=== PATIENT | male | born 1950 | race Caucasian/White ===

== ENCOUNTER → 2016-11-29 | Day surgery (SDC) | payer OTHER ==
--- NOTE | 2016-11-26 17:41 | History and Physical ---
History & Physical Date Nov 26, 2016. Chief Complaint 66-year-old gentleman here for follow-up on progressive dyspnea/granulomas/ right mainstem stenosis: History of Present Illness The patient is a 66 year old male with complaints of progressive dyspnea/ granulomas/right mainstem stenosis: Start 66-year-old gentleman here for follow-up on diffuse pulmonary findings with progressive dyspnea: Patient notes he is having progressive dyspnea on exertion and at times having difficulty with supine position. He is not expressing weight loss, fever, chills or hemoptysis. His is present today and we reviewed his last 3 bronchoscopies, CT scans/PET scans as well as history of melanoma and squamous cell carcinoma. PET-CT scan performed 10/02/2016 Thoracic findings 1. Multiple bilateral consolidations with perihilar predominance and increased FT TG avidity maximum SUV of 8.0 on the right lower lobe. Dx: diagnosis of sarcoid: Multiple bronchoscopies with biopsies of performed no definitive diagnosis of sarcoid has been made. Biopsies have shown non- necrotizing granulomatous inflammation. 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 03/18/2016: Initial diagnosis via biopsy 2. 03/22/2016: Cancer stage via PET/CT a. No obvious regional yasmani metastases b. Increased FDG avidity noted to be most likely secondary to sarcoidosis c. T4 NO M0 3. 04/19/2016-05/31/2016 a. Chemotherapy: Celuximab, 4. 04/25/2016-06/11/2016 a. Radiation with concurrent chemotherapy b. 69.96 Gy to right neck c. Sixty-nine Gy to right parotid gland Past Pulmonary History: PFT: (04/03/16) (07/19/2016) FEV1/FVC: 62 81 FEV1: 1.39/58% 1.68/55% FVC: 2.22/58% 2.06/54% T.09/84% 4.26/70% VC: 2.22/58% 2.18/57% RV: 2.87/122% 2.08/89% DLCO: 49% none DLCO/VA: 121% Bronchoscopy: 08/01/2015 ? 80% narrowing above the irwin CT thorax (07/27/2015) Report Only (Compared to 03/06/2015) 1) Grossly stable diffuse lymphadenopathy,peribronchial and peritracheal thickening 2) Spiculated mass lesions bilaterally 3) New small left sided pleural effusion/jyothi-hepatic/jyothi-spleenic ascites 4) Monitor her narrowing of the irwin are trachea above the irwin 80 percent PET scan: 03/21/2016 head/neck Past Medical/Surgical History Medical Problems: (1) Adenomatous colon polyp (2) Aortic valve stenosis (3) ASCVD (arteriosclerotic cardiovascular disease) (4) Diabetes (5) Gout (6) Hepatitis C (7) History of kidney disease (8) Hypertension (9) Melanoma (10) Sleep apnea, obstructive (11) Vitamin D deficiency Surgical Problems: (1) History of bronchoscopy (2) History of colonoscopy with polypectomy (3) History of cystoscopy (4) History of heart valve repair (5) History of hernia repair (6) S/P tonsillectomy and adenoidectomy Additional History Hepatic Disease: No Endocrine Disorder: Yes Kidney Disease: No Hypertension: No Heart Disease: Yes Bleeding Tendencies: No Infectious Diseases: Yes Allergies Coded Allergies: No Known Allergies (Unverified , 08/01/15) Home Medications Scheduled Allopurinol (Zyloprim), 100 MG PO BID Aspirin (Aspirin Ec), 325 MG PO DAILY Benzonatate (Tessalon Perles), 100 MG PO BID Colchicine (Colchicine *), 0.6 MG PO PRN Diphenhydramine Hcl (Benadryl), 25 MG PO BID Fenofibrate (Tricor), 145 MG PO DAILY Insulin Aspart (Novolog Flexpen), 0 SC ACHS Insulin Glargine (Lantus), 50 SC BID Metoprolol Tartrate (Lopressor), 12.5 MG PO BID Rosuvastatin Calcium (Crestor), 20 MG PO HS Physical Examination Skin: warm/dry, no rash Eyes: normal inspection, EOMI, sclerae normal ENT: normal ENT inspection, pharynx normal Head: normocephalic, atraumatic Neck: supple, no adenopathy, trachea midline Respiratory/Chest: + pertinent finding (Minimal wheezing bilaterally) Cardiovascular: regular rate, rhythm, no edema, no murmur Abdomen / GI: normal bowel sounds, non tender Back: normal inspection Extremities: normal inspection, normal range of motion Neurologic/Psych: no motor/sensory deficits, alert, normal reflexes, oriented x 3 Diagnosis 66-year-old gentleman here for follow-up on progressive dyspnea/granulomas/ right mainstem stenosis: ASA Classification: ASA Class II Plan of Treatment Bronchoscopy, conscious sedation and bronchial lavage
[~2016-11-29] VITALS: Ht 172.7 cm; Wt 105.0 kg
[~2016-11-29] MED LIST: ALLO100T PO; AMOX1TAB42 PO; ASPI325T39 PO; ASPI81TA28 PO; BENZ100C6 PO; CALC667C4 PO; CLC6 PO; COLC0.6T54 PO; DIPH25TA24 PO; FENO145T26 PO; INSDGI SC; INSU1.2I SQ; IPRA1AER2 INH; LPR25 PO; NVLG SQ; NVLGIPEN SC; PHOSPHORUS BINDER PO; PRD20 PO; ROSU20TA PO; tujeo
[2016-11-29 08:39] VITALS: BP 163/62; PULSE 56; TEMP 36.7; O2SAT 92; Ht 172.7 cm; Wt 105.0 kg
--- NOTE | 2016-11-29 09:16 | History & Physical Bridge Note ---
H&P Re-Evaluation Bridge Note: I have examined the patient, reviewed the History & Physical and in the interval since the performance of the History & Physical I have noted the following changes of clinical significance: No changes noted
--- NOTE | 2016-11-29 09:17 | Procedure Note ---
Pre-Mod Sedation Assessment General Date of Moderate Sedation: Nov 29, 2016. Vital Signs: Vital Signs Past 12 Hours Date Time Temp Pulse Resp B/P Pulse Ox O2 Delivery O2 Flow Rate FiO2 11/29/16 08:39 36.7 56 18 163/62 92 Room Air Pre-Sedation Airway Assessment Oral Cavity: WNL Smoking Status: Former Smoker Mallampati Classification: Class I ASA Classification: Class II Procedure Planning Contraindications-for Mod Sed: None Yes Notes The planned sedation has been discussed with the patient and consent obtained. I have identified the patient, determined the appropriateness of sedation and have assessed the patient immediately prior to the procedure. All medicine(s) and interventions are by my order.
--- NOTE | 2016-11-29 11:00 | DIAGNOSTIC IMAGING REPORT ---
BILATERAL CHEST ULTRASOUND TO EVALUATE FOR PLEURAL EFFUSIONS CLINICAL HISTORY: Pleural effusions. COMPARISON STUDY: PET/CT October 02, 2016. FINDINGS: Sonography of the right hemithorax demonstrated a large right pleural effusion with estimated volume of 1810 cc. A suitable right rib interspace was marked for possible subsequent thoracentesis. Sonography of the left hemithorax demonstrated a moderate to large left pleural effusion with estimated volume of 709 cc. A suitable left rib interspace was marked for possible subsequent thoracentesis. IMPRESSION: 1. Large right pleural effusion. Suitable right rib interspace marked for possible thoracentesis. 2. Moderate to large left pleural effusion. Suitable left rib interspace marked for possible thoracentesis. Electronically signed by: Anson Chiang M.D. 11/29/2016 10:59 AM Dictated Date/Time: 11/29/2016 10:58 AM
[2016-11-29 12:48] VITALS: BP 115/47; PULSE 58; O2SAT 95
--- NOTE | 2016-11-29 12:53 | Procedure Note ---
Procedure Note Procedure: Right sided thoracentesis Procedure time out: Side/site verified, patient ID confirmed, sterile procedure used Consent obtained: Written and obtained per Dr. Ng Time of procedure: 12:30pm Performed by: Physician drive tester Indications: Diagnostic therapeutic Contraindications: None Description: Platelets and INR were checked on 11/20/16 and were acceptable to proceed with thoracentesis. Consent was obtained by Dr. Ng prior to the procedure. Risks were again reviewed with the patient agreed to proceed with the procedure. A bedside ultra sound was used to confirm adequate site and compared to previous ultra sound obtained in radiology. A timeout was performed The site was prepped with chlorhexidine and a sterile fenestrated drape was applied. Using sterile technique, a wheal was made using 1% lidocaine. When the patient was adequately anesthetized, a needle was advanced using negative pressure until a pleural flash was obtained. Lidocaine was then administered in the pleural space. A small incision was then made and using negative pressure, a needle with an overlying catheter was advanced until a a pleural flash was obtained. The catheter was then advanced over the needle to the hub without difficulty. A 60 mL syringe was used to collect pleural fluid to be sent to the lab for analysis. Approximately 1100 mL of fluid was collected. Blood pressure, pulse, and pulse oximetry was monitored throughout the entire procedure and remained stable. There was no blood loss. The patient tolerated the procedure well. A post procedure CXR was obtained and showed no evidence of pneumothorax. Pleural fluid was sent to the laboratory for analysis. Results were communicated to Dr. Ng.
--- NOTE | 2016-11-29 12:54 | OPERATIVE REPORT ---
DATE OF OPERATION: 11/29/2016 PROCEDURE: Fiberoptic bronchoscopy. SURGEON: Dr. Ng. INDICATIONS: Severe mediastinal and hilar lymphadenopathy with tracheal and right and left tracheobronchial narrowing in a patient with a history of sarcoidosis. PROCEDURE: The patient was evaluated in the medical treatment unit and transferred over to the radiology suite to undergo bronchoscopic evaluation. It became very clear at that point in time that the patient would not tolerate a bronchoscopic procedure utilizing conscious sedation. He became progressively more orthopneic and had to sit at 90 degrees in order to breathe better. I reviewed the CT/PET scan done on 10/02/2016 compared to previous films and it was quite amazing not only the degree of areas of bilateral consolidation with mediastinal and hilar adenopathy but the presence of bilateral pleural effusions, right greater than left with compressive atelectasis and the degree of narrowing in the distal trachea and right and left main stem bronchi, especially the right side. The decision was made to cancel the bronchoscopic procedure and evaluate patient via ultrasound to undergo thoracentesis. Ultrasound done immediately following the aborted procedure showed a large right pleural effusion estimated at 1800 mL and moderate to large left pleural effusion estimated at 700 mL. It was felt that the patient was in CHF with 3-4+ pitting edema as well and Butch Ledesma was to proceed with thoracentesis on the right side for both diagnostic purposes and therapeutic relief. Dr. Roper had seen Mr. Heredia one day prior to the procedure and had decided against mediastinoscopy and favored a right thoracic approach for both biopsy and lymph node resection and consideration of placing a Y stent at this point in time and improve patient's respiratory status. I attest to the content of the Intraoperative Record and any orders documented therein. Any exceptio ns are noted below.
[2016-11-29 13:06] VITALS: BP 131/45; PULSE 57; O2SAT 94
--- NOTE | 2016-11-29 13:18 | DIAGNOSTIC IMAGING REPORT ---
CHEST ONE VIEW PORTABLE CLINICAL HISTORY: Status post right thoracentesis. Cough. Shortness of breath. COMPARISON STUDY: CT October 02, 2016 and chest ultrasound performed earlier today. FINDINGS: There is no pneumothorax following right thoracentesis. There is a moderate left pleural effusion. Mild right infrahilar opacity likely reflects atelectasis. There is left basilar opacity. Median sternotomy wires are noted as well as a prosthetic aortic valve. There is no evidence of pulmonary edema. Bilateral hilar prominence is again noted. IMPRESSION: 1. No pneumothorax following right thoracentesis. No residual right pleural effusion identified. 2. Moderate left knee effusion. 3. Right infrahilar opacity which likely reflects atelectasis. Electronically signed by: Anson Chiang M.D. 11/29/2016 1:17 PM Dictated Date/Time: 11/29/2016 1:14 PM
[2016-11-29 13:25] VITALS: BP 154/58; PULSE 57; TEMP 36.8; O2SAT 95
--- NOTE | 2016-11-29 13:27 | Discharge Instructions ---
Discharge Instructions Admission Reason for Admission: Cough, Shortness Of Breath Discharge Discharge Diagnosis / Problem: Bilateral pleural effusions Discharge Goals Goal(s): Diagnostic testing, Therapeutic intervention Activity Recommendations Activity Limitations: resume your previous activity Driving or Machine Use: resume 1 day after discharge Weightbearing Status: Left weightbearing Resume normal activity tomorrow . Instructions / Follow-Up Instructions / Follow-Up Leave band aids on until noon tomorrow No shower or bathing until tomorrow afternoon No bathing for [address] Ng's office staff will call you with an appointment to see Dr. Roper [facility] Diet Patient's [facility] diet: Diabetes Type 2 Diet Discharge Diet Recommended Diet: AHA Diet (Heart Healthy), Diabetes Type 2 Diet Fluid Restriction: None Procedures Procedures Performed: Right sided thoracentesis Pending Studies Studies pending at discharge: no Medical Emergencies . Who to Call and When: Medical Emergencies: If at any time you feel your situation is an emergency, please call 911 immediately. You may call Dr. Ng's office at [phone] with any questions . Non-Emergent Contact Non-Emergency issues call your: Primary Care Provider Contact Number: [phone] Call Non-Emergent contact if: you have a fever, your pain is worsening, wound has increased drainage . . "Provider Documentation" section prepared by Butch Ledesma. VTE Core Measure Inpt VTE Proph given/why not?: Contraindicated (Invasive thoracentesis)
[2016-11-29 13:44] LABS: PLEURAL FLUID TOTAL PROTEIN 2.9 g/dl
[2016-11-29 13:51] LABS: PLEURAL FLUID APPEARANCE CLOUDY; PLEURAL FLUID COLOR AMBER; PLEURAL FLUID MONONUC RELAT 97.8 %; PLEURAL FLUID POLYNUC 2.2 %; PLEURAL FLUID SOURCE RIGHT LUNG; PLEURAL FLUID WBC (A) 1605 /uL
== END | disposition home or self-care (01) ==
LOC: C.ACU 07:22
PROVIDERS: ATTEND Internal Medicine Pulmonary Disease
DX: J90 Pleural effusion, not elsewhere classified (principal); R06.00 Dyspnea, unspecified; I50.9 Heart failure, unspecified; R59.0 Localized enlarged lymph nodes; J98.11 Atelectasis; I10 Essential (primary) hypertension; Z79.899 Other long term (current) drug therapy; E11.9 Type 2 diabetes mellitus without complications; Z79.4 Long term (current) use of insulin

== ENCOUNTER → 2016-12-03 | Outpatient (CLI) | payer OTHER ==
[~2016-12-03] MED LIST changes: -ASPI325T39 PO; -BENZ100C6 PO; -DIPH25TA24 PO; -FENO145T26 PO; -INSDGI SC
--- NOTE | 2016-12-03 10:41 | DIAGNOSTIC IMAGING REPORT ---
CHEST 2 VIEWS ROUTINE CLINICAL HISTORY: D86.9 [id number] Lung [id number] Pleural [id number] COMPARISON STUDY: 11/29/2016 FINDINGS: Interval development of trace amount pleural fluid right base. Several calcific granulomas right mid and lower lung are stable. Unchanging loculated fluid versus pleural thickening left base. Subtle improvement in aeration medial left base. No pneumothorax. Improved right infrahilar infiltrative change. IMPRESSION: Moderately improved exam with improved aeration medial left base and right infrahilar region. Trace pleural fluid right lateral costophrenic angle. Unchanging loculated effusion versus pleural thickening left base laterally Electronically signed by: Karl Corrales M.D. 12/03/2016 10:40 AM Dictated Date/Time: 12/03/2016 10:38 AM
== END | disposition home or self-care (01) ==
LOC: C.RAD1850 10:24
PROVIDERS: ATTEND Surgery
DX: D86.9 Sarcoidosis, unspecified (principal); R91.8 Other nonspecific abnormal finding of lung field; J90 Pleural effusion, not elsewhere classified

== ENCOUNTER 2016-12-08 22:06 | Emergency (ER) | payer OTHER ==
[~2016-12-08] VITALS: Ht 172.7 cm; Wt 109.4 kg
[~2016-12-08 22:06] MED LIST changes: -AMOX1TAB42 PO; -CALC667C4 PO; -COLC0.6T54 PO; -INSU1.2I SQ; -IPRA1AER2 INH; -NVLG SQ; -PHOSPHORUS BINDER PO; -PRD20 PO
[2016-12-08 22:07] VITALS: TEMP 36.6; Ht 172.7 cm; Wt 109.4 kg
[2016-12-08] MEDS ORDERED: OXYMETAZOLINE HCL 0.05% NA SPR 15 ML BTL ONE (22:13)
[2016-12-08] MEDS ORDERED: LIDO/EPINEPHRINE/SOD BICARB 20 ML VIAL INFIL ONE (22:54)
[2016-12-08] MEDS ORDERED: XYLOCAINE 1%/SOD BICARB 20 ML VIAL INFIL ONE (22:54)
[2016-12-08] MEDS ORDERED: SILVER NITR/POTASSIUM NITRATE 10 APPLICATOR PACK ONE (23:04)
[2016-12-08] MEDS ORDERED: COLC0.6T54 PO (23:38)
[2016-12-08] MEDS ORDERED: INSU1.2I SQ ×2 (23:44)
[2016-12-09 00:09] VITALS: BP 146/65; PULSE 72; O2SAT 98
--- NOTE | 2016-12-09 02:28 | EMERGENCY ROOM VISIT NOTE ---
History Report prepared by Carlos: Hailey Theodore Under the Supervision of: Dr. Ron Calderon M.D. First contact with patient: 22:36 Chief Complaint: NOSE BLEED (MINOR) Stated Complaint: NOSEBLEED History of Present Illness The patient is a 66 year old male who presents to the Emergency Room with complaints of persistent nosebleed starting 6 hours ago. The bleeding had initially started on the left side. The patient has a history of nosebleeds but reports his current symptoms to be more severe than normal. He denies any other areas of bleeding and bruising. He also complains of nausea and a loss of appetite. His last peritoneal dialysis treatment was yesterday. He is not on any blood thinners. The patient has a history of squamous cell carcinoma. Pt denies LOC, headache, fevers, chills, diaphoresis, visual changes, recent sinus drainage, neck pain, chest pain, breathing difficulties, vomiting, abdominal pain, back pain, melena, hematochezia, urinary symptoms, numbness, weakness, lymphadenopathy, rash, or other complaints. Source of History: patient Onset: 6 hours ago Position: nose Quality: other (nosebleed) Timing: other (persistent) Associated Symptoms: + nausea Review of Systems See HPI for pertinent positives and negatives. A total of ten systems were reviewed and were otherwise negative. Past Medical & Surgical Medical Problems: (1) Adenomatous colon polyp (2) Aortic valve stenosis (3) ASCVD (arteriosclerotic cardiovascular disease) (4) Diabetes (5) Gout (6) Hepatitis C (7) History of kidney disease (8) Hypertension (9) Melanoma (10) Sleep apnea, obstructive (11) Vitamin D deficiency Surgical Problems: (1) History of bronchoscopy (2) History of colonoscopy with polypectomy (3) History of cystoscopy (4) History of heart valve repair (5) History of hernia repair (6) S/P tonsillectomy and adenoidectomy Family History Diabetes mellitus Heart disease Hypertension Social History Smoking Status: Never Smoker Alcohol Use: none Drug Use: none Marital Status: Housing Status: lives with family Occupation Status: retired Current/Historical Medications Scheduled Allopurinol (Zyloprim), 100 MG PO BID Aspirin (Aspirin Ec), 81 MG PO DAILY Insulin Aspart (Novolog Flexpen), 0 SC ACHS Insulin Glargine (Toujeo Solostar), 26 UNITS SQ QAM Insulin Glargine (Toujeo Solostar), 30 UNITS SQ QPM Metoprolol Tartrate (Lopressor), 12.5 MG PO BID Rosuvastatin Calcium (Crestor), 40 MG PO HS Scheduled PRN Colchicine (Colchicine), 0.6 MG PO DAILY PRN for flare Allergies Coded Allergies: No Known Allergies (Unverified , 12/08/16) Physical Exam Vital Signs Date Time Temp Pulse Resp B/P Pulse Ox O2 Delivery O2 Flow Rate FiO2 12/09/16 00:09 72 20 146/65 98 Room Air 12/09/16 00:03 72 20 173/70 98 Room Air 12/08/16 22:07 36.6 63 20 145/73 95 Room Air Physical Exam GENERAL: Awake, alert, well-appearing, in no distress HENT: Normocephalic, atraumatic. Oropharynx unremarkable. Linear abrasion-like krzysztof to the left septum, with some slow bleeding present. EYES: Normal conjunctiva. Sclera non-icteric. NECK: Supple. No nuchal rigidity. FROM. No JVD. RESPIRATORY: Clear to auscultation. CARDIAC: Regular rate, normal rhythm. Extremities warm and well perfused. ABDOMEN: Soft, non-distended. No tenderness to palpation. No rebound or guarding. No masses. MUSCULOSKELETAL: Atraumatic NEURO: Normal sensorium. No sensory or motor deficits noted. SKIN: No rash or jaundice noted. Medical Decision & Procedures Medications Administered Medications (Trade) Dose Ordered Sig/Romulo Route Start Time Stop Time Status Last Admin Dose Admin Oxymetazoline HCl (Afrin 0.05% Nasal Ehrhardt) 75 sprays STK-MED ONCE .ROUTE 12/08/16 22:13 12/08/16 22:14 DC 12/08/16 22:19 75 SPRAYS Procedure Anterior Nasal Cautery Indication: Nosebleed Verbal consent obtained. Risks and benefits were explained with the usual customary discussion. A time out was taken. Clots were removed with suction. Atomized 1 ml 1% buffered lidocaine. Afrin and silver nitrate was applied. Fibrillar was placed. The patient tolerated this well. Hemostasis was achieved. No complications. ED Course 2235: The patient was evaluated in room A11B. A complete history and physical exam was performed. 2254: Clots were removed. Atomized lidocaine and Afrin was applied. 2308: Silver Nitrate was applied. 2309: Fibrillar was placed. 0025: I reevaluated the patient who is no longer bleeding. Discussed results and discharge instructions: He verbalized understanding and agreement. The patient is ready for discharge. Medical Decision Prior records/ancillary studies reviewed. Triage Nursing notes reviewed and agree them. Additional history obtained from his . The patient's history was concerning for epistaxis. Differential diagnosis: Etiologies such as spontaneous bleed, coagulopathy, traumatic injury, fracture, septal hematoma, posterior epistaxis as well as other pathologies were entertained. Physical examination findings: As above. Anterior bleeding source. ER treatment provided: Direct pressure and then nasal suctioning. Intranasal Afrin Silver nitrate cautery On reassessment the patient felt better. No additional bleeding. Diagnostics interpreted by me: None ordered The patient has anterior epistaxis that was treated with cautery. His left naris is significant a smaller than the right. Additional packing, fibular, or other measures to prevent rebleeding would be difficult. I discussed conservative management with the patient. He'll use a humidifier, saline mist, and follow-up with ENT. He felt comfortable with conservative management if he worsens in any way she will come back to the Emergency Room for reevaluation. By the evaluation outlined above emergent etiologies such as coagulopathy, traumatic injury, fracture, septal hematoma, posterior epistaxis, as well as others were deemed relatively unlikely. The patient and were informed about the findings as listed above. All questions were answered and they were pleased with the treatment. Return instructions were outlined and the patient was discharged in stable condition. Outpatient prescription management: None Referral: The patient was referred to ENT The chart was completed utilizing [employer] Speech voice recognition software. Grammatical errors, random word insertions, pronoun errors, and incomplete sentences are an occasional consequence of this system due to software limitations, ambient noise, and hardware issues. Any formal questions or concerns about the content, text, or information contained within the body of this dictation should be directly addressed to the physician for clarification. Impression Primary Impression: Anterior epistaxis Scribe Attestation The scribe's documentation has been prepared under my direction and personally reviewed by me in its entirety. I confirm that the note above accurately reflects all work, treatment, procedures, and medical decision making performed by me. Departure Information Dispostion Home / Self-Care Referrals Rut, Ron E.,III,M.D. (PCP) Los Zhao MD Forms HOME CARE DOCUMENTATION FORM, IMPORTANT VISIT INFORMATION, WORK / SCHOOL INSTRUCTIONS Patient Instructions My [facility] Additional Instructions EPISTAXIS (NOSE BLEED) INSTRUCTIONS: Avoid scratching, rubbing, picking, or blowing your nose. The veneer drier feeder your nasal passages the more likely they are to bleed. The following two products are available [id number] at most drug stores/pharmacies. [place] Ehrhardt nasal spray or similar generic saline spray to keep the nose moist 3 to 4 times a day. Apply Greenup gel 2-3 times daily to the nostrils to keep them moist. If bleeding recurs apply 2 sprays of Afrin and direct pressure for an uninterrupted 20 minutes with the nasal clip. On and off pressure is much less effective because it will disturb the clots that are forming. If the bleeding is still a problem after 20 minutes or is so heavy despite the pressure return to the emergency department. Continue current medications. Follow-up with ENT. The number is listed below under Dr. Graham. Call the office tomorrow Follow-up with your primary care physician in 2 to 3 days for a recheck of your current condition.
[2016-12-30] MEDS ORDERED: PRD20 PO (09:52)
[2016-12-30] MEDS ORDERED: LPR25 PO (09:52)
[2017-01-16] MEDS ORDERED: AMOX1TAB42 PO (11:30)
== END 2016-12-09 00:39 | disposition home or self-care (01) ==
LOC: C.EDB 22:06 → C.EDA 12-09 00:39
DX: R04.0 Epistaxis (principal); E11.9 Type 2 diabetes mellitus without complications; I25.10 Atherosclerotic heart disease of native coronary artery without angina pectoris; B19.20 Unspecified viral hepatitis C without hepatic coma; N28.9 Disorder of kidney and ureter, unspecified; Z99.2 Dependence on renal dialysis; Z85.820 Personal history of malignant melanoma of skin; G47.30 Sleep apnea, unspecified; E55.9 Vitamin D deficiency, unspecified; Z79.82 Long term (current) use of aspirin; Z79.4 Long term (current) use of insulin; Z79.899 Other long term (current) drug therapy

== ENCOUNTER 2016-12-17 16:01 | Inpatient (IN) | payer OTHER ==
[~2016-12-17] VITALS: Ht 170.2 cm; Wt 98.1 kg
[2016-12-17] VITALS (7 sets, daily range): BP systolic 113–143; BP diastolic 52–87; PULSE 45–65; TEMP 36.8–37.2; O2SAT 90–97; Ht 170.2 cm; Wt 98.1 kg
[~2016-12-17 16:01] MED LIST changes: -AMOX1TAB42 PO; -CALC667C4 PO; -IPRA1AER2 INH; -NVLG SQ; -PHOSPHORUS BINDER PO; -PRD20 PO
[2016-12-17] MEDS ORDERED: POLYETHYLENE (MIRALAX) 17 GM PACK PO PRN (18:30)
[2016-12-17] MEDS ORDERED: MAGNESIUM HYDROXIDE SUSP 30 ML UDC PO PRN (18:30)
[2016-12-17] MEDS ORDERED: ACETAMINOPHEN 325 MG TAB PO PRN (18:30)
[2016-12-17] MEDS ORDERED: ALUMINUM/MAGNESIUM/SIMETH (MAALOX MAX) 30 ML UDC PO PRN (18:30)
[2016-12-17] MEDS ORDERED: ONDANSETRON INJ 2 MG/ML 2 ML VIAL IV PRN (18:30)
[2016-12-17] MEDS ORDERED: GLUCOSE 40% GEL 15 GM TUBE PO PRN (18:45)
[2016-12-17] MEDS ORDERED: DEXTROSE 50% 50 ML SYR IV PRN (18:45)
[2016-12-17] MEDS ORDERED: GLUCAGON FOR INJ 1 MG VIAL SQ PRN (18:45)
[2016-12-17] MEDS ORDERED: GLUCOSE 10 TABS/TUBE PO PRN (18:45)
[2016-12-17] MEDS ORDERED: PHARMACY GLYCEMIC MGMT CONSULT SCH (18:57)
--- NOTE | 2016-12-17 19:00 | History and Physical ---
History & Physical Date & Time of Service: Dec 17, 2016 at 18:39 Chief Complaint: Hypoxia Primary Care Physician: Ron Bettencourt III, M.D. 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 of aortic valve replacement, mainstem bronchus stenosis, HTN, HLD was sent over by pulmonology, Dr. Vanessa's office. He has been in and out of the hospital due to worsening shortness of breath, progressive dyspnea - has a long standing history of granulomatous disease of the lung; found to have hilar adenopathy, mainstem bronchus stenosis, and large pleural effusions. He was seen here by Butch Ledesma and had a thoracentesis - states he felt better after the fluid was removed, but progressively worsened. Had a CT and PET scan done on 12/11/16 which showed bilateral hilar and mediastinal adenopathy with scattered pulmonary nodules as well as infra diaphragmatic lymphadenopathy. Also showed stable large bilateral pleural effusions with partial compressive atelectasis of the lungs. I saw him today in room 103; he has dyspnea and cannot complete sentences; cannot take deep breath in - he states he feels okay when seated up and with oxygen on. Past Medical/Surgical History Medical Problems: (1) Adenomatous colon polyp Status: Chronic (2) Aortic valve stenosis Permanent Comment: s/p AVR Status: Chronic (3) ASCVD (arteriosclerotic cardiovascular disease) Status: Chronic (4) Diabetes Status: Chronic (5) Gout Status: Chronic (6) Hepatitis C Permanent Comment: s/p treatment > 30 years ago Status: Chronic (7) History of kidney disease Status: Chronic (8) Hypertension Status: Chronic (9) Melanoma Permanent Comment: neck - s/p removal Status: Resolved (10) Sleep apnea, obstructive Status: Chronic (11) Vitamin D deficiency Status: Chronic Surgical Problems: (1) History of bronchoscopy Status: Resolved (2) History of colonoscopy with polypectomy Status: Chronic (3) History of cystoscopy Status: Resolved (4) History of heart valve repair Permanent Comment: aortic valve replacement by Dr. Linus Hines - [facility] – [place] in 2008 Status: Chronic (5) History of hernia repair Permanent Comment: right inguinal - age 6 Status: Chronic (6) S/P tonsillectomy and adenoidectomy Status: Chronic Family History Diabetes mellitus Heart disease Hypertension Social History Smoking Status: Never Smoker Drug Use: none Marital Status: Housing status: lives with family Occupational Status: retired Multi-Drug Resistant Organisms History of MDRO: Yes Type of MDRO: MRSA Allergies Coded Allergies: No Known Allergies (Unverified , 12/08/16) Home Medications Scheduled Allopurinol (Zyloprim), 100 MG PO BID Aspirin (Aspirin Ec), 81 MG PO DAILY Insulin Aspart (Novolog Flexpen), 0 SC ACHS Insulin Glargine (Toujeo Solostar), 26 UNITS SQ QAM Insulin Glargine (Toujeo Solostar), 30 UNITS SQ QPM Metoprolol Tartrate (Lopressor), 12.5 MG PO BID Rosuvastatin Calcium (Crestor), 40 MG PO HS Scheduled PRN Colchicine (Colchicine), 0.6 MG PO DAILY PRN for flare Review of Systems Constitutional: No chills, No fatigue, No fever, No sweats, No weakness, No weight loss Respiratory: + dyspnea at rest, + dyspnea on exertion, + shortness of breath, + wheezing, No cough, No hemoptysis, No sputum Cardiovascular: + edema, + orthopnea, No chest pain, No palpitations Abdomen: No constipation, No diarrhea, No nausea, No pain, No vomiting Musculoskeletal: No joint pain Genitourinary - Male: No dysuria, No hematuria, No urinary frequency, No urinary urgency Psychiatric: No depression symptoms Endocrine: No excessive thirst, No fatigue Allergic / Immunologic: No environmental allergies, No seasonal allergies Physical Exam Vital Signs Date Time Temp Pulse Resp B/P Pulse Ox O2 Delivery O2 Flow Rate FiO2 12/17/16 17:30 37.2 65 22 113/87 Nasal Cannula 2.0 General Appearance: + moderate distress (respiratory distress) Head: normocephalic, atraumatic Eyes: normal inspection ENT: hearing grossly normal Neck: supple Respiratory/Chest: + respiratory distress, + decreased breath sounds, + accessory muscle use, + wheezing Cardiovascular: regular rate, rhythm, no murmur Abdomen/GI: normal bowel sounds, non tender, soft, + hernia Extremities/Musculoskelatal: + pertinent finding (+2 pitting edema b/l LE) Neurologic/Psych: no motor/sensory deficits, alert, normal mood/affect Skin: normal color Lymphatic: no adenopathy Diagnostics Laboratory Results Results Past 24 Hours Test 12/17/16 17:52 12/17/16 18:29 Range/Units Bedside Glucose 82 70-99 mg/dl Microbiology Results 12/17/16 MRSA DNA Surveillance Screen, Received Pending Impression Assessment and Plan This is a 66 year old male with PMH of ESRD on peritoneal dialysis, granulomatous lung disease/sarcoidosis, 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 of aortic valve replacement, mainstem bronchus stenosis, HTN, HLD Acute Respiratory Failure secondary to Large Bilateral Pleural Effusions patient had a PET scan on 12/11 showing large pleural effusions he has ESRD and does peritoneal dialysis daily has had thoracentesis two weeks prior with good results plan for the patient is to give oxygen as needed nebulizers around the clock and as needed dialysis with fluid removal, check CXR today and after dialysis may need to convert to HD consulted nephrology and pulmonology as per pulm - we will hold off on steroid use until after fluid removed Granulomatous Lung Disease/Sarcoidosis Hilar/Mediastinal and Diaphragmatic Lymphadenopathy chronic issues related to this lung disorder bronchoscopy attempted in the past, but as per records, failed? due to patient's condition, this may be difficult for now, nebulizers and O2 PRN hold off on steroids pulmonology consulted for further input ESRD on PD peritoneal dialysis nightly fluid overload likely present; +edema, +pleural effusions will consult nephro check electrolytes Insulin Dependent DM2 will check Ha1c in AM consult pharmacy started 10 units Lantus BID (uses Toujeo at home) sliding scale added DVT ppx subq heparin DNR as per conversation with patient Advanced Directives Existing Living Will: Yes Existing Power of Stonework Tracer: Yes VTE Prophylaxis VTE Risk Assessment Done? Y/N: Yes Risk Level: Moderate
[2016-12-17 20:22] LABS: INR 1.1 (0.9-1.1)
[2016-12-17 20:51] LABS: CALCIUM 8.1 mg/dl (8.5-10.1); CREATININE 6.4 mg/dl (0.60-1.40); MAGNESIUM 1.7 mg/dl (1.8-2.4); POTASSIUM 5.3 mmol/L (3.5-5.1)
[2016-12-17] MEDS ORDERED: INSULIN GLARGINE SOLOSTAR 100 UNITS/ML 3 ML PEN SC SCH (21:00)
[2016-12-17] MEDS: HEPARIN SOD 5000 UNIT/0.5 ML CARP SQ SCH (21:00)
[2016-12-17 21:07] LABS: BASO % 0.5 %; BASO ABS # 0.03 K/uL (0-0.2); COMPLETE YES; EOS % 1.4 %; HEMATOCRIT 32.9 % (42-52); IG% 0.2 %; LYMPH % 13.1 %; LYMPH ABS # 0.76 K/uL (1.2-3.4); MEAN CORPUSCULAR HEMOGLOBIN 29.9 pg (25-34); MEAN PLATELET VOLUME 9.6 fL (7.4-10.4); MONO % 6.2 %; NEUT % 78.6 %; PLATELET COUNT 87 K/uL (130-400); PLT ESTIMATE DECREASED; RED BLOOD COUNT 3.74 M/uL (4.7-6.1); WHITE BLOOD COUNT 5.79 K/uL (4.8-10.8)
[2016-12-17] MEDS: ALBUT/IPRATROP 3MG/0.5MG NEB 3 ML VIAL INH SCH (21:40)
--- NOTE | 2016-12-17 22:01 | DIAGNOSTIC IMAGING REPORT ---
CHEST ONE VIEW PORTABLE CLINICAL HISTORY: Respiratory failure. Sarcoidosis. COMPARISON STUDY: PET/CT December 11, 2016 and chest radiograph December 17, 2016 at 11:33 AM FINDINGS: Note is made of median sternotomy wires and a prosthetic aortic valve. Cardiomegaly is unchanged. There is no pneumothorax. Moderate left and small right pleural effusions persist. Reticulonodular interstitial thickening is unchanged. IMPRESSION: 1. Persistent moderate left and small right pleural effusions. 2. No significant change in reticulonodular interstitial thickening, likely chronic. No radiographic evidence for overt pulmonary edema. Electronically signed by: Anson Chiang M.D. 12/17/2016 10:00 PM Dictated Date/Time: 12/17/2016 9:56 PM
[2016-12-17] MEDS: INSULIN ASPART 100 UNITS/ML 3 ML PEN SC SCH (22:20)
[2016-12-17] MEDS: ROSUVASTATIN CALCIUM 20 MG TAB PO SCH (22:21)
[2016-12-17] MEDS: METOPROLOL TARTRATE 25 MG TAB PO SCH (22:21)
[2016-12-18] VITALS (13 sets, daily range): BP systolic 137–181; BP diastolic 57–93; PULSE 45–80; TEMP 36.7–37.1; O2SAT 94–99
[2016-12-18] MEDS ORDERED: INSULIN ASPART 100 UNITS/ML 3 ML PEN SC SCH (02:00)
[2016-12-18 06:59] LABS: MEAN CELL VOLUME 88.5 fL (80-100); MEAN CORPUSCULAR HGB CONC 33.9 g/dl (32-36); RED BLOOD COUNT 3.73 M/uL (4.7-6.1); WHITE BLOOD COUNT 4.32 K/uL (4.8-10.8)
[2016-12-18 07:14] LABS: MEAN PLATELET VOLUME 10.4 fL (7.4-10.4); PLATELET COUNT 97 K/uL (130-400)
[2016-12-18] MEDS: ALBUT/IPRATROP 3MG/0.5MG NEB 3 ML VIAL INH SCH ×4 (07:16→19:13)
[2016-12-18 07:37] LABS: BUN/CREATININE RATIO 8.1 (10-20); CALCIUM 8.4 mg/dl (8.5-10.1); CREATININE 6.6 mg/dl (0.60-1.40); MAGNESIUM 1.9 mg/dl (1.8-2.4)
[2016-12-18 08:38] LABS: HEPATITIS B AB POS
[2016-12-18 09:03] LABS: ESTIMATED AVERAGE GLUCOSE 117 mg/dl; HA1C FLAG Normal (Normal)
[2016-12-18] MEDS: HEPARIN SOD 5000 UNIT/0.5 ML CARP SQ SCH ×2 (09:56→21:00)
--- NOTE | 2016-12-18 09:59 | NEPHROLOGY CONSULTATION ---
DATE OF CONSULTATION: 12/18/2016 DATE OF CONSULTATION: 12/18/2016. ATTENDING OF RECORD: Dr. Stearns. REASON FOR CONSULTATION: Peritoneal dialysis. HISTORY OF PRESENT ILLNESS: This is a 66-year-old male with significant history of end-stage renal disease on peritoneal dialysis who was using reds, but ran out and has been using all greens, has been trying to restrict his fluids more. The patient has had a decreased appetite for about a week and started having nonproductive cough over the weekend with worsening shortness of breath. Came to see pulmonary who directly admitted the patient secondary to hypoxia and volume overload. The patient does have an underlying pulmonary disease which is presumed granulomatous lung disease/sarcoidosis which has been slowly progressively worsening. The patient also is diabetic with a history of aortic valve replacement as well. The patient did have a significant melanoma of the neck requiring surgery and radiation and recently got a PET scan last week and has been following with physicians in [place] for this. The PET scan done on 12/11/2016 showed bilateral hilar and mediastinal adenopathy with scattered pulmonary nodules as well as infradiaphragmatic lymphadenopathy as well as stable large bilateral pleural effusions with partial compressive atelectasis of the lungs. The chest x-ray done on the showed persistent moderate left and small right pleural effusions. No significant change in the reticulonodular interstitial thickening, likely chronic. No radiographic evidence for pulmonary edema. Plan was to consult pulmonary critical care for possible thoracentesis. The patient was given peritoneal dialysis last night using all reds to maximize fluid removal. Does have significant swelling in his legs. PAST MEDICAL HISTORY: End-stage renal disease, anemia of renal failure. No longer using Procrit with significant history of melanoma which was invasive requiring radiation treatments, diabetes, gout, aortic stenosis status post aortic valve replacement, progressive granulomatous lung disease/sarcoidosis involving the main stem bronchus, which is narrowing, sleep apnea, hypertension, history of hepatitis C treated over 30 years ago. PAST SURGICAL HISTORY: Aortic valve replacement in 2008, tonsillectomy, PD catheter placement, surgery of the melanoma involving the right ear. FAMILY HISTORY: Significant for diabetes. SOCIAL HISTORY: No smoking. No drugs. No alcohol. He is and lives at home with . CURRENT MEDICATIONS: Aspirin 81 mg a day, Lantus subQ q. 12, heparin 5,000 units subQ q. 12, Lopressor 12.5 mg p.o. b.i.d., Crestor 40 mg at night. REVIEW OF SYSTEMS: Positive cough. Positive shortness of breath. Positive fatigue. Positive leg swelling. No chest pain, no nausea, vomiting, no diarrhea or constipation, no headaches, no blurry vision, no dysphagia. No itching or rash. Positive decreased appetite. All other review of systems otherwise negative. PHYSICAL EXAMINATION: VITAL SIGNS: Temperature 36.9, pulse 71, respiratory rate 14, blood pressure 137/66, satting 96% on 2 liters. GENERAL: Awake, alert, oriented x3. EYES: No scleral icterus. EARS, NOSE, THROAT: Moist mucous membranes with resolving scarring of his right ear much improved. NECK: Supple. PULMONARY: Decreased breath sounds at the bases. No significant wheezing noted. CARDIAC: Regular rate and rhythm. ABDOMEN: Bowel sounds positive, soft, nontender, positive PD catheter in place. EXTREMITIES: +2 pitting edema. NEUROLOGICALLY: Nonfocal. DERMATOLOGY: No rash or ulcers noted. LABORATORIES: Sodium level is 139, potassium is 5, chloride is 102, bicarb is 28, BUN is 54, creatinine 6.6, glucose 185, calcium is 8.4, mag 1.9. White count 4.3, H\T\H 11.2 and 33, platelet count is 97. INR is 1.1. IMPRESSION AND PLAN: 1. End stage renal disease/peritoneal dialysis. Will continue the cycler overnight using all reds and leave dry during the day. The patient is adamant that he does not want hemodialysis. I have spoken to him in the past about volume overload issues and restricting his fluids better to try to help take off the fluid. The patient ran out of reds, but actually ordered more and feel that as we control the swelling in his legs hopefully PD will be able to be continued. 2. Pulmonary: The patient with worsening hypoxia with lymphadenopathy, main stem bronchus narrowing, pleural effusions. Pulmonary has been consulted for management as well as for consideration of possible thoracentesis of the chronic pleural effusions. Was unable to be stented with the right main stem bronchus in the past. I believe patient was tried on chronic steroids in the past and pulmonary is questioning whether to do another trial of steroids or not. For now, will try to maximize fluid removal through PD to help volume overload issues and hypoxia; however, unclear if this is purely fluid overload or multifactorial. 3. Anemia of renal failure. Unable to give Procrit with his recent melanoma, is transfusion dependent. Hemoglobin levels are stable at this time. Appreciate consultation.
[2016-12-18] MEDS: INSULIN ASPART 100 UNITS/ML 3 ML PEN SC SCH ×4 (10:01→21:00)
[2016-12-18] MEDS: ASPIRIN 81 MG ECTAB PO SCH (10:02)
[2016-12-18] MEDS: METOPROLOL TARTRATE 25 MG TAB PO SCH ×2 (10:02→20:57)
--- NOTE | 2016-12-18 10:49 | Pharmacy Progress Note ---
Glycemic Control Intl Consult Date of Service Dec 18, 2016. Scope Glycemic Pharmacist consulted by Dr Stearns on 12/17/16 for glycemic control and to write orders per [facility] inpatient glycemic control protocol Objective Weight (Kilograms): 105.000 Accuchecks BSG (last 24hrs): Test 12/17/16 17:52 12/17/16 19:54 12/17/16 22:18 12/18/16 02:20 Bedside Glucose 82 mg/dl (70-99) 118 mg/dl (70-99) 188 mg/dl (70-99) Random Glucose 107 mg/dl (70-99) Test 12/18/16 06:20 12/18/16 06:21 Random Glucose 185 mg/dl (70-99) Bedside Glucose 184 mg/dl (70-99) Laboratory Data (last 24hrs) Test 12/17/16 19:54 12/18/16 06:20 Anion Gap 10.0 mmol/L 9.0 mmol/L BUN/Creatinine Ratio 9.0 8.1 Blood Urea Nitrogen 58 mg/dl 54 mg/dl Creatinine 6.40 mg/dl 6.60 mg/dl Potassium Level 5.3 mmol/L 5.0 mmol/L Sodium Level 137 mmol/L 139 mmol/L White Blood Count 5.79 K/uL 4.32 K/uL Red Blood Count 3.74 M/uL Hemoglobin 11.2 g/dL Hematocrit 32.9 % Mean Corpuscular Volume 88.0 fL Mean Corpuscular Hemoglobin 29.9 pg Mean Corpuscular Hemoglobin Concent 34.0 g/dl Platelet Count 87 K/uL Mean Platelet Volume 9.6 fL Neutrophils (%) (Auto) 78.6 % Lymphocytes (%) (Auto) 13.1 % Monocytes (%) (Auto) 6.2 % Eosinophils (%) (Auto) 1.4 % Basophils (%) (Auto) 0.5 % Neutrophils # (Auto) 4.55 K/uL Lymphocytes # (Auto) 0.76 K/uL Monocytes # (Auto) 0.36 K/uL Eosinophils # (Auto) 0.08 K/uL Basophils # (Auto) 0.03 K/uL Hemoglobin A1c 5.7 % HbA1c Test 12/18/16 06:20 Hemoglobin A1c 5.7 % (4.5-5.6) H Recent Pertinent Medications Outpatient Anti-diabetic Regimen: * Toujeo 26 units SQ QAM + Toujeo 30 units SQ PM * NovoLog 20 units SQ TIDM * Total daily insulin dose ~ 116 units/day The patient is currently receiving: * Basal insulin: Lantus 10 units every 12 hours * Correctional Insulin: Novolog Correction per scale ACHS Goal Range: Low 120 mg/dL - High 160 mg/dL Correction Factor: 20 mg/dL/unit * Prandial insulin: Per carb ratio of 1 unit per 10 grams CHO consumed Assessment & Plan ASSESSMENT: * 66yo T2DM male with unknown degree of outpatient control. Recent A1c is 5.7% today, however, this value is likely unreliable d/t ESRD and interactions between the A1c analyzing technique and high levels of urea in ESRD, reduced RBC life span, iron deficiency anemia, and EPO administration. * Pt is maintained on +100 units of insulin per day as an outpatient. Expect inpatient total daily dose to be less than this d/t controlled PO intake while admitted on hospital diabetic diet. * Unsure of true insulin needs at this point as BSGs are running below goal range on admission after only taking AM dose of basal insulin (did not take PM dose [employer] CH[employer]). * Will utilize weight based Sq basal bolus insulin dosing regimen. Will order basal insulin per range based dosing depending on BSG to help prevent hypo/ hyperglycemia. Will titrate orders daily based on BSG trends. * ADA & AACE recommend a goal blood sugar range 140-180 mg/dl for the majority of critically ill & non-critically ill patients. However, more stringent targets may be selected in individual cases. PLAN FOR INPATIENT GLYCEMIC CONTROL: * Basal insulin with LANTUS SQ BID - dosing based on BSG * If BSG 120mg/dl or below --> do not give Lantus * If BSG 121-179mg/dl --> give 10 units of Lantus (weight & stress =1) * If BSG 180mg/dl or above --> give 18 units of Lantus (weight & stress =2) * Correctional Insulin with NOVOLOG per scale ACHS or Q6hrs while NPO * Goal Range: Low 140 mg/dL - High 180 mg/dL * Correction Factor: 20 mg/dL/unit * Nutritional / Prandial insulin per carb ratio of 1 unit per 7 grams CHO consumed * Please note that the plan above was derived based on current level of insulin resistance and hospital stress. These recommendations are appropriate for inpatient admission only. Plan of care upon discharge will need to be reassessed to avoid potential outpatient hypo/hyperglycemia. Thank you.
[2016-12-18] MEDS: INSULIN GLARGINE SOLOSTAR 100 UNITS/ML 3 ML PEN SC SCH ×2 (11:14→21:00)
--- NOTE | 2016-12-18 12:43 | CONSULTATION REPORT ---
DATE OF CONSULTATION: 12/18/2016 REASON FOR CONSULTATION: Hypoxia, shortness of breath. HISTORY OF PRESENT ILLNESS: The patient is a 66-year-old male with significant past history for diffuse pulmonary lymphadenopathy/granulomatosis who also has a history of end-stage renal disease on peritoneal dialysis. The patient presented to the pulmonary office in [place] yesterday and saw Dr. Vanessa. The patient originally presented to the office for a 6-minute walk to evaluate for oxygen need as well as to be set up for thoracentesis for a prior known pleural effusion. When the patient came in to the office, his O2 saturation was 83% on room air. At that time, he was put on oxygen, his oxygen saturation did improve to 95%. He was ambulated on the 2 liters and his oxygen stayed at 95%, however. After discussion with Dr. Vanessa, the patient and his were very uncomfortable with her trying to take care of him at home. With his increased shortness of breath, it turns out that for approximately a week prior to him presented to the office yesterday, he had been having decreased appetite and was not feeling well. Approximately 3 days prior to being seen, he did start with a nonproductive cough and increased shortness of breath. The patient had been having increased shortness of breath in general for the past 6-9 months and over the weekend it worsened. He denied any production with the cough, did feel that he was wheezing as well. He had no pleuritic chest pain. He had no chest pain in general. He had no fever or chills associated with this. He did note that his swelling in his legs which he usually has to some degree was actually worsening. He states that he does not think that his weight was going up, but unfortunately weight was not done in the office when he was seen. In regards to his underlying lung disease, the patient does have some presumed granulomatous disease/sarcoid which has been progressively worsening. The patient did have a PET scan done on 12/11/2016 at [facility] in [place], this was actually done for a significant melanoma of the neck which required surgery and radiation. The PET scan did show bilateral hilar and mediastinal adenopathy with scattered pulmonary nodules as well as infradiaphragmatic lymphadenopathy. There is also large stable bilateral pleural effusions with partial compressive atelectasis of the lungs. He did have chest x-ray done on the showed a persistent moderate left and small right pleural effusion. Chest x-ray also showed no change in the reticulonodular interstitial thickening. The patient reports that after he was admitted, he did receive dialysis last night and had greater than 4 liters removed. I also did discuss with Dr. Manning, who is his smoking tobacco packer hand who verified that he had over 4 liters of fluid removed. On exam, the patient on the morning of , he reports that he was feeling better, he states that his breathing was improved. He was much less short of breath than he had and he states that the swelling in his legs had gone down as well. He denied any other concerns or problems. He denied any headache or lightheadedness. No dizziness. He denied any difficulty swallowing. He denied any GI symptoms. He denied any nausea or vomiting, no indigestion or heartburn, no abdominal pain. He states that his bowels had not moved yet, but he was hoping to remove today. He states it has been about 2 days since his bowels moved. He states that the swelling in his legs has improved significantly as well. Of note, also this patient does have a significant aortic stenosis. He has been evaluated in the past for possible stenting of this; however, he was felt to be too high of a risk for stenting to be done. PAST MEDICAL HISTORY: Includes progressive granulomatous lung disease/sarcoidosis, narrowing/stenosis of the main stem bronchus, obstructive sleep apnea, hypertension; history of hepatitis C, treated over 30 years ago; end-stage renal disease, anemia secondary to end-stage renal disease. History of melanoma of the neck, which was invasive and required radiation treatment; diabetes mellitus, gout; aortic stenosis, status post valve replacement. PAST SURGICAL HISTORY: Includes aortic valve replacement in 2009, tonsillectomy, peritoneal dialysis catheter placement, surgical removal of melanoma involving the right ear, multiple bronchoscopic evaluations. FAMILY HISTORY: Significant for diabetes mellitus. SOCIAL HISTORY: The patient is a nonsmoker and nondrinker, no drug use. He is and lives currently with his . CURRENT MEDICATIONS: According to list in the office - Benadryl 25 mg twice daily, NovoLog 20 units subcutaneously 3 times daily, desonide 0.05% twice daily to affected area, Cheratussin 1 teaspoonful every 4 hours as needed, Anoro Ellipta 1 puff daily, oxycodone 5 mg 1 tab every 4-6 hours as needed, allopurinol 100 mg 1 tablet twice daily, aspirin 81 mg daily, Colcrys 0.6 mg 1 tablet 4 times daily as needed for gout flares, Crestor 20 mg daily, metoprolol 25 mg 1/2 tablet twice daily, Toujeo as directed, TriphroCaps 1 mg capsule daily. ALLERGIES: The patient has no known drug allergies. REVIEW OF SYSTEMS: As above. Otherwise unremarkable. PHYSICAL EXAMINATION: GENERAL: The patient is a 66-year-old male sitting in a chair at bedside. He is alert and oriented x3. Mood is good. Affect is good. He does not appear in any acute respiratory distress, no evidence of distress in general. VITAL SIGNS: Temp 36.9, pulse 54, respirations 22, blood pressure is 137/66, pulse ox 95% on 2 liters. HEENT: Normocephalic, atraumatic. Pupils equal, round and reactive to light and accommodation. Extraocular movements are intact. [place] moist gingival and buccal mucosa. Eyes are nonicteric. NECK: Supple. No mass. No adenopathy. No bruits noted. CHEST: Decreased breath sounds at the bases bilaterally. The patient does have some faint expiratory wheezes throughout, no rale or rhonchi noted. CARDIOVASCULAR: Regular rate and rhythm. The patient does have a 2/6 systolic murmur, no gallops or rubs appreciated. ABDOMEN: Bowel sounds are present. Abdomen soft, nontender. No guarding, rigidity or organomegaly. EXTREMITIES: The patient has 2+ edema bilaterally. No cyanosis or clubbing noted. No erythema noted. NEUROLOGIC: Cranial nerves II-XII are intact. There is no focal deficit noted. LABORATORY DATA: Shows a white count of 4,32, H\T\H 11.2/33.0, platelet count of 97,000. IMAGING DATA: Chest x-ray showing a persistent moderate pulmonary pleural effusion, no change from previous. IMPRESSION: This is a 66-year-old male with known diffuse pulmonary lymphadenopathy/granulomatosis/sarcoidosis, who presented to the office yesterday hypoxic, did discuss the case with Dr. Vanessa. It was felt that his hypoxia is multifactorial, most likely secondary to volume overload. He did receive peritoneal dialysis last night and did have greater than 4 liters of fluid removed and is feeling much better today and at this point I feel that in light of his improvement with the fluid removal, he will improve. After discussion with Dr. Manning and Dr. Vanessa, I do not feel that we want to be aggressive with steroids at this time. I think that for right now, continue to monitor the patient following peritoneal dialysis and see how he does. I suspect that with the significant improvement he has noticed from yesterday to today that continued improvement is a probable. At this point, will continue to follow, would recommend for repeat chest x-ray in a.m. The patient will also need to have a 2-step done prior to being discharged, to evaluate for oxygen. I do feel the patient's underlying lung disease is also problem with his hypoxia, although I do not think that that is the primary issue and will continue to monitor. At this point, we will continue to follow the patient during hospitalization. Thank you for the consultation on this patient. GELACIO
--- NOTE | 2016-12-18 15:09 | Progress Note ---
Subjective Date of Service: Dec 18, 2016. Subjective Pt evaluation today including: conversation w/ patient, conversation w/ family , physical exam, chart review, lab review, review of studies, conversation w/ talent development consultant, review of inpatient medication list Saw/examined the patient in room 103 He had peritoneal dialysis yesterday; 4L removed He feels much better today Able to complete full sentences; no significant dyspnea noted while seated Review of Systems Constitutional: No chills, No fever Respiratory: + dyspnea on exertion, + shortness of breath (improving), No cough , No dyspnea at rest, No hemoptysis, No sputum, No wheezing Cardiac: No chest pain, No edema, No palpitations Abdomen: No diarrhea, No nausea, No pain, No vomiting Heme: No abnormal bleeding/bruising Medications Current Inpatient Medications Medications (Trade) Dose Ordered Sig/Romulo Route Start Time Stop Time Status Last Admin Dose Admin Heparin Sodium (Porcine) (Heparin Sq 5000 Unit/0.5ml) 5,000 unit Q12 SQ 12/17/16 21:00 01/16/17 20:59 Acetaminophen (Tylenol Tab) 650 mg Q4H PRN PO 12/17/16 18:30 01/16/17 18:29 Al Hydrox/Mg Hydrox/Simethicone (Maalox Max Susp) 15 ml Q4H PRN PO 12/17/16 18:30 01/16/17 18:29 Magnesium Hydroxide (Milk Of Magnesia Susp) 30 ml Q12H PRN PO 12/17/16 18:30 01/16/17 18:29 Ondansetron HCl (Zofran Inj) 4 mg Q6H PRN IV 12/17/16 18:30 01/16/17 18:29 Polyethylene (Miralax Powder Packet) 17 gm DAILY PRN PO 12/17/16 18:30 01/16/17 18:29 Albuterol/ Ipratropium (Duoneb) 3 ml QIDR INH 12/17/16 20:00 01/16/17 19:59 12/18/16 07:16 3 ML Aspirin (Ecotrin Tab) 81 mg DAILY PO 12/18/16 09:00 01/17/17 08:59 12/18/16 10:02 81 MG Metoprolol Tartrate (Lopressor Tab) 12.5 mg BID PO 12/17/16 21:00 01/16/17 20:59 12/18/16 10:02 12.5 MG Rosuvastatin Calcium (Crestor Tab) 40 mg HS PO 12/17/16 21:00 01/16/17 20:59 12/17/16 22:21 40 MG Insulin Aspart (novoLOG ASPART) SLIDING SCALE If C... ACHS SC 12/17/16 21:00 01/16/17 20:59 12/18/16 12:25 4 UNITS Glucose (Glucose 40% Gel) 15-30 GRAMS 15 GRAMS... UD PRN PO 12/17/16 18:45 01/16/17 18:44 Glucose (Glucose Chew Tab) 4-8 Tablets 4 Tabl... UD PRN PO 12/17/16 18:45 01/16/17 18:44 Dextrose (Dextrose 50% 50ML Syringe) 25-50ML OF 50% DW IV FOR... UD PRN IV 12/17/16 18:45 01/16/17 18:44 Glucagon (Glucagon Inj) 1 mg UD PRN SQ 12/17/16 18:45 01/16/17 18:44 Miscellaneous Information (Consult Glycemic Management Pharmacy) 1 ea UD N/A 12/17/16 18:57 01/16/17 18:56 Insulin Glargine (Lantus Solostar Pen) see protocol text Q12 SC 12/18/16 09:00 01/17/17 08:59 12/18/16 11:14 10 UNIT Objective Vital Signs Date Time Temp Pulse Resp B/P Pulse Ox O2 Delivery O2 Flow Rate FiO2 12/18/16 12:00 97 Nasal Cannula 2.0 12/18/16 12:00 37.0 68 24 139/63 97 Nasal Cannula 2.0 12/18/16 10:38 94 Nasal Cannula 2.0 12/18/16 08:00 96 Nasal Cannula 2.0 12/18/16 08:00 36.9 68 21 165/65 94 Nasal Cannula 2.0 12/18/16 07:16 71 14 96 Nasal Cannula 2.0 12/18/16 04:00 36.9 54 22 137/66 95 Nasal Cannula 2.0 12/18/16 04:00 Nasal Cannula 2.0 12/18/16 01:37 Nasal Cannula 12/17/16 23:59 36.8 45 22 137/52 97 Nasal Cannula 2.0 12/17/16 21:30 37.2 61 134/63 12/17/16 20:19 90 Nasal Cannula 2.0 12/17/16 20:00 36.8 61 22 134/63 Nasal Cannula 2.0 12/17/16 20:00 Nasal Cannula 2.0 12/17/16 19:03 37.2 65 22 113/87 Nasal Cannula 2.0 12/17/16 18:00 37.2 65 18 143/65 Nasal Cannula 2.0 12/17/16 17:30 37.2 65 22 113/87 Nasal Cannula 2.0 Physical Exam General Appearance: no apparent distress Eyes: normal inspection ENT: hearing grossly normal Respiratory/Chest: no respiratory distress, no accessory muscle use, + decreased breath sounds Cardiovascular: regular rate, rhythm, no edema, no murmur Abdomen: normal bowel sounds, non tender, soft Extremities: normal inspection, no pedal edema Neurologic/Psychiatric: no motor/sensory deficits, alert, normal mood/affect Skin: normal color Lymphatic: no adenopathy Laboratory Results Last 24 Hours Test 12/17/16 17:52 12/17/16 19:54 12/17/16 22:18 12/18/16 02:20 Bedside Glucose 82 mg/dl 118 mg/dl 188 mg/dl White Blood Count 5.79 K/uL Red Blood Count 3.74 M/uL Hemoglobin 11.2 g/dL Hematocrit 32.9 % Mean Corpuscular Volume 88.0 fL Mean Corpuscular Hemoglobin 29.9 pg Mean Corpuscular Hemoglobin Concent 34.0 g/dl Platelet Count 87 K/uL Mean Platelet Volume 9.6 fL Neutrophils (%) (Auto) 78.6 % Lymphocytes (%) (Auto) 13.1 % Monocytes (%) (Auto) 6.2 % Eosinophils (%) (Auto) 1.4 % Basophils (%) (Auto) 0.5 % Neutrophils # (Auto) 4.55 K/uL Lymphocytes # (Auto) 0.76 K/uL Monocytes # (Auto) 0.36 K/uL Eosinophils # (Auto) 0.08 K/uL Basophils # (Auto) 0.03 K/uL RDW Standard Deviation 46.8 fL RDW Coefficient of Variation 14.6 % Immature Granulocyte % (Auto) 0.2 % Immature Granulocyte # (Auto) 0.01 K/uL Platelet Estimate DECREASED Prothrombin Time 12.0 SECONDS Prothromb Time International Ratio 1.1 Sodium Level 137 mmol/L Potassium Level 5.3 mmol/L Chloride Level 101 mmol/L Carbon Dioxide Level 26 mmol/L Anion Gap 10.0 mmol/L Blood Urea Nitrogen 58 mg/dl Creatinine 6.40 mg/dl Est Creatinine Clear Calc Drug Dose 12.9 ml/min Estimated GFR () 9.5 Estimated GFR (Non- 8.2 BUN/Creatinine Ratio 9.0 Random Glucose 107 mg/dl Calcium Level 8.1 mg/dl Magnesium Level 1.7 mg/dl Test 12/18/16 06:20 12/18/16 06:21 12/18/16 11:27 White Blood Count 4.32 K/uL Red Blood Count 3.73 M/uL Hemoglobin 11.2 g/dL Hematocrit 33.0 % Mean Corpuscular Volume 88.5 fL Mean Corpuscular Hemoglobin 30.0 pg Mean Corpuscular Hemoglobin Concent 33.9 g/dl RDW Standard Deviation 47.5 fL RDW Coefficient of Variation 14.6 % Platelet Count 97 K/uL Mean Platelet Volume 10.4 fL Sodium Level 139 mmol/L Potassium Level 5.0 mmol/L Chloride Level 102 mmol/L Carbon Dioxide Level 28 mmol/L Anion Gap 9.0 mmol/L Blood Urea Nitrogen 54 mg/dl Creatinine 6.60 mg/dl Est Creatinine Clear Calc Drug Dose 12.5 ml/min Estimated GFR () 9.2 Estimated GFR (Non- 7.9 BUN/Creatinine Ratio 8.1 Random Glucose 185 mg/dl Estimated Average Glucose 117 mg/dl Hemoglobin A1c 5.7 % Calcium Level 8.4 mg/dl Magnesium Level 1.9 mg/dl Hepatitis B Surface Antigen NEG Hepatitis B Surface Antibody POS Bedside Glucose 184 mg/dl 143 mg/dl Assessment and Plan This is a 66 year old male with PMH of ESRD on peritoneal dialysis, granulomatous lung disease/sarcoidosis, 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 of aortic valve replacement, mainstem bronchus stenosis, HTN, HLD Acute Respiratory Failure secondary to Large Bilateral Pleural Effusions 12/18 patient is doing much better today pleural effusions noted to be moderate in size, not large enough for thoracentesis peritoneal dialysis daily; appreciate pulm and nephro input 4L removed; patient feeling much better PD tonight CXR in AM two step in AM 12/17 patient had a PET scan on 12/11 showing large pleural effusions he has ESRD and does peritoneal dialysis daily has had thoracentesis two weeks prior with good results plan for the patient is to give oxygen as needed nebulizers around the clock and as needed dialysis with fluid removal, check CXR today and after dialysis may need to convert to HD consulted nephrology and pulmonology as per pulm - we will hold off on steroid use until after fluid removed Granulomatous Lung Disease/Sarcoidosis Hilar/Mediastinal and Diaphragmatic Lymphadenopathy chronic issues related to this lung disorder bronchoscopy attempted in the past, but as per records, failed? due to patient's condition, this may be difficult for now, nebulizers and O2 PRN hold off on steroids pulmonology consulted for further input ESRD on PD peritoneal dialysis nightly fluid overload likely present; +edema, +pleural effusions will consult nephro check electrolytes Insulin Dependent DM2 will check Ha1c in AM consult pharmacy started 10 units Lantus BID (uses Toujeo at home) sliding scale added DVT ppx subq heparin DNR as per conversation with patient
[2016-12-18] MEDS: ROSUVASTATIN CALCIUM 20 MG TAB PO SCH (20:55)
[2016-12-19] VITALS (14 sets, daily range): BP systolic 111–176; BP diastolic 65–84; PULSE 59–82; TEMP 36.2–37.1; O2SAT 91–100
[2016-12-19 06:23] LABS: HEMATOCRIT 32.3 % (42-52); MEAN CORPUSCULAR HEMOGLOBIN 30.9 pg (25-34); MEAN CORPUSCULAR HGB CONC 34.4 g/dl (32-36); RED BLOOD COUNT 3.59 M/uL (4.7-6.1); WHITE BLOOD COUNT 3.22 K/uL (4.8-10.8)
[2016-12-19 06:26] LABS: MEAN PLATELET VOLUME 10.2 fL (7.4-10.4); PLATELET COUNT 83 K/uL (130-400)
[2016-12-19] MEDS: ALBUT/IPRATROP 3MG/0.5MG NEB 3 ML VIAL INH SCH ×4 (07:12→20:00)
--- NOTE | 2016-12-19 07:16 | Nephrology Progress Note ---
Nephrology Progress Note Date of Service: Dec 19, 2016. Subjective 66 yo male who presented with hypoxia with significant edema in legs, lymphadenopathy, main stem bronchus narrowing and bilateral pleural effusions. pt breathing easier and interested in going home soon. using all reds on pd and removing fluid well. pt waiting for red box to come to his house and should be getting there today or tomorrow. Objective Date Time Temp Pulse Resp B/P Pulse Ox O2 Delivery O2 Flow Rate FiO2 12/19/16 04:00 Nasal Cannula 2.0 12/19/16 03:40 37.0 75 18 149/66 98 Nasal Cannula 3.0 12/19/16 01:35 145/76 12/19/16 00:00 Nasal Cannula 2.0 12/18/16 23:20 36.7 73 16 181/93 99 Nasal Cannula 3.0 12/18/16 22:54 37.1 80 157/68 12/18/16 20:00 Nasal Cannula 2.0 12/18/16 20:00 37.1 80 31 157/68 96 Nasal Cannula 2.0 12/18/16 19:18 74 14 96 Nasal Cannula 2.0 12/18/16 16:38 70 14 98 Nasal Cannula 2.0 12/18/16 16:00 36.9 78 26 147/57 95 Nasal Cannula 2.0 12/18/16 16:00 96 Nasal Cannula 2.0 12/18/16 12:00 97 Nasal Cannula 2.0 12/18/16 12:00 37.0 68 24 139/63 97 Nasal Cannula 2.0 12/18/16 11:22 45 14 98 Nasal Cannula 2.0 12/18/16 10:38 94 Nasal Cannula 2.0 12/18/16 08:00 96 Nasal Cannula 2.0 12/18/16 08:00 36.9 68 21 165/65 94 Nasal Cannula 2.0 12/18/16 07:16 71 14 96 Nasal Cannula 2.0 Physical Exam: General-[id number] Eyes-no scleral icterus ENT-mmm Neck-supple Lungs-decreased at bases Heart-+click, regular Abdomen-+pd catheter, soft, nondistended Extremities-+2 edema Neuro-nonfocal Current Inpatient Medications Medications (Trade) Dose Ordered Sig/Romulo Route Start Time Stop Time Status Last Admin Dose Admin Heparin Sodium (Porcine) (Heparin Sq 5000 Unit/0.5ml) 5,000 unit Q12 SQ 12/17/16 21:00 01/16/17 20:59 Acetaminophen (Tylenol Tab) 650 mg Q4H PRN PO 12/17/16 18:30 01/16/17 18:29 Al Hydrox/Mg Hydrox/Simethicone (Maalox Max Susp) 15 ml Q4H PRN PO 12/17/16 18:30 01/16/17 18:29 Magnesium Hydroxide (Milk Of Magnesia Susp) 30 ml Q12H PRN PO 12/17/16 18:30 01/16/17 18:29 Ondansetron HCl (Zofran Inj) 4 mg Q6H PRN IV 12/17/16 18:30 01/16/17 18:29 Polyethylene (Miralax Powder Packet) 17 gm DAILY PRN PO 12/17/16 18:30 01/16/17 18:29 Albuterol/ Ipratropium (Duoneb) 3 ml QIDR INH 12/17/16 20:00 01/16/17 19:59 12/18/16 19:13 3 ML Aspirin (Ecotrin Tab) 81 mg DAILY PO 12/18/16 09:00 01/17/17 08:59 12/18/16 10:02 81 MG Metoprolol Tartrate (Lopressor Tab) 12.5 mg BID PO 12/17/16 21:00 01/16/17 20:59 12/18/16 20:57 12.5 MG Rosuvastatin Calcium (Crestor Tab) 40 mg HS PO 12/17/16 21:00 01/16/17 20:59 12/18/16 20:55 40 MG Insulin Aspart (novoLOG ASPART) SLIDING SCALE If C... ACHS SC 12/17/16 21:00 01/16/17 20:59 12/18/16 16:54 4 UNITS Glucose (Glucose 40% Gel) 15-30 GRAMS 15 GRAMS... UD PRN PO 12/17/16 18:45 01/16/17 18:44 Glucose (Glucose Chew Tab) 4-8 Tablets 4 Tabl... UD PRN PO 12/17/16 18:45 01/16/17 18:44 Dextrose (Dextrose 50% 50ML Syringe) 25-50ML OF 50% DW IV FOR... UD PRN IV 12/17/16 18:45 01/16/17 18:44 Glucagon (Glucagon Inj) 1 mg UD PRN SQ 12/17/16 18:45 01/16/17 18:44 Miscellaneous Information (Consult Glycemic Management Pharmacy) 1 ea UD N/A 12/17/16 18:57 01/16/17 18:56 Insulin Glargine (Lantus Solostar Pen) see protocol text Q12 SC 12/18/16 09:00 01/17/17 08:59 12/18/16 11:14 10 UNIT Last 24 Hours Test 12/18/16 11:27 12/18/16 16:22 12/18/16 16:23 12/18/16 21:00 Bedside Glucose 143 mg/dl 80 mg/dl 85 mg/dl 116 mg/dl Test 12/19/16 05:27 12/19/16 06:32 White Blood Count 3.22 K/uL Red Blood Count 3.59 M/uL Hemoglobin 11.1 g/dL Hematocrit 32.3 % Mean Corpuscular Volume 90.0 fL Mean Corpuscular Hemoglobin 30.9 pg Mean Corpuscular Hemoglobin Concent 34.4 g/dl RDW Standard Deviation 47.4 fL RDW Coefficient of Variation 14.4 % Platelet Count 83 K/uL Mean Platelet Volume 10.2 fL Bedside Glucose 224 mg/dl Assessment & Plan ESRD-on pd and using 5 exchanges all reds overnight and removing fluid well. no cramping and bp is stable. breathing is improving. will try to wean down the oxygen. normally not on any oxygen. will continue all reds while in the hospital and once medically cleared from pulmonary and primary hospitalist, would continue all reds at home with appropriate fluid restriction. once he gets the box of reds at home, ok from renal to go home. Anemia of Renal Failure-pt with significant skin cancer with invasion, no procrit, transfusion dependent. hg levels are stable.
[2016-12-19 07:18] LABS: BUN/CREATININE RATIO 8.2 (10-20); CALCIUM 7.9 mg/dl (8.5-10.1); CREATININE 7.5 mg/dl (0.60-1.40); MAGNESIUM 1.9 mg/dl (1.8-2.4); POTASSIUM 4.4 mmol/L (3.5-5.1)
[2016-12-19] MEDS: METOPROLOL TARTRATE 25 MG TAB PO SCH ×2 (07:34→21:13)
[2016-12-19] MEDS: ASPIRIN 81 MG ECTAB PO SCH (07:34)
[2016-12-19] MEDS: HEPARIN SOD 5000 UNIT/0.5 ML CARP SQ SCH ×2 (07:43→20:00)
--- NOTE | 2016-12-19 07:48 | DIAGNOSTIC IMAGING REPORT ---
SINGLE VIEW CHEST CLINICAL HISTORY: Pleural effusion. Sarcoidosis. FINDINGS: An AP, portable, upright chest radiograph is compared to studies dated 12/17/2016. Correlation is made with chest CT dated 03/06/2015. The examination is degraded by portable technique and patient rotation. The patient is status post midline sternotomy and aortic valve replacement. The heart is enlarged and there is atherosclerotic calcification of the thoracic aorta. The pulmonary vasculature is noncongested. Perihilar fibrotic change is similar to prior studies, as are findings of interstitial thickening and nodularity. There are pleural effusions, left larger than right with bibasilar consolidation. There is no pneumothorax. The skeletal structures are osteopenic. Mild degenerative change is noted throughout the thoracic spine. IMPRESSION: 1. Small pleural effusions with bibasilar consolidation. These are similar in appearance to yesterday. 2. Cardiomegaly without clear radiographic evidence of congestive failure. 3. Chronic parenchymal and perihilar changes as above, likely related to the reported history of sarcoidosis. Electronically signed by: Butch Hoffman M.D. 12/19/2016 7:46 AM Dictated Date/Time: 12/19/2016 7:44 AM
[2016-12-19] MEDS: INSULIN ASPART 100 UNITS/ML 3 ML PEN SC SCH ×4 (07:49→21:00)
[2016-12-19] MEDS: INSULIN GLARGINE SOLOSTAR 100 UNITS/ML 3 ML PEN SC SCH ×2 (08:55→21:29)
--- NOTE | 2016-12-19 11:11 | Pharmacy Progress Note ---
Glycemic Control: Progress Nt Date of Service Dec 19, 2016. Scope Glycemic Pharmacist consulted for glycemic control and to write orders per [facility] inpatient glycemic control protocol. Objective Accuchecks BSG (last 24hrs): Test 12/18/16 11:27 12/18/16 16:22 12/18/16 16:23 12/18/16 21:00 Bedside Glucose 143 mg/dl (70-99) 80 mg/dl (70-99) 85 mg/dl (70-99) 116 mg/dl (70-99) Test 12/19/16 05:27 12/19/16 06:32 Random Glucose 197 mg/dl (70-99) Bedside Glucose 224 mg/dl (70-99) Laboratory Data (last 24hrs) Test 12/19/16 05:27 Anion Gap 15.0 mmol/L BUN/Creatinine Ratio 8.2 Blood Urea Nitrogen 62 mg/dl Creatinine 7.50 mg/dl Potassium Level 4.4 mmol/L Sodium Level 140 mmol/L White Blood Count 3.22 K/uL HbA1c: Test 12/18/16 06:20 Hemoglobin A1c 5.7 % (4.5-5.6) H Recent Pertinent Medications Outpatient Anti-diabetic Regimen: * Toujeo 26 units SQ QAM + Toujeo 30 units SQ PM * NovoLog 20 units SQ TIDM * Total daily insulin dose ~ 116 units/day The patient is currently receiving: * Basal insulin: Lantus every 12 hours based on BSG 0 units for BSG less than 120 mg/dL 10 units for BSG 120-179 mg/dL 18 units for BSG 180+ mg/dL * Correctional Insulin: Novolog Correction per scale ACHS Goal Range: Low 140 mg/dL - High 180 mg/dL Correction Factor: 20 mg/dL/unit * Prandial insulin: Per carb ratio of 1 unit per 7 grams CHO consumed Risk Factors for Insulin Resistance: * Diet Assessment & Plan ASSESSMENT: * ADA & AACE recommend a goal blood sugar range 140-180 mg/dl for the majority of critically ill & non-critically ill patients. However, more stringent targets may be selected in individual cases. 12/18/16 * 66yo T2DM male with unknown degree of outpatient control. Recent A1c is 5.7% today, however, this value is likely unreliable d/t ESRD and interactions between the A1c analyzing technique and high levels of urea in ESRD, reduced RBC life span, iron deficiency anemia, and EPO administration. * Pt is maintained on +100 units of insulin per day as an outpatient. Expect inpatient total daily dose to be less than this d/t controlled PO intake while admitted on hospital diabetic diet. 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 * Will utilize weight based Sq basal bolus insulin dosing regimen. Will order basal insulin per range based dosing depending on BSG to help prevent hypo/ hyperglycemia. Will titrate orders daily based on BSG trends. 12/19/16 * Variation in BSG's likely 2nd to Toujeo admin as outpatient 12/17 AM * Yesterday dinner BSG low to 80 mg/dL since additional Lantus administered at lunch with Toujeo effects likely present * AM fasting BSG today elevated as patient only received Lantus 10 units yesterday and Toujeo effects likely dissipated * Will decrease Lantus order to prevent hypoglycemia (but patient may end up receiving more Lantus today as compared to yesterday which is intentional as Toujeo effects from 12/17 likely dissipated today) * Will maintain high goal range and Novolog correction factor for now * Will slightly loosen carb ratio as patient's BSG's decreased from 224 to 108 mg/dL today after 12 units Novolog administered at breakfast PLAN FOR INPATIENT GLYCEMIC CONTROL: * Adjust Basal insulin with LANTUS SQ BID per BSG 0 units for BSG less than 120 mg/dL 6 units for BSG 120-179 mg/dL 14 units for BSG 180+ mg/dL * Correctional Insulin with NOVOLOG per scale ACHS or Q6hrs while NPO * Goal Range: Low 140 mg/dL - High 180 mg/dL * Correction Factor: 20 mg/dL/unit * Loosen Nutritional / Prandial insulin per carb ratio of 1 unit per 8 grams CHO consumed * Please note that the plan above was derived based on current level of insulin resistance and hospital stress. These recommendations are appropriate for inpatient admission only. Plan of care upon discharge will need to be reassessed to avoid potential outpatient hypo/hyperglycemia. Thank you.
--- NOTE | 2016-12-19 12:07 | Progress Note ---
Subjective Date of Service: Dec 19, 2016. Subjective Pt evaluation today including: conversation w/ patient, physical exam, lab review, review of studies, review of inpatient medication list Saw/examined the patient in room 232 He feels much better today breathing status back to baseline Denies any other symptoms Review of Systems Constitutional: No chills, No fever Respiratory: + shortness of breath (baseline), No cough, No dyspnea on exertion , No sputum, No wheezing Cardiac: No chest pain, No edema, No palpitations Abdomen: No diarrhea, No nausea, No pain, No vomiting Medications Current Inpatient Medications Medications (Trade) Dose Ordered Sig/Romulo Route Start Time Stop Time Status Last Admin Dose Admin Heparin Sodium (Porcine) (Heparin Sq 5000 Unit/0.5ml) 5,000 unit Q12 SQ 12/17/16 21:00 01/16/17 20:59 Acetaminophen (Tylenol Tab) 650 mg Q4H PRN PO 12/17/16 18:30 01/16/17 18:29 Al Hydrox/Mg Hydrox/Simethicone (Maalox Max Susp) 15 ml Q4H PRN PO 12/17/16 18:30 01/16/17 18:29 Magnesium Hydroxide (Milk Of Magnesia Susp) 30 ml Q12H PRN PO 12/17/16 18:30 01/16/17 18:29 Ondansetron HCl (Zofran Inj) 4 mg Q6H PRN IV 12/17/16 18:30 01/16/17 18:29 Polyethylene (Miralax Powder Packet) 17 gm DAILY PRN PO 12/17/16 18:30 01/16/17 18:29 Albuterol/ Ipratropium (Duoneb) 3 ml QIDR INH 12/17/16 20:00 01/16/17 19:59 12/19/16 11:05 3 ML Aspirin (Ecotrin Tab) 81 mg DAILY PO 12/18/16 09:00 01/17/17 08:59 12/19/16 07:34 81 MG Metoprolol Tartrate (Lopressor Tab) 12.5 mg BID PO 12/17/16 21:00 01/16/17 20:59 12/19/16 07:34 12.5 MG Rosuvastatin Calcium (Crestor Tab) 40 mg HS PO 12/17/16 21:00 01/16/17 20:59 12/18/16 20:55 40 MG Insulin Aspart (novoLOG ASPART) SLIDING SCALE If C... ACHS SC 12/17/16 21:00 01/16/17 20:59 12/19/16 07:49 12 UNITS Glucose (Glucose 40% Gel) 15-30 GRAMS 15 GRAMS... UD PRN PO 12/17/16 18:45 01/16/17 18:44 Glucose (Glucose Chew Tab) 4-8 Tablets 4 Tabl... UD PRN PO 12/17/16 18:45 01/16/17 18:44 Dextrose (Dextrose 50% 50ML Syringe) 25-50ML OF 50% DW IV FOR... UD PRN IV 12/17/16 18:45 01/16/17 18:44 Glucagon (Glucagon Inj) 1 mg UD PRN SQ 12/17/16 18:45 01/16/17 18:44 Miscellaneous Information (Consult Glycemic Management Pharmacy) 1 ea UD N/A 12/17/16 18:57 01/16/17 18:56 Insulin Glargine (Lantus Solostar Pen) see protocol text Q12 SC 12/18/16 09:00 01/17/17 08:59 12/19/16 08:55 14 UNIT Objective Vital Signs Date Time Temp Pulse Resp B/P Pulse Ox O2 Delivery O2 Flow Rate FiO2 12/19/16 11:45 37.1 59 18 111/65 94 Room Air 12/19/16 11:05 61 14 95 Room Air 12/19/16 10:17 36.9 74 18 176/84 12/19/16 08:15 94 Room Air 12/19/16 08:00 36.9 74 18 176/84 100 Nasal Cannula 2.0 12/19/16 08:00 94 Room Air 12/19/16 07:12 74 14 100 Nasal Cannula 2.0 12/19/16 04:00 Nasal Cannula 2.0 12/19/16 03:40 37.0 75 18 149/66 98 Nasal Cannula 3.0 12/19/16 01:35 145/76 12/19/16 00:00 Nasal Cannula 2.0 12/18/16 23:20 36.7 73 16 181/93 99 Nasal Cannula 3.0 12/18/16 22:54 37.1 80 157/68 2/15/17 20:00 Nasal Cannula 2.0 12/18/16 20:00 37.1 80 31 157/68 96 Nasal Cannula 2.0 12/18/16 19:18 74 14 96 Nasal Cannula 2.0 12/18/16 16:38 70 14 98 Nasal Cannula 2.0 12/18/16 16:00 36.9 78 26 147/57 95 Nasal Cannula 2.0 12/18/16 16:00 96 Nasal Cannula 2.0 Physical Exam General Appearance: no apparent distress Respiratory/Chest: no respiratory distress, no accessory muscle use, + decreased breath sounds Cardiovascular: regular rate, rhythm, no murmur Abdomen: normal bowel sounds, non tender, soft Extremities: + pedal edema (+1 pitting edema b/l LE) Neurologic/Psychiatric: no motor/sensory deficits, alert, normal mood/affect Laboratory Results Last 24 Hours Test 12/18/16 16:22 12/18/16 16:23 12/18/16 21:00 12/19/16 05:27 Bedside Glucose 80 mg/dl 85 mg/dl 116 mg/dl White Blood Count 3.22 K/uL Red Blood Count 3.59 M/uL Hemoglobin 11.1 g/dL Hematocrit 32.3 % Mean Corpuscular Volume 90.0 fL Mean Corpuscular Hemoglobin 30.9 pg Mean Corpuscular Hemoglobin Concent 34.4 g/dl RDW Standard Deviation 47.4 fL RDW Coefficient of Variation 14.4 % Platelet Count 83 K/uL Mean Platelet Volume 10.2 fL Sodium Level 140 mmol/L Potassium Level 4.4 mmol/L Chloride Level 101 mmol/L Carbon Dioxide Level 24 mmol/L Anion Gap 15.0 mmol/L Blood Urea Nitrogen 62 mg/dl Creatinine 7.50 mg/dl Est Creatinine Clear Calc Drug Dose 11.1 ml/min Estimated GFR () 7.9 Estimated GFR (Non- 6.8 BUN/Creatinine Ratio 8.2 Random Glucose 197 mg/dl Calcium Level 7.9 mg/dl Magnesium Level 1.9 mg/dl Chemistry Specimen Hemolysis Test 12/19/16 06:32 12/19/16 11:24 Bedside Glucose 224 mg/dl 108 mg/dl Assessment and Plan This is a 66 year old male with PMH of ESRD on peritoneal dialysis, granulomatous lung disease/sarcoidosis, 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 of aortic valve replacement, mainstem bronchus stenosis, HTN, HLD Acute Respiratory Failure secondary to Large Bilateral Pleural Effusions 12/19 appreciate nephrology input peritoneal dialysis settings adjusted - using red bags Will use these at home Once these are set up for home, can d/c patient added PT/OT evals 12/18 patient is doing much better today pleural effusions noted to be moderate in size, not large enough for thoracentesis peritoneal dialysis daily; appreciate pulm and nephro input 4L removed; patient feeling much better PD tonight CXR in AM two step in AM 12/17 patient had a PET scan on 12/11 showing large pleural effusions he has ESRD and does peritoneal dialysis daily has had thoracentesis two weeks prior with good results plan for the patient is to give oxygen as needed nebulizers around the clock and as needed dialysis with fluid removal, check CXR today and after dialysis may need to convert to HD consulted nephrology and pulmonology as per pulm - we will hold off on steroid use until after fluid removed Granulomatous Lung Disease/Sarcoidosis Hilar/Mediastinal and Diaphragmatic Lymphadenopathy chronic issues related to this lung disorder bronchoscopy attempted in the past, but as per records, failed? due to patient's condition, this may be difficult for now, nebulizers and O2 PRN hold off on steroids pulmonology consulted for further input ESRD on PD peritoneal dialysis nightly fluid overload likely present; +edema, +pleural effusions will consult nephro check electrolytes Insulin Dependent DM2 will check Ha1c in AM consult pharmacy started 10 units Lantus BID (uses Toujeo at home) sliding scale added DVT ppx subq heparin DNR as per conversation with patient
--- NOTE | 2016-12-19 16:24 | PULMONARY PROGRESS NOTE ---
DATE: 12/19/2016 TIME: 03:20 p.m. SUBJECTIVE: The patient is generally feeling better. His shortness of breath is less than it had been prior to admission. His cough is a little bit less as well. He has been getting rid of quite a bit of fluid through dialysis. His first day, the fluid loss from dialysis was 4240 mL and the second day was 3940. In spite of this, however, the patient's weight is actually increased since admission. Symptomatically, he is better. The patient has had longstanding pulmonary problems that are very complex. He has been evaluated both here and at [facility]. He is expectorating small quantities of clear mucus. His appetite is poor. OBJECTIVE: VITAL SIGNS: Temperature is 37.1. GENERAL: The patient was cooperative, alert and oriented. HEENT: Shows some scarring in the area of the right ear. It is suspected that these may be skin cancers. NECK: Palpation of the neck reveals no lymph nodes or masses. HEART: Rate was 72 beats per minute. Rhythm is regular. Blood pressure 111/65. LUNGS: Auscultation of the lung seo revealed wheezes bilaterally. There very increased on the left compared with the right. Oxygen saturation on room air 94%. Respiratory rate 18 breaths per minute. EXTREMITIES: Show severe edema bilaterally at least +3. The patient states these are actually better and smaller than they had been before. LABORATORY DATA: White count today is down to 3.22. Hemoglobin is 11.1. Platelets were 83,000. Thus, there is some degree of pancytopenia. None of these are significantly changed from admission. The BUN today is 62 with a creatinine of 7.5. Admission BUN was 58 with a creatinine of 6.4. Chest x-ray done today shows small effusions with bibasilar consolidation. Not mentioned above in the physical exam is that he has a systolic murmur grade 2/6 along the left sternal border. IMPRESSIONS: 1. Pleural effusions. 2. End-stage renal disease, which is dialysis dependent and with fluid overload. 3. History of granulomatous lung disease of undetermined type. COMMENTS AND RECOMMENDATIONS: The patient seems to be clinically improving with the adjustment in the dialysis. The patient states that he did have a trial of steroids in the past for about a month. If the dialysis was not successful in getting fluid off, Dr. Vanessa was considering a repeat steroid trial. The patient indicates he feels relatively back to baseline. He is getting some nebulizer treatments, but he acknowledges he does not like them. He states it makes him cough. The patient did have pulmonary function testing done on 04/03/2016. This showed a moderate obstructive pattern without significant change following bronchodilators. I would anticipate that the patient will be discharged soon. In light of the fact he does not like the nebulizer, consideration might be given to a trial of a Combivent Respimat and see how he does with that. He will follow up with Dr. Vanessa as an outpatient.
[2016-12-19] MEDS ORDERED: IPRA1AER2 INH (17:51)
--- NOTE | 2016-12-19 17:55 | Discharge Instructions ---
Discharge Instructions Admission Reason for Admission: Hypoxia Discharge Discharge Diagnosis / Problem: Hypoxia secondary to pleural effusions and granulamatous lung disease Discharge Goals Goal(s): Decrease discomfort, Improve function Activity Recommendations Activity Limitations: resume your previous activity . Instructions / Follow-Up Instructions / Follow-Up Please follow-up with pulmonology Please follow-up with nephrology Please follow-up with primary care physician Current Hospital Diet Patient's current hospital diet: AHA Diet (Heart Healthy), Renal Diet, Diabetes Type 2 Diet Discharge Diet Recommended Diet: Renal Diet Fluid Restriction: 1500 ml (6 cups) Pending Studies Studies pending at discharge: no Laboratory Results Hemoglobin A1c Test 12/18/16 06:20 Range/Units Estimated Average Glucose 117 mg/dl Hemoglobin A1c 5.7 H 4.5-5.6 % Medical Emergencies . Who to Call and When: Medical Emergencies: If at any time you feel your situation is an emergency, please call 911 immediately. . Non-Emergent Contact Non-Emergency issues call your: Primary Care Provider, Paper Machine Tender . . "Provider Documentation" section prepared by Lisa Stearns. VTE Core Measure Inpt VTE Proph given/why not?: Unfractionated heparin SQ
[2016-12-19] MEDS: ROSUVASTATIN CALCIUM 20 MG TAB PO SCH (21:14)
[2016-12-20] VITALS (12 sets, daily range): BP systolic 121–146; BP diastolic 66–76; PULSE 66–82; TEMP 36.6–36.8; O2SAT 92–99
[2016-12-20 06:27] LABS: MEAN CELL VOLUME 87.2 fL (80-100); MEAN CORPUSCULAR HEMOGLOBIN 30.5 pg (25-34); RED BLOOD COUNT 3.44 M/uL (4.7-6.1); WHITE BLOOD COUNT 3.72 K/uL (4.8-10.8)
[2016-12-20 06:29] LABS: MEAN PLATELET VOLUME 10.3 fL (7.4-10.4); PLATELET COUNT 87 K/uL (130-400)
[2016-12-20] MEDS: ALBUT/IPRATROP 3MG/0.5MG NEB 3 ML VIAL INH SCH ×4 (07:11→19:55)
[2016-12-20 07:15] LABS: BUN/CREATININE RATIO 7.5 (10-20); CALCIUM 7.7 mg/dl (8.5-10.1); CREATININE 8.4 mg/dl (0.60-1.40); POTASSIUM 4.6 mmol/L (3.5-5.1)
--- NOTE | 2016-12-20 08:05 | Nephrology Progress Note ---
Nephrology Progress Note Date of Service: Dec 20, 2016. Subjective 66 yo male who presented with hypoxia with significant edema in legs, lymphadenopathy, main stem bronchus narrowing and bilateral pleural effusions. have been using reds and getting off close to 4 liters a day. pt breathing much better. did require oxygen at night to help him sleep but was off oxygent during the day. pt interested in going home. Objective Date Time Temp Pulse Resp B/P Pulse Ox O2 Delivery O2 Flow Rate FiO2 12/20/16 07:11 77 16 95 Room Air 12/20/16 04:00 36.6 76 18 146/76 99 Nasal Cannula 2.0 12/20/16 00:25 Room Air 12/19/16 23:19 36.2 67 20 153/81 100 Nasal Cannula 2.0 12/19/16 21:00 Room Air 12/19/16 20:45 77 16 96 Room Air 12/19/16 20:30 36.8 82 144/76 12/19/16 19:42 36.8 82 18 143/73 91 Room Air 12/19/16 19:13 37.1 72 18 94 2.0 12/19/16 16:40 72 18 94 Room Air 12/19/16 16:00 Room Air 12/19/16 12:00 Room Air 12/19/16 11:45 37.1 59 18 111/65 94 Room Air 12/19/16 11:05 61 14 95 Room Air 12/19/16 10:17 36.9 74 18 176/84 12/19/16 08:15 94 Room Air Physical Exam: General-[id number] Eyes-no scleral icterus ENT-mmm Neck-supple Lungs-basilar rales Heart-+click, regular Abdomen-+pd catheter, soft, nondistended Extremities-+1 to 2 edema Neuro-nonfocal Current Inpatient Medications Medications (Trade) Dose Ordered Sig/Romulo Route Start Time Stop Time Status Last Admin Dose Admin Heparin Sodium (Porcine) (Heparin Sq 5000 Unit/0.5ml) 5,000 unit Q12 SQ 12/17/16 21:00 01/16/17 20:59 Acetaminophen (Tylenol Tab) 650 mg Q4H PRN PO 12/17/16 18:30 01/16/17 18:29 Al Hydrox/Mg Hydrox/Simethicone (Maalox Max Susp) 15 ml Q4H PRN PO 12/17/16 18:30 01/16/17 18:29 Magnesium Hydroxide (Milk Of Magnesia Susp) 30 ml Q12H PRN PO 12/17/16 18:30 01/16/17 18:29 12/19/16 21:15 30 ML Ondansetron HCl (Zofran Inj) 4 mg Q6H PRN IV 12/17/16 18:30 01/16/17 18:29 Polyethylene (Miralax Powder Packet) 17 gm DAILY PRN PO 12/17/16 18:30 01/16/17 18:29 Albuterol/ Ipratropium (Duoneb) 3 ml QIDR INH 12/17/16 20:00 01/16/17 19:59 12/20/16 07:11 3 ML Aspirin (Ecotrin Tab) 81 mg DAILY PO 12/18/16 09:00 01/17/17 08:59 12/19/16 07:34 81 MG Metoprolol Tartrate (Lopressor Tab) 12.5 mg BID PO 12/17/16 21:00 01/16/17 20:59 12/19/16 21:13 12.5 MG Rosuvastatin Calcium (Crestor Tab) 40 mg HS PO 12/17/16 21:00 01/16/17 20:59 12/19/16 21:14 40 MG Insulin Aspart (novoLOG ASPART) SLIDING SCALE If C... ACHS SC 12/17/16 21:00 01/16/17 20:59 12/19/16 07:49 12 UNITS Glucose (Glucose 40% Gel) 15-30 GRAMS 15 GRAMS... UD PRN PO 12/17/16 18:45 01/16/17 18:44 Glucose (Glucose Chew Tab) 4-8 Tablets 4 Tabl... UD PRN PO 12/17/16 18:45 01/16/17 18:44 Dextrose (Dextrose 50% 50ML Syringe) 25-50ML OF 50% DW IV FOR... UD PRN IV 12/17/16 18:45 01/16/17 18:44 Glucagon (Glucagon Inj) 1 mg UD PRN SQ 12/17/16 18:45 01/16/17 18:44 Miscellaneous Information (Consult Glycemic Management Pharmacy) 1 ea UD N/A 12/17/16 18:57 01/16/17 18:56 Insulin Glargine (Lantus Solostar Pen) see protocol text Q12 SC 12/18/16 09:00 01/17/17 08:59 12/19/16 21:29 6 UNIT Last 24 Hours Test 12/19/16 11:24 12/19/16 20:08 12/20/16 05:15 Bedside Glucose 108 mg/dl 166 mg/dl White Blood Count 3.72 K/uL Red Blood Count 3.44 M/uL Hemoglobin 10.5 g/dL Hematocrit 30.0 % Mean Corpuscular Volume 87.2 fL Mean Corpuscular Hemoglobin 30.5 pg Mean Corpuscular Hemoglobin Concent 35.0 g/dl RDW Standard Deviation 45.1 fL RDW Coefficient of Variation 14.2 % Platelet Count 87 K/uL Mean Platelet Volume 10.3 fL Sodium Level 138 mmol/L Potassium Level 4.6 mmol/L Chloride Level 99 mmol/L Carbon Dioxide Level 28 mmol/L Anion Gap 11.0 mmol/L Blood Urea Nitrogen 63 mg/dl Creatinine 8.40 mg/dl Est Creatinine Clear Calc Drug Dose 9.9 ml/min Estimated GFR () 6.9 Estimated GFR (Non- 5.9 BUN/Creatinine Ratio 7.5 Random Glucose 195 mg/dl Calcium Level 7.7 mg/dl Magnesium Level 2.0 mg/dl Assessment & Plan ESRD-on pd and using 5 exchanges all reds overnight and removing fluid well. will continue all reds for now. reinforced importance of fluid restriction and put on 1200cc fluid restriction. also started him on lasix 40mg po bid to stimulate more urine output. pt was supposed to get reds delivered to his home this morning. the delivery truck did not have reds, only greens. plan was to have him do one red and one green at home and continue fluid restriction. would like reds to be at home before sending him home. working with [employer] to have them delivered. Anemia of renal failure-transfusion dependent. no procrit with recent invasive skin cancer. Pulm-pt did require oxygen while sleeping. defer to primary hospitalist to see if he would qualify for oxygen at home. Weakness-pt agreeable to outpt physical therapy. question if he would qualify for this. defer to primary hospitalist.
[2016-12-20] MEDS: HEPARIN SOD 5000 UNIT/0.5 ML CARP SQ SCH ×2 (08:22→19:39)
[2016-12-20] MEDS: INSULIN ASPART 100 UNITS/ML 3 ML PEN SC SCH ×4 (08:30→20:13)
[2016-12-20] MEDS: INSULIN GLARGINE SOLOSTAR 100 UNITS/ML 3 ML PEN SC SCH ×2 (08:31→20:13)
[2016-12-20] MEDS: METOPROLOL TARTRATE 25 MG TAB PO SCH ×2 (11:13→19:54)
[2016-12-20] MEDS: ASPIRIN 81 MG ECTAB PO SCH (11:13)
[2016-12-20] MEDS: FUROSEMIDE 40 MG TAB PO SCH ×2 (11:13→17:36)
--- NOTE | 2016-12-20 11:13 | Pharmacy Progress Note ---
Glycemic Control: Progress Nt Date of Service Dec 20, 2016. Scope Glycemic Pharmacist consulted for glycemic control and to write orders per [facility] inpatient glycemic control protocol. Objective Accuchecks BSG (last 24hrs): Test 12/19/16 11:24 12/19/16 20:08 12/20/16 05:15 Bedside Glucose 108 mg/dl (70-99) 166 mg/dl (70-99) Random Glucose 195 mg/dl (70-99) Laboratory Data (last 24hrs) Test 12/20/16 05:15 Anion Gap 11.0 mmol/L BUN/Creatinine Ratio 7.5 Blood Urea Nitrogen 63 mg/dl Creatinine 8.40 mg/dl Potassium Level 4.6 mmol/L Sodium Level 138 mmol/L White Blood Count 3.72 K/uL HbA1c: This value is likely unreliable d/t ESRD Test 12/18/16 06:20 Hemoglobin A1c 5.7 % (4.5-5.6) H Recent Pertinent Medications Outpatient Anti-diabetic Regimen: * Toujeo 26 units SQ QAM + Toujeo 30 units SQ PM * NovoLog 20 units SQ TIDM * Total daily insulin dose ~ 116 units/day The patient is currently receiving: * Basal insulin: Lantus every 12 hours based on BSG 0 units for BSG less than 120 mg/dL 6 units for BSG 120-179 mg/dL 14 units for BSG 180+ mg/dL * Correctional Insulin: Novolog Correction per scale ACHS Goal Range: Low 140 mg/dL - High 180 mg/dL Correction Factor: 20 mg/dL/unit * Prandial insulin: Per carb ratio of 1 unit per 8 grams CHO consumed Risk Factors for Insulin Resistance: * Diet Assessment & Plan ASSESSMENT: * ADA & AACE recommend a goal blood sugar range 140-180 mg/dl for the majority of critically ill & non-critically ill patients. However, more stringent targets may be selected in individual cases. 12/19/16 * Variation in BSG's likely 2nd to Toujeo admin as outpatient 2 AM * Yesterday dinner BSG low to 80 mg/dL since additional Lantus administered at lunch with Toujeo effects likely present * AM fasting BSG today elevated as patient only received Lantus 10 units yesterday and Toujeo effects likely dissipated * Will decrease Lantus order to prevent hypoglycemia (but patient may end up receiving more Lantus today as compared to yesterday which is intentional as Toujeo effects from 12/17 likely dissipated today) * Will maintain high goal range and Novolog correction factor for now * Will slightly loosen carb ratio as patient's BSG's decreased from 224 to 108 mg/dL today after 12 units Novolog administered at breakfast 12/20/16 * AM fasting BSG elevated to 195 mg/dL this AM - will increase Lantus * Poor po intake yesterday - cannot assess effect of loosened carb ratio yesterday * OK to decrease goal range as patient has not experienced hypoglycemia since (when Toujeo still on board), but will keep lower end of goal range relatively high to help prevent over-administration of insulin when BSG's are low PLAN FOR INPATIENT GLYCEMIC CONTROL: * Increase Basal insulin with LANTUS SQ BID per BSG 0 units for BSG less than 100 mg/dL 10 units for BSG 100-179 mg/dL 15 units for BSG 180+ mg/dL * Correctional Insulin with NOVOLOG per scale ACHS or Q6hrs while NPO * Decrease Goal Range: Low 120 mg/dL - High 150 mg/dL * Correction Factor: 20 mg/dL/unit * Nutritional / Prandial insulin per carb ratio of 1 unit per 8 grams CHO consumed * Please note that the plan above was derived based on current level of insulin resistance and hospital stress. These recommendations are appropriate for inpatient admission only. Plan of care upon discharge will need to be reassessed to avoid potential outpatient hypo/hyperglycemia. Thank you.
--- NOTE | 2016-12-20 14:39 | PROGRESS NOTE ---
DATE: 12/20/2016 PULMONARY PROGRESS NOTE PROBLEM LIST: Includes: 1. Pleural effusion. 2. End-stage renal disease with patient receiving peritoneal dialysis. 3. Fluid overload. 4. Granulomatous lung disease. SUBJECTIVE: The patient is feeling much better today. He is feeling back to his baseline. He continued to undergo peritoneal dialysis with the red tipped catheters and is doing much better. He feels that he is back to his baseline. He still is feeling weak and is requesting physical therapy. He is also being set up for the patient to have a nocturnal oximeter done tonight as it does appear that the patient may be desaturating overnight, which can contribute to his fluid retention. The patient denies any other concerns or problem. He does have some cough and wheeze. He states that this is at his baseline. He has no significant mucous production at this time. No chest discomfort, no chest pain, no chest pressure, no palpitations. He is not having any difficulty with his bowels. No difficulty with increased swelling in his extremities. OBJECTIVE: GENERAL: The patient is a 66-year-old male in no acute distress. He is alert and oriented x3. Mood is good. Affect is good. His was in the room when I examined him today. VITAL SIGNS: Temp 36.8, pulse 66, respirations 20, blood pressure is 130/69, pulse ox 96% on room air. NECK: Supple. No mass, no adenopathy, no bruit. CHEST: Diminished. Does have a few expiratory wheeze, better from when I listened previously. No rale or rhonchi noted. CARDIOVASCULAR: Regular rate and rhythm. Does have a 2/6 systolic murmur. No gallops or rubs. ABDOMEN: Soft, nontender. No guarding, rigidity or organomegaly. EXTREMITIES: 3+ edema bilaterally. No tenderness to palpation. No cyanosis or clubbing noted. LABORATORY DATA: Shows a white count of 3.7, H\T\H 10.5 and 30.0, platelet count of 87,000. Creatinine today of 8.4. IMPRESSION: This is a 66-year-old male with end-stage renal disease who has bilateral pleural effusions and a history of granulomatous lung disease, who was admitted due to hypoxia and worsening of his breathing. It was felt that the patient was fluid overload and he has responded well to dialysis and he is pretty much back to his baseline. At this time, I would like for the patient to undergo an overnight oximeter. I think that the patient probably is desaturating and he will benefit from oxygen at night. I would also like for the patient to have physical therapy to see if we can get him stronger as well. He is in agreement to this. Otherwise, he is to continue his medications as they are at home. He will be followed up in the office in 1-2 weeks following discharge. GELACIO
[2016-12-20] MEDS: ROSUVASTATIN CALCIUM 20 MG TAB PO SCH (19:54)
--- NOTE | 2016-12-20 21:18 | Progress Note ---
Internal Med Progress Note Date of Service: Dec 20, 2016. Provider Documentation: SUBJECTIVE: pt found sitting on chair denies f any SOB has non productive cough no hypoxia , in room air OBJECTIVE: Vital Signs-as noted below Exam: General-no sign of distress Eyes-sclera non icteric Lungs-diminished Heart-regular S1/S2 Abdomen-soft , non tender Extremities-no lower ext edema Neuro-no focal deficit Lab data as noted below. ASSESSMENT & PLAN: Acute Hypoxemic Respiratory Failure/due to vol overload Large Bilateral Pleural Effusions pleural effusions noted to be moderate in size, not large enough for thoracentesis symptom improved after peritoneal dialysis appreciate input form Dr Manning peritoneal dialysis settings adjusted - using red bags 2 step pulse exercise done today -no significant desaturation noted During PT eval -desaturates to 83 % after activity recovers to 91 % in RA after rest appreciate input form pulmonology suggest night time 02 will prevent hypoxia /desaturation and prevention cardiac strain leading to CHF ordered for Nocturnal pulse oximetry Granulomatous Lung Disease/Sarcoidosis Hilar/Mediastinal and Diaphragmatic Lymphadenopathy chronic issues pulmonology consult appreciated ESRD on PD peritoneal dialysis every night appreciate input form Nephrology Dialysis setting adjusted Insulin Dependent DM2 appreciate pharmacy consult for glycemic management started 10 units Lantus BID (uses Toujeo at home) sliding scale added DVT ppx subq heparin DNR DISPOSITION Discharge home tomorrow will need arrangements for home 02 at night time -if significant desaturation noted on nocturnal pulse oximetry script given for out pt Physical therapy at [facility] Vital Signs: Date Time Temp Pulse Resp B/P Pulse Ox O2 Delivery O2 Flow Rate FiO2 12/20/16 19:52 78 146/76 12/20/16 16:22 Room Air 12/20/16 15:45 70 16 94 Room Air 12/20/16 15:02 36.7 82 20 126/66 92 12/20/16 13:52 92 12/20/16 12:30 36.8 66 20 130/69 96 Room Air 12/20/16 11:53 Room Air 12/20/16 11:41 36.7 77 16 95 Room Air 12/20/16 11:39 77 16 95 Room Air 12/20/16 08:46 36.7 78 24 121/75 96 Nasal Cannula 2.0 12/20/16 08:30 36.7 78 24 121/75 12/20/16 07:11 77 16 95 Room Air 12/20/16 04:00 36.6 76 18 146/76 99 Nasal Cannula 2.0 12/20/16 00:25 Room Air 12/19/16 23:19 36.2 67 20 153/81 100 Nasal Cannula 2.0 Lab Results: Results Past 24 Hours Test 12/20/16 05:15 12/20/16 14:00 12/20/16 16:37 12/20/16 20:05 Range/Units White Blood Count 3.72 4.8-10.8 K/uL Red Blood Count 3.44 4.7-6.1 M/uL Hemoglobin 10.5 14.0-18.0 g/dL Hematocrit 30.0 42-52 % Mean Corpuscular Volume 87.2 80-100 fL Mean Corpuscular Hemoglobin 30.5 25-34 pg Mean Corpuscular Hemoglobin Concent 35.0 32-36 g/dl RDW Standard Deviation 45.1 36.4-46.3 fL RDW Coefficient of Variation 14.2 11.5-14.5 % Platelet Count 87 130-400 K/uL Mean Platelet Volume 10.3 7.4-10.4 fL Sodium Level 138 136-145 mmol/L Potassium Level 4.6 3.5-5.1 mmol/L Chloride Level 99 98-107 mmol/L Carbon Dioxide Level 28 21-32 mmol/L Anion Gap 11.0 3-11 mmol/L Blood Urea Nitrogen 63 7-18 mg/dl Creatinine 8.40 0.60-1.40 mg/dl Est Creatinine Clear Calc Drug Dose 9.9 ml/min Estimated GFR () 6.9 Estimated GFR (Non- 5.9 BUN/Creatinine Ratio 7.5 10-20 Random Glucose 195 70-99 mg/dl Calcium Level 7.7 8.5-10.1 mg/dl Magnesium Level 2.0 1.8-2.4 mg/dl Bedside Glucose 160 142 180 70-99 mg/dl
[2016-12-21] MEDS: HEPARIN SOD 5000 UNIT/0.5 ML CARP SQ SCH (07:07)
[2016-12-21 07:31] VITALS: BP 132/76; PULSE 65; TEMP 36.7; O2SAT 92
[2016-12-21] MEDS: ALBUT/IPRATROP 3MG/0.5MG NEB 3 ML VIAL INH SCH (08:00)
--- NOTE | 2016-12-21 08:44 | Pharmacy Progress Note ---
Glycemic Control: Progress Nt Date of Service Dec 21, 2016. Scope Glycemic Pharmacist consulted for glycemic control and to write orders per [facility] inpatient glycemic control protocol. Objective Accuchecks BSG (last 24hrs): Test 12/20/16 14:00 12/20/16 16:37 12/20/16 20:05 12/21/16 07:38 Bedside Glucose 160 mg/dl (70-99) 142 mg/dl (70-99) 180 mg/dl (70-99) 236 mg/dl (70-99) HbA1c: May not be reflective of average glucose 2nd ESRD Test 12/18/16 06:20 Hemoglobin A1c 5.7 % (4.5-5.6) H Recent Pertinent Medications Outpatient Anti-diabetic Regimen: * Toujeo 26 units SQ QAM + Toujeo 30 units SQ PM * NovoLog 20 units SQ TIDM * Total daily insulin dose ~ 116 units/day The patient is currently receiving: * Basal insulin: Lantus every 12 hours based on BSG 0 units for BSG less than 120 mg/dL 10 units for BSG 120-179 mg/dL 15 units for BSG 180+ mg/dL * Correctional Insulin: Novolog Correction per scale ACHS Goal Range: Low 120 mg/dL - High 150 mg/dL Correction Factor: 20 mg/dL/unit * Prandial insulin: Per carb ratio of 1 unit per 8 grams CHO consumed Risk Factors for Insulin Resistance: * Diet Assessment & Plan ASSESSMENT: * ADA & AACE recommend a goal blood sugar range 140-180 mg/dl for the majority of critically ill & non-critically ill patients. However, more stringent targets may be selected in individual cases. 12/20/16 * AM fasting BSG elevated to 195 mg/dL this AM - will increase Lantus * Poor po intake yesterday - cannot assess effect of loosened carb ratio yesterday * OK to decrease goal range as patient has not experienced hypoglycemia since (when Toujeo still on board), but will keep lower end of goal range relatively high to help prevent over-administration of insulin when BSG's are low 12/21/16 * BSG's ranging 142-236 mg/dL over the last 24 hours. * Highest BSG of the day consistently AM fasting. Will increase Lantus. * No other changes today PLAN FOR INPATIENT GLYCEMIC CONTROL: * Increase Basal insulin with LANTUS SQ BID per BSG 5 units for BSG less than 100 mg/dL 15 units for BSG 100-179 mg/dL 20 units for BSG 180+ mg/dL * Correctional Insulin with NOVOLOG per scale ACHS or Q6hrs while NPO * Goal Range: Low 120 mg/dL - High 150 mg/dL * Correction Factor: 20 mg/dL/unit * Nutritional / Prandial insulin per carb ratio of 1 unit per 8 grams CHO consumed * Please note that the plan above was derived based on current level of insulin resistance and hospital stress. These recommendations are appropriate for inpatient admission only. Plan of care upon discharge will need to be reassessed to avoid potential outpatient hypo/hyperglycemia. Thank you.
[2016-12-21] MEDS: ASPIRIN 81 MG ECTAB PO SCH (08:45)
[2016-12-21] MEDS ORDERED: ALBUT/IPRATROP 3MG/0.5MG NEB 3 ML VIAL INH PRN (08:45)
[2016-12-21] MEDS: FUROSEMIDE 40 MG TAB PO SCH (08:46)
[2016-12-21] MEDS: METOPROLOL TARTRATE 25 MG TAB PO SCH (08:46)
[2016-12-21] MEDS: INSULIN GLARGINE SOLOSTAR 100 UNITS/ML 3 ML PEN SC SCH (08:52)
[2016-12-21] MEDS: INSULIN ASPART 100 UNITS/ML 3 ML PEN SC SCH (08:53)
[2016-12-21 09:30] VITALS: BP 132/67; PULSE 65; TEMP 36.7
--- NOTE | 2016-12-21 10:08 | Pulmonology Progress Note ---
Pulmonary Progress Note Date of Service Dec 21, 2016. Attending Martin Vanessa Subjective Patient notes much improved respiratory status since his initial admission. At this time he continues to have dyspnea on exertion but no shortness of breath at rest. He denies: Fever, chills, productive cough, hemoptysis, chest pain Objective Patient doing well today able to complete full sentences no signs of accessory muscle use. Vital signs: Reviewed notably stable on 2 L nasal cannula Respiratory: Decreased breath sounds at the bases left greater than right with inspiratory respiratory wheezing along the right hemithorax Cardiac: S1 and S2 distant heart sounds I'm unable to auscultate for murmurs rubs or gallops Skin: 2+ pitting edema in gravity dependent regions, no breakdown or ulcerations appreciated 1) I/O: -24L (PD:3.4L) 2) Over Night Oximetry set-up (slept in chair) a. Longest continuous time with SaO2 <=89%--5:40 3) Meds: a. DuoNebs: QID 4) Labs: a. Plt: 87K-stable b. Nasal Swab: +MRSA Assessment & Plan 66-year-old gentleman with renal failure on her toenail dialysis and mediastinal lymphadenopathy: #1 Hypoxia: Patient admitted in acute hypoxic episode secondary to volume overload associated mediastinal adenopathy. At this time he's been diuresed 34 L since his admission and notes a dramatic improvement in his shortness of breath. I discussed possible initiating high-dose steroids for patient's mediastinal lymphadenopathy/granulomatous changes seen on biopsies. As this episode appears to be similar to previous ones and volume overload is etiology initiating steroids is not necessary. I spoken to the patient at length about his volume intake and he once again acknowledges his poor compliance. Patients overnight sleep oximeter showed desaturation greater than 5 minutes. This makes ineligible for home oxygen at suggest at this time 2 L continuously. #2 mediastinal lymphadenopathy: Patient is been evaluated by 2 thoracic surgeons and noted to be high risk for any acute intervention. 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 Patient is at her dry weight he can be reevaluated as an outpatient for intervention. Discharge: Appears patient can be discharged safely and followed up in the [facility] with myself, Anneliese Bliss and/or Aquilino Peres. Data Medications: Current Inpatient Medications Medications (Trade) Dose Ordered Sig/Romulo Route Start Time Stop Time Status Last Admin Dose Admin Heparin Sodium (Porcine) (Heparin Sq 5000 Unit/0.5ml) 5,000 unit Q12 SQ 12/17/16 21:00 01/16/17 20:59 Acetaminophen (Tylenol Tab) 650 mg Q4H PRN PO 12/17/16 18:30 01/16/17 18:29 Al Hydrox/Mg Hydrox/Simethicone (Maalox Max Susp) 15 ml Q4H PRN PO 12/17/16 18:30 01/16/17 18:29 Magnesium Hydroxide (Milk Of Magnesia Susp) 30 ml Q12H PRN PO 12/17/16 18:30 01/16/17 18:29 12/19/16 21:15 30 ML Ondansetron HCl (Zofran Inj) 4 mg Q6H PRN IV 12/17/16 18:30 01/16/17 18:29 Polyethylene (Miralax Powder Packet) 17 gm DAILY PRN PO 12/17/16 18:30 01/16/17 18:29 Aspirin (Ecotrin Tab) 81 mg DAILY PO 12/18/16 09:00 01/17/17 08:59 12/21/16 08:45 81 MG Metoprolol Tartrate (Lopressor Tab) 12.5 mg BID PO 12/17/16 21:00 01/16/17 20:59 12/21/16 08:46 12.5 MG Rosuvastatin Calcium (Crestor Tab) 40 mg HS PO 12/17/16 21:00 01/16/17 20:59 12/20/16 19:54 40 MG Insulin Aspart (novoLOG ASPART) SLIDING SCALE If C... ACHS SC 12/17/16 21:00 01/16/17 20:59 12/21/16 08:53 8 UNITS Glucose (Glucose 40% Gel) 15-30 GRAMS 15 GRAMS... UD PRN PO 12/17/16 18:45 01/16/17 18:44 Glucose (Glucose Chew Tab) 4-8 Tablets 4 Tabl... UD PRN PO 12/17/16 18:45 01/16/17 18:44 Dextrose (Dextrose 50% 50ML Syringe) 25-50ML OF 50% DW IV FOR... UD PRN IV 12/17/16 18:45 01/16/17 18:44 Glucagon (Glucagon Inj) 1 mg UD PRN SQ 12/17/16 18:45 01/16/17 18:44 Miscellaneous Information (Consult Glycemic Management Pharmacy) 1 ea UD N/A 12/17/16 18:57 01/16/17 18:56 Insulin Glargine (Lantus Solostar Pen) see protocol text Q12 SC 12/18/16 09:00 01/17/17 08:59 12/21/16 08:52 20 UNIT Furosemide (Lasix Tab) 40 mg BID17 PO 12/20/16 09:00 01/19/17 08:59 12/21/16 08:46 40 MG Albuterol/ Ipratropium (Duoneb) 3 ml QID PRN INH 12/21/16 08:45 01/20/17 08:44 I & O: 24-Hour Column 12/21/16 07:59 Intake Total 01989 ml Output Total 17323 ml Balance -8216 ml Vital Signs: Date Time Temp Pulse Resp B/P Pulse Ox O2 Delivery O2 Flow Rate FiO2 12/21/16 07:31 36.7 65 16 132/76 92 Room Air 12/21/16 00:00 Room Air 12/20/16 20:00 Room Air 12/20/16 19:52 78 146/76 12/20/16 16:22 Room Air 12/20/16 15:45 70 16 94 Room Air 12/20/16 15:02 36.7 82 20 126/66 92 12/20/16 13:52 92 12/20/16 12:30 36.8 66 20 130/69 96 Room Air 12/20/16 11:53 Room Air 12/20/16 11:41 36.7 77 16 95 Room Air 12/20/16 11:39 77 16 95 Room Air Laboratory Results: Last 24 Hours Test 12/20/16 14:00 12/20/16 16:37 12/20/16 20:05 12/21/16 07:38 Bedside Glucose 160 mg/dl 142 mg/dl 180 mg/dl 236 mg/dl
--- NOTE | 2016-12-21 12:41 | Progress Note ---
Internal Med Progress Note Date of Service: Dec 21, 2016. Provider Documentation: SUBJECTIVE: has nocturnal pulse oximetry done found to have desaturation < 89 % for 5 mins episodes of desaturation 70 for 3 mins pt is given script for nocturnal home 02 Social service updated already new supplies for peritoneal dialysis delivered at home stable to be discharged home today pt denies of any SOB , no cough no chest heaviness OBJECTIVE: Vital Signs-as noted below Exam: General-no sign of distress Eyes-sclera non icteric Lungs-diminished Heart-regular S1/S2 Abdomen-soft , non tender Extremities-no lower ext edema Neuro-no focal deficit Lab data as noted below. ASSESSMENT & PLAN: Acute Hypoxemic Respiratory Failure/due to vol overload /decompensated CHF Large Bilateral Pleural Effusions pleural effusions noted to be moderate in size, not large enough for thoracentesis symptom improved after peritoneal dialysis appreciate input form Dr Manning peritoneal dialysis settings adjusted - using red bags 2 step pulse exercise done today -no significant desaturation noted During PT eval -desaturates to 83 % after activity recovers to 91 % in RA after rest appreciate input form pulmonology Nocturnal pulse oximetry ordered pt had moderate desaturations episodically arrangements made for nocturnal home 02 Granulomatous Lung Disease/Sarcoidosis Hilar/Mediastinal and Diaphragmatic Lymphadenopathy chronic issues pulmonology consult appreciated ESRD on PD peritoneal dialysis every night appreciate input form Nephrology Dialysis setting adjusted new supplies delivered to home already Insulin Dependent DM2 appreciate pharmacy consult for glycemic management started 10 units Lantus BID (uses Toujeo at home) sliding scale added resume out pt diabetic meds on discharge DVT ppx subq heparin DNR DISPOSITION Discharge home today arrangement made for home 02 at night time script given for out pt Physical therapy at [facility] Medicine follow up with Dr Ballesteros at [facility] Vital Signs: Date Time Temp Pulse Resp B/P Pulse Ox O2 Delivery O2 Flow Rate FiO2 12/21/16 09:30 36.7 65 16 132/67 12/21/16 07:31 36.7 65 16 132/76 92 Room Air 12/21/16 00:00 Room Air 12/20/16 21:00 36.8 78 146/76 12/20/16 20:00 Room Air 12/20/16 19:52 78 146/76 12/20/16 16:22 Room Air 12/20/16 15:45 70 16 94 Room Air 12/20/16 15:02 36.7 82 20 126/66 92 12/20/16 13:52 92 Lab Results: Results Past 24 Hours Test 12/20/16 14:00 12/20/16 16:37 12/20/16 20:05 12/21/16 07:38 Range/Units Bedside Glucose 160 142 180 236 70-99 mg/dl
--- NOTE | 2016-12-21 12:45 | Discharge Summary ---
Discharge Summary Admission Date: Dec 17, 2016 at 18:35 Discharge Date: Dec 21, 2016 Discharge Disposition: Home with services Principal Diagnosis: Hypoxia secondary to pleural effusions/Acute on chronic CHF with diastolic dysfunction and granulomatous lung disease Procedures: PERITONEAL DIALYSIS -CHRONIC Consultations: NEPHROLOGY PULMONOLOGY Medication Reconciliation New Medications: Ipratropium-Albuterol (Combivent Respimat) 1 Aer Aer 1 PUFFS INH QID for 30 Days, #1 INH Continued Medications: Allopurinol (Zyloprim) 100 Mg Tab 100 MG PO BID, TAB Aspirin (Aspirin Ec) 81 Mg Tab 81 MG PO DAILY Colchicine (Colchicine) 0.6 Mg Tab 0.6 MG PO DAILY PRN for flare Insulin Aspart (Novolog Flexpen) 100 Units/Ml Inj 0 SC ACHS for 30 Days Sliding Scale Coverage: for blood sugars 150-175, take 1 unit, 176-200 take 2 units 201-225 take 3 units 226-250 take 4 units 251-275 take 5 units 276-300 take 6 units Insulin Glargine (Toujeo Solostar) 300 Unit/Ml Inj 26 UNITS SQ QAM Insulin Glargine (Toujeo Solostar) 300 Unit/Ml Inj 30 UNITS SQ QPM Metoprolol Tartrate (Lopressor) 25 Mg Tab 12.5 MG PO BID, TAB Rosuvastatin Calcium (Crestor) 20 Mg Tab 40 MG PO HS, TAB Referrals At Discharge Continued Follow up Referrals: Senior Analytic Consultant Referral - Within 1-2 Weeks @ [facility] with Babak Ng M.D. Admission Information HPI (per Admitting provider): This is a 66 year old male with PMH of ESRD on peritoneal dialysis, granulomatous lung disease/sarcoidosis, 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 of aortic valve replacement, mainstem bronchus stenosis, HTN, HLD was sent over by pulmonology, Dr. Vanessa's office. He has been in and out of the hospital due to worsening shortness of breath, progressive dyspnea - has a long standing history of granulomatous disease of the lung; found to have hilar adenopathy, mainstem bronchus stenosis, and large pleural effusions. He was seen here by Butch Ledesma and had a thoracentesis - states he felt better after the fluid was removed, but progressively worsened. Had a CT and PET scan done on 12/11/16 which showed bilateral hilar and mediastinal adenopathy with scattered pulmonary nodules as well as infra diaphragmatic lymphadenopathy. Also showed stable large bilateral pleural effusions with partial compressive atelectasis of the lungs. I saw him today in room 103; he has dyspnea and cannot complete sentences; cannot take deep breath in - he states he feels okay when seated up and with oxygen on. Physical Exam (per Admitting): General Appearance: + moderate distress (respiratory distress) Head: normocephalic, atraumatic Eyes: normal inspection ENT: hearing grossly normal Neck: supple Respiratory/Chest: + respiratory distress, + decreased breath sounds, + accessory muscle use, + wheezing Cardiovascular: regular rate, rhythm, no murmur Abdomen/GI: normal bowel sounds, non tender, soft, + hernia Extremities/Musculoskelatal: + pertinent finding (+2 pitting edema b/l LE) Neurologic/Psych: no motor/sensory deficits, alert, normal mood/affect Skin: normal color Lymphatic: no adenopathy Hospital Course Acute Hypoxemic Respiratory Failure/due to vol overload /decompensated CHF Large Bilateral Pleural Effusions Acute on chronic CHF with diastolic dysfunction ECHO July 10, 2016 The left ventricular cavity size is normal. The LV wall thickness is moderately increased (concentric). Calculated LV ejection Fraction = 60% (bi-plane method of discs). The left ventricular diastolic function is mildly abnormal (grade I). symptom improved after peritoneal dialysis appreciate input form Dr Manning peritoneal dialysis settings adjusted - using red bags 2 step pulse exercise done today -no significant desaturation noted During PT eval -desaturates to 83 % after activity recovers to 91 % in RA after rest appreciate input form pulmonology Nocturnal pulse oximetry ordered pt had moderate desaturations episodically arrangements made for nocturnal home 02 Granulomatous Lung Disease/Sarcoidosis Hilar/Mediastinal and Diaphragmatic Lymphadenopathy chronic issues pulmonology consult appreciated ESRD on PD peritoneal dialysis every night appreciate input form Nephrology Dialysis setting adjusted new supplies delivered to home already Insulin Dependent DM2 appreciate pharmacy consult for glycemic management started 10 units Lantus BID (uses Toujeo at home) sliding scale added resume out pt diabetic meds on discharge DVT ppx subq heparin DNR DISPOSITION Discharge home today arrangement made for home 02 at night time script given for out pt Physical therapy at [facility] Medicine follow up with Dr Ballesteros at [facility] Total time spent on discharge = 35 MINS This includes examination of the patient, discharge planning, medication reconciliation, and communication with other providers. Discharge Instructions DI: Medical v4 Discharge Instructions Admission Reason for Admission: Hypoxia Discharge Discharge Diagnosis / Problem: Hypoxia secondary to pleural effusions and granulamatous lung disease Discharge Goals Goal(s): Decrease discomfort, Improve function Activity Recommendations Activity Limitations: resume your previous activity . Instructions / Follow-Up Instructions / Follow-Up Please follow-up with pulmonology Please follow-up with nephrology Please follow-up with primary care physician Current Hospital Diet Patient's current hospital diet: AHA Diet (Heart Healthy), Renal Diet, Diabetes Type 2 Diet Discharge Diet Recommended Diet: Renal Diet Fluid Restriction: 1500 ml (6 cups) Pending Studies Studies pending at discharge: no Laboratory Results Hemoglobin A1c Test 12/18/16 06:20 Range/Units Estimated Average Glucose 117 mg/dl Hemoglobin A1c 5.7 H 4.5-5.6 % Medical Emergencies . Who to Call and When: Medical Emergencies: If at any time you feel your situation is an emergency, please call 911 immediately. . Non-Emergent Contact Non-Emergency issues call your: Primary Care Provider, Senior Analytic Consultant . . "Provider Documentation" section prepared by Lisa Stearns. VTE Core Measure Inpt VTE Proph given/why not?: Unfractionated heparin SQ Additional Copies To Harper Manning I., DO
--- NOTE | 2016-12-25 07:55 | EDITING REQUIRED CODING QUERY ---
CONGESTIVE HEART FAILURE Note - Progress Note on 12/21 and Discharge Summary document decompensated CHF. To Promote full compliance with coding requirements relating to patient care, physician participation is requested in all cases of [place] uncertainty. Please assist us with the following questions. A diagnosis of Congestive Heart Failure is documented in the patient's medical record. To accurately code this diagnosis and to compare patient severity, we ask that you specify the type of heart failure by placing an X within the parenthesis (x). SYSTOLIC HEART FAILURE ( ) Acute ( ) Chronic ( ) Acute on Chronic ( ) Rheumatic ( ) Unknown DIASTOLIC HEART FAILURE ( ) Acute ( ) Chronic (X ) Acute on Chronic ( ) Rheumatic ( ) Unknown COMBINED SYSTOLIC AND DIASTOLIC HEART FAILURE ( ) Acute ( ) Chronic ( ) Acute on Chronic ( ) Rheumatic ( ) Unknown Was the CHF Present On Admission? Please check the appropriate box: ( ) Present on Admission ( ) Not Present On Admission ( ) Clinically undetermined Thank you Vida Barron
[2017-01-16] MEDS ORDERED: AMOX1TAB42 PO (11:30)
== END 2016-12-21 11:56 | disposition home or self-care (01) | DRG 196 ==
LOC: ENRESERVDT → ENRESERVTM → C.MSICU 17:36 → UNDOADMIN 17:36 → C.MSICU 18:35 → UNDOADMIN 18:35 → C.2T 12-18 22:26 → EDBEDREQ 12-19 18:32 → C.4E 12-19 19:16
PROVIDERS: ADMIT Internal Medicine; ATTEND Hospitalist
DX: D86.0 Sarcoidosis of lung (principal); J96.01 Acute respiratory failure with hypoxia; N18.6 End stage renal disease; I50.31 Acute diastolic (congestive) heart failure; J98.11 Atelectasis; I13.2 Hypertensive heart and chronic kidney disease with heart failure and with stage 5 chronic kidney disease, or end stage renal disease; I50.32 Chronic diastolic (congestive) heart failure; J98.09 Other diseases of bronchus, not elsewhere classified; R59.0 Localized enlarged lymph nodes; R91.8 Other nonspecific abnormal finding of lung field; E11.22 Type 2 diabetes mellitus with diabetic chronic kidney disease; E11.21 Type 2 diabetes mellitus with diabetic nephropathy; E11.40 Type 2 diabetes mellitus with diabetic neuropathy, unspecified; I25.10 Atherosclerotic heart disease of native coronary artery without angina pectoris; Z86.19 Personal history of other infectious and parasitic diseases; D63.1 Anemia in chronic kidney disease; M10.9 Gout, unspecified; Z51.81 Encounter for therapeutic drug level monitoring; Z79.899 Other long term (current) drug therapy; Z79.4 Long term (current) use of insulin; Z79.82 Long term (current) use of aspirin; Z66 Do not resuscitate; Z99.2 Dependence on renal dialysis; Z95.2 Presence of prosthetic heart valve; Z86.14 Personal history of Methicillin resistant Staphylococcus aureus infection; Z85.820 Personal history of malignant melanoma of skin; Z92.3 Personal history of irradiation; Z83.3 Family history of diabetes mellitus; Z82.49 Family history of ischemic heart disease and other diseases of the circulatory system

== ENCOUNTER → 2016-12-17 | Outpatient (CLI) | payer OTHER ==
[~2016-12-17] MED LIST changes: +AMOX1TAB42 PO; +CALC667C4 PO; -CLC6 PO; +COLC0.6T54 PO; +INSU1.2I SQ; +IPRA1AER2 INH; +NVLG SQ; +PHOSPHORUS BINDER PO; +PRD20 PO; -tujeo
--- NOTE | 2016-12-17 11:42 | DIAGNOSTIC IMAGING REPORT ---
TWO VIEW CHEST CLINICAL HISTORY: Pleural effusion. Sarcoidosis. FINDINGS: PA and lateral chest radiographs are compared to studies dated 12/03/2016 and 10/15/2014. Correlation is made with chest CT dated 03/06/2015. The patient is status post midline sternotomy and aortic valve replacement. The heart is enlarged and there is atherosclerotic calcification of the thoracic aorta. The pulmonary vasculature is noncongested. Perihilar fibrotic change is similar to prior studies, as are numerous pulmonary nodules, greatest in the right upper lobe. There is no pneumothorax. The skeletal structures are osteopenic. Mild degenerative change is noted throughout the thoracic spine. IMPRESSION: 1. Small pleural effusions with bibasilar consolidation. These are similar in appearance to the 12/03/2016 examination. 2. Cardiomegaly without clear radiographic evidence of congestive failure. 3. Chronic perihilar changes and parenchymal nodularity as above. This is likely related to the reported history of sarcoidosis. There is no clear evidence of superimposed airspace consolidation. Electronically signed by: Butch Hoffman M.D. 12/17/2016 11:41 AM Dictated Date/Time: 12/17/2016 11:36 AM
== END | disposition home or self-care (01) ==
LOC: C.RAD1850 11:24
PROVIDERS: ATTEND Internal Medicine Critical Care Medicine
DX: J90 Pleural effusion, not elsewhere classified (principal)

== ENCOUNTER 2016-12-25 14:32 | Observation (INO) | payer OTHER ==
[~2016-12-25] VITALS: Ht 170.2 cm; Wt 97.7 kg
[~2016-12-25 14:32] MED LIST changes: +IPRA1AER2 INH
--- NOTE | 2016-12-25 15:29 | DIAGNOSTIC IMAGING REPORT ---
CHEST ONE VIEW PORTABLE CLINICAL HISTORY: Hypotension COMPARISON STUDY: 12/19/2016 FINDINGS: There are postsurgical changes of midline sternotomy and aortic valve replacement. There is a persistent left pleural effusion with associated left basilar atelectasis/consolidation. There is a decreasing right pleural effusion. There is decreasing right hilar prominence. There is mild central vascular prominence without overt failure.[ IMPRESSION: 1. Postsurgical changes 2. Stable left pleural effusion decreasing right pleural effusion 3. Persistent left basilar atelectasis/consolidation 4. Decreased prominence of the right hilum Electronically signed by: Narinder Martinez M.D. 12/25/2016 3:28 PM Dictated Date/Time: 12/25/2016 3:26 PM
[2016-12-25 15:40] LABS: HEMATOCRIT 32.7 % (42-52); MEAN CELL VOLUME 85.2 fL (80-100); MEAN CORPUSCULAR HEMOGLOBIN 29.7 pg (25-34); MEAN CORPUSCULAR HGB CONC 34.9 g/dl (32-36); MEAN PLATELET VOLUME 10.4 fL (7.4-10.4); PLATELET COUNT 102 K/uL (130-400); RED BLOOD COUNT 3.84 M/uL (4.7-6.1); WHITE BLOOD COUNT 11.42 K/uL (4.8-10.8)
[2016-12-25 15:42] LABS: MANUAL MICROSCOPIC REQUIRED? YES; URINE APPEARANCE CLOUDY (CLEAR); URINE BILIRUBIN NEG (NEG); URINE COLOR YELLOW; URINE NITRITE NEG (NEG); URINE SPECIFIC GRAVITY 1.025 (1.000-1.030); UROBILINOGEN NEG (NEG)
[2016-12-25 15:44] LABS: REVIEW REQ? NO
[2016-12-25 15:54] LABS: URINE BACTERIA 2+ (NEG)
[2016-12-25 15:55] LABS: URINE RBC 0-4 /hpf (0-4); ZZUR CULT IF INDIC CLEAN CATCH YES
[2016-12-25 16:06] LABS: BASO % 0.1 %; BASO ABS # 0.01 K/uL (0-0.2); COMPLETE YES; EOS % 0.3 %; IG% 0.2 %; LYMPH % 6.2 %; LYMPH ABS # 0.71 K/uL (1.2-3.4); NEUT % 89.2 %
[2016-12-25 16:12] LABS: ALKALINE PHOSPHATASE 114 U/L (45-117); ALT/SGPT 21 U/L (12-78); AST/SGOT 12 U/L (15-37); BLOOD UREA NITROGEN 83 mg/dl (7-18); BUN/CREATININE RATIO 5.9 (10-20); CARBON DIOXIDE 25 mmol/L (21-32); CHLORIDE 92 mmol/L (98-107); GLUCOSE 264 mg/dl (70-99); POTASSIUM 5.1 mmol/L (3.5-5.1); SODIUM 132 mmol/L (136-145)
[2016-12-25] MEDS ORDERED: ALBUMIN HUMAN 25% 12.5 GM/50 ML VIAL IV STA (16:25)
[2016-12-25] MEDS ORDERED: OSELTAMIVIR PHOSPHATE 75 MG CAP PO STA (16:32)
[2016-12-25] MEDS ORDERED: ONDANSETRON INJ 2 MG/ML 2 ML VIAL IV PRN (17:45)
[2016-12-25] MEDS ORDERED: ACETAMINOPHEN 325 MG TAB PO PRN (17:45)
[2016-12-25] MEDS ORDERED: NITROGLYCERIN 0.4 MG SL PER TAB CHARGE SL PRN (17:45)
[2016-12-25] MEDS ORDERED: COLC0.6T54 PO (17:55)
[2016-12-25] MEDS ORDERED: IPRA1AER2 INH (17:55)
[2016-12-25] MEDS ORDERED: GLUCOSE 40% GEL 15 GM TUBE PO PRN (18:00)
[2016-12-25] MEDS ORDERED: DEXTROSE 50% 50 ML SYR IV PRN (18:00)
[2016-12-25] MEDS ORDERED: GLUCOSE 10 TABS/TUBE PO PRN (18:00)
[2016-12-25] MEDS ORDERED: GLUCAGON FOR INJ 1 MG VIAL SQ PRN (18:00)
--- NOTE | 2016-12-25 18:24 | History and Physical ---
History & Physical Date of Service Dec 25, 2016. 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 of aortic valve replacement, mainstem bronchus stenosis, HTN, HLD He was recently admitted at [facility] for increase bilateral pleural effusion and fluid overload. During that admission, it was decided that his peritoneal dialysis settings would change to allow for more fluid to be taken off to prevent the recurrent pleural effusions (he also had a thoracentesis in 2017 to remove the fluid build-up in his lungs). He was discharged on December 21 and stated he was doing pretty well at home. He was doing his dialysis daily with good notes recording how much fluid removed. He saw Dr. Ballesteros in the office today and it was noted that his SBP was in the 80s. His stated that he felt weak and cough persisted. He was sent over to the ER for further evaluation. In the ER, blood pressure improving, but he was found to be Influenza A+. Creatinine hetal from 8.0 from last week to 14 today. VITALS: Last Vital Signs Documentation Date Time Temp Pulse Resp B/P Pulse Ox O2 Delivery O2 Flow Rate FiO2 12/25/16 17:46 37.0 54 18 126/53 92 Room Air GEN: no acute distress HEENT: +right ear, well healing from post-biopsy CVS: +S1, S2, RRR LUNGS: decreased breath sounds, no wheezing/rhonchi ABD: soft, NT/ND EXT: +2 pitting edema b/l LE Influenza A+ patient with +weakness, +cough patient received one dose of Tamiflu in the ER due to PD, does not need any additional doses at this time Hypotension possibly related to over-dialysis? patient had been using red bags at home, which was a change on discharge on December 21 albumin x 1 given in the ER blood pressure > 100 systolically while in the ER nephrology consulted; may need adjustment in PD settings? ESRD on PD creat increased from 8.0 to 14.0 likely related to the change in PD settings This was needed due to fluid overload and pleural effusions Pleural Effusions CXR shows stable pleural effusions Granulomatous Lung Disease/Sarcoidosis Hilar/Mediastinal and Diaphragmatic Lymphadenopathy chronic issues related to this lung disorder for now, nebulizers and O2 PRN Insulin Dependent DM2 started 15 units Lantus BID sliding scale added
--- NOTE | 2016-12-25 18:35 | History and Physical ---
History & Physical Date & Time of Service: Dec 25, 2016 at 17:57 Chief Complaint: Low Blood Pressure-Sent By Dr. Montenegro/Meseret Primary Care Physician: Ron Bettencourt III, M.D. History of Present Illness Source: patient This is a 66 year old male with PMHx of ESRD on peritoneal dialysis, granulomatous lung disease/sarcoidosis, insulin-dependent DM 2, HTN and Dyslipidemia who presents to the ED from PCP office due to hypotension. Pt was recently admitted to [facility] from 12/17-12/21 with hypoxia secondary to pleural effusions. Fluid was managed with dialysis and patient was discharged on intensified PD schedule as well as 2L O2 HS. Since discharge patient has been feeling weak and tired with a runny nose and some lightheadedness. His cough is unchanged from baseline. Today, patient was seen by PCP (Dr. Ballesteros) for hospital followup where BP was noted to be 87/47. Pt was referred to the ED for further evaluation. Pt has a complicated pulmonary history with a long standing history of granulomatous disease of the lung. He was found to have hilar adenopathy, mainstem bronchus stenosis and large pleural effusions. A bronchoscopy was attempted in November however the procedure was prematurely terminated due to severe dyspnea. Pt underwent thoracentesis instead which did relieve some of his sxs. Pt feels that his respiratory status is stable at the moment. Pt denies fever/chills, diaphoresis, chest pain, palpitations, wheezing , abd pain, N/V, bowel or bladder issues, worsening LE edema ,calf pain. In the ED, BP is 105/49 on arrival. He is afebrile with no leukocytosis. Na+ 132. Creat 14. UA 2+ bacteria, 3+ blood, 1+ glucose and 3+ protein. Influenza A positive. CXR + stable pleural effusions. Pt is stable and will be admitted for further evaluation and treatment. Past Medical/Surgical History Medical Problems: (1) Adenomatous colon polyp Status: Chronic (2) Aortic valve stenosis Permanent Comment: s/p AVR Status: Chronic (3) ASCVD (arteriosclerotic cardiovascular disease) Status: Chronic (4) Diabetes Status: Chronic (5) ESRD (end stage renal disease) Permanent Comment: on peritoneal dialysis Status: Chronic (6) Gout Status: Chronic (7) Hepatitis C Permanent Comment: s/p treatment > 30 years ago Status: Chronic (8) Hypertension Status: Chronic (9) Melanoma Permanent Comment: neck - s/p removal Status: Resolved (10) Sleep apnea, obstructive Status: Chronic (11) Vitamin D deficiency Status: Chronic Surgical Problems: (1) History of bronchoscopy Status: Resolved (2) History of colonoscopy with polypectomy Status: Chronic (3) History of cystoscopy Status: Resolved (4) History of heart valve repair Permanent Comment: aortic valve replacement by Dr. Linus Hines - [facility] [place] in 2008 Status: Chronic (5) History of hernia repair Permanent Comment: right inguinal - age 6 Status: Chronic (6) S/P tonsillectomy and adenoidectomy Status: Chronic Family History Diabetes mellitus Heart disease Hypertension Social History Smoking Status: Never Smoker Alcohol Use: none Drug Use: none Marital Status: Housing status: lives with family Occupational Status: retired Multi-Drug Resistant Organisms History of MDRO: Yes Type of MDRO: MRSA Allergies Coded Allergies: No Known Allergies (Unverified , 12/25/16) Home Medications Scheduled Allopurinol (Zyloprim), 100 MG PO BID Aspirin (Aspirin Ec), 81 MG PO DAILY Insulin Aspart (Novolog Flexpen), 0 SC ACHS Insulin Glargine (Toujeo Solostar), 18 UNITS SQ QAM Insulin Glargine (Toujeo Solostar), 18 UNITS SQ QPM Ipratropium-Albuterol (Combivent Respimat), 1 PUFFS INH QID Metoprolol Tartrate (Lopressor), 12.5 MG PO BID Rosuvastatin Calcium (Crestor), 40 MG PO HS Scheduled PRN Colchicine (Colchicine), 0.6 MG PO DAILY PRN for gout flare Review of Systems Constitutional: + fatigue, + weakness, No chills, No fever Eyes: No worsening of vision ENT: No hearing loss Respiratory: + cough (chronic: at baseline ), + dyspnea on exertion, + shortness of breath, No dyspnea at rest, No hemoptysis Cardiovascular: No chest pain, No claudication, No edema, No palpitations Abdomen: No constipation, No diarrhea, No nausea, No pain, No vomiting Musculoskeletal: No calf pain, No swelling Genitourinary - Male: No dysuria Neurologic: + weakness Psychiatric: No depression symptoms Endocrine: + fatigue Hematologic / Lymphatic: No abnormal bleeding/bruising Integumentary: No new/changing skin lesions Physical Exam Vital Signs Date Time Temp Pulse Resp B/P Pulse Ox O2 Delivery O2 Flow Rate FiO2 12/25/16 17:46 37.0 54 18 126/53 92 Room Air 12/25/16 16:50 57 18 115/48 95 Room Air 12/25/16 14:46 37.1 58 18 105/49 93 Room Air General Appearance: WD/WN, no apparent distress, + pertinent finding (Pt is sitting up in chair beside bed with in room ) Head: normocephalic, atraumatic Eyes: normal inspection ENT: hearing grossly normal Neck: supple Respiratory/Chest: chest non-tender, lungs clear, normal breath sounds, no respiratory distress, + pertinent finding (no wheezing noted) Cardiovascular: regular rate, rhythm, + systolic murmur Abdomen/GI: normal bowel sounds, non tender, soft, + pertinent finding ( peritoneal catheter in place ) Back: normal inspection Extremities/Musculoskelatal: normal inspection, no calf tenderness, + swelling (3+ pitting edema bilat) Neurologic/Psych: alert, normal mood/affect, oriented x 3 Skin: normal color, warm/dry Diagnostics Laboratory Results Results Past 24 Hours Test 12/25/16 15:15 12/25/16 15:25 12/25/16 15:40 Range/Units Urine Color YELLOW Urine Appearance CLOUDY CLEAR Urine pH 6.0 4.5-7.5 Urine Specific [place] 1.025 1.000-1.030 Urine Protein 3+ NEG Urine Glucose (UA) 1+ NEG Urine Ketones NEG NEG Urine Occult Blood 3+ NEG Urine Nitrite NEG NEG Urine Bilirubin NEG NEG Urine Urobilinogen NEG NEG Urine Leukocyte Esterase NEG NEG Urine RBC 0-4 0-4 /hpf Urine WBC 10-30 0-5 /hpf Urine Epithelial Cells >30 0-5 /lpf Urine Bacteria 2+ NEG White Blood Count 11.42 4.8-10.8 K/uL Red Blood Count 3.84 4.7-6.1 M/uL Hemoglobin 11.4 14.0-18.0 g/dL Hematocrit 32.7 42-52 % Mean Corpuscular Volume 85.2 80-100 fL Mean Corpuscular Hemoglobin 29.7 25-34 pg Mean Corpuscular Hemoglobin Concent 34.9 32-36 g/dl Platelet Count 102 130-400 K/uL Mean Platelet Volume 10.4 7.4-10.4 fL Neutrophils (%) (Auto) 89.2 % Lymphocytes (%) (Auto) 6.2 % Monocytes (%) (Auto) 4.0 % Eosinophils (%) (Auto) 0.3 % Basophils (%) (Auto) 0.1 % Neutrophils # (Auto) 10.19 1.4-6.5 K/uL Lymphocytes # (Auto) 0.71 1.2-3.4 K/uL Monocytes # (Auto) 0.46 0.11-0.59 K/uL Eosinophils # (Auto) 0.03 0-0.5 K/uL Basophils # (Auto) 0.01 0-0.2 K/uL RDW Standard Deviation 42.4 36.4-46.3 fL RDW Coefficient of Variation 13.7 11.5-14.5 % Immature Granulocyte % (Auto) 0.2 % Immature Granulocyte # (Auto) 0.02 0.00-0.02 K/uL Sodium Level 132 136-145 mmol/L Potassium Level 5.1 3.5-5.1 mmol/L Chloride Level 92 98-107 mmol/L Carbon Dioxide Level 25 21-32 mmol/L Anion Gap 15.0 3-11 mmol/L Blood Urea Nitrogen 83 7-18 mg/dl Creatinine 14.00 0.60-1.40 mg/dl Est Creatinine Clear Calc Drug Dose 5.7 ml/min Estimated GFR () 3.7 Estimated GFR (Non- 3.2 BUN/Creatinine Ratio 5.9 10-20 Random Glucose 264 70-99 mg/dl Calcium Level 8.0 8.5-10.1 mg/dl Total Bilirubin 0.3 0.2-1 mg/dl Direct Bilirubin < 0.1 0-0.2 mg/dl Aspartate Amino Transf (AST/SGOT) 12 15-37 U/L Alanine Aminotransferase (ALT/SGPT) 21 12-78 U/L Alkaline Phosphatase 114 45-117 U/L Total Protein 7.3 6.4-8.2 gm/dl Albumin 2.2 3.4-5.0 gm/dl Influenza Type A Antigen POS for Influ A NEG Influenza Type B Antigen Neg for Influ B NEG Microbiology Results 12/25/16 Urine Culture, Received Pending Diagnostic Radiology CXR IMPRESSION: 1. Postsurgical changes 2. Stable left pleural effusion decreasing right pleural effusion 3. Persistent left basilar atelectasis/consolidation 4. Decreased prominence of the right hilum Impression Assessment and Plan HYPOTENSION pt presented from PCP office with BP 87/47; BP now improved -admit observation status to telemetry -likely due to being over-dialyzed -pt is afebrile with no leukocytosis -CXR + stable pleural effusions. No acute abnormalities -albumin given in ED -fluid mgmt with dialysis; nephro consulted for possible need for PD adjustment -monitor INFLUENZA A -pt received one dose Tamiflu in ED -renal dosing guidelines recommend 30mg x 1 dose -symptomatic relief -droplet precautions ESRD ON PD -on peritoneal dialysis at home; recently intensified dialysis schedule at home -creat increased from 8.4-->14 likely related to recent change in PD settings -consult nephro, Dr. Manning-pending input BILAT PLEURAL EFFUSION -CXR + stable effusions GRANULOMATOUS LUNG DISEASE/SARCOIDOSIS HILAR/MEDIASTINAL AND DIAPHRAGMATIC LYMPHADENOPATHY -chronic issues related to this lung disorder -for now, nebulizers and O2 PRN INSULIN-DEPENDENT DM2 -Lantus 15mg BID -start ISS -monitor BSG AC HS DVT PROPHYLAXIS -subq heparin CODE STATUS -DNR per discussion with patient upon admission DISPO Pt seen in collaboration with Dr. Stearns. Please see his addendum for further details. Thanks! VTE Prophylaxis VTE Risk Assessment Done? Y/N: Yes Risk Level: Moderate
[2016-12-25 19:10] VITALS: BP 135/63; PULSE 57; TEMP 36.9; O2SAT 91; BMI 33.2
--- NOTE | 2016-12-25 19:55 | EMERGENCY ROOM VISIT NOTE ---
History Report prepared by Carlos: Harshad Jones Under the Supervision of: Dr. Richard Mallory M.D. First contact with patient: 14:57 Chief Complaint: HYPOTENSION Stated Complaint: LOW BLOOD PRESSURE-SENT BY DR. VARGAS/JERICA History of Present Illness The patient is a 66 year old male who presents to the Emergency Room with complaints of sudden hypotension beginning several hours prior to arrival. He associates weakness, fatigue, and a runny nose with today's symptoms. The patient states he was recently discharged from the hospital three days prior to arrival for respiratory problems, in which, he had fluid drained from his lungs. As per , the patient went to Dr. Ballesteros'sKali (Family Medicine) office today, and his blood pressure was 87/47. The patient states his blood pressure is usually 136/70. The notes that since the patient was discharged from the hospital, the patient has been on oxygen at night and intensified home peritoneal dialysis. She states Dr. Ballesteros spoke to Kali Topete (Nephrology), and the patient was referred to the hospital for admission and to be started on Albumin. The patient notes he has lost 20 pounds over the past 4-5 days. He denies a fever, irregular heartbeats, and a cough. Source of History: patient Onset: several hours [employer] Position: other (global) Quality: other (hypotension) Timing: other (sudden) Associated Symptoms: + fatigue, + weakness, No cough, No fevers Note: Associated symptoms: runny nose. Review of Systems See HPI for pertinent positives & negatives. A total of 10 systems reviewed and were otherwise negative. Past Medical & Surgical Medical Problems: (1) Adenomatous colon polyp (2) Aortic valve stenosis (3) ASCVD (arteriosclerotic cardiovascular disease) (4) Diabetes (5) ESRD (end stage renal disease) (6) Gout (7) Hepatitis C (8) Hilar adenopathy (9) Hypertension (10) Melanoma (11) Pleural effusion (12) Sleep apnea, obstructive (13) Vitamin D deficiency Surgical Problems: (1) History of bronchoscopy (2) History of colonoscopy with polypectomy (3) History of cystoscopy (4) History of heart valve repair (5) History of hernia repair (6) S/P tonsillectomy and adenoidectomy Family History Diabetes mellitus Heart disease Hypertension Social History Smoking Status: Never Smoker Alcohol Use: none Drug Use: none Marital Status: Housing Status: lives with family Occupation Status: retired Current/Historical Medications Scheduled Allopurinol (Zyloprim), 100 MG PO BID Aspirin (Aspirin Ec), 81 MG PO DAILY Insulin Aspart (Novolog Flexpen), 0 SC ACHS Insulin Glargine (Toujeo Solostar), 18 UNITS SQ QAM Insulin Glargine (Toujeo Solostar), 18 UNITS SQ QPM Ipratropium-Albuterol (Combivent Respimat), 1 PUFFS INH QID Metoprolol Tartrate (Lopressor), 12.5 MG PO BID Rosuvastatin Calcium (Crestor), 40 MG PO HS Scheduled PRN Colchicine (Colchicine), 0.6 MG PO DAILY PRN for gout flare Allergies Coded Allergies: No Known Allergies (Unverified , 12/25/16) Physical Exam Vital Signs Date Time Temp Pulse Resp B/P Pulse Ox O2 Delivery O2 Flow Rate FiO2 12/25/16 16:50 57 18 115/48 95 Room Air 12/25/16 14:46 37.1 58 18 105/49 93 Room Air Physical Exam GENERAL: Patient is chronically unwell appearing and in minimal distress. HEENT: No acute trauma, normocephalic atraumatic, mucous membranes moist, clear rhinorrhea in bilateral nares, no scleral icterus. Healing scab on right ear. NECK: No stridor, no adenopathy, no meningismus, trachea is midline. LUNGS: No dyspnea. Coarse breath sounds throughout. HEART: Regular rate and rhythm. No murmurs, rubs, gallops appreciated. ABDOMEN: Mildly distended. Nontender. Fluid filled abdomen without peritonitis and a dialysis catheter in mid abdomen. BACK: No midline tenderness, no CVA tenderness EXTREMITIES: 3+ pitting edema in bilateral lower legs. Normal motion all extremities, no cyanosis. NEUROLOGIC: Alert and oriented, no acute motor or sensory deficits, no focal weakness, cranial nerves grossly intact. SKIN: No rash, no jaundice, no diaphoresis. Medical Decision & Procedures ER Provider Diagnostic Interpretation: X ray results are stated below per my interpretation and the radiologist's interpretation. CHEST ONE VIEW PORTABLE CLINICAL HISTORY: Hypotension COMPARISON STUDY: 12/19/2016 FINDINGS: There are postsurgical changes of midline sternotomy and aortic valve replacement. There is a persistent left pleural effusion with associated left basilar atelectasis/consolidation. There is a decreasing right pleural effusion. There is decreasing right hilar prominence. There is mild central vascular prominence without overt failure.[ IMPRESSION: 1. Postsurgical changes 2. Stable left pleural effusion decreasing right pleural effusion 3. Persistent left basilar atelectasis/consolidation 4. Decreased prominence of the right hilum Electronically signed by: Narinder Martinez M.D. 12/25/2016 3:28 PM Laboratory Results 12/25/16 15:25 Red Blood Count 3.84, Mean Corpuscular Volume 85.2, Mean Corpuscular Hemoglobin 29.7, Mean Corpuscular Hemoglobin Concent 34.9, Mean Platelet Volume 10.4, Neutrophils (%) (Auto) 89.2, Lymphocytes (%) (Auto) 6.2, Monocytes (%) (Auto) 4.0, Eosinophils (%) (Auto) 0.3, Basophils (%) (Auto) 0.1, Neutrophils # (Auto) 10.19, Lymphocytes # (Auto) 0.71, Monocytes # (Auto) 0.46, Eosinophils # (Auto) 0.03, Basophils # (Auto) 0.01 12/25/16 15:25 Test 12/25/16 15:15 12/25/16 15:25 12/25/16 15:40 Urine Color YELLOW Urine Appearance CLOUDY (CLEAR) Urine pH 6.0 (4.5-7.5) Urine Specific [place] 1.025 (1.000-1.030) Urine Protein 3+ (NEG) Urine Glucose (UA) 1+ (NEG) Urine Ketones NEG (NEG) Urine Occult Blood 3+ (NEG) Urine Nitrite NEG (NEG) Urine Bilirubin NEG (NEG) Urine Urobilinogen NEG (NEG) Urine Leukocyte Esterase NEG (NEG) Urine RBC 0-4 /hpf (0-4) Urine WBC 10-30 /hpf (0-5) Urine Epithelial Cells >30 /lpf (0-5) Urine Bacteria 2+ (NEG) White Blood Count 11.42 K/uL (4.8-10.8) Red Blood Count 3.84 M/uL (4.7-6.1) Hemoglobin 11.4 g/dL (14.0-18.0) Hematocrit 32.7 % (42-52) Mean Corpuscular Volume 85.2 fL (80-100) Mean Corpuscular Hemoglobin 29.7 pg (25-34) Mean Corpuscular Hemoglobin Concent 34.9 g/dl (32-36) Platelet Count 102 K/uL (130-400) Mean Platelet Volume 10.4 fL (7.4-10.4) Neutrophils (%) (Auto) 89.2 % Lymphocytes (%) (Auto) 6.2 % Monocytes (%) (Auto) 4.0 % Eosinophils (%) (Auto) 0.3 % Basophils (%) (Auto) 0.1 % Neutrophils # (Auto) 10.19 K/uL (1.4-6.5) Lymphocytes # (Auto) 0.71 K/uL (1.2-3.4) Monocytes # (Auto) 0.46 K/uL (0.11-0.59) Eosinophils # (Auto) 0.03 K/uL (0-0.5) Basophils # (Auto) 0.01 K/uL (0-0.2) RDW Standard Deviation 42.4 fL (36.4-46.3) RDW Coefficient of Variation 13.7 % (11.5-14.5) Immature Granulocyte % (Auto) 0.2 % Immature Granulocyte # (Auto) 0.02 K/uL (0.00-0.02) Anion Gap 15.0 mmol/L (3-11) Est Creatinine Clear Calc Drug Dose 5.7 ml/min Estimated GFR () 3.7 Estimated GFR (Non- 3.2 BUN/Creatinine Ratio 5.9 (10-20) Calcium Level 8.0 mg/dl (8.5-10.1) Total Bilirubin 0.3 mg/dl (0.2-1) Direct Bilirubin < 0.1 mg/dl (0-0.2) Aspartate Amino Transf (AST/SGOT) 12 U/L (15-37) Alanine Aminotransferase (ALT/SGPT) 21 U/L (12-78) Alkaline Phosphatase 114 U/L (45-117) Total Protein 7.3 gm/dl (6.4-8.2) Albumin 2.2 gm/dl (3.4-5.0) Influenza Type A Antigen POS for Influ A (NEG) Influenza Type B Antigen Neg for Influ B (NEG) Laboratory results as reviewed by me. Medications Administered Medications (Trade) Dose Ordered Sig/Romulo Route Start Time Stop Time Status Last Admin Dose Admin Albumin Human (Albumin 25%) 12.5 gm NOW STAT IV 12/25/16 16:25 12/25/16 16:26 DC 12/25/16 16:46 12.5 GM Oseltamivir Phosphate (Tamiflu Cap) 75 mg NOW STAT PO 12/25/16 16:32 12/25/16 16:33 DC 12/25/16 16:45 75 MG ED Course 1500: The patient was evaluated in room B9. A complete history and physical exam was performed. 1512: I spoke to Kali Topete (Nephrology) about the patient's case, and he felt the patient would benefit from IV Albumin as an inpatient with close monitoring of diuresis from dialysis. 1622: Reevaluated and updated the patient at this time. The patient would like some food. 1625: Ordered Albumin Human 12.5 gm IV. 1626: I spoke to Kali Knight Hospitalist about the patient's case, and he will follow the patient for further evaluation. 1632: Ordered Tamiflu Cap 75 mg PO. 1711: Reevaluated the patient at this time, and the [facility] Hospitalist is at bedside. Medical Decision Differential: Sepsis, Infectious (UTI/Pneumonia/Meningitis/etc), Metabolic/ Electrolyte Abnormality, Cardiac, Hepatic, Endocrine, Toxicologic, Neurologic, amongst other pathologies entertained. Pleasant 66 yr old male sent in from clinic for hypotension. BP is mildly lower than his normal but is > SBP 100. Does have quite some rhinorrhea. Significant edema legs though with weight loss recently suspect he has underlying intravascular depletion. 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 Furthermore he has evidence of worsening Cr despite increased dialysis, significant hypoalbumin, and is flu position. Given all of this with his weakness seems that outpatient not working very well currently and thus hospitalist was consulted. UA dirty though with minimal UOP I suspect this is unlikely infectious though will await culture. Consults Time Called: 1507 Consulting Physician: Kali Topete (Nephrology) Returned Call: 1512 I spoke to Kali Topete (Nephrology) about the patient's case, and he felt the patient would benefit from IV Albumin as an inpatient with close monitoring of diuresis from dialysis. Additional Consults: Time Called: 1620 [facility] Returned Call: 1626 Additional Comments: I spoke to Kali Knight about the patient's case, and he will follow the patient for further evaluation. Impression Primary Impression: Influenza Additional Impressions: Renal failure Intravascular volume depletion Scribe Attestation The scribe's documentation has been prepared under my direction and personally reviewed by me in its entirety. I confirm that the note above accurately reflects all work, treatment, procedures, and medical decision making performed by me. Departure Information Dispostion Being Evaluated By Hospitalist ([facility]) Referrals Ron Bettencourt III, M.D. (PCP) Problem Qualifiers
[2016-12-25] MEDS ORDERED: IV FLUIDS COMPLETED PRN (20:15)
[2016-12-25] MEDS: IPRATROPIUM BROMIDE/ALBUTEROL respimat INH INH SCH (21:00)
[2016-12-25] MEDS: ALLOPURINOL 100 MG TAB PO SCH (21:00)
[2016-12-25] MEDS ORDERED: INSULIN GLARGINE PER UNIT 15 UNITS in SYRINGE 0 ML SC SCH (21:00)
[2016-12-25] MEDS ORDERED: INSULIN GLARGINE SOLOSTAR 100 UNITS/ML 3 ML PEN SC SCH (21:00)
[2016-12-25] MEDS ORDERED: ALBUMIN HUMAN 25% 12.5 GM/50 ML VIAL IV SCH (21:00)
[2016-12-25] MEDS ORDERED: OSELTAMIVIR PHOSPHATE 75 MG CAP PO SCH (21:00)
[2016-12-25] MEDS: INSULIN ASPART 100 UNITS/ML 3 ML PEN SC SCH (21:00)
[2016-12-25] MEDS: ALBUMIN HUMAN 25% 12.5 GM/50 ML VIAL IV SCH (21:30)
[2016-12-25] MEDS: HEPARIN SOD 5000 UNIT/0.5 ML CARP SQ SCH (21:31)
[2016-12-25] MEDS: METOPROLOL TARTRATE 25 MG TAB PO SCH (21:33)
[2016-12-25] MEDS: ROSUVASTATIN CALCIUM 20 MG TAB PO SCH (21:34)
[2016-12-25 21:45] VITALS: BP 127/72; PULSE 60; TEMP 37.2
[2016-12-25 22:39] LABS: HEPATITIS B AB POS
--- NOTE | 2016-12-25 23:10 | NEPHROLOGY CONSULTATION ---
DATE OF CONSULTATION: 12/25/2016 ATTENDING OF RECORD: Dr. Stearns. REASON FOR CONSULTATION: ESRD. HISTORY OF PRESENT ILLNESS: This is a 66-year-old male who does peritoneal dialysis, who at [facility] dialyzes with 1 red and 1 green since discharge, has been getting off about 2500 mL a night, also restricting his fluids much more. His swelling in his legs has markedly improved. When the patient was being evaluated by primary care doctor in the office, systolic blood pressures were noted to be low, in the 80s/40s. The patient was fatigued and worn out, decreased appetite, continues to have a significant cough. No production. The patient does have an underlying granulomatous lung disease/sarcoidosis with main stem bronchus stenosis with lymphadenopathy as well as bilateral pleural effusions, who was just recently in the hospital from December 17 to December 21 with hypoxia secondary to the volume overload. The patient was doing all reds while he was here in the hospital and getting off about 4 liters UF each night. Blood pressures while here from December 17 to the ranged in the 120s-170s. The patient's weight was 105 kilograms on the and improved down to 98.1 kilograms on the and is currently down to 96.2 kilograms. Edema in the legs has markedly improved although still has +1 pitting edema, still with basilar rales with a clear productive cough and patient was brought into the Emergency Room and given albumin. Blood pressure has improved from 105/49 up to 135/63, pulse is in the 50s. REVIEW OF SYSTEMS: No fevers or chills, continued significant weight loss secondary to the fluid restriction and an aggressive UF on peritoneal dialysis and weight has improved markedly, is currently now down to 96 kilograms. Positive fatigue. Positive shortness of breath. Positive cough. No chest pain. Positive edema which is markedly improved. No nausea or vomiting. Positive anorexia and moving bowels well. No abnormal bleeding, bruising. All other review of systems otherwise negative. Main complaint is the shortness of breath, cough, fatigue, weakness. Denies any significant lightheadedness. PAST MEDICAL HISTORY: End-stage renal disease, anemia of renal failure. No longer using Procrit with significant history of melanoma which was invasive, requiring radiation treatments, underlying diabetes, gout, aortic stenosis, status post aortic valve replacement, main stem bronchus narrowing with progressive granulomatous lung disease/sarcoidosis, sleep apnea, hypertension, history of hepatitis C treated over 30 years ago. PAST SURGICAL HISTORY: Aortic valve replacement in 2009, tonsillectomy, PD catheter placement, melanoma surgery involving the right ear. FAMILY HISTORY: Significant for diabetes. SOCIAL HISTORY: No smoking. No drugs, no alcohol. and lives at home with . CURRENT MEDICATIONS: Aspirin 81 mg a day, heparin 5000 units subQ q. 8, albumin 25 grams IV t.i.d., allopurinol 100 mg p.o. b.i.d., Crestor 40 mg at night, Lopressor 12.5 mg p.o. b.i.d., Lantus 15 units subQ b.i.d. PHYSICAL EXAMINATION: VITAL SIGNS: Temperature 36.9, pulse 57, respiratory rate is 24, blood pressure 135/63, satting 91% on room air. GENERAL: Awake, alert, oriented x3. EYES: No scleral icterus. ENT: Moist mucous membranes. NECK: Supple. PULMONARY: Basilar rales, coarse rhonchi. CARDIAC: Bradycardia with some ectopy. ABDOMEN: PD catheter in place. Bowel sounds positive. Soft. Mildly distended. EXTREMITIES: +1 pitting edema. NEUROLOGICAL: Nonfocal. DERM: No rash or ulcers noted. LABORATORIES: White count is 11, H\T\H 11.4 and 32.7, platelet count is 102. Sodium level 132, potassium is 5.1, chloride is 92, bicarb is 25, BUN is 83, creatinine is 14, glucose is 315, calcium is 8, albumin is 2.2. UA shows 3+ protein, 1+ glucose, 3+ blood, 10-30 WBCs. Urine culture is pending. Chest x-ray shows postsurgical changes, stable left pleural effusion with decreasing right pleural effusion, persistent left basilar atelectasis, consolidation, decreased prominence of the right hilum. ASSESSMENT AND PLAN: 1. End-stage renal disease: The patient is on peritoneal dialysis with a weight that has gone from 105 kilograms down to 96 kilograms, so in that sense has lost about over 20 pounds of fluid. Effusion actually has improved. Edema in legs has markedly improved. Unfortunately, though still has a cough with difficulty breathing. Does not require oxygen at this time. Blood pressure has improved with a single dose of albumin and would like to continue albumin to try to mobilize the third space fluid and continue to diurese, was doing 1 red and 1 green at home, getting off about 2500 mL. When he was doing 2 reds initially in the hospital, he was getting off about 4 liters, would like to do to 2 greens with a goal of 1 to 1-1/2 liters as blood pressure tolerates. I am hoping with the use of albumin and all greens, that we are able to mobilize fluid while keeping the blood pressure up to help maximize pulmonary status while continuing to mobilize fluid and improve blood pressure, all at the same time. Unfortunately, the patient with an overall poor prognosis, given his comorbidities. There was a question of whether patient would benefit from steroids or not. Now that we have appropriately removed fluid, would consider and reevaluate that question and defer to the primary hospitalist/pulmonary as to whether to consider steroids or not. In the past, the patient was on steroids and had issues with fluid retention and elevated blood sugars. Weight is considerably down; however, lungs do not sound much better and continues to have a cough. 2. Anemia of renal failure. Hemoglobin levels are stable. I am holding on Procrit, given his recent history of invasive melanoma of his right ear, requiring surgery and radiation treatments. He was to repeat a PET scan to follow up on any possible reoccurrence; however, was in the hospital during that time. 3. Renal osteodystrophy. We would check phosphorus levels and restart phosphate binders as needed. I appreciate the consultation.
[2016-12-25 23:54] VITALS: BP 167/76; PULSE 63; TEMP 36.7; O2SAT 98
[2016-12-26] VITALS (11 sets, daily range): BP systolic 115–159; BP diastolic 58–83; PULSE 56–72; TEMP 36.5–37.1; O2SAT 92–98
[2016-12-26] MEDS: HEPARIN SOD 5000 UNIT/0.5 ML CARP SQ SCH ×3 (05:45→21:52)
[2016-12-26 06:50] LABS: MEAN CELL VOLUME 87.3 fL (80-100); MEAN CORPUSCULAR HEMOGLOBIN 30.7 pg (25-34); MEAN CORPUSCULAR HGB CONC 35.2 g/dl (32-36); MEAN PLATELET VOLUME 10.7 fL (7.4-10.4); PLATELET COUNT 106 K/uL (130-400); RED BLOOD COUNT 3.55 M/uL (4.7-6.1); WHITE BLOOD COUNT 9.11 K/uL (4.8-10.8)
[2016-12-26 07:36] LABS: BUN/CREATININE RATIO 5.8 (10-20); CALCIUM 8.2 mg/dl (8.5-10.1); PHOSPHORUS 8.3 mg/dl (2.5-4.9); POTASSIUM 4.4 mmol/L (3.5-5.1)
[2016-12-26] MEDS: IPRATROPIUM BROMIDE/ALBUTEROL respimat INH INH SCH ×4 (09:00→21:00)
[2016-12-26] MEDS ORDERED: ALBUMIN HUMAN 25% 12.5 GM/50 ML VIAL IV SCH (09:00)
[2016-12-26] MEDS: METOPROLOL TARTRATE 25 MG TAB PO SCH ×2 (09:35→21:00)
[2016-12-26] MEDS: ASPIRIN 81 MG ECTAB PO SCH (09:35)
[2016-12-26] MEDS: ALLOPURINOL 100 MG TAB PO SCH ×2 (09:35→21:08)
[2016-12-26] MEDS: INSULIN ASPART 100 UNITS/ML 3 ML PEN SC SCH ×4 (09:38→21:01)
[2016-12-26] MEDS: ALBUMIN HUMAN 25% 12.5 GM/50 ML VIAL IV SCH ×2 (09:57→14:30)
--- NOTE | 2016-12-26 10:47 | Pulmonary Consultation ---
History General Date of Service: Dec 26, 2016. Stated Complaint: Hypotension HPI The patient is a 66 year old male who presents to [facility] with complaints of Hypotension. The patient's primary care provider is Ron Bettencourt III, M.D.. 66-year-old gentleman recently discharged from [facility] for acute on chronic respiratory insufficiency. At that time he was in renal failure requiring aggressive dialysis with approximately 34 L removed. Currently he complains of increasing shortness of breath mild myalgias intermittent cough but denies: Cardec chest pain, pleurisy, chills. Previous Work-Up Past Pulmonary History: PFT: (04/03/16) (07/19/2016) FEV1/FVC: 62 81 FEV1: 1.39/58% 1.68/55% FVC: 2.22/58% 2.06/54% T.09/84% 4.26/70% VC: 2.22/58% 2.18/57% RV: 2.87/122% 2.08/89% DLCO: 49% none DLCO/VA: 121% Bronchoscopy: 08/01/2015 80% narrowing above the irwin I/Os: -3.7L SaO2: 91-98% RA RR: 18-24 WNC: 11K-9K Microbiology: MRSA DNA probe + (12/26/16) Hep B Antibody + Influenza A + (start Tamiflu) Urine Pending Historian: patient, EMS Review of Systems Constitutional: reports: malaise, weakness Eyes: reports: no symptoms ENT: reports: no symptoms Cardiovascular: reports: no symptoms Respiratory: reports: as stated in HPI Gastrointestinal: reports: no symptoms Genitourinary - Male: reports: no symptoms Musculoskeletal: reports: myalgias Integumentary: reports: no symptoms Neurologic: reports: no symptoms Psychiatric: reports: no symptoms Endocrine: no symptoms Hematologic / Lymphatic: no symptoms Allergic / Immunologic: no symptoms Past Medical History Past Medical History: 1)Abnormal finding on lung imaging 2)Actinic keratosis 3)Amyloidosis 4)Anxiety 5)Aortic valve stenosis 6)arteriosclerotic cardiovascular disease 7)Benign neoplasm of large bowel 8)Dermatitis, seborrheic 9)DM type 2 causing renal disease 10)Dyslipidemia 11)CKD on PD 12)GERD 13)Granulomatous lung disease 14)Hematoma of ear 15)Hepatitis C 16)basal cell carcinoma 17)Malignant melanoma of upper limb 18)Obstructive sleep apnea 19)Ventral hernia 20)Squamous cell carcinoma intermediate grade: [place]-[facility] 1. 03/18/2016: Initial diagnosis via biopsy 2. 03/22/2016: Cancer stage via PET/CT a. No obvious regional yasmani metastases b. Increased FDG avidity noted to be most likely secondary to sarcoidosis c. T4 NO M0 3. 04/19/2016-05/31/2016 a. Chemotherapy: Celuximab 04/25/2016-06/11/2016 b. Radiation with 69.96 Gy to right neck c. Sixty-nine Gy to right parotid gland Past Surgical History: 1. Aortic Valve Replacement 2. Bronchoscopy 3. Colonoscopy 4. Diagnostic Cystoscopy 5. Excision Of Lesion Trunk Malignant 6. Inguinal Hernia Repair 7. Tonsillectomy with Adenoidectomy Family History Diabetes mellitus Heart disease Hypertension Diabetes Mellitus Social History Denied: History of Alcohol Use Denied: History of Drug Use (heroin) Never smoker Never uses sunscreen Occupation Denied: History of Tobacco Use Hx Tobacco Use In Past Year?: No Smoking Status: Never Smoker Marital status: Housing status: lives with family Occupational Status: retired History of MDRO History of MDRO: Yes Type of MDRO: MRSA Allergies Coded Allergies: No Known Allergies (Unverified , 12/25/16) Current Medications Reported Home Medications Medications Dose Route/Sig Max Daily Dose Days Date Category Dose Instructions Colchicine 0.6 Mg Tab 0.6 Mg PO DAILY PRN 12/25/16 Reported Combivent Respimat (Ipratropium-Albuterol) 1 Aer Aer 1 Puffs INH QID 12/25/16 Reported Toujeo Solostar (Insulin Glargine) 300 Unit/Ml Inj 18 Units SQ QPM 12/08/16 Reported Toujeo Solostar (Insulin Glargine) 300 Unit/Ml Inj 18 Units SQ QAM 12/08/16 Reported Aspirin Ec (Aspirin) 81 Mg Tab 81 Mg PO DAILY 11/29/16 Reported Novolog Flexpen (Insulin Aspart) 100 Units/Ml Inj 0 SC ACHS 30 10/17/14 Rx Sliding Scale Coverage: for blood sugars 150-175, take 1 unit, 176-200 take 2 units 201-225 take 3 units 226-250 take 4 units 251-275 take 5 units 276-300 take 6 units Zyloprim (Allopurinol) 100 Mg Tab 100 Mg PO BID 01/07/14 Reported Lopressor (Metoprolol Tartrate) 25 Mg Tab 12.5 Mg PO BID 01/07/14 Reported Crestor (Rosuvastatin Calcium) 20 Mg Tab 40 Mg PO HS 01/07/14 Reported Physical Physical Exam Vital Signs: Date Time Temp Pulse Resp B/P Pulse Ox O2 Delivery O2 Flow Rate FiO2 12/26/16 08:45 36.5 61 20 134/68 12/26/16 08:40 36.5 61 20 134/68 12/26/16 08:00 36.5 70 20 131/74 92 Room Air 12/26/16 04:20 36.8 72 18 151/83 98 12/26/16 04:00 Room Air 12/26/16 00:01 Room Air 12/25/16 23:54 36.7 63 18 167/76 98 12/25/16 21:45 37.2 60 127/72 12/25/16 20:00 Room Air 12/25/16 19:10 36.9 57 24 135/63 91 Room Air 12/25/16 19:10 36.9 57 24 135/63 91 Room Air 12/25/16 19:04 58 20 112/55 92 Room Air 12/25/16 17:46 37.0 54 18 126/53 92 Room Air 12/25/16 16:50 57 18 115/48 95 Room Air 12/25/16 14:46 37.1 58 18 105/49 93 Room Air General Appearance: mild distress Head: NORMOCEPHALIC, ATRAUMATIC Eyes: PERRLA, NO DISCHARGE, EOMI, SCLERAE NORMAL ENT: NORMAL EAR EXAM, NORMAL NASAL EXAM, NORMAL MOUTH EXAM, NORMAL THROAT EXAM , NORMAL DENTAL EXAM, NORMAL SINUS EXAM Neck: NORMAL RANGE OF MOTION, NO TENDERNESS, TRACHEA MIDLINE, NO STRIDOR Respiratory: other Cardiovasular: REGULAR RATE/RHYTHM, NORMAL S1S2, NO M/G/R Abdomen: NON TENDER, NORMAL BOWEL SOUNDS, NO REBOUND, NO MASSES, NO GUARDING Genitourinary - Male: EXTERNAL GENITALIA NORMAL Back: NORMAL INSPECTION, NO MIDLINE TENDERNESS, NO CVA TENDERNESS, NO PARAVERTEBRAL TTP Upper Extremities: NO EDEMA, NO DEFORMITY Lower Extremities: edema Edema: Bilateral LE (3+) Pulses: carotid (R) (2+), carotid (L) (2+), posterior tibial (R), posterior tibial (L) (2+) Neuro: ALERT, ORIENTED x 3, NORMAL MOTOR EXAM, NORMAL SENSATION, NORMAL CEREBELLAR EXAM Reflexes: biceps (R) (2+), bicpes (L) (2+), achilles (R) (2+), achilles (L) (2+ ) Babinski Testing: right (downgoing), left (downgoing) Psychiatric: NORMAL AFFECT Diagnostics Labs Results Past 24 Hours Test 12/25/16 15:15 12/25/16 15:25 12/25/16 15:40 12/25/16 20:50 Range/Units Urine Color YELLOW Urine Appearance CLOUDY CLEAR Urine pH 6.0 4.5-7.5 Urine Specific [place] 1.025 1.000-1.030 Urine Protein 3+ NEG Urine Glucose (UA) 1+ NEG Urine Ketones NEG NEG Urine Occult Blood 3+ NEG Urine Nitrite NEG NEG Urine Bilirubin NEG NEG Urine Urobilinogen NEG NEG Urine Leukocyte Esterase NEG NEG Urine RBC 0-4 0-4 /hpf Urine WBC 10-30 0-5 /hpf Urine Epithelial Cells >30 0-5 /lpf Urine Bacteria 2+ NEG White Blood Count 11.42 4.8-10.8 K/uL Red Blood Count 3.84 4.7-6.1 M/uL Hemoglobin 11.4 14.0-18.0 g/dL Hematocrit 32.7 42-52 % Mean Corpuscular Volume 85.2 80-100 fL Mean Corpuscular Hemoglobin 29.7 25-34 pg Mean Corpuscular Hemoglobin Concent 34.9 32-36 g/dl Platelet Count 102 130-400 K/uL Mean Platelet Volume 10.4 7.4-10.4 fL Neutrophils (%) (Auto) 89.2 % Lymphocytes (%) (Auto) 6.2 % Monocytes (%) (Auto) 4.0 % Eosinophils (%) (Auto) 0.3 % Basophils (%) (Auto) 0.1 % Neutrophils # (Auto) 10.19 1.4-6.5 K/uL Lymphocytes # (Auto) 0.71 1.2-3.4 K/uL Monocytes # (Auto) 0.46 0.11-0.59 K/uL Eosinophils # (Auto) 0.03 0-0.5 K/uL Basophils # (Auto) 0.01 0-0.2 K/uL RDW Standard Deviation 42.4 36.4-46.3 fL RDW Coefficient of Variation 13.7 11.5-14.5 % Immature Granulocyte % (Auto) 0.2 % Immature Granulocyte # (Auto) 0.02 0.00-0.02 K/uL Sodium Level 132 136-145 mmol/L Potassium Level 5.1 3.5-5.1 mmol/L Chloride Level 92 98-107 mmol/L Carbon Dioxide Level 25 21-32 mmol/L Anion Gap 15.0 3-11 mmol/L Blood Urea Nitrogen 83 7-18 mg/dl Creatinine 14.00 0.60-1.40 mg/dl Est Creatinine Clear Calc Drug Dose 5.7 ml/min Estimated GFR () 3.7 Estimated GFR (Non- 3.2 BUN/Creatinine Ratio 5.9 10-20 Random Glucose 264 70-99 mg/dl Calcium Level 8.0 8.5-10.1 mg/dl Total Bilirubin 0.3 0.2-1 mg/dl Direct Bilirubin < 0.1 0-0.2 mg/dl Aspartate Amino Transf (AST/SGOT) 12 15-37 U/L Alanine Aminotransferase (ALT/SGPT) 21 12-78 U/L Alkaline Phosphatase 114 45-117 U/L Total Protein 7.3 6.4-8.2 gm/dl Albumin 2.2 3.4-5.0 gm/dl Influenza Type A Antigen POS for Influ A NEG Influenza Type B Antigen Neg for Influ B NEG Bedside Glucose 315 70-99 mg/dl Test 12/25/16 21:30 12/26/16 06:12 12/26/16 06:15 Range/Units Hepatitis B Surface Antigen NEG NEG Hepatitis B Surface Antibody POS White Blood Count 9.11 4.8-10.8 K/uL Red Blood Count 3.55 4.7-6.1 M/uL Hemoglobin 10.9 14.0-18.0 g/dL Hematocrit 31.0 42-52 % Mean Corpuscular Volume 87.3 80-100 fL Mean Corpuscular Hemoglobin 30.7 25-34 pg Mean Corpuscular Hemoglobin Concent 35.2 32-36 g/dl RDW Standard Deviation 44.2 36.4-46.3 fL RDW Coefficient of Variation 13.6 11.5-14.5 % Platelet Count 106 130-400 K/uL Mean Platelet Volume 10.7 7.4-10.4 fL Sodium Level 135 136-145 mmol/L Potassium Level 4.4 3.5-5.1 mmol/L Chloride Level 93 98-107 mmol/L Carbon Dioxide Level 27 21-32 mmol/L Anion Gap 15.0 3-11 mmol/L Blood Urea Nitrogen 82 7-18 mg/dl Creatinine 14.00 0.60-1.40 mg/dl Est Creatinine Clear Calc Drug Dose 5.7 ml/min Estimated GFR () 3.7 Estimated GFR (Non- 3.2 BUN/Creatinine Ratio 5.8 10-20 Random Glucose 210 70-99 mg/dl Calcium Level 8.2 8.5-10.1 mg/dl Phosphorus Level 8.3 2.5-4.9 mg/dl Bedside Glucose 218 70-99 mg/dl Microbiology Results 12/26/16 MRSA DNA Surveillance Screen - Final, Complete Specimen Positive for MRSA by DNA Probe 12/25/16 Urine Culture, Received Pending Diagnostic Radiology Chest x-ray: Within normal limits EKG sinus bradycardia: rate 56 first-degree AV block and premature atrial complexes , right bundle-branch block noted as compared to 12/19/2016 PVCs are now noted Impression Assessment and Plan 66-year-old gentleman with acute on chronic shortness of breath/respiratory insufficiency: #1 pulmonary patient is a long history of pulmonary granulomatosis with right mainstem external compression. At this time the patient is unstable and unable to go through bronchoscopy. If we are able to stabilize the patient with performed bronchoscopy then possible right mainstem debridement and/or stent placement if indicated. As the patient's dry weight seems to be appropriate I will initiate steroids at 1 mg/kg. Have spoken to nephrology about this and they will monitor his weight. If he retains volume will discontinue steroids that they may cause more harm than good. #2 renal: Patient still has physical signs of volume overload with severe bilateral lower extremity edema. Nephrology is initiating/continue. Toenail dialysis at this time.
--- NOTE | 2016-12-26 11:37 | Progress Note ---
Subjective Date of Service: Dec 26, 2016. Subjective Pt evaluation today including: conversation w/ patient, physical exam, lab review, review of studies, review of inpatient medication list Saw/examined the patient in room 234 States he's doing well, does not want to stay in the hospital No overt respiratory distress noted +cough persists No significant swelling Problem List Medical Problems: (1) Influenza Status: Acute (2) Intravascular volume depletion Status: Acute (3) Renal failure Status: Acute Review of Systems Constitutional: No chills, No fever Respiratory: + cough, + sputum, No dyspnea at rest, No dyspnea on exertion, No hemoptysis, No shortness of breath, No wheezing Cardiac: + edema, No chest pain, No palpitations Abdomen: No GI bleeding, No constipation, No diarrhea, No nausea, No pain, No vomiting Musculoskeletal: No joint pain Heme: No abnormal bleeding/bruising Medications Current Inpatient Medications Medications (Trade) Dose Ordered Sig/Romulo Route Start Time Stop Time Status Last Admin Dose Admin Heparin Sodium (Porcine) (Heparin Sq 5000 Unit/0.5ml) 5,000 unit Q8 SQ 12/25/16 22:00 01/24/17 21:59 Acetaminophen (Tylenol Tab) 650 mg Q4H PRN PO 12/25/16 17:45 01/24/17 17:44 Ondansetron HCl (Zofran Inj) 4 mg Q6H PRN IV 12/25/16 17:45 01/24/17 17:44 Nitroglycerin (Nitrostat Tab) 0.4 mg UD PRN SL 12/25/16 17:45 01/24/17 17:44 Insulin Aspart (novoLOG ASPART) SLIDING SCALE If C... ACHS SC 12/25/16 21:00 01/25/17 20:59 12/26/16 09:38 10 UNITS Glucose (Glucose 40% Gel) 15-30 GRAMS 15 GRAMS... UD PRN PO 12/25/16 18:00 01/24/17 17:59 Glucose (Glucose Chew Tab) 4-8 Tablets 4 Tabl... UD PRN PO 12/25/16 18:00 01/24/17 17:59 Dextrose (Dextrose 50% 50ML Syringe) 25-50ML OF 50% DW IV FOR... UD PRN IV 12/25/16 18:00 01/24/17 17:59 Glucagon (Glucagon Inj) 1 mg UD PRN SQ 12/25/16 18:00 01/24/17 17:59 Allopurinol (Zyloprim Tab) 100 mg BID PO 12/25/16 21:00 01/24/17 20:59 12/26/16 09:35 100 MG Aspirin (Ecotrin Tab) 81 mg DAILY PO 12/26/16 09:00 01/25/17 08:59 12/26/16 09:35 81 MG Albuterol/ Ipratropium (Combivent Respimat Inh) 1 puffs QID INH 12/25/16 21:00 01/24/17 20:59 Metoprolol Tartrate (Lopressor Tab) 12.5 mg BID PO 12/25/16 21:00 01/24/17 20:59 12/26/16 09:35 12.5 MG Rosuvastatin Calcium (Crestor Tab) 40 mg HS PO 12/25/16 21:00 01/24/17 20:59 12/25/16 21:34 40 MG Miscellaneous (Iv Fluids Completed) 1 ea PRN PRN N/A 12/25/16 20:15 12/25/17 20:14 Albumin Human (Albumin 25%) 12.5 gm TID@0930,1430,2130 IV 12/25/16 21:30 12/28/16 21:29 12/26/16 09:57 12.5 GM Insulin Glargine 20 unit 20 unit BID SC 12/26/16 09:00 01/25/17 08:59 Methylprednisolone Sodium Succinate/ Syringe (Solu-Medrol IV/ Syringe) 0.48 ml @ 1.5 mls/min Q8@0400,1200,2000 IV 12/26/16 12:00 01/25/17 11:59 Objective Vital Signs Date Time Temp Pulse Resp B/P Pulse Ox O2 Delivery O2 Flow Rate FiO2 12/26/16 08:45 36.5 61 20 134/68 12/26/16 08:40 36.5 61 20 134/68 12/26/16 08:00 36.5 70 20 131/74 92 Room Air 12/26/16 08:00 Room Air 12/26/16 04:20 36.8 72 18 151/83 98 12/26/16 04:00 Room Air 12/26/16 00:01 Room Air 12/25/16 23:54 36.7 63 18 167/76 98 12/25/16 21:45 37.2 60 127/72 12/25/16 20:00 Room Air 12/25/16 19:10 36.9 57 24 135/63 91 Room Air 12/25/16 19:10 36.9 57 24 135/63 91 Room Air 12/25/16 19:04 58 20 112/55 92 Room Air 12/25/16 17:46 37.0 54 18 126/53 92 Room Air 12/25/16 16:50 57 18 115/48 95 Room Air 12/25/16 14:46 37.1 58 18 105/49 93 Room Air Physical Exam General Appearance: no apparent distress Respiratory/Chest: no respiratory distress, no accessory muscle use, + decreased breath sounds, + wheezing Cardiovascular: regular rate, rhythm, no murmur Extremities: + swelling (+2 pitting edema b/l LE, improving), + pertinent finding Laboratory Results Last 24 Hours Test 12/25/16 15:15 12/25/16 15:25 12/25/16 15:40 12/25/16 20:50 Urine Color YELLOW Urine Appearance CLOUDY Urine pH 6.0 Urine Specific [place] 1.025 Urine Protein 3+ Urine Glucose (UA) 1+ Urine Ketones NEG Urine Occult Blood 3+ Urine Nitrite NEG Urine Bilirubin NEG Urine Urobilinogen NEG Urine Leukocyte Esterase NEG Urine RBC 0-4 /hpf Urine WBC 10-30 /hpf Urine Epithelial Cells >30 /lpf Urine Bacteria 2+ White Blood Count 11.42 K/uL Red Blood Count 3.84 M/uL Hemoglobin 11.4 g/dL Hematocrit 32.7 % Mean Corpuscular Volume 85.2 fL Mean Corpuscular Hemoglobin 29.7 pg Mean Corpuscular Hemoglobin Concent 34.9 g/dl Platelet Count 102 K/uL Mean Platelet Volume 10.4 fL Neutrophils (%) (Auto) 89.2 % Lymphocytes (%) (Auto) 6.2 % Monocytes (%) (Auto) 4.0 % Eosinophils (%) (Auto) 0.3 % Basophils (%) (Auto) 0.1 % Neutrophils # (Auto) 10.19 K/uL Lymphocytes # (Auto) 0.71 K/uL Monocytes # (Auto) 0.46 K/uL Eosinophils # (Auto) 0.03 K/uL Basophils # (Auto) 0.01 K/uL RDW Standard Deviation 42.4 fL RDW Coefficient of Variation 13.7 % Immature Granulocyte % (Auto) 0.2 % Immature Granulocyte # (Auto) 0.02 K/uL Sodium Level 132 mmol/L Potassium Level 5.1 mmol/L Chloride Level 92 mmol/L Carbon Dioxide Level 25 mmol/L Anion Gap 15.0 mmol/L Blood Urea Nitrogen 83 mg/dl Creatinine 14.00 mg/dl Est Creatinine Clear Calc Drug Dose 5.7 ml/min Estimated GFR () 3.7 Estimated GFR (Non- 3.2 BUN/Creatinine Ratio 5.9 Random Glucose 264 mg/dl Calcium Level 8.0 mg/dl Total Bilirubin 0.3 mg/dl Direct Bilirubin < 0.1 mg/dl Aspartate Amino Transf (AST/SGOT) 12 U/L Alanine Aminotransferase (ALT/SGPT) 21 U/L Alkaline Phosphatase 114 U/L Total Protein 7.3 gm/dl Albumin 2.2 gm/dl Influenza Type A Antigen POS for Influ A Influenza Type B Antigen Neg for Influ B Bedside Glucose 315 mg/dl Test 12/25/16 21:30 12/26/16 06:12 12/26/16 06:15 12/26/16 11:19 Hepatitis B Surface Antigen NEG Hepatitis B Surface Antibody POS White Blood Count 9.11 K/uL Red Blood Count 3.55 M/uL Hemoglobin 10.9 g/dL Hematocrit 31.0 % Mean Corpuscular Volume 87.3 fL Mean Corpuscular Hemoglobin 30.7 pg Mean Corpuscular Hemoglobin Concent 35.2 g/dl RDW Standard Deviation 44.2 fL RDW Coefficient of Variation 13.6 % Platelet Count 106 K/uL Mean Platelet Volume 10.7 fL Sodium Level 135 mmol/L Potassium Level 4.4 mmol/L Chloride Level 93 mmol/L Carbon Dioxide Level 27 mmol/L Anion Gap 15.0 mmol/L Blood Urea Nitrogen 82 mg/dl Creatinine 14.00 mg/dl Est Creatinine Clear Calc Drug Dose 5.7 ml/min Estimated GFR () 3.7 Estimated GFR (Non- 3.2 BUN/Creatinine Ratio 5.8 Random Glucose 210 mg/dl Calcium Level 8.2 mg/dl Phosphorus Level 8.3 mg/dl Bedside Glucose 218 mg/dl 260 mg/dl Assessment and Plan This is a 66 year old male with PMH of ESRD on peritoneal dialysis, granulomatous lung disease/sarcoidosis, 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 of aortic valve replacement, mainstem bronchus stenosis, HTN, HLD Granulomatous Lung Disease/Sarcoidosis Hilar/Mediastinal and Diaphragmatic Lymphadenopathy chronic issues related to this lung disorder for now, nebulizers and O2 PRN appreciate pulmonology input - IV steroids started transition to PO steroids when okay with pulmonology Influenza A+ patient with +weakness, +cough patient received one dose of Tamiflu in the ER due to PD, does not need any additional doses at this time Hypotension 12/26 can possibly d/c albumin today PD settings as per nephrology appreciate input 12/25 possibly related to over-dialysis? patient had been using red bags at home, which was a change on discharge on December 21 albumin x 1 given in the ER blood pressure > 100 systolically while in the ER nephrology consulted; may need adjustment in PD settings? ESRD on PD 12/26 PD settings as per nephrology 12/25 creat increased from 8.0 to 14.0 likely related to the change in PD settings This was needed due to fluid overload and pleural effusions Pleural Effusions CXR shows stable pleural effusions Insulin Dependent DM2 started 15 units Lantus BID sliding scale added DVT ppx subq heparin DNR
[2016-12-26] MEDS: METHYLPREDNISOLONE IV 30 MG in SYRINGE 0 ML IV SCH ×2 (12:14→21:05)
[2016-12-26] MEDS: INSULIN GLARGINE SOLOSTAR 100 UNITS/ML 3 ML PEN SC SCH ×2 (12:16→21:05)
[2016-12-26] MEDS ORDERED: HYDROCODONE/HOMATROPINE SYRUP 5MG/1.5MG 5ML UDP PO PRN (13:00)
[2016-12-26] MEDS ORDERED: BENZONATATE 100MG CAP PO ONE (13:30)
[2016-12-26] MEDS: BENZONATATE 100MG CAP PO SCH ×2 (14:07→21:08)
--- NOTE | 2016-12-26 18:27 | Nephrology Progress Note ---
Nephrology Progress Note Date of Service: Dec 26, 2016. Subjective seen on rounds this am 1000; no pain; does not feel weak or light headed as he did prior to admission; still tired. still w/ cough + orthopnea; 1899 mL off on PD overnight. Objective Date Time Temp Pulse Resp B/P Pulse Ox O2 Delivery O2 Flow Rate FiO2 12/26/16 17:02 58 115/65 94 12/26/16 16:00 92 Room Air 12/26/16 15:55 36.5 56 22 130/75 92 Room Air 12/26/16 12:00 Room Air 12/26/16 11:59 36.5 66 18 139/63 98 12/26/16 08:45 36.5 61 20 134/68 12/26/16 08:40 36.5 61 20 134/68 12/26/16 08:00 36.5 70 20 131/74 92 Room Air 12/26/16 08:00 Room Air 12/26/16 04:20 36.8 72 18 151/83 98 12/26/16 04:00 Room Air 12/26/16 00:01 Room Air 12/25/16 23:54 36.7 63 18 167/76 98 12/25/16 21:45 37.2 60 127/72 12/25/16 20:00 Room Air 12/25/16 19:10 36.9 57 24 135/63 91 Room Air 12/25/16 19:10 36.9 57 24 135/63 91 Room Air 12/25/16 19:04 58 20 112/55 92 Room Air Physical Exam: General-up in chair on RA nad Eyes-eomi ENT-dry mm Neck-mmm Lungs very diminished air entry BL linda bases Heart-RRR Abdomen-soft NT +BS; PD cath present Extremities-2+ BL pedal edema Neuro-davila, fluent speech Current Inpatient Medications Medications (Trade) Dose Ordered Sig/Romulo Route Start Time Stop Time Status Last Admin Dose Admin Heparin Sodium (Porcine) (Heparin Sq 5000 Unit/0.5ml) 5,000 unit Q8 SQ 12/25/16 22:00 01/24/17 21:59 Acetaminophen (Tylenol Tab) 650 mg Q4H PRN PO 12/25/16 17:45 01/24/17 17:44 Ondansetron HCl (Zofran Inj) 4 mg Q6H PRN IV 12/25/16 17:45 01/24/17 17:44 12/26/16 14:14 4 MG Nitroglycerin (Nitrostat Tab) 0.4 mg UD PRN SL 12/25/16 17:45 01/24/17 17:44 Insulin Aspart (novoLOG ASPART) SLIDING SCALE If C... ACHS SC 12/25/16 21:00 01/25/17 20:59 12/26/16 17:44 2 UNITS Glucose (Glucose 40% Gel) 15-30 GRAMS 15 GRAMS... UD PRN PO 12/25/16 18:00 01/24/17 17:59 Glucose (Glucose Chew Tab) 4-8 Tablets 4 Tabl... UD PRN PO 12/25/16 18:00 01/24/17 17:59 Dextrose (Dextrose 50% 50ML Syringe) 25-50ML OF 50% DW IV FOR... UD PRN IV 12/25/16 18:00 01/24/17 17:59 Glucagon (Glucagon Inj) 1 mg UD PRN SQ 12/25/16 18:00 01/24/17 17:59 Allopurinol (Zyloprim Tab) 100 mg BID PO 12/25/16 21:00 01/24/17 20:59 12/26/16 09:35 100 MG Aspirin (Ecotrin Tab) 81 mg DAILY PO 12/26/16 09:00 01/25/17 08:59 12/26/16 09:35 81 MG Albuterol/ Ipratropium (Combivent Respimat Inh) 1 puffs QID INH 12/25/16 21:00 01/24/17 20:59 Metoprolol Tartrate (Lopressor Tab) 12.5 mg BID PO 12/25/16 21:00 01/24/17 20:59 12/26/16 09:35 12.5 MG Rosuvastatin Calcium (Crestor Tab) 40 mg HS PO 12/25/16 21:00 01/24/17 20:59 12/25/16 21:34 40 MG Miscellaneous (Iv Fluids Completed) 1 ea PRN PRN N/A 12/25/16 20:15 12/25/17 20:14 Albumin Human (Albumin 25%) 12.5 gm TID@0930,1430,2130 IV 12/25/16 21:30 12/28/16 21:29 12/26/16 09:57 12.5 GM Insulin Glargine 20 unit 20 unit BID SC 12/26/16 09:00 01/25/17 08:59 12/26/16 12:16 20 UNIT Methylprednisolone Sodium Succinate/ Syringe (Solu-Medrol IV/ Syringe) 0.48 ml @ 1.5 mls/min Q8@0400,1200,2000 IV 12/26/16 12:00 01/25/17 11:59 12/26/16 12:14 1.5 MLS/MIN Benzonatate (Tessalon Perles Cap) 100 mg TID PO 12/26/16 14:00 01/25/17 13:59 12/26/16 14:07 100 MG Hydrocodone Bit/ Homatropine Methylb (Hycodan Syrup) 5 ml HS PRN PO 12/26/16 13:00 01/09/17 12:59 Last 24 Hours Test 12/25/16 20:50 12/25/16 21:30 12/26/16 06:12 12/26/16 06:15 Bedside Glucose 315 mg/dl 218 mg/dl Hepatitis B Surface Antigen NEG Hepatitis B Surface Antibody POS White Blood Count 9.11 K/uL Red Blood Count 3.55 M/uL Hemoglobin 10.9 g/dL Hematocrit 31.0 % Mean Corpuscular Volume 87.3 fL Mean Corpuscular Hemoglobin 30.7 pg Mean Corpuscular Hemoglobin Concent 35.2 g/dl RDW Standard Deviation 44.2 fL RDW Coefficient of Variation 13.6 % Platelet Count 106 K/uL Mean Platelet Volume 10.7 fL Sodium Level 135 mmol/L Potassium Level 4.4 mmol/L Chloride Level 93 mmol/L Carbon Dioxide Level 27 mmol/L Anion Gap 15.0 mmol/L Blood Urea Nitrogen 82 mg/dl Creatinine 14.00 mg/dl Est Creatinine Clear Calc Drug Dose 5.7 ml/min Estimated GFR () 3.7 Estimated GFR (Non- 3.2 BUN/Creatinine Ratio 5.8 Random Glucose 210 mg/dl Calcium Level 8.2 mg/dl Phosphorus Level 8.3 mg/dl Test 12/26/16 11:19 12/26/16 16:11 Bedside Glucose 260 mg/dl 151 mg/dl Date/Time Source Procedure Growth Status 12/26/16 05:44 Nasal MRSA DNA Surveillance Screen - Final Specimen Positive for MRSA by DNA Probe Complete Assessment & Plan 66 y/o M w/ ESRD on PD admitted from pcp office with hypotension, generalized weakness, cough, fatigue after aggressive diuresis recently. Resuscitated w/ albumin; bp improved. Also w/ large longstanding externally partially compressed R mainstem bronchus lesion not amenable to stent 1. End-stage renal disease on peritoneal dialysis with a weight that has gone from 105 kilograms down to 96 kilograms by the time of this admission. Blood pressure borderline but will stop albumin and order again all 2.5% bags for dialysis this evening. 2. Anemia of renal failure. Hemoglobin levels are stable. 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 3. Renal osteodystrophy. phosphorus elevated and will start phosLo 4. Exertional dyspnea and cough > continue aggressive ultrafiltration with PD as BP tolerates and steroids / further care per pulm. Not clear how much more we can optimize volume status. Care coordinated w/ Shira Stearns and Rasheeda; appreciate consultation.
[2016-12-26] MEDS: ROSUVASTATIN CALCIUM 20 MG TAB PO SCH (21:08)
[2016-12-27] VITALS (10 sets, daily range): BP systolic 133–164; BP diastolic 53–87; PULSE 49–83; TEMP 36.4–36.8; O2SAT 90–97; Ht 170.2 cm; Wt 97.7 kg
[2016-12-27] MEDS: METHYLPREDNISOLONE IV 30 MG in SYRINGE 0 ML IV SCH ×3 (04:25→20:12)
[2016-12-27] MEDS: HEPARIN SOD 5000 UNIT/0.5 ML CARP SQ SCH ×3 (06:00→21:36)
[2016-12-27 06:22] LABS: HEMATOCRIT 31.9 % (42-52); MEAN CELL VOLUME 86.9 fL (80-100); MEAN CORPUSCULAR HEMOGLOBIN 30.8 pg (25-34); MEAN CORPUSCULAR HGB CONC 35.4 g/dl (32-36); PLATELET COUNT 120 K/uL (130-400); RED BLOOD COUNT 3.67 M/uL (4.7-6.1); WHITE BLOOD COUNT 9.21 K/uL (4.8-10.8)
[2016-12-27] MEDS: INSULIN ASPART 100 UNITS/ML 3 ML PEN SC SCH ×5 (07:06→23:21)
[2016-12-27 07:07] LABS: BUN/CREATININE RATIO 5.9 (10-20); CALCIUM 8.5 mg/dl (8.5-10.1); MAGNESIUM 2.7 mg/dl (1.8-2.4); POTASSIUM 5.3 mmol/L (3.5-5.1)
[2016-12-27] MEDS: ALLOPURINOL 100 MG TAB PO SCH ×2 (07:23→21:36)
[2016-12-27] MEDS: METOPROLOL TARTRATE 25 MG TAB PO SCH (07:23)
[2016-12-27] MEDS: ASPIRIN 81 MG ECTAB PO SCH (07:23)
[2016-12-27] MEDS: BENZONATATE 100MG CAP PO SCH ×3 (07:24→21:35)
[2016-12-27] MEDS: IPRATROPIUM BROMIDE/ALBUTEROL respimat INH INH SCH ×4 (07:24→21:00)
[2016-12-27] MEDS: CALCIUM ACETATE 667MG GELCAP PO SCH ×3 (07:26→17:21)
[2016-12-27 07:30] LABS: BETA-HYDROXYBUTYRATE 1.34 mg/dL (0.2-2.81)
[2016-12-27] MEDS ORDERED: PHARMACY GLYCEMIC MGMT CONSULT PRN (08:45)
[2016-12-27] MEDS: INSULIN GLARGINE SOLOSTAR 100 UNITS/ML 3 ML PEN SC SCH ×2 (09:16→21:43)
--- NOTE | 2016-12-27 11:04 | Progress Note ---
Subjective Date of Service: Dec 27, 2016. Subjective Pt evaluation today including: conversation w/ patient, conversation w/ family , physical exam, lab review, review of studies, conversation w/ [employer] ax consultant, review of inpatient medication list Saw/examined the patient in room 234 is frustrated this morning because she received a phone call by cardiology stating that the patient has to follow-up with activity specialist. She wants everything done here On tele - noted to have dropped beats Problem List Medical Problems: (1) Influenza Status: Acute (2) Intravascular volume depletion Status: Acute (3) Renal failure Status: Acute Review of Systems Constitutional: No chills, No fever Respiratory: + cough, + shortness of breath, + sputum, + wheezing, No dyspnea at rest, No dyspnea on exertion, No hemoptysis Cardiac: No chest pain, No edema, No palpitations Abdomen: No diarrhea, No nausea, No pain, No vomiting Heme: No abnormal bleeding/bruising Medications Current Inpatient Medications Medications (Trade) Dose Ordered Sig/Romulo Route Start Time Stop Time Status Last Admin Dose Admin Heparin Sodium (Porcine) (Heparin Sq 5000 Unit/0.5ml) 5,000 unit Q8 SQ 12/25/16 22:00 01/24/17 21:59 12/26/16 21:52 5,000 UNIT Acetaminophen (Tylenol Tab) 650 mg Q4H PRN PO 12/25/16 17:45 01/24/17 17:44 Ondansetron HCl (Zofran Inj) 4 mg Q6H PRN IV 12/25/16 17:45 01/24/17 17:44 12/26/16 14:14 4 MG Nitroglycerin (Nitrostat Tab) 0.4 mg UD PRN SL 12/25/16 17:45 01/24/17 17:44 Insulin Aspart (novoLOG ASPART) SLIDING SCALE If C... ACHS SC 12/25/16 21:00 01/25/17 20:59 12/27/16 07:06 14 UNITS Glucose (Glucose 40% Gel) 15-30 GRAMS 15 GRAMS... UD PRN PO 12/25/16 18:00 01/24/17 17:59 Glucose (Glucose Chew Tab) 4-8 Tablets 4 Tabl... UD PRN PO 12/25/16 18:00 01/24/17 17:59 Dextrose (Dextrose 50% 50ML Syringe) 25-50ML OF 50% DW IV FOR... UD PRN IV 12/25/16 18:00 01/24/17 17:59 Glucagon (Glucagon Inj) 1 mg UD PRN SQ 12/25/16 18:00 01/24/17 17:59 Allopurinol (Zyloprim Tab) 100 mg BID PO 12/25/16 21:00 01/24/17 20:59 12/27/16 07:23 100 MG Aspirin (Ecotrin Tab) 81 mg DAILY PO 12/26/16 09:00 01/25/17 08:59 12/27/16 07:23 81 MG Albuterol/ Ipratropium (Combivent Respimat Inh) 1 puffs QID INH 12/25/16 21:00 01/24/17 20:59 Metoprolol Tartrate (Lopressor Tab) 12.5 mg BID PO 12/25/16 21:00 01/24/17 20:59 12/27/16 07:23 12.5 MG Rosuvastatin Calcium (Crestor Tab) 40 mg HS PO 12/25/16 21:00 01/24/17 20:59 12/26/16 21:08 40 MG Miscellaneous 1 ea 1 ea PRN PRN N/A 12/25/16 20:15 12/25/17 20:14 Methylprednisolone Sodium Succinate/ Syringe (Solu-Medrol IV/ Syringe) 0.48 ml @ 1.5 mls/min Q8@0400,1200,2000 IV 12/26/16 12:00 01/25/17 11:59 12/27/16 04:25 1.5 MLS/MIN Benzonatate (Tessalon Perles Cap) 100 mg TID PO 12/26/16 14:00 01/25/17 13:59 12/27/16 07:24 100 MG Hydrocodone Bit/ Homatropine Methylb (Hycodan Syrup) 5 ml HS PRN PO 12/26/16 13:00 01/09/17 12:59 Calcium Acetate (Phoslo Cap) 1,334 mg TIDM PO 12/27/16 07:30 01/26/17 07:29 12/27/16 07:26 1,334 MG Insulin Glargine (Lantus Solostar Pen) 25 unit BID SC 12/27/16 09:00 01/26/17 08:59 12/27/16 09:16 25 UNIT Miscellaneous Information (Consult Glycemic Management Pharmacy) 1 ea UD PRN N/A 12/27/16 08:45 01/26/17 08:44 Insulin Aspart (novoLOG ASPART) SLIDING SCALE If C... 0000,0400 SC 12/28/16 00:00 01/27/17 00:00 Objective Vital Signs Date Time Temp Pulse Resp B/P Pulse Ox O2 Delivery O2 Flow Rate FiO2 12/27/16 09:00 36.7 58 20 142/71 12/27/16 08:09 36.7 81 18 164/87 97 Nasal Cannula 12/27/16 08:00 Room Air 12/27/16 04:05 36.5 83 18 133/74 97 Nasal Cannula 2.0 12/27/16 04:00 92 Nasal Cannula 2.0 12/27/16 00:00 92 Nasal Cannula 2.0 12/26/16 23:30 36.6 57 18 152/58 94 Nasal Cannula 2.0 12/26/16 21:01 58 159/71 12/26/16 19:32 Nasal Cannula 2.0 12/26/16 19:00 37.1 71 142/64 12/26/16 17:02 58 115/65 94 12/26/16 16:00 92 Room Air 12/26/16 15:55 36.5 56 22 130/75 92 Room Air 12/26/16 12:00 Room Air 12/26/16 11:59 36.5 66 18 139/63 98 Physical Exam General Appearance: no apparent distress Respiratory/Chest: no respiratory distress, no accessory muscle use, + decreased breath sounds, + wheezing Cardiovascular: no murmur, + bradycardia Abdomen: normal bowel sounds, non tender, soft Extremities: + pertinent finding (+2 pitting edema b/l LE) Neurologic/Psychiatric: no motor/sensory deficits, alert, normal mood/affect Skin: normal color Laboratory Results Last 24 Hours Test 12/26/16 11:19 12/26/16 16:11 12/26/16 19:32 12/26/16 20:52 Bedside Glucose 260 mg/dl 151 mg/dl 244 mg/dl 264 mg/dl Test 12/27/16 05:42 2/24/17 06:57 White Blood Count 9.21 K/uL Red Blood Count 3.67 M/uL Hemoglobin 11.3 g/dL Hematocrit 31.9 % Mean Corpuscular Volume 86.9 fL Mean Corpuscular Hemoglobin 30.8 pg Mean Corpuscular Hemoglobin Concent 35.4 g/dl RDW Standard Deviation 43.2 fL RDW Coefficient of Variation 13.6 % Platelet Count 120 K/uL Mean Platelet Volume 11.0 fL Sodium Level 132 mmol/L Potassium Level 5.3 mmol/L Chloride Level 90 mmol/L Carbon Dioxide Level 27 mmol/L Anion Gap 15.0 mmol/L Blood Urea Nitrogen 88 mg/dl Creatinine 14.00 mg/dl Est Creatinine Clear Calc Drug Dose 5.7 ml/min Estimated GFR () 3.7 Estimated GFR (Non- 3.2 BUN/Creatinine Ratio 5.9 Random Glucose 342 mg/dl Calcium Level 8.5 mg/dl Magnesium Level 2.7 mg/dl Beta-Hydroxybutyric Acid 1.34 mg/dL Bedside Glucose 377 mg/dl Assessment and Plan This is a 66 year old male with PMH of ESRD on peritoneal dialysis, granulomatous lung disease/sarcoidosis, 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 of aortic valve replacement, mainstem bronchus stenosis, HTN, HLD Bradycardia, possible AV block currently sinus love - on tele monitoring, some strips showing dropped beats as per cardiology, had a Zio patch on for 2 weeks, had RBBB, wide QRS possibly related to granulomatous disease? not on any b-arsalan or CCB consulted cardiology for further input Granulomatous Lung Disease/Sarcoidosis Hilar/Mediastinal and Diaphragmatic Lymphadenopathy 12/27 continue nebulizers/O2 PRN IV steroids as per pulm 12/26 chronic issues related to this lung disorder for now, nebulizers and O2 PRN appreciate pulmonology input - IV steroids started transition to PO steroids when okay with pulmonology Influenza A+ patient with +weakness, +cough patient received one dose of Tamiflu in the ER due to PD, does not need any additional doses at this time Hypotension 12/26 can possibly d/c albumin today PD settings as per nephrology appreciate input 12/25 possibly related to over-dialysis? patient had been using red bags at home, which was a change on discharge on December 21 albumin x 1 given in the ER blood pressure > 100 systolically while in the ER nephrology consulted; may need adjustment in PD settings? ESRD on PD 12/27 appreciate nephrology input would likely require 12 hour PD session to optimize fluid balance 12/26 PD settings as per nephrology 12/25 creat increased from 8.0 to 14.0 likely related to the change in PD settings This was needed due to fluid overload and pleural effusions Pleural Effusions CXR shows stable pleural effusions Insulin Dependent DM2 started 15 units Lantus BID sliding scale added DVT ppx subq heparin DNR
--- NOTE | 2016-12-27 11:19 | Pharmacy Progress Note ---
Glycemic Control Intl Consult Date of Service Dec 27, 2016. Scope Glycemic Pharmacist consulted by Dr Stearns on 12/27/16 for glycemic control and to write orders per [facility] inpatient glycemic control protocol Objective Weight (Kilograms): 97.700 Accuchecks BSG (last 24hrs): Test 12/26/16 11:19 12/26/16 16:11 12/26/16 19:32 12/26/16 20:52 Bedside Glucose 260 mg/dl (70-99) 151 mg/dl (70-99) 244 mg/dl (70-99) 264 mg/dl (70-99) Test 12/27/16 05:42 12/27/16 06:57 Random Glucose 342 mg/dl (70-99) Bedside Glucose 377 mg/dl (70-99) Laboratory Data (last 24hrs) Test 12/27/16 05:42 Anion Gap 15.0 mmol/L BUN/Creatinine Ratio 5.9 Blood Urea Nitrogen 88 mg/dl Creatinine 14.00 mg/dl Potassium Level 5.3 mmol/L Sodium Level 132 mmol/L White Blood Count 9.21 K/uL HbA1c Item Value Date Time Hemoglobin A1c 5.7 % H 12/18/16 0620 Recent Pertinent Medications Outpatient Anti-diabetic Regimen: * Toujeo 18 u BID * Novolog ACHS * Correction Factor 25 mg/dL/unit The patient is currently receiving: * Basal insulin: Lantus 20 units every 12 hours * Correctional Insulin: Novolog Correction per scale ACHS Goal Range: Low 120 mg/dL - High 160 mg/dL Correction Factor: 20 mg/dL/unit * Prandial insulin: Per carb ratio of 1 unit per 10 grams CHO consumed Risk Factors for Insulin Resistance: * Steroids: Solumedrol 30 mg IV every 8 hours * Diet: T2DM Assessment & Plan ASSESSMENT: * 66yo T2DM male with unknown degree of outpatient control admitted with hypotension and initiated on high dose IV steroids. * Recent A1c is 5.7% from previous admission, however, this value is likely unreliable d/t ESRD. * Pt is maintained on Toujeo plus Novolog as outpatient. Of note, outpatient doses have been reduced since last admission. * Due to steroids, BSGs have risen to 377 mg/dL this AM and pharmacy consulted to take over management * We do know this patient from a prior admission but at that point he was not on steroids * Plan for today will be to increase Lantus and tighten Novolog * Add overnight checks X 24 hours until we have BSGs better under control * ADA & AACE recommend a goal blood sugar range 140-180 mg/dl for the majority of critically ill & non-critically ill patients. However, more stringent targets may be selected in individual cases. PLAN FOR INPATIENT GLYCEMIC CONTROL: * INCREASE Basal insulin with LANTUS 25 units SQ BID * TIGHTEN Correctional Insulin with NOVOLOG per scale ACHS or Q6hrs while NPO + 00,04 checks X 24 hours * Goal Range: Low 100 mg/dL - High 140 mg/dL * Correction Factor: 15 mg/dL/unit * Nutritional / Prandial insulin per carb ratio of 1 unit per 7 grams CHO consumed * Please note that the plan above was derived based on current level of insulin resistance and hospital stress. These recommendations are appropriate for inpatient admission only. Plan of care upon discharge will need to be reassessed to avoid potential outpatient hypo/hyperglycemia. Thank you.
--- NOTE | 2016-12-27 12:20 | Cardiology Consultation ---
Cardiology Consultation Date of Consultation: Dec 27, 2016 Requesting Physician: Daryn Attending Product Distribution Specialist: Aashish (Karl Hudson PA-C) History of Present Illness Mr. Heredia is a markedly complex 66 year old male who presented to the [facility] ER on December 25, 2016 with cough and weakness, + influenza A. Cardiology consultation requested today, 12/27/2016, secondary to dropped beats, possible high degree block. Mr. Heredia recently agreed to an outpatient ambulatory timekeeper in November 2016. This was recommended because of his conduction system disease and the diagnosis of sarcoid. The predominant rhythm was sinus on the ZioXT monitor. The average heart rate was 60 bpm. Minimum heart rate was 37 bpm. Maximum heart rate was 176 bpm. There were 12 SVT runs with the longest lasting ~50 seconds, asymptomatic. Possible accelerated junction rhythm noted. Because of the ZioXT monitor results it has been recommended that he Electrophysiology for their recommendations. Mr. Heredia denies chest pain. No palpitations. No lightheadedness, dizziness , near syncope, or true syncope. Stable dyspnea. Stable recliner orthopnea without PND. No fevers or chills. He feels that he is recovering from the flu and would like to return home sooner than later. (Karl Hudson PA-C) History Past Medical/Surgical History: Congenitally bicuspid aortic valve with severe aortic stenosis Status post May 03, 2009 minimally invasive AVR with a 23 mm Harvey-Dunlap pericardial valve at [facility]. Preceding catheterization performed in March 2009 at [facility] demonstrated moderate branch vessel ASCVD with an 80% narrowing in a subbranch of a third diagonal, 60 to 70% narrowing within the branch of the OM, and mild irregularities within the RCA of 30-40%. Post discharge course complicated by right heart failure and hypotension. 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 Family History: Valvular heart disease in father. Social History: Nonsmoker. No significant alcohol consumption. No illegal drug use. 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 (Karl Hudson PA-C) Review Of Systems General: No fever. Always cold. No rigors. HEENT: [place]. Decrease vision. Headache. Cardiovascular: No chest pain. Stable dyspnea on exertion. No palpitations. Stable orthopnea. + Edema. No syncope. Pulmonary: + Cough. +SOB. +SALEH. + Wheeze. No hemoptysis. ERNIE. Gastrointestinal: No nausea, vomiting, diarrhea. Skin: No rash. Musculoskeletal: Arthritis. Neurological: No history of TIA, CVA, or seizures Complete review of systems is as stated above, negative, or noncontributory. (Karl Hudson PA-C) Allergies Coded Allergies: No Known Allergies (Unverified , 12/25/16) Medications Reported Home Medications Medications Dose Route/Sig Max Daily Dose Days Date Category Dose Instructions Colchicine 0.6 Mg Tab 0.6 Mg PO DAILY PRN 12/25/16 Reported Combivent Respimat (Ipratropium-Albuterol) 1 Aer Aer 1 Puffs INH QID 12/25/16 Reported Toujeo Solostar (Insulin Glargine) 300 Unit/Ml Inj 18 Units SQ QPM 12/08/16 Reported Toujeo Solostar (Insulin Glargine) 300 Unit/Ml Inj 18 Units SQ QAM 12/08/16 Reported Aspirin Ec (Aspirin) 81 Mg Tab 81 Mg PO DAILY 11/29/16 Reported Novolog Flexpen (Insulin Aspart) 100 Units/Ml Inj 0 SC ACHS 30 10/17/14 Rx Sliding Scale Coverage: for blood sugars 150-175, take 1 unit, 176-200 take 2 units 201-225 take 3 units 226-250 take 4 units 251-275 take 5 units 276-300 take 6 units Zyloprim (Allopurinol) 100 Mg Tab 100 Mg PO BID 01/07/14 Reported Lopressor (Metoprolol Tartrate) 25 Mg Tab 12.5 Mg PO BID 01/07/14 Reported Crestor (Rosuvastatin Calcium) 20 Mg Tab 40 Mg PO HS 01/07/14 Reported (Karl Hudson PA-C) Physical Exam Vital Signs (Last 8hrs): Last 8 Hrs Date Time Temp Pulse Resp B/P Pulse Ox O2 Delivery O2 Flow Rate FiO2 12/27/16 11:33 36.6 49 18 158/53 90 Room Air 12/27/16 09:00 36.7 58 20 142/71 12/27/16 08:09 36.7 81 18 164/87 97 Nasal Cannula 12/27/16 08:00 Room Air 12/27/16 04:05 36.5 83 18 133/74 97 Nasal Cannula 2.0 12/27/16 04:00 92 Nasal Cannula 2.0 General Appearance: Alert and Oriented x3. NAD. [place] HEENT: Normocephalic Atraumatic. PER, EOMI, conjunctiva and sclera injected Neck: Supple. Bilateral carotid bruits. No overt JVD (examined in the bedside chair) Respiratory: Markedly diminished breath sounds with poor air exchange. Absent breath sounds at the bases. Rhonchi on the right. Faint left upper anterior expiratory wheeze. Cardiovascular: Regular, 54 bpm. Grade III/ systolic ejection murmur. No diastolic murmur. Abdomen: +BS. Peritoneal dialysis catheter Extremities: 2+ edema. No clubbing. No cyanosis. No distal pulses palpable. Neuro: No focal deficits. Psychiatric: Normal affect. (Karl Hudson, PETRONA) Data Last 24 Hours Test 12/26/16 16:11 12/26/16 19:32 12/26/16 20:52 12/27/16 05:42 Bedside Glucose 151 mg/dl 244 mg/dl 264 mg/dl White Blood Count 9.21 K/uL Red Blood Count 3.67 M/uL Hemoglobin 11.3 g/dL Hematocrit 31.9 % Mean Corpuscular Volume 86.9 fL Mean Corpuscular Hemoglobin 30.8 pg Mean Corpuscular Hemoglobin Concent 35.4 g/dl RDW Standard Deviation 43.2 fL RDW Coefficient of Variation 13.6 % Platelet Count 120 K/uL Mean Platelet Volume 11.0 fL Sodium Level 132 mmol/L Potassium Level 5.3 mmol/L Chloride Level 90 mmol/L Carbon Dioxide Level 27 mmol/L Anion Gap 15.0 mmol/L Blood Urea Nitrogen 88 mg/dl Creatinine 14.00 mg/dl Est Creatinine Clear Calc Drug Dose 5.7 ml/min Estimated GFR () 3.7 Estimated GFR (Non- 3.2 BUN/Creatinine Ratio 5.9 Random Glucose 342 mg/dl Calcium Level 8.5 mg/dl Magnesium Level 2.7 mg/dl Beta-Hydroxybutyric Acid 1.34 mg/dL Test 12/27/16 06:57 12/27/16 11:23 Bedside Glucose 377 mg/dl 331 mg/dl May 2014 DSE Interpretation Summary: The stress echo is negative for inducible ischemia. July 10, 2016 TTE Interpretation Summary (as per Dr. Chaves): The left ventricular cavity size is normal. The LV wall thickness is moderately increased (concentric). Calculated LV ejection Fraction = 60% (bi-plane method of discs). The left ventricular diastolic function is mildly abnormal (grade I) . The proximal ascending thoracic aorta is mildly enlarged. Maximum imaged diameter is 4.4 cm. There is an aortic valve bioprosthetic present. Significant aortic valve prosthesis regurgitation is absent. There are mild sclerotic changes invoving the aortic valve bioprosthesis. Calculated valve orifice area is 1.0-1.1 cm2. Peak instantaneous pressure gradient across the valve is 22mmHg. Admission CXR revealed postsurgical changes, stable left pleural effusion decreasing right pleural effusion, persistent left basilar atelectasis/ consolidation, decreased prominence of the right hilum. EKG dated and timed 25-DEC-2016 @ 20:37:19: Sinus bradycardia at 56 bpm with 1st degree A-V block with premature atrial complexes, right bundle branch block. QTc 449 ms. EKG dated and time 27-DEC-2016 @ 10:36:32 reveals a probable junctional rhythm at 50 bpm with a right bundle branch block. Telemetry: Currently sinus bradycardia at 54 bpm. I see bradycardia down to 40 bpm. Rare to occasional drop beat; minor pauses, no greater than 1.5 seconds. Possible junctional rhythm. (Karl Hudson PA-C) Assessment & Plan Hospitalization with Influenza A Telemetry revealing known sinus node dysfunction, as detailed above. Known pulmonary sarcoid, chronic conduction system disease Check TSH Decrease metoprolol to 12.5 mg once a day Outpatient Electrophysiology evaluation, consideration for permanent dual chamber pacemaker implantation once completely over the acute pulmonary illness. Congenitally bicuspid aortic valve with severe aortic stenosis Status post May 03, 2009 minimally invasive AVR with a 23 mm Harvey- Dunlap pericardial valve at [facility]. Check TTE given the change in murmur Moderate branch vessel ASCVD Asymptomatic. Continue appropriate medical therapies. End stage renal disease, on peritoneal dialysis (Karl Hudson PA-C) CARDIOLOGY ATTENDING ADDENDUM: The patient was seen and personally examined. Agree with Karl Hudson PA-C's findings and plans as documented above with additions as noted below. S: patient out of bed feeling much improved compared to presentation this hospital stay. Exam Last Vital Signs Documentation Date Time Temp Pulse Resp B/P Pulse Ox O2 Delivery O2 Flow Rate FiO2 12/27/16 15:28 36.5 82 18 150/76 90 Room Air 12/27/16 04:05 2.0 CV: reg 11/08 murmur Ext: 1+edema, chronic Data: EKG tracings and telemetry with SR, first degree AVB, RBBB. EKG today junctional rhythm at 50 bmp. Sinus node dysfunction, longest RR interval I have seen is 1.4 seconds Impression: new diagnosis of sarcoid, conduction system disease. Pt is completely asymptomatic from a rhythm standpoint at present. Reduced metoprolol from 12.5 mg bid to 12.5 mg daily. Outpt EP evaluation after acute illness resolved. (Andre Zendejas D.O.)
[2016-12-27] MEDS ORDERED: MICONAZOLE NITRATE POWDER 43 GM EXT PRN (12:45)
[2016-12-27] MEDS ORDERED: NURSING VERBAL MED ORDER ONE (12:45)
--- NOTE | 2016-12-27 12:56 | Nephrology Progress Note ---
Nephrology Progress Note Date of Service: Dec 27, 2016. Subjective seen on rounds this am 1030; no pain; does not feel weak or light headed as he did prior to admission; still tired. still w/ cough + orthopnea; 1300 mL off on PD overnight. cardiology following d/t monitor strip anomalies and for TTE d/ t changed murmur; at bedside; pt remains anxious for d/c Objective Date Time Temp Pulse Resp B/P Pulse Ox O2 Delivery O2 Flow Rate FiO2 12/27/16 12:00 Room Air 12/27/16 11:33 36.6 49 18 158/53 90 Room Air 12/27/16 09:00 36.7 58 20 142/71 12/27/16 08:09 36.7 81 18 164/87 97 Nasal Cannula 12/27/16 08:00 Room Air 12/27/16 04:05 36.5 83 18 133/74 97 Nasal Cannula 2.0 12/27/16 04:00 92 Nasal Cannula 2.0 12/27/16 00:00 92 Nasal Cannula 2.0 12/26/16 23:30 36.6 57 18 152/58 94 Nasal Cannula 2.0 12/26/16 21:01 58 159/71 12/26/16 19:32 Nasal Cannula 2.0 12/26/16 19:00 37.1 71 142/64 12/26/16 17:02 58 115/65 94 12/26/16 16:00 92 Room Air 12/26/16 15:55 36.5 56 22 130/75 92 Room Air Physical Exam: General-up in chair on RA nad Eyes-eomi ENT-dry mm Neck-mmm Lungs very diminished air entry BL linda bases Heart-RRR SM Abdomen-soft NT +BS; PD cath present Extremities-2+ BL pedal edema Neuro-davila, fluent speech; limited insight Current Inpatient Medications Medications (Trade) Dose Ordered Sig/Romulo Route Start Time Stop Time Status Last Admin Dose Admin Heparin Sodium (Porcine) (Heparin Sq 5000 Unit/0.5ml) 5,000 unit Q8 SQ 12/25/16 22:00 01/24/17 21:59 12/26/16 21:52 5,000 UNIT Acetaminophen (Tylenol Tab) 650 mg Q4H PRN PO 12/25/16 17:45 01/24/17 17:44 Ondansetron HCl (Zofran Inj) 4 mg Q6H PRN IV 12/25/16 17:45 01/24/17 17:44 12/26/16 14:14 4 MG Nitroglycerin (Nitrostat Tab) 0.4 mg UD PRN SL 12/25/16 17:45 01/24/17 17:44 Insulin Aspart (novoLOG ASPART) SLIDING SCALE If C... ACHS SC 12/25/16 21:00 01/25/17 20:59 12/27/16 11:44 18 UNITS Glucose (Glucose 40% Gel) 15-30 GRAMS 15 GRAMS... UD PRN PO 12/25/16 18:00 01/24/17 17:59 Glucose (Glucose Chew Tab) 4-8 Tablets 4 Tabl... UD PRN PO 12/25/16 18:00 01/24/17 17:59 Dextrose (Dextrose 50% 50ML Syringe) 25-50ML OF 50% DW IV FOR... UD PRN IV 12/25/16 18:00 01/24/17 17:59 Glucagon (Glucagon Inj) 1 mg UD PRN SQ 12/25/16 18:00 01/24/17 17:59 Allopurinol (Zyloprim Tab) 100 mg BID PO 12/25/16 21:00 01/24/17 20:59 12/27/16 07:23 100 MG Aspirin (Ecotrin Tab) 81 mg DAILY PO 12/26/16 09:00 01/25/17 08:59 12/27/16 07:23 81 MG Albuterol/ Ipratropium (Combivent Respimat Inh) 1 puffs QID INH 12/25/16 21:00 01/24/17 20:59 Rosuvastatin Calcium (Crestor Tab) 40 mg HS PO 12/25/16 21:00 01/24/17 20:59 12/26/16 21:08 40 MG Miscellaneous 1 ea 1 ea PRN PRN N/A 12/25/16 20:15 12/25/17 20:14 Methylprednisolone Sodium Succinate/ Syringe (Solu-Medrol IV/ Syringe) 0.48 ml @ 1.5 mls/min Q8@0400,1200,2000 IV 12/26/16 12:00 01/25/17 11:59 12/27/16 04:25 1.5 MLS/MIN Benzonatate (Tessalon Perles Cap) 100 mg TID PO 12/26/16 14:00 01/25/17 13:59 12/27/16 07:24 100 MG Hydrocodone Bit/ Homatropine Methylb (Hycodan Syrup) 5 ml HS PRN PO 12/26/16 13:00 01/09/17 12:59 Calcium Acetate (Phoslo Cap) 1,334 mg TIDM PO 12/27/16 07:30 01/26/17 07:29 12/27/16 07:26 1,334 MG Insulin Glargine (Lantus Solostar Pen) 25 unit BID SC 12/27/16 09:00 01/26/17 08:59 12/27/16 09:16 25 UNIT Miscellaneous Information (Consult Glycemic Management Pharmacy) 1 ea UD PRN N/A 12/27/16 08:45 01/26/17 08:44 Insulin Aspart (novoLOG ASPART) SLIDING SCALE If C... 0000,0400 SC 12/28/16 00:00 01/27/17 00:00 Metoprolol Tartrate (Lopressor Tab) 12.5 mg QAM PO 12/28/16 09:00 01/27/17 08:59 Miconazole Nitrate (Desenex Powder) 1 appln PRN PRN EXT 12/27/16 12:45 01/26/17 12:44 Last 24 Hours Test 12/26/16 16:11 12/26/16 19:32 12/26/16 20:52 12/27/16 05:42 Bedside Glucose 151 mg/dl 244 mg/dl 264 mg/dl White Blood Count 9.21 K/uL Red Blood Count 3.67 M/uL Hemoglobin 11.3 g/dL Hematocrit 31.9 % Mean Corpuscular Volume 86.9 fL Mean Corpuscular Hemoglobin 30.8 pg Mean Corpuscular Hemoglobin Concent 35.4 g/dl RDW Standard Deviation 43.2 fL RDW Coefficient of Variation 13.6 % Platelet Count 120 K/uL Mean Platelet Volume 11.0 fL Sodium Level 132 mmol/L Potassium Level 5.3 mmol/L Chloride Level 90 mmol/L Carbon Dioxide Level 27 mmol/L Anion Gap 15.0 mmol/L Blood Urea Nitrogen 88 mg/dl Creatinine 14.00 mg/dl Est Creatinine Clear Calc Drug Dose 5.7 ml/min Estimated GFR () 3.7 Estimated GFR (Non- 3.2 BUN/Creatinine Ratio 5.9 Random Glucose 342 mg/dl Calcium Level 8.5 mg/dl Magnesium Level 2.7 mg/dl Beta-Hydroxybutyric Acid 1.34 mg/dL Thyroid Stimulating Hormone (TSH) 2.270 uIu/ml Test 12/27/16 06:57 12/27/16 11:23 Bedside Glucose 377 mg/dl 331 mg/dl Assessment & Plan 66 y/o M w/ ESRD on PD admitted from pcp office with hypotension, generalized weakness, cough, fatigue after aggressive diuresis recently and infl A +. Resuscitated w/ albumin; bp improved. Also w/ large longstanding externally partially compressed R mainstem bronchus lesion not amenable to stent; now cardiology following for 1. End-stage renal disease on peritoneal dialysis with a weight that has gone from 105 kilograms down to 96 kilograms by the time of this admission. Blood pressure borderline but will stop albumin and more HTN >> will aim for more aggressive uf today. 2. Anemia of renal failure. Hemoglobin levels are stable. 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 3. Renal osteodystrophy. phosphorus elevated and will cont phosLo 4. Exertional dyspnea and cough > continue aggressive ultrafiltration with PD as BP tolerates and steroids / further care per pulm. Not clear how much more we can optimize volume status. now ? cardiac component Care coordinated w/ Dr Stearns; appreciate consultation.
--- NOTE | 2016-12-27 15:52 | Pulmonology Progress Note ---
Pulmonary Progress Note Date of Service Dec 27, 2016. Attending Martin Vanessa Subjective Patient breathing much better today notes no dyspnea at rest and minimal with exertion. Currently on room air. Objective Patient able to complete full sentences not using accessory muscles are having a positive to catch his breath. Vital signs: Reviewed Respiratory: Decreased breath sounds bilateral minimal crackles at the bases left breast sounds still short of than right Cardiac: Sinus bradycardia S1 and S2 distant heart sounds unable to auscultate Abdomen: Positive bowel sounds soft nontender Extremities: 3+ pitting edema WBC: 11K--9K I/Os: -2.7L (total: -6L) Influenza A + Micro-biology: no significant growth SaO2: 91-97% (RA-2Lnc) Assessment & Plan 66-year-old male admitted for acute on chronic respiratory insufficiency with volume overload and granulomatous lung disease: #1 granulomatous lung disease: Patient has never been diagnosed with sarcoid in there are other etiologies of granulomatous lung disease. At this time he has responded to dual therapy with fluid removal/pericardial dialysis and initiation of high dose steroids at 1 mg/kg. This patient is responding I suggest we continue the steroid dosing over the next 24 hours and reassess. If patient continues to progress suggest we switch him to prednisone 0.5 mixed but can't and then discharge her ready. This should be continued for at least the next month. #2 granulomatous lung obstruction: Patient with right mainstem A percent obstruction via previous bronchoscopy. When patient is stable based off pulmonary functions/6 minute walk study and clinical evaluation I will evaluate and possibly bring to the bronchoscopy suite at that time for further evaluation of his narrowing right mainstem bronchi. #3 cardiac: Patient's noted have sinus bradycardia cardiology currently following. #4 renal: Patient volume overload receiving continuous peritoneal dialysis and aggressive diuresis. Data Medications: Current Inpatient Medications Medications (Trade) Dose Ordered Sig/Romulo Route Start Time Stop Time Status Last Admin Dose Admin Heparin Sodium (Porcine) (Heparin Sq 5000 Unit/0.5ml) 5,000 unit Q8 SQ 12/25/16 22:00 01/24/17 21:59 12/26/16 21:52 5,000 UNIT Acetaminophen (Tylenol Tab) 650 mg Q4H PRN PO 12/25/16 17:45 01/24/17 17:44 Ondansetron HCl (Zofran Inj) 4 mg Q6H PRN IV 12/25/16 17:45 01/24/17 17:44 12/26/16 14:14 4 MG Nitroglycerin (Nitrostat Tab) 0.4 mg UD PRN SL 12/25/16 17:45 01/24/17 17:44 Insulin Aspart (novoLOG ASPART) SLIDING SCALE If C... ACHS SC 12/25/16 21:00 01/25/17 20:59 12/27/16 11:44 18 UNITS Glucose (Glucose 40% Gel) 15-30 GRAMS 15 GRAMS... UD PRN PO 12/25/16 18:00 01/24/17 17:59 Glucose (Glucose Chew Tab) 4-8 Tablets 4 Tabl... UD PRN PO 12/25/16 18:00 01/24/17 17:59 Dextrose (Dextrose 50% 50ML Syringe) 25-50ML OF 50% DW IV FOR... UD PRN IV 12/25/16 18:00 01/24/17 17:59 Glucagon (Glucagon Inj) 1 mg UD PRN SQ 12/25/16 18:00 01/24/17 17:59 Allopurinol (Zyloprim Tab) 100 mg BID PO 12/25/16 21:00 01/24/17 20:59 12/27/16 07:23 100 MG Aspirin (Ecotrin Tab) 81 mg DAILY PO 12/26/16 09:00 01/25/17 08:59 12/27/16 07:23 81 MG Albuterol/ Ipratropium (Combivent Respimat Inh) 1 puffs QID INH 12/25/16 21:00 01/24/17 20:59 Rosuvastatin Calcium (Crestor Tab) 40 mg HS PO 12/25/16 21:00 01/24/17 20:59 12/26/16 21:08 40 MG Miscellaneous 1 ea 1 ea PRN PRN N/A 12/25/16 20:15 12/25/17 20:14 Methylprednisolone Sodium Succinate/ Syringe (Solu-Medrol IV/ Syringe) 0.48 ml @ 1.5 mls/min Q8@0400,1200,2000 IV 12/26/16 12:00 01/25/17 11:59 12/27/16 12:02 1.5 MLS/MIN Benzonatate (Tessalon Perles Cap) 100 mg TID PO 12/26/16 14:00 01/25/17 13:59 12/27/16 07:24 100 MG Hydrocodone Bit/ Homatropine Methylb (Hycodan Syrup) 5 ml HS PRN PO 12/26/16 13:00 01/09/17 12:59 Calcium Acetate (Phoslo Cap) 1,334 mg TIDM PO 12/27/16 07:30 01/26/17 07:29 12/27/16 12:02 1,334 MG Insulin Glargine (Lantus Solostar Pen) 25 unit BID SC 12/27/16 09:00 01/26/17 08:59 12/27/16 09:16 25 UNIT Miscellaneous Information (Consult Glycemic Management Pharmacy) 1 ea UD PRN N/A 12/27/16 08:45 01/26/17 08:44 Insulin Aspart (novoLOG ASPART) SLIDING SCALE If C... 0000,0400 SC 12/28/16 00:00 01/27/17 00:00 Metoprolol Tartrate (Lopressor Tab) 12.5 mg QAM PO 12/28/16 09:00 01/27/17 08:59 Miconazole Nitrate (Desenex Powder) 1 appln PRN PRN EXT 12/27/16 12:45 01/26/17 12:44 I & O: 24-Hour Column 12/27/16 07:59 Intake Total 52487 ml Output Total 04723 ml Balance -3368 ml Vital Signs: Date Time Temp Pulse Resp B/P Pulse Ox O2 Delivery O2 Flow Rate FiO2 12/27/16 15:28 36.5 82 18 150/76 90 Room Air 12/27/16 12:00 Room Air 12/27/16 11:33 36.6 49 18 158/53 90 Room Air 12/27/16 09:00 36.7 58 20 142/71 12/27/16 08:09 36.7 81 18 164/87 97 Nasal Cannula 12/27/16 08:00 Room Air 12/27/16 04:05 36.5 83 18 133/74 97 Nasal Cannula 2.0 12/27/16 04:00 92 Nasal Cannula 2.0 12/27/16 00:00 92 Nasal Cannula 2.0 2/23/17 23:30 36.6 57 18 152/58 94 Nasal Cannula 2.0 12/26/16 21:01 58 159/71 12/26/16 19:32 Nasal Cannula 2.0 12/26/16 19:00 37.1 71 142/64 12/26/16 17:02 58 115/65 94 12/26/16 16:00 92 Room Air 12/26/16 15:55 36.5 56 22 130/75 92 Room Air Laboratory Results: Last 24 Hours Test 12/26/16 16:11 12/26/16 19:32 12/26/16 20:52 12/27/16 05:42 Bedside Glucose 151 mg/dl 244 mg/dl 264 mg/dl White Blood Count 9.21 K/uL Red Blood Count 3.67 M/uL Hemoglobin 11.3 g/dL Hematocrit 31.9 % Mean Corpuscular Volume 86.9 fL Mean Corpuscular Hemoglobin 30.8 pg Mean Corpuscular Hemoglobin Concent 35.4 g/dl RDW Standard Deviation 43.2 fL RDW Coefficient of Variation 13.6 % Platelet Count 120 K/uL Mean Platelet Volume 11.0 fL Sodium Level 132 mmol/L Potassium Level 5.3 mmol/L Chloride Level 90 mmol/L Carbon Dioxide Level 27 mmol/L Anion Gap 15.0 mmol/L Blood Urea Nitrogen 88 mg/dl Creatinine 14.00 mg/dl Est Creatinine Clear Calc Drug Dose 5.7 ml/min Estimated GFR () 3.7 Estimated GFR (Non- 3.2 BUN/Creatinine Ratio 5.9 Random Glucose 342 mg/dl Calcium Level 8.5 mg/dl Magnesium Level 2.7 mg/dl Beta-Hydroxybutyric Acid 1.34 mg/dL Thyroid Stimulating Hormone (TSH) 2.270 uIu/ml Test 12/27/16 06:57 12/27/16 11:23 Bedside Glucose 377 mg/dl 331 mg/dl
[2016-12-27] MEDS: ROSUVASTATIN CALCIUM 20 MG TAB PO SCH (21:35)
[2016-12-28] VITALS (9 sets, daily range): BP systolic 132–177; BP diastolic 51–82; PULSE 60–90; TEMP 36.3–36.8; O2SAT 92–100
[2016-12-28] MEDS: METHYLPREDNISOLONE IV 30 MG in SYRINGE 0 ML IV SCH ×3 (04:29→20:30)
[2016-12-28] MEDS: INSULIN ASPART 100 UNITS/ML 3 ML PEN SC SCH ×5 (04:34→21:00)
[2016-12-28] MEDS: HEPARIN SOD 5000 UNIT/0.5 ML CARP SQ SCH ×3 (05:44→20:33)
[2016-12-28] MEDS: CALCIUM ACETATE 667MG GELCAP PO SCH ×3 (07:35→16:45)
[2016-12-28] MEDS ORDERED: INSULIN GLARGINE SOLOSTAR 100 UNITS/ML 3 ML PEN SC ONE (07:45)
[2016-12-28] MEDS ORDERED: INSULIN REGULAR IV SCH (07:45)
[2016-12-28] MEDS: ASPIRIN 81 MG ECTAB PO SCH (08:09)
[2016-12-28] MEDS: METOPROLOL TARTRATE 25 MG TAB PO SCH (08:10)
[2016-12-28] MEDS: ALLOPURINOL 100 MG TAB PO SCH ×2 (08:11→20:30)
[2016-12-28] MEDS: BENZONATATE 100MG CAP PO SCH ×3 (08:11→20:30)
[2016-12-28] MEDS: IPRATROPIUM BROMIDE/ALBUTEROL respimat INH INH SCH ×4 (08:12→20:30)
[2016-12-28 08:17] LABS: HEMATOCRIT 33.1 % (42-52); MEAN CELL VOLUME 84.4 fL (80-100); MEAN CORPUSCULAR HEMOGLOBIN 30.1 pg (25-34); MEAN CORPUSCULAR HGB CONC 35.6 g/dl (32-36); MEAN PLATELET VOLUME 10.6 fL (7.4-10.4); PLATELET COUNT 152 K/uL (130-400); RED BLOOD COUNT 3.92 M/uL (4.7-6.1); WHITE BLOOD COUNT 12.78 K/uL (4.8-10.8)
[2016-12-28 09:13] LABS: BUN/CREATININE RATIO 7.6 (10-20); CALCIUM 9.2 mg/dl (8.5-10.1); MAGNESIUM 2.8 mg/dl (1.8-2.4); POTASSIUM 4.8 mmol/L (3.5-5.1)
[2016-12-28 09:40] LABS: BETA-HYDROXYBUTYRATE 0.72 mg/dL (0.2-2.81)
--- NOTE | 2016-12-28 14:32 | PROGRESS NOTE ---
DATE: 12/28/2016 HISTORY OF PRESENT ILLNESS: Mr. Heredia is a markedly complex 66-year-old male who was admitted through the Emergency Department on 12/25/2016 with influenza A. Cardiology consultation was ordered due to possible heart block. Telemetry reviewed. The patient remains in sinus rhythm. No significant pauses or heart block overnight. Bradycardia down to approximately 40 beats per minute with no pauses greater than 1.5 seconds. The patient has a history of known pulmonary sarcoid and chronic conduction disease. His metoprolol was reduced to 12.5 mg daily. He also carries a history of paroxysmal supraventricular tachycardia. Electrophysiology consult was previously ordered in the outpatient setting. Currently, the patient is feeling well. He is requesting discharge. Notes cough and sore throat. No chest pain or unusual shortness of breath. REVIEW OF SYSTEMS: Pertinent positives noted above. A 4-system review including cardiovascular, pulmonary, gastroenterology, and neurologic systems are otherwise negative. MEDICATIONS: Reviewed via EMR. Please see list for details. LABORATORY DATA: White blood cell count 12.7, hemoglobin is 11.8, platelet count is 152. Sodium is 126, potassium is 4.8, chloride is 86, CO2 is 25, BUN is 106, creatinine is 14.00. PHYSICAL EXAMINATION: VITAL SIGNS: Temperature is 36.6 degrees centigrade, pulse 77 beats per minute and regular, respiratory rate is 18 breaths per minute, blood pressure 132/51. SAO2 93% on room air. GENERAL: NAD, chronically ill. HEENT: Mucous membranes moist. No scleral icterus. Conjunctivae pink. NECK: Supple, no JVD or HJR. No carotid bruit. HEART: Regular with a 2/6 systolic ejection murmur heard best at the right second intercostal space. PULMONARY: Demonstrates scattered rhonchi without wheezing. Diminished breath sounds at the bases. ABDOMEN: Soft, nontender. No rebound or guarding. EXTREMITIES: Warm and dry, 2+ bilateral edema. NEUROLOGIC: Demonstrates no focal deficit. FINAL IMPRESSION: 1. Hospitalization secondary to influenza A. 2. Sinus node dysfunction with 1.5 second pauses and sinus bradycardia, heart rate is down to 40 beats per minute -- no associated symptoms. Metoprolol decreased to 12.5 mg daily. 3. History of paroxysmal supraventricular tachycardia -- no recurrence. 4. Congenitally bicuspid aortic valve with severe stenosis status post minimally invasive aortic valve replacement with a 23 mm Harvey-Dunlap pericardial valve at [facility] on 05/03/2009. 5. History of moderate branch vessel atherosclerotic coronary artery disease. PLAN AND RECOMMENDATIONS: Repeat resting 2D transthoracic echo is pending. The patient will continue intravenous steroids at the discretion of the internal medicine service. Cardiovascular medications including low-dose metoprolol, aspirin, and Rosuvastatin will be continued as previously ordered. subQ heparin for DVT prophylaxis. We will arrange outpatient electrophysiology testing. No further cardiac testing at this time. Thank you for allowing me to take part in the care of your patient.
--- NOTE | 2016-12-28 14:56 | Pharmacy Progress Note ---
Glycemic Control: Progress Nt Date of Service Dec 28, 2016. Scope Glycemic Pharmacist consulted by Dr Stearns on 12/27/16 for glycemic control and to write orders per [facility] inpatient glycemic control protocol. Objective Accuchecks BSG (last 24hrs): Test 12/27/16 16:06 12/27/16 20:02 12/28/16 04:26 12/28/16 06:09 Bedside Glucose 202 mg/dl (70-99) 287 mg/dl (70-99) 381 mg/dl (70-99) 385 mg/dl (70-99) Test 12/28/16 06:55 12/28/16 11:22 Random Glucose 383 mg/dl (70-99) Bedside Glucose 188 mg/dl (70-99) Laboratory Data (last 24hrs) Test 12/28/16 06:55 Anion Gap 15.0 mmol/L BUN/Creatinine Ratio 7.6 Blood Urea Nitrogen 106 mg/dl Creatinine 14.00 mg/dl Potassium Level 4.8 mmol/L Sodium Level 126 mmol/L White Blood Count 12.78 K/uL HbA1c: Item Value Date Time Hemoglobin A1c 5.7 % H 12/18/16 0620 Recent Pertinent Medications Outpatient Anti-diabetic Regimen: * Toujeo 18 u BID * Novolog ACHS * Correction Factor 25 mg/dL/unit The patient is currently receiving: * Basal insulin: Lantus 25 units every 12 hours * Correctional Insulin: Novolog Correction per scale ACHS Goal Range: Low 100 mg/dL - High 140 mg/dL Correction Factor: 15 mg/dL/unit * Prandial insulin: Per carb ratio of 1 unit per 7 grams CHO consumed Risk Factors for Insulin Resistance: * Steroids: Solumedrol 30 mg IV every 8 hours * Diet: T2DM Assessment & Plan ASSESSMENT: 12/27/16 * 66yo T2DM male with unknown degree of outpatient control admitted with hypotension and initiated on high dose IV steroids. * Recent A1c is 5.7% from previous admission, however, this value is likely unreliable d/t ESRD. * Pt is maintained on Toujeo plus Novolog as outpatient. Of note, outpatient doses have been reduced since last admission. * Due to steroids, BSGs have risen to 377 mg/dL this AM and pharmacy consulted to take over management * We do know this patient from a prior admission but at that point he was not on steroids * Plan for today will be to increase Lantus and tighten Novolog * Add overnight checks X 24 hours until we have BSGs better under control * ADA & AACE recommend a goal blood sugar range 140-180 mg/dl for the majority of critically ill & non-critically ill patients. However, more stringent targets may be selected in individual cases. 12/28/16 * Overnight BSGs climbed to 387 mg/dL, and despite additional Novolog coverage, remained the same this AM * Continue aggressive measures to control steroid-induced hyperglycemia * Due to severe hyperglycemia, I made the following changes this AM: * Lantus 30 units X 1, Regular IV 5 units X 1, tighten Novolog * On re-check at lunch, BSG finally down to 188 mg/dL * Patient may require additional IV boluses through the night * Lantus will be maintained at 25 units BID- I hesitate to irineo numbers with basal insulin as this could cause hypoglycemia when steroids changed to PO prednisone * Continue aggressive Novolog and additional checks- reassess in the AM * If BSGs continue to be >350 mg/dL- low threshold to start insulin drip until IV steroids discontinued PLAN FOR INPATIENT GLYCEMIC CONTROL: * Continue Basal insulin with LANTUS 25 units SQ BID (30 units X 1 given this AM ) * Tighten Correctional Insulin with NOVOLOG per scale ACHS or Q6hrs while NPO + 00,04 checks * Goal Range: Low 100 mg/dL - High 140 mg/dL * Correction Factor: 10 mg/dL/unit * Nutritional / Prandial insulin per carb ratio of 1 unit per 5 grams CHO consumed * Please note that the plan above was derived based on current level of insulin resistance and hospital stress. These recommendations are appropriate for inpatient admission only. Plan of care upon discharge will need to be reassessed to avoid potential outpatient hypo/hyperglycemia. Thank you.
[2016-12-28] MEDS ORDERED: BISACODYL 5 MG TABEC PO ONE (15:00)
--- NOTE | 2016-12-28 15:52 | PULMONARY PROGRESS NOTE ---
DATE: 12/28/2016 DATE: 12/28/2016. TIME: 3:30 p.m. SUBJECTIVE: The patient is comfortable. He believes he feels significantly better since the steroids were started. He feels less short of breath. His was present during this evaluation. The patient states he is coughing less. OBJECTIVE: GENERAL: The patient appeared comfortable. He is afebrile. HEART: Rate was 80 beats per minute. The rhythm was regular. It is a sinus rhythm on telemetry. VITAL SIGNS: Blood pressure 160/75. Respiratory rate 20 breaths per minute. Rales were heard posteriorly bilaterally. Oxygen saturation is 94% on room air. EXTREMITIES: Revealed +2 edema. The patient believes that these are much better than before. He has been getting rid of a lot of urine. It appears that dialysis showed a net of -54:54 today. LABORATORY DATA: White blood cell count is 12.78. Hemoglobin 11.8. Platelets 152,000. BUN today was 106 and creatinine was 14. Sodium 126, potassium 4.8, chloride 86, and bicarbonate 25. IMPRESSIONS: 1. Acute respiratory insufficiency. 2. Granulomatous lung disease. 3. Renal failure -- dialysis dependent with fluid volume overload. COMMENTS AND RECOMMENDATIONS: The patient is to continue with the steroids for now. Assuming he continues to feel better clinically, then would advise steroids orally at home with followup with Dr. Vanessa.
[2016-12-28] MEDS: POLYETHYLENE (MIRALAX) 17 GM PACK PO SCH ×2 (16:12→20:33)
--- NOTE | 2016-12-28 19:35 | Progress Note ---
Internal Med Progress Note Date of Service: Dec 28, 2016. Provider Documentation: SUBJECTIVE: feels fine, sitting up on chair will get PD tonight no complain of SOB , chest discomfort or orthopnea denies of any dizzy spell HR remains stable on monitor 70-90's OBJECTIVE: Vital Signs-as noted below Exam: General-no sign of distress Eyes-PERRLA Neck-no thyromegaly Lungs-CTA Heart-regular Abdomen-soft, non tender Extremities-+ 1 bilat lower ext edema Neuro-hard of hearing on rt ear ,no focal deficit Lab data as noted below. ASSESSMENT & PLAN: Bradycardia, possible AV block as per cardiology, had a Zio patch on for 2 weeks, had RBBB, wide QRS possibly related to granulomatous disease? appreciate cardiology eval Beta arsalan dose adjusted HR remains stable so far in 70's , no symptom of dizzy spell cont monitor in tele will need out pt EP study Granulomatous Lung Disease/Sarcoidosis Hilar/Mediastinal and Diaphragmatic Lymphadenopathy continue nebulizers/O2 PRN wean down IV Solu Medrol appreciate in put form Pulmonology Influenza A+ patient with +weakness, +cough patient received one dose of Tamiflu in the ER due to PD, does not need any additional doses at this time ESRD on PD appreciate nephrology input PD settings as per nephrology Pleural Effusions chronic hx of CHF with diastolic dysfunction vol status remains stable CXR shows stable pleural effusions repeat Cxray tomorrow Insulin Dependent DM2 started 15 units Lantus BID sliding scale added DVT ppx subq heparin DNR DISPOSITION possible discharge home in next 24-48 hrs if no episode of bradycardia Vital Signs: Date Time Temp Pulse Resp B/P Pulse Ox O2 Delivery O2 Flow Rate FiO2 12/28/16 19:17 36.3 90 18 165/76 92 Room Air 12/28/16 16:00 Room Air 12/28/16 15:18 36.3 80 20 160/75 94 Room Air 12/28/16 12:39 36.6 77 18 132/51 93 Room Air 12/28/16 12:00 Room Air 12/28/16 08:30 36.8 60 20 160/68 12/28/16 07:30 36.4 80 20 144/70 97 Room Air 12/28/16 07:30 Nasal Cannula 2.0 12/28/16 04:00 Nasal Cannula 2.0 12/28/16 03:00 36.5 79 20 134/74 98 Nasal Cannula 2.0 12/28/16 00:00 Nasal Cannula 2.0 12/27/16 23:47 36.4 61 20 149/79 97 Nasal Cannula 2.0 Lab Results: Results Past 24 Hours Test 12/28/16 04:26 12/28/16 06:09 12/28/16 06:55 12/28/16 11:22 Range/Units Bedside Glucose 381 385 188 70-99 mg/dl White Blood Count 12.78 4.8-10.8 K/uL Red Blood Count 3.92 4.7-6.1 M/uL Hemoglobin 11.8 14.0-18.0 g/dL Hematocrit 33.1 42-52 % Mean Corpuscular Volume 84.4 80-100 fL Mean Corpuscular Hemoglobin 30.1 25-34 pg Mean Corpuscular Hemoglobin Concent 35.6 32-36 g/dl RDW Standard Deviation 40.8 36.4-46.3 fL RDW Coefficient of Variation 13.4 11.5-14.5 % Platelet Count 152 130-400 K/uL Mean Platelet Volume 10.6 7.4-10.4 fL Sodium Level 126 136-145 mmol/L Potassium Level 4.8 3.5-5.1 mmol/L Chloride Level 86 98-107 mmol/L Carbon Dioxide Level 25 21-32 mmol/L Anion Gap 15.0 3-11 mmol/L Blood Urea Nitrogen 106 7-18 mg/dl Creatinine 14.00 0.60-1.40 mg/dl Est Creatinine Clear Calc Drug Dose 5.7 ml/min Estimated GFR () 3.7 Estimated GFR (Non- 3.2 BUN/Creatinine Ratio 7.6 10-20 Random Glucose 383 70-99 mg/dl Calcium Level 9.2 8.5-10.1 mg/dl Magnesium Level 2.8 1.8-2.4 mg/dl Beta-Hydroxybutyric Acid 0.72 0.2-2.81 mg/dL Test 12/28/16 15:51 12/28/16 20:05 Range/Units Bedside Glucose 153 204 70-99 mg/dl
[2016-12-28] MEDS: ROSUVASTATIN CALCIUM 20 MG TAB PO SCH (20:30)
[2016-12-28] MEDS: DOCUSATE SODIUM 100 MG CAP PO SCH (20:30)
[2016-12-28] MEDS: INSULIN GLARGINE SOLOSTAR 100 UNITS/ML 3 ML PEN SC SCH (21:00)
[2016-12-29] VITALS (8 sets, daily range): BP systolic 127–164; BP diastolic 69–74; PULSE 57–86; TEMP 36.3–36.6; O2SAT 91–97
[2016-12-29] MEDS: INSULIN ASPART 100 UNITS/ML 3 ML PEN SC SCH ×6 (00:13→21:32)
[2016-12-29] MEDS: HEPARIN SOD 5000 UNIT/0.5 ML CARP SQ SCH ×3 (05:55→21:35)
[2016-12-29] MEDS: ALLOPURINOL 100 MG TAB PO SCH ×2 (07:27→21:28)
[2016-12-29] MEDS: ASPIRIN 81 MG ECTAB PO SCH (07:27)
[2016-12-29] MEDS: METOPROLOL TARTRATE 25 MG TAB PO SCH (07:28)
[2016-12-29] MEDS: DOCUSATE SODIUM 100 MG CAP PO SCH ×2 (07:29→21:26)
[2016-12-29] MEDS: CALCIUM ACETATE 667MG GELCAP PO SCH ×3 (07:30→17:37)
[2016-12-29] MEDS: POLYETHYLENE (MIRALAX) 17 GM PACK PO SCH ×2 (07:31→21:00)
[2016-12-29] MEDS: BENZONATATE 100MG CAP PO SCH ×3 (07:32→21:27)
[2016-12-29] MEDS: IPRATROPIUM BROMIDE/ALBUTEROL respimat INH INH SCH ×4 (07:37→21:00)
--- NOTE | 2016-12-29 07:50 | DIAGNOSTIC IMAGING REPORT ---
CHEST ONE VIEW PORTABLE HISTORY: Short of breath. COMPARISON: Chest 12/25/2016. FINDINGS: There are postoperative changes. Small left pleural effusion with basilar densities have improved. The heart remains top normal in size. There is an aortic valve prosthesis. No pneumothorax. The right basilar interstitial thickening remains unchanged. IMPRESSION: Small left pleural effusion and left basilar densities have improved. Electronically signed by: Eliel Hernandez M.D. 12/29/2016 7:49 AM Dictated Date/Time: 12/29/2016 7:47 AM
[2016-12-29] MEDS: INSULIN GLARGINE SOLOSTAR 100 UNITS/ML 3 ML PEN SC SCH ×2 (08:51→21:33)
[2016-12-29] MEDS ORDERED: METHYLPREDNISOLONE IV 30 MG in SYRINGE 0 ML IV SCH (09:00)
[2016-12-29] MEDS ORDERED: INSULIN REGULAR 8 UNITS in SYRINGE 0 ML IV SCH (09:00)
--- NOTE | 2016-12-29 11:21 | Pharmacy Progress Note ---
Glycemic Control: Progress Nt Date of Service Dec 29, 2016. Scope Glycemic Pharmacist consulted by Dr Stearns on 12/27/16 for glycemic control and to write orders per [facility] inpatient glycemic control protocol. Objective Accuchecks BSG (last 24hrs): Test 12/28/16 11:22 12/28/16 15:51 12/28/16 20:05 12/29/16 00:09 Bedside Glucose 188 mg/dl (70-99) 153 mg/dl (70-99) 204 mg/dl (70-99) 295 mg/dl (70-99) Test 12/29/16 04:23 12/29/16 04:25 12/29/16 07:10 Bedside Glucose 450 mg/dl (70-99) 454 mg/dl (70-99) 474 mg/dl (70-99) Recent Pertinent Medications Outpatient Anti-diabetic Regimen: * Toujeo 18 u BID * Novolog ACHS * Correction Factor 25 mg/dL/unit The patient is currently receiving: * Basal insulin: Lantus 25 units every 12 hours * Correctional Insulin: Novolog Correction per scale ACHS Goal Range: Low 100 mg/dL - High 140 mg/dL Correction Factor: 10 mg/dL/unit * Prandial insulin: Per carb ratio of 1 unit per 5 grams CHO consumed Risk Factors for Insulin Resistance: * Steroids: Solumedrol 30 mg IV every 12 hrs * Diet: T2DM Assessment & Plan ASSESSMENT: 12/27/16 * 66yo T2DM male with unknown degree of outpatient control admitted with hypotension and initiated on high dose IV steroids. * Recent A1c is 5.7% from previous admission, however, this value is likely unreliable d/t ESRD. * Pt is maintained on Toujeo plus Novolog as outpatient. Of note, outpatient doses have been reduced since last admission. * Due to steroids, BSGs have risen to 377 mg/dL this AM and pharmacy consulted to take over management * We do know this patient from a prior admission but at that point he was not on steroids * Plan for today will be to increase Lantus and tighten Novolog * Add overnight checks X 24 hours until we have BSGs better under control * ADA & AACE recommend a goal blood sugar range 140-180 mg/dl for the majority of critically ill & non-critically ill patients. However, more stringent targets may be selected in individual cases. 12/28/16 * Overnight BSGs climbed to 387 mg/dL, and despite additional Novolog coverage, remained the same this AM * Continue aggressive measures to control steroid-induced hyperglycemia * Due to severe hyperglycemia, I made the following changes this AM: * Lantus 30 units X 1, Regular IV 5 units X 1, tighten Novolog * On re-check at lunch, BSG finally down to 188 mg/dL * Patient may require additional IV boluses through the night * Lantus will be maintained at 25 units BID- I hesitate to irineo numbers with basal insulin as this could cause hypoglycemia when steroids changed to PO prednisone * Continue aggressive Novolog and additional checks- reassess in the AM * If BSGs continue to be >350 mg/dL- low threshold to start insulin drip until IV steroids discontinued 12/29/16 * After aggressive measures yesterday morning, BSG at lunch and dinner within reasonable range; however, BSGs began to climb overnight to 500 mg/dL this AM * Spoke with Dr. Ballesteros regarding glycemic control * At this point we are tighter than a stress of 3 and I fear further increases will cause hypoglycemia after steroids are discontinued * IV insulin bolus did help, so a drip would ultimately be our best option * Pt is to be discharged within 24-48 hours so instead of insulin drip, change to PO prednisone starting tonight * Hopefully this brings BSGs <250 mg/dL * Continue with aggressive basal/bolus regimen and de-escalate as necessary over the next 48 hours PLAN FOR INPATIENT GLYCEMIC CONTROL: * Basal insulin with LANTUS BID per BSG * 18 units for BSG <140 mg/dL * 25 units for BSG 141-180 mg/dL * 32 units for BSG >181 mg/dL * Tighten Correctional Insulin with NOVOLOG per scale ACHS or Q6hrs while NPO + 00,04 checks * Goal Range: Low 100 mg/dL - High 140 mg/dL * Correction Factor: 10 mg/dL/unit * Nutritional / Prandial insulin per carb ratio of 1 unit per 4 grams CHO consumed * Please note that the plan above was derived based on current level of insulin resistance and hospital stress. These recommendations are appropriate for inpatient admission only. Plan of care upon discharge will need to be reassessed to avoid potential outpatient hypo/hyperglycemia. Thank you.
--- NOTE | 2016-12-29 12:14 | PULMONARY PROGRESS NOTE ---
DATE: 12/29/2016 TIME: 11:50 a.m. SUBJECTIVE: The patient denies shortness of breath. He states he continues to feel better. He did have dialysis this morning and they removed more than 3000 mL of fluid. His sugars have been extremely elevated. The steroids were changed to oral prednisone 40 mg b.i.d. OBJECTIVE: GENERAL: The patient is comfortable at rest. He does not appear short of breath at all. He is afebrile. ENT: Unchanged. VITAL SIGNS: Heart rate is 74 per minute. Blood pressure 149/72. Respiratory rate 20 breaths per minute. LUNGS: Lung seo revealed just a few rales bilaterally. These are minimal. Oxygen saturation was 91% on room air. There is no accessory muscle use. ABDOMEN: Soft and nontender. EXTREMITIES: Continue to show edema bilaterally. LABORATORY DATA: Blood sugars today have been high, ranging from 446-474. The patient had a chest x-ray this morning. This reports that the small left pleural effusion with basilar densities have improved. The right basilar interstitial thickening remains unchanged. There clearly seems to be improved aeration compared with the prior x-ray done December 25. ASSESSMENT: 1. Acute respiratory insufficiency -- improved. 2. Granulomatous lung disease. 3. Renal failure -- dialysis dependent with fluid volume overload. COMMENTS AND RECOMMENDATIONS: The patient is stable from a pulmonary perspective. He apparently will be going home in the next 24 hours or so. I would send him home with prednisone 40 mg daily. This might be slightly lower than desired, but because of his severe elevations of blood sugars, I think it makes sense. Dr. Vanessa will be following up with him. I will sign off for now, but please call if you feel he needs to be seen once again while hospitalized.
--- NOTE | 2016-12-29 15:03 | PROGRESS NOTE ---
DATE: 12/29/2016 SUBJECTIVE: The patient feels stable. He still has some baseline cough and shortness of breath yesterday as well as today. We took about 3 liters of ultrafiltration with the overnight peritoneal dialysis. He is eager to go home. Denies any nausea, vomiting, chest pain. PHYSICAL EXAMINATION: VITAL SIGNS: Most recent blood pressure is 146/70, 93% on room air, pulse rate 68 per minute, temperature 36.3. HEENT: Mucous membrane is moist. NECK: Supple. LUNGS: Diminished air entry in bilateral bases. Occasional crackles. HEART: Regular rate and rhythm, 3/6 systolic murmur heard. ABDOMEN: Soft, nontender, obese. PD catheter present, clean and dry. EXTREMITIES: 2+ bilateral pitting edema still present. LABORATORY TESTS: From this morning shows a hemoglobin of 11.8, platelet count 152, WBC count 12.78. We did not have any renal panel from this morning. Labs from yesterday showed a sodium of 126, potassium 4.8, BUN 106, creatinine 14. His glucose is running consistently high, even now it is 446. ASSESSMENT AND PLAN: A 66-year-old male with end-stage renal disease, on peritoneal dialysis, admitted from PCP's office with hypertension, generalized weakness, cough, fatigue. 1. End-stage renal disease, on peritoneal dialysis. He is clearly fluid overloaded and needs peritoneal dialysis with the higher glucose solution for many days. His blood pressure is normal to slightly high. For tonight also, we will use all 4.25%. 2. Hyponatremia. This is combination of pseudohyponatremia from extremely high glucose as well as hypervolemic hyponatremia. In any case, we need to continue to take more fluid off with dialysis. MTDD
[2016-12-29] MEDS ORDERED: LACTULOSE SYRUP 30 GM/45 ML UDP PO STA (18:05)
[2016-12-29] MEDS ORDERED: LACTULOSE SYRUP 30 GM/45 ML UDP PO PRN (18:15)
[2016-12-29] MEDS: ROSUVASTATIN CALCIUM 20 MG TAB PO SCH (21:27)
--- NOTE | 2016-12-29 21:34 | Progress Note ---
Internal Med Progress Note Date of Service: Dec 29, 2016. Provider Documentation: SUBJECTIVE: no complain of chest pain or SOB HR remains stable since adjustment of Metoprolol dose no episode of bradycardia pt will be transferred to medical floor BSG persistently elevated PO Prednisone dose adjusted pt denies of any symptom of dizzy spell , lightheadedness, OBJECTIVE: Vital Signs-as noted below Exam: General-no sign of distress Eyes-PERRLA EAR: sq cell Ca on rt auricle , healing wound form prior surgical procedure Neck-no thyromegaly Lungs-CTA Heart-regular Abdomen-soft, non tender Extremities-+ 1 bilat lower ext edema Neuro-hard of hearing on rt ear ,no focal deficit Lab data as noted below. ASSESSMENT & PLAN: Bradycardia, possible AV block sinus bradycardia hx of moderate branch vessel atherosclerotic coronary artery disease presented with + influenza A on 12/25/16 found be bradycardic in 40;'s with 1.5 sec pause pt remained asymptomatic out pt Zio patch on for 2 weeks, revealed RBBB, wide QRS appreciate cardiology eval hx of granulomatous disease lung disease -may cause chronic conduction disease Metoprolol dose reduced to 12.5 mg PO Daily HR remains stable HR remains stable so far in 70's after reducing beta arsalan no symptom of dizzy spell stable to be transferred to medical floor will need out pt EP study Granulomatous Lung Disease/Sarcoidosis Hilar/Mediastinal and Diaphragmatic Lymphadenopathy continue nebulizers/O2 PRN appreciate in put form Pulmonology prednisone dose lowered to 40 mg PO daily -need to be on chronic Prednisone on above dose till evaluated by Dr Vanessa in office Bronchoscopy eval in future for possible mediastinal LN biopsy Influenza A+ patient with +weakness, +cough patient received one dose of Tamiflu in the ER due to PD, does not need any additional doses at this time on Droplet precaution ESRD on PD appreciate nephrology input PD settings as per nephrology Pleural Effusions chronic hx of CHF with diastolic dysfunction presented with vol overload had Peritoneal HD with removal of approx 3 L of fluid yesterday cXRAY : Small left pleural effusion and left basilar densities have improved. Insulin Dependent DM2 HB A1c 5.7 on 12/18/16 -may not be the accurate value due to dialysis BSG elevated > 400 possible due to steroid pt also required peritoneal HS with higher sugar solution for vol exchange appreciate pharmacy consult for glycemic management Sliding scale adjusted possible improvement of BSG as steroid dose is reduced DVT ppx subq heparin DNR DISPOSITION possible discharge home tomorrow Vital Signs: Date Time Temp Pulse Resp B/P Pulse Ox O2 Delivery O2 Flow Rate FiO2 12/30/16 12:16 36.5 72 20 93 Room Air 12/30/16 11:03 36.5 72 20 144/65 12/30/16 08:00 Room Air 12/30/16 07:48 93 Room Air 12/30/16 07:43 36.5 68 20 140/76 93 Room Air 12/30/16 00:37 36.6 92 16 168/83 96 2.0 12/30/16 00:00 95 Nasal Cannula 2.0 12/29/16 18:38 36.4 67 160/71 12/29/16 16:00 Room Air 12/29/16 16:00 36.5 86 18 127/74 95 Room Air Lab Results: Results Past 24 Hours Test 12/29/16 21:23 12/30/16 00:10 12/30/16 03:30 12/30/16 07:40 Range/Units Bedside Glucose 205 265 262 166 70-99 mg/dl Test 12/30/16 08:45 12/30/16 11:41 Range/Units Sodium Level 128 136-145 mmol/L Potassium Level 4.9 3.5-5.1 mmol/L Chloride Level 88 98-107 mmol/L Carbon Dioxide Level 28 21-32 mmol/L Anion Gap 12.0 3-11 mmol/L Blood Urea Nitrogen 123 7-18 mg/dl Creatinine 14.00 0.60-1.40 mg/dl Est Creatinine Clear Calc Drug Dose 5.7 ml/min Estimated GFR () 3.7 Estimated GFR (Non- 3.2 BUN/Creatinine Ratio 8.8 10-20 Random Glucose 175 70-99 mg/dl Calcium Level 9.0 8.5-10.1 mg/dl Bedside Glucose 117 70-99 mg/dl
[2016-12-30] VITALS: O2SAT 95
[2016-12-30] MEDS: INSULIN ASPART 100 UNITS/ML 3 ML PEN SC SCH ×4 (00:15→11:00)
[2016-12-30 00:37] VITALS: BP 168/83; PULSE 92; TEMP 36.6; O2SAT 96
[2016-12-30] MEDS ORDERED: INSULIN REGULAR IV SCH (04:15)
[2016-12-30] MEDS: HEPARIN SOD 5000 UNIT/0.5 ML CARP SQ SCH ×2 (06:19→13:50)
[2016-12-30 07:43] VITALS: BP 140/76; PULSE 68; TEMP 36.5; O2SAT 93
[2016-12-30 07:48] VITALS: O2SAT 93
[2016-12-30] MEDS: INSULIN GLARGINE SOLOSTAR 100 UNITS/ML 3 ML PEN SC SCH (08:31)
[2016-12-30] MEDS: CALCIUM ACETATE 667MG GELCAP PO SCH ×2 (08:34→12:28)
[2016-12-30] MEDS: ASPIRIN 81 MG ECTAB PO SCH (08:48)
[2016-12-30] MEDS: DOCUSATE SODIUM 100 MG CAP PO SCH (08:48)
[2016-12-30] MEDS: METOPROLOL TARTRATE 25 MG TAB PO SCH (08:50)
[2016-12-30] MEDS: BENZONATATE 100MG CAP PO SCH ×2 (08:53→13:45)
[2016-12-30] MEDS: ALLOPURINOL 100 MG TAB PO SCH (08:53)
[2016-12-30] MEDS: IPRATROPIUM BROMIDE/ALBUTEROL respimat INH INH SCH ×2 (08:57→12:32)
[2016-12-30] MEDS: POLYETHYLENE (MIRALAX) 17 GM PACK PO SCH (08:58)
[2016-12-30 09:45] LABS: BUN/CREATININE RATIO 8.8 (10-20); POTASSIUM 4.9 mmol/L (3.5-5.1)
[2016-12-30] MEDS ORDERED: LPR25 PO (09:52)
[2016-12-30] MEDS ORDERED: PRD20 PO (09:52)
[2016-12-30 11:03] VITALS: BP 144/65; PULSE 72; TEMP 36.5
[2016-12-30 12:16] VITALS: BP 144/65; PULSE 72; TEMP 36.5; O2SAT 93
--- NOTE | 2016-12-30 13:48 | Discharge Instructions ---
Discharge Instructions Admission Reason for Admission: Hypotension Discharge Discharge Diagnosis / Problem: INFLUENZA A /BRADYCARIDA /ESRD ON PERITONEAL DIALYSIS Discharge Goals Goal(s): Increase independence, Improve disease control, Therapeutic intervention Activity Recommendations Activity Limitations: resume your previous activity . Instructions / Follow-Up Instructions / Follow-Up HOSPITAL FOLLOW UP ON 01/03/2017 @ 10:10 AM Romelia Guevara MD General Internal Medicine [facility] LAB WORK BASIC METABOLIC PANEL ON Friday01/01/17 FOLLOW UP WITH PULMONOLOGY DR CHAVIS IN 1-2 WEEKS CARDIOLOGY FOLLOW UP FOR ELECTROPHYSIOLOGY STUDY IN 2-3 WEEKS, OFFICE WILL CALL WITH APPOINTMENT Call your Primary Care doctor if any of the following symptoms or problems start or get worse: * Shortness of breath or difficulty breathing * Wake up at night short of breath * Chest pain * Cough * Swelling of your hands, feet, or legs * More fatigued or tired with your normal activity * Palpitations - sudden fast heart beats WEIGHT * Weigh yourself every morning after using the bathroom. * Use the same scale. * Wear the same amount of clothing. * Write your weight down on a chart. * Call your Primary Care doctor if you gain more than 2-3 pounds in 1-2 days. MEDICATIONS * Use this discharge instruction sheet for medication instructions. * Take your medications at the time your doctor ordered. * Do not skip a dose of your medicines. * If you miss a dose of medicine, take it as soon as possible, but DO NOT DOUBLE A DOSE. * Read your medicine information when you get home. * Know all of the side effects of your medicine. If in doubt, ask your pharmacist * Call your Primary Care doctor's office if you have any side effects. * Be sure all of your doctors know what medicine and herbs you take (including cold, flu, and herbal medicine). Take the following with you to your follow-up doctor appointments: * Weight Chart * Medication List * List of questions Do not drink excessive alcohol, beer or wine. Current Hospital Diet Patient's current hospital diet: Diabetes Type 2 Diet Discharge Diet Recommended Diet: Diabetes Type 2 Diet, Renal Diet Pending Studies Studies pending at discharge: yes List of pending studies: BASIC METABOLIC PANEL Laboratory Results Hemoglobin A1c Test 12/18/16 06:20 Range/Units Estimated Average Glucose 117 mg/dl Hemoglobin A1c 5.7 H 4.5-5.6 % Medical Emergencies . Who to Call and When: Call 911 or go to the Emergency Room if: * If at any time you feel your situation is an emergency * You have tightness or pain in your chest that does not go away with rest or Nitroglycerin * You are very short of breath even with rest . Non-Emergent Contact Non-Emergency issues call your: Primary Care Provider . . "Provider Documentation" section prepared by Cheyanne Ballesteros. VTE Core Measure Inpt VTE Proph given/why not?: Unfractionated heparin SQ
--- NOTE | 2016-12-30 15:18 | Progress Note ---
Internal Med Progress Note Date of Service: Dec 30, 2016. Provider Documentation: SUBJECTIVE: ambulating independently no fever or chills has non productive cough no SOB or SALEH ; no bradycardia , stable to be discharged home today , OBJECTIVE: Vital Signs-as noted below Exam: General-no sign of distress Eyes-PERRLA EAR: sq cell Ca on rt auricle , healing wound form prior surgical procedure Neck-no thyromegaly Lungs-CTA Heart-regular Abdomen-soft, non tender Extremities-+ 1 bilat lower ext edema Neuro-hard of hearing on rt ear ,no focal deficit Lab data as noted below. ASSESSMENT & PLAN: Bradycardia, possible AV block/SINUS NODE DYSFUNCTION sinus bradycardia hx of moderate branch vessel atherosclerotic coronary artery disease presented with + influenza A on 12/25/16 found be bradycardic in 40;'s with 1.5 sec pause pt remained asymptomatic out pt Zio patch on for 2 weeks, revealed RBBB, wide QRS appreciate cardiology eval hx of granulomatous disease lung disease -may cause chronic conduction disease Metoprolol dose reduced to 12.5 mg PO Daily HR remains stable so far in 70's after reducing beta arsalan no symptom of dizzy spell stable to be discharged home today continue Aspirin , Rosuvastatin will need out pt EP study Granulomatous Lung Disease/Sarcoidosis Hilar/Mediastinal and Diaphragmatic Lymphadenopathy continue nebulizers/O2 PRN appreciate in put form Pulmonology prednisone dose lowered to 40 mg PO daily -need to be on chronic Prednisone on above dose till evaluated by Dr Vanessa in office Bronchoscopy eval in future for possible mediastinal LN biopsy Influenza A+ patient with +weakness, +cough patient received one dose of Tamiflu in the ER due to PD, does not need any additional doses at this time on Droplet precaution HYPONATREMIA : nephrology following out pt lab work BMP check ESRD on PD appreciate nephrology input PD settings as per nephrology Pleural Effusions chronic hx of CHF with diastolic dysfunction presented with vol overload had Peritoneal HD with removal of approx 3 L of fluid yesterday cXRAY : Small left pleural effusion and left basilar densities have improved. Insulin Dependent DM2 HB A1c 5.7 on 12/18/16 -may not be the accurate value due to dialysis out pt Anti diabetic regimen : Toujeo 18 U BID NOVOLOG sliding scale CF 25 mg /dl/unit BSG was elevated > 400 possible due to steroid pt also required peritoneal HS with higher sugar solution for vol exchange appreciate pharmacy consult for glycemic management Sliding scale adjusted improvement of BSG as steroid dose is reduced BSG 21: 28 12/29/16 205 00 12/30/16 265 3: 30 12/30/16 262 7:40 am 12/30/16 166 stable to be discharged with home regimen DVT ppx subq heparin DNR DISPOSITION discharge home today Vital Signs: Date Time Temp Pulse Resp B/P Pulse Ox O2 Delivery O2 Flow Rate FiO2 12/30/16 12:16 36.5 72 20 93 Room Air 12/30/16 11:03 36.5 72 20 144/65 12/30/16 08:00 Room Air 12/30/16 07:48 93 Room Air 12/30/16 07:43 36.5 68 20 140/76 93 Room Air 12/30/16 00:37 36.6 92 16 168/83 96 2.0 12/30/16 00:00 95 Nasal Cannula 2.0 12/29/16 18:38 36.4 67 160/71 12/29/16 16:00 Room Air 12/29/16 16:00 36.5 86 18 127/74 95 Room Air Lab Results: Results Past 24 Hours Test 12/29/16 21:23 12/30/16 00:10 12/30/16 03:30 12/30/16 07:40 Range/Units Bedside Glucose 205 265 262 166 70-99 mg/dl Test 12/30/16 08:45 12/30/16 11:41 Range/Units Sodium Level 128 136-145 mmol/L Potassium Level 4.9 3.5-5.1 mmol/L Chloride Level 88 98-107 mmol/L Carbon Dioxide Level 28 21-32 mmol/L Anion Gap 12.0 3-11 mmol/L Blood Urea Nitrogen 123 7-18 mg/dl Creatinine 14.00 0.60-1.40 mg/dl Est Creatinine Clear Calc Drug Dose 5.7 ml/min Estimated GFR () 3.7 Estimated GFR (Non- 3.2 BUN/Creatinine Ratio 8.8 10-20 Random Glucose 175 70-99 mg/dl Calcium Level 9.0 8.5-10.1 mg/dl Bedside Glucose 117 70-99 mg/dl
--- NOTE | 2016-12-30 15:24 | Discharge Summary ---
Discharge Summary Date of Service Dec 30, 2016. Discharge Summary Admission Date: Dec 25, 2016 at 17:45 Discharge Date: Dec 30, 2016 Discharge Disposition: Home with services Principal Diagnosis: INFLUENZA A /BRADYCARDIA /ESRD ON PERITONEAL DIALYSIS Procedures: PERITONEAL DIALYSIS Consultations: NEPHROLOGY DR HOUSE CARDIOLOGY DR MARTIN GRIFFITHS PULMONOLOGY DR MARTIN CHAVIS Medication Reconciliation New Medications: Metoprolol Tartrate (Lopressor) 25 Mg Tab 12.5 MG PO QAM for 30 Days, #15 TAB 5 Refills Prednisone (Prednisone) 20 Mg Tab 40 MG PO DAILY for 30 Days, #60 TAB 4 Refills Continued Medications: Allopurinol (Zyloprim) 100 Mg Tab 100 MG PO BID, TAB Aspirin (Aspirin Ec) 81 Mg Tab 81 MG PO DAILY Colchicine (Colchicine) 0.6 Mg Tab 0.6 MG PO DAILY PRN for gout flare, TAB Insulin Aspart (Novolog Flexpen) 100 Units/Ml Inj 0 SC ACHS for 30 Days Sliding Scale Coverage: for blood sugars 150-175, take 1 unit, 176-200 take 2 units 201-225 take 3 units 226-250 take 4 units 251-275 take 5 units 276-300 take 6 units Insulin Glargine (Toujeo Solostar) 300 Unit/Ml Inj 18 UNITS SQ QAM Insulin Glargine (Toujeo Solostar) 300 Unit/Ml Inj 18 UNITS SQ QPM Ipratropium-Albuterol (Combivent Respimat) 1 Aer Aer 1 PUFFS INH QID, INH Rosuvastatin Calcium (Crestor) 20 Mg Tab 40 MG PO HS, TAB Discontinued Medications: Metoprolol Tartrate (Lopressor) 25 Mg Tab 12.5 MG PO BID, TAB Referrals At Discharge Follow up Referrals: Physician Referral - Please Call For Appointment with Martin Chavis MD Admission Information HPI (per Admitting provider): This is a 66 year old male with PMHx of ESRD on peritoneal dialysis, granulomatous lung disease/sarcoidosis, insulin-dependent DM 2, HTN and Dyslipidemia who presents to the ED from PCP office due to hypotension. Pt was recently admitted to [facility] from 12/17-12/21 with hypoxia secondary to pleural effusions. Fluid was managed with dialysis and patient was discharged on intensified PD schedule as well as 2L O2 HS. Since discharge patient has been feeling weak and tired with a runny nose and some lightheadedness. His cough is unchanged from baseline. Today, patient was seen by PCP (Dr. Ballesteros) for hospital followup where BP was noted to be 87/47. Pt was referred to the ED for further evaluation. Pt has a complicated pulmonary history with a long standing history of granulomatous disease of the lung. He was found to have hilar adenopathy, mainstem bronchus stenosis and large pleural effusions. A bronchoscopy was attempted in November however the procedure was prematurely terminated due to severe dyspnea. Pt underwent thoracentesis instead which did relieve some of his sxs. Pt feels that his respiratory status is stable at the moment. Pt denies fever/chills, diaphoresis, chest pain, palpitations, wheezing , abd pain, N/V, bowel or bladder issues, worsening LE edema ,calf pain. In the ED, BP is 105/49 on arrival. He is afebrile with no leukocytosis. Na+ 132. Creat 14. UA 2+ bacteria, 3+ blood, 1+ glucose and 3+ protein. Influenza A positive. CXR + stable pleural effusions. Pt is stable and will be admitted for further evaluation and treatment. Physical Exam (per Admitting): General Appearance: WD/WN, no apparent distress, + pertinent finding (Pt is sitting up in chair beside bed with in room ) Head: normocephalic, atraumatic Eyes: normal inspection ENT: hearing grossly normal Neck: supple Respiratory/Chest: chest non-tender, lungs clear, normal breath sounds, no respiratory distress, + pertinent finding (no wheezing noted) Cardiovascular: regular rate, rhythm, + systolic murmur Abdomen/GI: normal bowel sounds, non tender, soft, + pertinent finding ( peritoneal catheter in place ) Back: normal inspection Extremities/Musculoskelatal: normal inspection, no calf tenderness, + swelling (3+ pitting edema bilat) Neurologic/Psych: alert, normal mood/affect, oriented x 3 Skin: normal color, warm/dry Hospital Course Bradycardia, possible AV block/SINUS NODE DYSFUNCTION sinus bradycardia hx of moderate branch vessel atherosclerotic coronary artery disease presented with + influenza A on 12/25/16 found be bradycardic in 40;'s with 1.5 sec pause pt remained asymptomatic out pt Zio patch on for 2 weeks, revealed RBBB, wide QRS appreciate cardiology eval hx of granulomatous disease lung disease -may cause chronic conduction disease Metoprolol dose reduced to 12.5 mg PO Daily HR remains stable so far in 70's after reducing beta arsalan no symptom of dizzy spell stable to be discharged home today continue Aspirin , Rosuvastatin will need out pt EP study Granulomatous Lung Disease/Sarcoidosis Hilar/Mediastinal and Diaphragmatic Lymphadenopathy continue nebulizers/O2 PRN appreciate in put form Pulmonology prednisone dose lowered to 40 mg PO daily -need to be on chronic Prednisone on above dose till evaluated by Dr Chavis in office Bronchoscopy eval in future for possible mediastinal LN biopsy Influenza A+ patient with +weakness, +cough patient received one dose of Tamiflu in the ER due to PD, does not need any additional doses at this time on Droplet precaution HYPONATREMIA : nephrology following out pt lab work BMP check ESRD on PD appreciate nephrology input PD settings as per nephrology Pleural Effusions chronic hx of CHF with diastolic dysfunction presented with vol overload had Peritoneal HD with removal of approx 3 L of fluid yesterday cXRAY : Small left pleural effusion and left basilar densities have improved. Insulin Dependent DM2 HB A1c 5.7 on 12/18/16 -may not be the accurate value due to dialysis out pt Anti diabetic regimen : Toujeo 18 U BID NOVOLOG sliding scale CF 25 mg /dl/unit BSG was elevated > 400 possible due to steroid pt also required peritoneal HS with higher sugar solution for vol exchange appreciate pharmacy consult for glycemic management Sliding scale adjusted improvement of BSG as steroid dose is reduced BSG 21: 28 12/29/16 205 00 12/30/16 265 3: 30 12/30/16 262 7:40 am 12/30/16 166 stable to be discharged with home regimen DVT ppx subq heparin DNR DISPOSITION discharge home today Total time spent on discharge = 40 mins This includes examination of the patient, discharge planning, medication reconciliation, and communication with other providers. Discharge Instructions DI: CHF v4 Discharge Instructions Admission Reason for Admission: Hypotension Discharge Discharge Diagnosis / Problem: INFLUENZA A /BRADYCARDIA /ESRD ON PERITONEAL DIALYSIS Discharge Goals Goal(s): Increase independence, Improve disease control, Therapeutic intervention Activity Recommendations Activity Limitations: resume your previous activity . Instructions / Follow-Up Instructions / Follow-Up HOSPITAL FOLLOW UP ON 01/03/2017 @ 10:10 AM Romelia Guevara MD General Internal Medicine [facility] LAB WORK BASIC METABOLIC PANEL ON Friday01/01/17 FOLLOW UP WITH PULMONOLOGY DR CHAVIS IN 1-2 WEEKS CARDIOLOGY FOLLOW UP FOR ELECTROPHYSIOLOGY STUDY IN 2-3 WEEKS, OFFICE WILL CALL WITH APPOINTMENT Call your Primary Care doctor if any of the following symptoms or problems start or get worse: * Shortness of breath or difficulty breathing * Wake up at night short of breath * Chest pain * Cough * Swelling of your hands, feet, or legs * More fatigued or tired with your normal activity * Palpitations - sudden fast heart beats WEIGHT * Weigh yourself every morning after using the bathroom. * Use the same scale. * Wear the same amount of clothing. * Write your weight down on a chart. * Call your Primary Care doctor if you gain more than 2-3 pounds in 1-2 days. MEDICATIONS * Use this discharge instruction sheet for medication instructions. * Take your medications at the time your doctor ordered. * Do not skip a dose of your medicines. * If you miss a dose of medicine, take it as soon as possible, but DO NOT DOUBLE A DOSE. * Read your medicine information when you get home. * Know all of the side effects of your medicine. If in doubt, ask your pharmacist * Call your Primary Care doctor's office if you have any side effects. * Be sure all of your doctors know what medicine and herbs you take (including cold, flu, and herbal medicine). Take the following with you to your follow-up doctor appointments: * Weight Chart * Medication List * List of questions Do not drink excessive alcohol, beer or wine. Current Hospital Diet Patient's current hospital diet: Diabetes Type 2 Diet Discharge Diet Recommended Diet: Diabetes Type 2 Diet, Renal Diet Pending Studies Studies pending at discharge: yes List of pending studies: BASIC METABOLIC PANEL Laboratory Results Hemoglobin A1c Test 12/18/16 06:20 Range/Units Estimated Average Glucose 117 mg/dl Hemoglobin A1c 5.7 H 4.5-5.6 % Medical Emergencies . Who to Call and When: Call 911 or go to the Emergency Room if: * If at any time you feel your situation is an emergency * You have tightness or pain in your chest that does not go away with rest or Nitroglycerin * You are very short of breath even with rest . Non-Emergent Contact Non-Emergency issues call your: Primary Care Provider . . "Provider Documentation" section prepared by Cheyanne Ballesteros. VTE Core Measure Inpt VTE Proph given/why not?: Unfractionated heparin SQ Additional Copies To Martin Chavis MD RAJ, Anitha ., M.D.
== END 2016-12-30 14:10 | disposition home or self-care (01) ==
LOC: ENRESERVDT → ENRESERVTM → C.EDB 14:34 → C.2T 17:45 → UNDOADMOB 17:45 → C.MS2W 12-29 12:44
PROVIDERS: ADMIT Family Medicine; ATTEND Hospitalist
DX: J09.X2 Influenza due to identified novel influenza A virus with other respiratory manifestations (principal); R00.1 Bradycardia, unspecified; I13.2 Hypertensive heart and chronic kidney disease with heart failure and with stage 5 chronic kidney disease, or end stage renal disease; N18.6 End stage renal disease; E11.40 Type 2 diabetes mellitus with diabetic neuropathy, unspecified; E11.21 Type 2 diabetes mellitus with diabetic nephropathy; E87.1 Hypo-osmolality and hyponatremia; J98.4 Other disorders of lung; D86.0 Sarcoidosis of lung; I35.0 Nonrheumatic aortic (valve) stenosis; M10.9 Gout, unspecified; I95.9 Hypotension, unspecified; I50.32 Chronic diastolic (congestive) heart failure; D63.1 Anemia in chronic kidney disease; N25.0 Renal osteodystrophy; G47.33 Obstructive sleep apnea (adult) (pediatric); H91.91 Unspecified hearing loss, right ear; R06.89 Other abnormalities of breathing; E78.5 Hyperlipidemia, unspecified; I25.10 Atherosclerotic heart disease of native coronary artery without angina pectoris; K21.9 Gastro-esophageal reflux disease without esophagitis; Z66 Do not resuscitate; Z99.81 Dependence on supplemental oxygen; Z79.82 Long term (current) use of aspirin; Z85.820 Personal history of malignant melanoma of skin; Z86.010 Personal history of colon polyps; Z79.4 Long term (current) use of insulin; Z99.2 Dependence on renal dialysis; Z85.828 Personal history of other malignant neoplasm of skin; Z95.2 Presence of prosthetic heart valve; Z83.3 Family history of diabetes mellitus; Z82.49 Family history of ischemic heart disease and other diseases of the circulatory system

== ENCOUNTER 2017-01-11 13:20 | Inpatient (IN) | payer OTHER ==
[~2017-01-11] VITALS: Ht 172.7 cm; Wt 98.9 kg
[~2017-01-11 13:20] MED LIST changes: +PRD20 PO
[2017-01-11] MEDS ORDERED: NVLG SQ (14:04)
[2017-01-11] MEDS ORDERED: PHOSPHORUS BINDER PO (14:06)
--- NOTE | 2017-01-11 14:46 | DIAGNOSTIC IMAGING REPORT ---
CT HEAD WITHOUT CONTRAST (CT) CLINICAL HISTORY: Head trauma. Scalp abrasion. Head pain. Bleeding from nose. COMPARISON STUDY: 10/14/2014 TECHNIQUE: Axial CT of the brain is performed from the vertex to the skull base. IV contrast was not administered for this examination. CT DOSE: 1768.17 mGy.cm FINDINGS: No intra or extra-axial mass lesions are visualized. There is no CT evidence of acute cortical infarction. There is no evidence of midline shift. There is no acute hemorrhage. No calvarial fractures are visualized. There are patchy white matter hypodensities likely on a small vessel basis. 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 There is no evidence of pathologic ventricular dilatation. There is complete opacification left maxilla sinus. There is minor mucosal thickening within the right maxilla sinus. There is a right mastoid effusion. There are opacified left ethmoid air cells. There is a left frontal sinus air-fluid level. IMPRESSION: 1. No evidence of acute intracranial injury 2. Right mastoid effusion. Opacified left maxillary sinus. The frontal sinus air-fluid level. Opacified left ethmoid air cells. Electronically signed by: Narinder Martinez M.D. 01/11/2017 2:45 PM Dictated Date/Time: 01/11/2017 2:42 PM
[2017-01-11 15:00] LABS: HEMATOCRIT 30.2 % (42-52); MEAN CELL VOLUME 82.1 fL (80-100); MEAN CORPUSCULAR HEMOGLOBIN 29.3 pg (25-34); MEAN CORPUSCULAR HGB CONC 35.8 g/dl (32-36); RED BLOOD COUNT 3.68 M/uL (4.7-6.1); WHITE BLOOD COUNT 13.55 K/uL (4.8-10.8)
[2017-01-11 15:09] LABS: PROTHROMBIN TIME (PATIENT) 11.1 SECONDS (9.0-12.0)
[2017-01-11] MEDS ORDERED: ALBUTEROL HFA 8 GM INHALER INH ONE (15:15)
--- NOTE | 2017-01-11 15:23 | EMERGENCY ROOM VISIT NOTE ---
ED Visit Note First contact with patient: 13:43 66-year-old male with extreme weakness. The patient is on peritoneal dialysis. The patient also has cardiac issues. The patient was fully evaluated by Ron Dyer PA-C. Please see his note. I also independently evaluated the patient. I also discussed care with the patient's . The patient will require further evaluation in the hospital. The hospitalist was consulted.
[2017-01-11 15:24] LABS: BUN/CREATININE RATIO 13.1 (10-20); CALCIUM 7.8 mg/dl (8.5-10.1); POTASSIUM 5.9 mmol/L (3.5-5.1)
[2017-01-11 15:40] LABS: COMPLETE YES; IG% 0.2 %; LYMPH % 4.6 %; LYMPH ABS # 0.63 K/uL (1.2-3.4); MONO % 0.8 %; NEUT % 94.4 %; PLATELET COUNT 66 K/uL (130-400); PLT ESTIMATE DECREASED
[2017-01-11] MEDS ORDERED: ACETAMINOPHEN 325 MG TAB PO PRN (15:45)
[2017-01-11] MEDS ORDERED: ONDANSETRON INJ 2 MG/ML 2 ML VIAL IV PRN (15:45)
[2017-01-11] MEDS ORDERED: SODIUM POLYST. SULF SUSP 15G/60ML PO STA (15:58)
[2017-01-11] MEDS ORDERED: PHARMACY GLYCEMIC MGMT CONSULT PRN (16:05)
[2017-01-11] MEDS ORDERED: INSULIN HUMAN REGULAR PER UNIT 10 UNITS in SYRINGE 9.9 ML IV ONE (16:30)
[2017-01-11] MEDS: AMOXICILLIN/CLAVULANATE TAB 500 MG TAB PO SCH (16:52)
[2017-01-11 17:00] VITALS: BP 161/51; PULSE 66; TEMP 36.4; O2SAT 96; BMI 32.4
[2017-01-11] MEDS ORDERED: CALC667C4 PO (17:15)
--- NOTE | 2017-01-11 17:16 | History and Physical ---
History & Physical Date & Time of Service: Jan 11, 2017 at 16:50 Chief Complaint: Fall Primary Care Physician: Ron Bettencourt III, M.D. History of Present Illness 66 year old male who presents to the ER after a fall. Patient was recently admitted to [facility] 12/25 - 12/30 for weakness, volume overload, intermittent bradycardia, sarcoidosis, and influenza A. At the time of discharge, his metoprolol was decreased and Prednisone daily dose was increased. Patient reports that since being home he has continued to be weak. He has had two falls this week with the most recent one being today. left the home for a short period of time and when she came home she found him on the floor. He reports that both of his falls were because he lost his balance. He did his his head but he denies any loss of coconsciousness. He denies chest pain and shortness of breath. Lower extremity edema is much improved from prior admission. No lightheadedness or dizziness. He denies abdominal pain, nausea, or vomiting. No fever or chills. Peritoneal dialysis has been functioning normal. In the ER, patient's K+ is found to be 5.9, Na+ 128, trop 0.508. EKG without acute changes. Head CT was negative for intracranial injury however did show right mastoid effusion, opacified left maxillary sinus, frontal sinus air-fluid level , and opacified left ethmoid air cells. WBC 13K. He is hemodynamically stable. Past Medical/Surgical History Medical Problems: (1) Adenomatous colon polyp Status: Chronic (2) Aortic valve stenosis Permanent Comment: s/p AVR Status: Chronic (3) ASCVD (arteriosclerotic cardiovascular disease) Status: Chronic (4) Diabetes Status: Chronic (5) ESRD (end stage renal disease) Permanent Comment: on peritoneal dialysis Status: Chronic (6) Gout Status: Chronic (7) Hepatitis C Permanent Comment: s/p treatment > 30 years ago Status: Chronic (8) Hypertension Status: Chronic (9) Melanoma Permanent Comment: neck - s/p removal Status: Resolved (10) Sarcoid Status: Chronic (11) Sleep apnea, obstructive Status: Chronic (12) Vitamin D deficiency Status: Chronic Surgical Problems: (1) History of bronchoscopy Status: Resolved (2) History of colonoscopy with polypectomy Status: Chronic (3) History of cystoscopy Status: Resolved (4) History of heart valve repair Permanent Comment: aortic valve replacement by Dr. iLnus Hines - [facility] [place] Status: Chronic (5) History of hernia repair Permanent Comment: right inguinal - age 6 Status: Chronic (6) S/P tonsillectomy and adenoidectomy Status: Chronic Family History Diabetes mellitus MOTHER Heart disease MOTHER Social History Smoking Status: Never Smoker Alcohol Use: none Marital Status: Housing status: lives with family Immunizations History of Influenza Vaccine: Yes Influenza Vaccine Date: Jul 20, 2016 History of Tetanus Vaccine?: Yes Tetanus Immunization Date: Feb 09, 2008 History of Pneumococcal: Yes Pneumococcal Date: March 19, 2016 Multi-Drug Resistant Organisms History of MDRO: Yes Type of MDRO: MRSA Allergies Coded Allergies: No Known Allergies (Unverified , 01/11/17) Home Medications Scheduled Allopurinol (Zyloprim), 100 MG PO BID Aspirin (Aspirin Ec), 81 MG PO QAM Calcium Acetate (Phoslo 667 Mg), 1 CAP PO TIDM Insulin Aspart (Novolog), 0 SQ TIDM Insulin Glargine (Toujeo Solostar), 22 UNITS SQ QAM Insulin Glargine (Toujeo Solostar), 22 UNITS SQ QPM Metoprolol Tartrate (Lopressor), 12.5 MG PO QAM Prednisone (Prednisone), 40 MG PO DAILY Rosuvastatin Calcium (Crestor), 40 MG PO HS Scheduled PRN Colchicine (Colchicine), 0.6 MG PO DAILY PRN for gout flare Review of Systems 10 point review of systems was completed with the pertinent positives and negatives noted per the HPI Physical Exam Vital Signs Date Time Temp Pulse Resp B/P Pulse Ox O2 Delivery O2 Flow Rate FiO2 01/11/17 16:49 68 18 167/82 98 01/11/17 13:27 36.5 60 18 107/93 96 Room Air General Appearance: no apparent distress Head: normocephalic Eyes: normal inspection ENT: hearing grossly normal Neck: supple, no JVD Respiratory/Chest: lungs clear, normal breath sounds, no respiratory distress Cardiovascular: regular rate, rhythm, + systolic murmur, + pertinent finding (+ 2pitting edema BLLE) Abdomen/GI: normal bowel sounds, non tender, soft, + pertinent finding ( peritoneal dialysis catheter in place without signs of infection) Back: normal inspection, no CVA tenderness Extremities/Musculoskelatal: normal inspection, no calf tenderness Neurologic/Psych: no motor/sensory deficits, alert, normal mood/affect, oriented x 3 Skin: normal color, warm/dry, + pertinent finding (abrasions x 2 noted to scalp ) Diagnostics Laboratory Results Results Past 24 Hours Test 01/11/17 14:48 01/11/17 15:05 Range/Units White Blood Count 13.55 4.8-10.8 K/uL Red Blood Count 3.68 4.7-6.1 M/uL Hemoglobin 10.8 14.0-18.0 g/dL Hematocrit 30.2 42-52 % Mean Corpuscular Volume 82.1 80-100 fL Mean Corpuscular Hemoglobin 29.3 25-34 pg Mean Corpuscular Hemoglobin Concent 35.8 32-36 g/dl Platelet Count 66 130-400 K/uL Mean Platelet Volume 11.0 7.4-10.4 fL Neutrophils (%) (Auto) 94.4 % Lymphocytes (%) (Auto) 4.6 % Monocytes (%) (Auto) 0.8 % Eosinophils (%) (Auto) 0.0 % Basophils (%) (Auto) 0.0 % Neutrophils # (Auto) 12.78 1.4-6.5 K/uL Lymphocytes # (Auto) 0.63 1.2-3.4 K/uL Monocytes # (Auto) 0.11 0.11-0.59 K/uL Eosinophils # (Auto) 0.00 0-0.5 K/uL Basophils # (Auto) 0.00 0-0.2 K/uL RDW Standard Deviation 39.0 36.4-46.3 fL RDW Coefficient of Variation 12.9 11.5-14.5 % Immature Granulocyte % (Auto) 0.2 % Immature Granulocyte # (Auto) 0.03 0.00-0.02 K/uL Platelet Estimate DECREASED Prothrombin Time 11.1 9.0-12.0 SECONDS Prothromb Time International Ratio 1.0 0.9-1.1 Activated Partial Thromboplast Time 25.9 21.0-31.0 SECONDS Partial Thromboplastin Ratio 1.0 Sodium Level 124 136-145 mmol/L Potassium Level 5.9 3.5-5.1 mmol/L Chloride Level 82 98-107 mmol/L Carbon Dioxide Level 24 21-32 mmol/L Anion Gap 18.0 3-11 mmol/L Blood Urea Nitrogen 144 7-18 mg/dl Creatinine 12.00 0.60-1.40 mg/dl Est Creatinine Clear Calc Drug Dose 6.7 ml/min Estimated GFR () 4.5 Estimated GFR (Non- 3.8 BUN/Creatinine Ratio 13.1 10-20 Random Glucose 300 70-99 mg/dl Calcium Level 7.8 8.5-10.1 mg/dl Phosphorus Level 8.4 2.5-4.9 mg/dl Total Bilirubin 0.3 0.2-1 mg/dl Direct Bilirubin 0.1 0-0.2 mg/dl Aspartate Amino Transf (AST/SGOT) 14 15-37 U/L Alanine Aminotransferase (ALT/SGPT) 26 12-78 U/L Alkaline Phosphatase 93 45-117 U/L Troponin I 0.508 0-0.045 ng/ml Total Protein 6.4 6.4-8.2 gm/dl Albumin 2.2 3.4-5.0 gm/dl Bedside Glucose 331 70-99 mg/dl Diagnostic Radiology CT HEAD IMPRESSION: 1. No evidence of acute intracranial injury 2. Right mastoid effusion. Opacified left maxillary sinus. The frontal sinus air-fluid level. Opacified left ethmoid air cells. Impression Assessment and Plan WEAKNESS, FALLS HYPERKALEMIA, HYPONATREMIA IN THE SETTING OF ESRD ON PD - admit to tele - patient presenting with increased weakness and multiple mechanical falls; likely needs placement - case discussed with Dr. Manning, will give insulin 10units IV (due to hyperglycemia) and Kayexalate; arrange for PD tonight - fluid restriction - no EKG changes - PT/OT ELEVATED TROP - likely due to underlying renal disease - no reports of chest pain, EKG without acute ST changes - continue to cycle enzymes THROMBOCYTOPENIA - likely due to chronic disease - have been slowing decreasing since last admission - continue to monitor - no signs of bleeding DM - hgb a1c 12/2016 - sugars have been running high due to steroids - glycemic consult [employer] - scheduled for pacemaker 01/28 - monitor in tele CAD - appears stable, no reports of chest pain - elevated trop as above - holding ASA due to thrombocytopenia - continue beta arsalan and statin SARCOIDOSIS - stable, continue chronic steroids DVT PROPHYLAXIS - SCDs due to thrombocytopenia CODE STATUS - Patient is a DNR as per my discussion with him. DISPO - In my clinical judgment this beneficiary meets acute admission criteria, established by CMS, that includes being hospitalized through two midnights. ATTENDING NOTE: in agreement with the H&P with Thania GLASS 75 yo M with multiple co morbidities , ESRD on peritoneal dialysis follows with Dr Manning presented with generalized weakness, fall , ambulatory dysfunction found to be hypekalemic , BSG elevated > 300 ( on chronic prednisone ) mild leukocytosis Hyperkalemia ; D/w Dr Manning will be given Kayexalate cont peritoneal dialysis Hyperglycemia , Type 2 DM difficult to control BSG as pt is chronic prednisone for granulomatous lung disease pharmacy consulted for glycemic control PT/OT eval for frequent fall , ambulatory dysfunction may need SNF vs placement VTE Prophylaxis VTE Risk Assessment Done? Y/N: Yes Risk Level: Moderate
[2017-01-11] MEDS ORDERED: INSULIN ASPART 100 UNITS/ML 3 ML PEN SC ONE (18:15)
--- NOTE | 2017-01-11 18:25 | Pharmacy Progress Note ---
Glycemic Control Intl Consult Date of Service Jan 11, 2017. Scope Glycemic Pharmacist consulted by Thania GLASS on 01/11/17 for glycemic control and to write orders per [facility] inpatient glycemic control protocol Objective Weight (Kilograms): 96.700 Accuchecks BSG (last 24hrs): Test 01/11/17 14:48 01/11/17 15:05 Random Glucose 300 mg/dl (70-99) Bedside Glucose 331 mg/dl (70-99) Laboratory Data (last 24hrs) Test 01/11/17 14:48 Anion Gap 18.0 mmol/L BUN/Creatinine Ratio 13.1 Blood Urea Nitrogen 144 mg/dl Creatinine 12.00 mg/dl Potassium Level 5.9 mmol/L Sodium Level 124 mmol/L White Blood Count 13.55 K/uL Red Blood Count 3.68 M/uL Hemoglobin 10.8 g/dL Hematocrit 30.2 % Mean Corpuscular Volume 82.1 fL Mean Corpuscular Hemoglobin 29.3 pg Mean Corpuscular Hemoglobin Concent 35.8 g/dl Platelet Count 66 K/uL Mean Platelet Volume 11.0 fL Neutrophils (%) (Auto) 94.4 % Lymphocytes (%) (Auto) 4.6 % Monocytes (%) (Auto) 0.8 % Eosinophils (%) (Auto) 0.0 % Basophils (%) (Auto) 0.0 % Neutrophils # (Auto) 12.78 K/uL Lymphocytes # (Auto) 0.63 K/uL Monocytes # (Auto) 0.11 K/uL Eosinophils # (Auto) 0.00 K/uL Basophils # (Auto) 0.00 K/uL HbA1c 5.7% (from 12/18/16) Recent Pertinent Medications Outpatient Anti-diabetic Regimen: * Toujeo (lantus 300 units/mL) 22 units SQ BID + novolog sliding scale insulin TID with meals * A1c = 5.7 % 12/18/16 Risk Factors for Insulin Resistance: * Steroids: prednisone 40 mg PO daily (home medication) * Infection: augmentin PO daily for sinusitis * Diet: Type II DM/AHA/renal Assessment & Plan ASSESSMENT: * 66 year old diabetic male admitted with hyperkalemia, weakness, and hyperglycemia. He presented to the ER s/p fall. Recent admission in December 2016 for weakness, volume overload, and influenza A. * ESRD on peritoneal dialysis (PD) - plan for PD today per Dr. Manning * Patient is on chronic steroid therapy for sarcoidosis * Patient received 10 units of regular IV insulin at 1637 PLAN FOR INPATIENT GLYCEMIC CONTROL: * Basal insulin with LANTUS 22 units SQ BID * Correctional Insulin with NOVOLOG per scale ACHS * Goal Range: Low 120 mg/dL - High 160 mg/dL * Correction Factor: 20 mg/dL/unit * Nutritional / Prandial insulin per carb ratio of 1 unit per 7 grams CHO consumed * BSG checks also added for 0000 and 0400 * Please note that the plan above was derived based on current level of insulin resistance and hospital stress. These recommendations are appropriate for inpatient admission only. Plan of care upon discharge will need to be reassessed to avoid potential outpatient hypo/hyperglycemia. Thank you.
[2017-01-11 18:30] VITALS: BP 167/82; PULSE 68; TEMP 36.5
[2017-01-11] MEDS: CALCIUM ACETATE 667MG GELCAP PO SCH (18:47)
[2017-01-11 20:00] VITALS: O2SAT 96
--- NOTE | 2017-01-11 20:24 | EMERGENCY ROOM VISIT NOTE ---
ED Visit Note First contact with patient: 13:43 Chief Complaint: Fall. History of Present Illness: Mr. Heredia is a 66-year-old white male who is brought into the ED via wheelchair following a fall at home accompanied by his . Historically patient was recently discharged from this hospital on December 30 for generalized weakness, fluid overload, bradycardia and influenza A. Since being home he has been under the care of his and community nursing. reports this week she feels her has been having increasing weakness and has had 2 falls. His last fall was today while she was not at home and picking up supplies for him at the local store. When she arrived home she found him lying on the floor and he was not able to get himself up. Patient reports he was walking with his walker, lost his balance and fell. He does admit that he struck his head on the ground but did not have any loss of consciousness. He reports before the fall he was not experiencing any lightheadedness or dizziness and since the fall he denies any signs or symptoms of head injury. Currently he has no complaints except for the fall and denies headache, dizziness, lightheadedness, visual changes, hearing changes, difficulty speaking , difficulty swallowing, difficulty ambulating/coordinating body movements, neck pain, back pain, chest pain, shortness of breath, abdominal pain, nausea, vomiting, extremity numbness/tingling. Patient's did approach me and expressed concerns about increasing weakness that he will not admit to. She feels that even though he has community nursing she is finding it more and more difficult to take care of him. She reports she does not listen to her her advice; she requested that he not get up while she was away today, and she is also reporting that he is not taking his medications as prescribed. Review of Systems: As noted above in history of present illness. All body systems were reviewed and found to be negative as noted above. Past Medical History: As previously noted, cardiovascular disease, diabetes, end -stage renal disease, gout, aortic valve stenosis, hepatitis C, hypertension, sarcoid, melanoma, sleep apnea. Current Medications: Medications Dose Route/Sig Max Daily Dose Days Date Category Dose Instructions Phoslo 667 Mg (Calcium Acetate) 667 Mg Cap 1 Cap PO TIDM 90 01/11/17 Reported Novolog (Insulin Aspart) 100 Units/Ml Inj 0 SQ TIDM 01/11/17 Reported PER SLIDING SCALE Prednisone 20 Mg Tab 40 Mg PO DAILY 30 12/30/16 Rx Lopressor (Metoprolol Tartrate) 25 Mg Tab 12.5 Mg PO QAM 30 12/30/16 Rx Colchicine 0.6 Mg Tab 0.6 Mg PO DAILY PRN 12/25/16 Reported Abeluhafsa Solostar (Insulin Glargine) 300 Unit/Ml Inj 22 Units SQ QPM 12/08/16 Reported Toujeo Solostar (Insulin Glargine) 300 Unit/Ml Inj 22 Units SQ QAM 12/08/16 Reported Aspirin Ec (Aspirin) 81 Mg Tab 81 Mg PO QAM 11/29/16 Reported Zyloprim (Allopurinol) 100 Mg Tab 100 Mg PO BID 01/07/14 Reported Crestor (Rosuvastatin Calcium) 20 Mg Tab 40 Mg PO HS 01/07/14 Reported Allergies to Medications: Patient and denies. Social History: Patient is currently retired; he lives with his ; he denies tobacco and alcohol use. Physical Examination: Vital Signs: Date Time Temp Pulse Resp B/P Pulse Ox O2 Delivery O2 Flow Rate FiO2 01/11/17 13:27 36.5 60 18 107/93 96 Room Air GENERAL: 66-year-old male in no acute distress, chronically ill-appearing, afebrile and hemodynamically stable. NEUROLOGICAL: Awake, alert and oriented to person, place and time. Answering questions appropriately and following commands. Good hand eye coordination. No focal motor or sensory deficits. Cranial nerves II through XII grossly intact. Good long-term but poor short-term memory. SKIN: Warm, dry and pink. Over the patient's scalp he has 2 superficial abrasions with no active bleeding. HEENT: Atraumatic and normocephalic. Skull: No bony deformity, bony crepitus, swelling or ecchymosis. No raccoon's eyes or flynn signs. No drainage from the ears or the nostril; no hemotympanum. Face: No bony tenderness, swelling or ecchymosis. PERRLA. EOMI without nystagmus. Sclera white and conjunctiva pink. No malocclusion. No intraoral trauma. Airway patent. Speech normal. No lymphadenopathy. Trachea midline. No jugular venous distention. BACK: No tenderness over the bony spine. No CVA tenderness. THORAX: Lungs sounds are clear to auscultation and equal bilaterally with symmetrical chest wall. No wheezing, rales or rhonchi. No crepitus, tenderness , subcutaneous air or deformities noted. HEART: Regular rate and rhythm. Systolic murmur present. No gallops or rubs are appreciated. ABDOMEN: Flat, soft and nontender. Positive bowel sounds in all quadrants. No guarding, rigidity or organomegaly. Dialysis catheter was in place without any local signs of infection. EXTREMITIES: Moves all extremities well on command and with purpose. All distal neurovascular statuses are intact and equal bilaterally. No calf tenderness or cords. Bilateral dependent edema was noted. ED Course: Patient is assessed as noted above. Head CT: Was read by myself and the radiologist and shows no acute intracranial abnormalities or skull fractures but radiologist does note right mastoid effusion with left maxillary sinus and frontal sinus disease. EKG: Was read by myself and reviewed with Dr. Arevalo; shows normal sinus rhythm with a ventricular rate of 65 bpm. Left atrial enlargement and a right bundle branch block was noted. No ischemic changes were noted but nonspecific T-wave abnormality was noted in the lateral leads when compared to previous. Laboratory Testing: Test 01/11/17 14:48 01/11/17 15:05 Range/Units White Blood Count 13.55 4.8-10.8 K/uL Red Blood Count 3.68 4.7-6.1 M/uL Hemoglobin 10.8 14.0-18.0 g/dL Hematocrit 30.2 42-52 % Mean Corpuscular Volume 82.1 80-100 fL Mean Corpuscular Hemoglobin 29.3 25-34 pg Mean Corpuscular Hemoglobin Concent 35.8 32-36 g/dl Platelet Count 66 130-400 K/uL Mean Platelet Volume 11.0 7.4-10.4 fL Neutrophils (%) (Auto) 94.4 % Lymphocytes (%) (Auto) 4.6 % Monocytes (%) (Auto) 0.8 % Eosinophils (%) (Auto) 0.0 % Basophils (%) (Auto) 0.0 % Neutrophils # (Auto) 12.78 1.4-6.5 K/uL Lymphocytes # (Auto) 0.63 1.2-3.4 K/uL Monocytes # (Auto) 0.11 0.11-0.59 K/uL Eosinophils # (Auto) 0.00 0-0.5 K/uL Basophils # (Auto) 0.00 0-0.2 K/uL RDW Standard Deviation 39.0 36.4-46.3 fL RDW Coefficient of Variation 12.9 11.5-14.5 % Immature Granulocyte % (Auto) 0.2 % Immature Granulocyte # (Auto) 0.03 0.00-0.02 K/uL Platelet Estimate DECREASED Prothrombin Time 11.1 9.0-12.0 SECONDS Prothromb Time International Ratio 1.0 0.9-1.1 Activated Partial Thromboplast Time 25.9 21.0-31.0 SECONDS Partial Thromboplastin Ratio 1.0 Sodium Level 124 136-145 mmol/L Potassium Level 5.9 3.5-5.1 mmol/L Chloride Level 82 98-107 mmol/L Carbon Dioxide Level 24 21-32 mmol/L Anion Gap 18.0 3-11 mmol/L Blood Urea Nitrogen 144 7-18 mg/dl Creatinine 12.00 0.60-1.40 mg/dl Est Creatinine Clear Calc Drug Dose 6.7 ml/min Estimated GFR () 4.5 Estimated GFR (Non- 3.8 BUN/Creatinine Ratio 13.1 10-20 Random Glucose 300 70-99 mg/dl Calcium Level 7.8 8.5-10.1 mg/dl Phosphorus Level 8.4 2.5-4.9 mg/dl Total Bilirubin 0.3 0.2-1 mg/dl Direct Bilirubin 0.1 0-0.2 mg/dl Aspartate Amino Transf (AST/SGOT) 14 15-37 U/L Alanine Aminotransferase (ALT/SGPT) 26 12-78 U/L Alkaline Phosphatase 93 45-117 U/L Troponin I 0.508 0-0.045 ng/ml Total Protein 6.4 6.4-8.2 gm/dl Albumin 2.2 3.4-5.0 gm/dl Bedside Glucose 331 70-99 mg/dl Patient was reassessed multiple times during his stay in the emergency department. Patient's case was reviewed with Dr. Arevalo; we agreed on diagnostic approach, treatment, disposition and plan. Patient's case was consulted with case management and Ms. Johnson, [facility] hospitalist, for medical observation/admission. Patient are educated about tonight's findings. Clinical Impression: Weakness/falls. Hyperkalemia and hyponatremia. Elevated troponin. Hyperglycemia. Decision-Making: Initially my differential diagnosis I considered intracranial bleed, skull fracture, worsening renal disease, metabolic disorder, hypoglycemia , myocardial ischemia and other causes. Disposition and Plan: Patient to be brought in the hospital for medical observation/admission by the [facility] hospitalist; please see their notes and orders for final disposition and plan.
[2017-01-11] MEDS: ROSUVASTATIN CALCIUM 20 MG TAB PO SCH (20:58)
[2017-01-11] MEDS: ALLOPURINOL 100 MG TAB PO SCH (20:58)
[2017-01-11] MEDS ORDERED: INSULIN ASPART 100 UNITS/ML 3 ML PEN SC SCH (21:00)
[2017-01-11] MEDS ORDERED: HEPARIN SOD 5000 UNIT/0.5 ML CARP SQ SCH (21:00)
[2017-01-11] MEDS: INSULIN ASPART 100 UNITS/ML 3 ML PEN SC SCH (21:03)
[2017-01-11] MEDS: INSULIN GLARGINE SOLOSTAR 100 UNITS/ML 3 ML PEN SC SCH (21:04)
[2017-01-12] VITALS (9 sets, daily range): BP systolic 101–150; BP diastolic 51–82; PULSE 77–97; TEMP 36.5–37; O2SAT 93–97
[2017-01-12] MEDS ORDERED: INSULIN HUMAN REGULAR PER UNIT 10 UNITS in SYRINGE 9.9 ML IV SCH (00:15)
[2017-01-12] MEDS: INSULIN ASPART 100 UNITS/ML 3 ML PEN SC SCH ×6 (00:30→20:46)
[2017-01-12 03:00] LABS: MEAN CELL VOLUME 83.8 fL (80-100); MEAN CORPUSCULAR HEMOGLOBIN 29.3 pg (25-34); RED BLOOD COUNT 3.34 M/uL (4.7-6.1); WHITE BLOOD COUNT 11.07 K/uL (4.8-10.8)
[2017-01-12 03:01] LABS: MEAN PLATELET VOLUME 11.5 fL (7.4-10.4); PLATELET COUNT 58 K/uL (130-400)
[2017-01-12 03:31] LABS: BLOOD UREA NITROGEN 139 mg/dl (7-18); BUN/CREATININE RATIO 12.6 (10-20); CALCIUM 7.4 mg/dl (8.5-10.1); CARBON DIOXIDE 24 mmol/L (21-32); CHLORIDE 87 mmol/L (98-107); GLUCOSE 323 mg/dl (70-99); POTASSIUM 4.6 mmol/L (3.5-5.1); SODIUM 128 mmol/L (136-145)
[2017-01-12 03:45] LABS: BETA-HYDROXYBUTYRATE 0.95 mg/dL (0.2-2.81)
[2017-01-12] MEDS: INSULIN GLARGINE SOLOSTAR 100 UNITS/ML 3 ML PEN SC SCH ×2 (07:44→20:46)
[2017-01-12] MEDS: ALLOPURINOL 100 MG TAB PO SCH ×2 (07:45→21:00)
[2017-01-12] MEDS: METOPROLOL TARTRATE 25 MG TAB PO SCH (07:45)
[2017-01-12] MEDS: CALCIUM ACETATE 667MG GELCAP PO SCH ×3 (07:45→16:45)
[2017-01-12 09:07] LABS: HYPERSEGMENTED POLYS 1+
--- NOTE | 2017-01-12 09:45 | Pharmacy Progress Note ---
Glycemic Control: Progress Nt Date of Service Jan 12, 2017. Scope Glycemic Pharmacist consulted by Thania Lima PA-C on 01/11 for glycemic control and to write orders per [facility] inpatient glycemic control protocol. Objective Accuchecks BSG (last 24hrs): Test 01/11/17 14:48 01/11/17 15:05 01/11/17 20:19 01/12/17 00:01 Random Glucose 300 mg/dl (70-99) Bedside Glucose 331 mg/dl (70-99) 382 mg/dl (70-99) 408 mg/dl (70-99) Test 01/12/17 00:03 01/12/17 01:52 01/12/17 04:14 01/12/17 07:04 Bedside Glucose 409 mg/dl (70-99) 292 mg/dl (70-99) 164 mg/dl (70-99) Random Glucose 323 mg/dl (70-99) Laboratory Data (last 24hrs) Test 01/11/17 14:48 01/11/17 19:45 01/12/17 01:52 Anion Gap 18.0 mmol/L 17.0 mmol/L BUN/Creatinine Ratio 13.1 12.6 Blood Urea Nitrogen 144 mg/dl 139 mg/dl Creatinine 12.00 mg/dl 11.00 mg/dl Potassium Level 5.9 mmol/L 5.4 mmol/L 4.6 mmol/L Sodium Level 124 mmol/L 128 mmol/L White Blood Count 13.55 K/uL 11.07 K/uL Red Blood Count 3.68 M/uL Hemoglobin 10.8 g/dL Hematocrit 30.2 % Mean Corpuscular Volume 82.1 fL Mean Corpuscular Hemoglobin 29.3 pg Mean Corpuscular Hemoglobin Concent 35.8 g/dl Platelet Count 66 K/uL Mean Platelet Volume 11.0 fL Neutrophils (%) (Auto) 94.4 % Lymphocytes (%) (Auto) 4.6 % Monocytes (%) (Auto) 0.8 % Eosinophils (%) (Auto) 0.0 % Basophils (%) (Auto) 0.0 % Neutrophils # (Auto) 12.78 K/uL Lymphocytes # (Auto) 0.63 K/uL Monocytes # (Auto) 0.11 K/uL Eosinophils # (Auto) 0.00 K/uL Basophils # (Auto) 0.00 K/uL Recent Pertinent Medications Outpatient Anti-diabetic Regimen: * Toujeo (lantus 300 units/mL) 22 units SQ BID + novolog sliding scale insulin TID with meals * A1c = 5.7 % 12/18/16 The patient is currently receiving: * Basal insulin: Lantus 22 units every 12 hours * Correctional Insulin: Novolog Correction per scale ACHS Goal Range: Low 120 mg/dL - High 160 mg/dL Correction Factor: 20 mg/dL/unit * Prandial insulin: Per carb ratio of 1 unit per 7 grams CHO consumed * Regular insulin IV: 10 units IV at 1637 on 01/11 and 0015 on 01/12 Risk Factors for Insulin Resistance: * Steroids: prednisone 40 mg PO daily (home medication) * Infection: augmentin PO daily for sinusitis * Diet: Type II DM/AHA/renal: Assessment & Plan ASSESSMENT: * 66 year old diabetic male admitted with hyperkalemia, weakness, and hyperglycemia. He presented to the ER s/p fall. Recent admission in December 2016 for weakness, volume overload, and influenza A. * ESRD on peritoneal dialysis (PD) * Patient is on chronic steroid therapy for sarcoidosis * Patient received 10 units of regular IV insulin at 1637 on 01/11 and at 0015 on 01/12, blood sugars finally coming down to goal range today. PLAN FOR INPATIENT GLYCEMIC CONTROL: * Basal insulin with LANTUS 22 units SQ BID (patient on Toujeo as outpatient, non-formulary) * Correctional Insulin with NOVOLOG per scale ACHS * Goal Range: Low 120 mg/dL - High 160 mg/dL * Correction Factor: 20 mg/dL/unit * Nutritional / Prandial insulin per carb ratio of 1 unit per 7 grams CHO consumed * Please note that the plan above was derived based on current level of insulin resistance and hospital stress. These recommendations are appropriate for inpatient admission only. Plan of care upon discharge will need to be reassessed to avoid potential outpatient hypo/hyperglycemia. Thank you.
--- NOTE | 2017-01-12 11:21 | Progress Note ---
Subjective Date of Service: Jan 12, 2017. Subjective Pt evaluation today including: conversation w/ patient, physical exam, lab review, review of studies, review of inpatient medication list Saw/examined the patient in room 236 He presented to the ER after a fall states he's doing fine - no shortness of breath/cough Problem List Medical Problems: (1) Influenza Status: Acute (2) Intravascular volume depletion Status: Acute Review of Systems Constitutional: + weakness, No chills, No fever Respiratory: + cough (chronic), + shortness of breath (chronic, at baseline), No dyspnea on exertion, No sputum, No wheezing Cardiac: No chest pain, No edema, No palpitations Abdomen: No diarrhea, No nausea, No pain, No vomiting Medications Current Inpatient Medications Medications (Trade) Dose Ordered Sig/Romulo Route Start Time Stop Time Status Last Admin Dose Admin Acetaminophen (Tylenol Tab) 650 mg Q4H PRN PO 01/11/17 15:45 02/10/17 15:44 Ondansetron HCl (Zofran Inj) 4 mg Q6H PRN IV 01/11/17 15:45 02/10/17 15:44 Miscellaneous Information (Consult Glycemic Management Pharmacy) 1 ea UD PRN N/A 01/11/17 16:05 02/10/17 16:04 Miscellaneous Information (Pharmacy Consult) 1 ea UD PRN N/A 01/11/17 15:53 02/10/17 15:52 Amoxicillin/ Clavulanate Potassium (Augmentin Tab) 500 mg Q24H PO 01/11/17 17:00 01/21/17 16:59 01/11/17 16:52 500 MG Allopurinol (Zyloprim Tab) 100 mg BID PO 01/11/17 21:00 02/10/17 20:59 01/12/17 07:45 100 MG Metoprolol Tartrate (Lopressor Tab) 12.5 mg QAM PO 01/12/17 09:00 02/11/17 08:59 01/12/17 07:45 12.5 MG Prednisone (PredniSONE TAB) 40 mg DAILY PO 01/12/17 09:00 02/11/17 08:59 01/12/17 07:45 40 MG Rosuvastatin Calcium (Crestor Tab) 40 mg HS PO 01/11/17 21:00 4/10/17 20:59 01/11/17 20:58 40 MG Calcium Acetate (Phoslo Cap) 667 mg TIDM PO 01/11/17 17:18 02/10/17 17:59 01/12/17 07:45 667 MG Insulin Glargine (Lantus Solostar Pen) 22 unit BID SC 01/11/17 21:00 02/10/17 20:59 01/12/17 07:44 22 UNIT Insulin Aspart (novoLOG ASPART) SLIDING SCALE ACHS SC 01/11/17 21:00 02/10/17 20:59 01/12/17 07:44 10 UNITS Insulin Aspart (novoLOG ASPART) SLIDING SCALE 0000,0400 SC 01/12/17 00:00 02/11/17 00:00 01/12/17 04:17 7 UNITS Zolpidem Tartrate (Ambien Tab) 5 mg HS PRN PO 01/12/17 05:15 02/11/17 05:14 Objective Vital Signs Date Time Temp Pulse Resp B/P Pulse Ox O2 Delivery O2 Flow Rate FiO2 01/12/17 08:00 Room Air 01/12/17 07:35 36.7 79 18 137/73 97 Nasal Cannula 2.0 01/12/17 04:33 36.6 78 18 136/81 96 Nasal Cannula 01/12/17 04:00 Room Air 01/12/17 00:06 36.9 97 18 150/82 97 Nasal Cannula 2.0 01/11/17 23:59 Room Air 01/11/17 20:00 96 Room Air 01/11/17 18:30 36.5 68 167/82 01/11/17 17:00 36.4 66 20 161/51 96 Room Air 01/11/17 16:49 68 18 167/82 98 01/11/17 13:27 36.5 60 18 107/93 96 Room Air Physical Exam General Appearance: no apparent distress ENT: + pertinent finding (minor laceration) Respiratory/Chest: lungs clear, normal breath sounds, no respiratory distress, no accessory muscle use Cardiovascular: regular rate, rhythm, no edema, no murmur Neurologic/Psychiatric: no motor/sensory deficits, alert, normal mood/affect Laboratory Results Last 24 Hours Test 01/11/17 14:48 01/11/17 15:05 01/11/17 19:45 01/11/17 20:19 White Blood Count 13.55 K/uL Red Blood Count 3.68 M/uL Hemoglobin 10.8 g/dL Hematocrit 30.2 % Mean Corpuscular Volume 82.1 fL Mean Corpuscular Hemoglobin 29.3 pg Mean Corpuscular Hemoglobin Concent 35.8 g/dl Platelet Count 66 K/uL Mean Platelet Volume 11.0 fL Neutrophils (%) (Auto) 94.4 % Lymphocytes (%) (Auto) 4.6 % Monocytes (%) (Auto) 0.8 % Eosinophils (%) (Auto) 0.0 % Basophils (%) (Auto) 0.0 % Neutrophils # (Auto) 12.78 K/uL Lymphocytes # (Auto) 0.63 K/uL Monocytes # (Auto) 0.11 K/uL Eosinophils # (Auto) 0.00 K/uL Basophils # (Auto) 0.00 K/uL RDW Standard Deviation 39.0 fL RDW Coefficient of Variation 12.9 % Immature Granulocyte % (Auto) 0.2 % Immature Granulocyte # (Auto) 0.03 K/uL Hypersegmented Polys 1+ Platelet Estimate DECREASED Prothrombin Time 11.1 SECONDS Prothromb Time International Ratio 1.0 Activated Partial Thromboplast Time 25.9 SECONDS Partial Thromboplastin Ratio 1.0 Sodium Level 124 mmol/L Potassium Level 5.9 mmol/L 5.4 mmol/L Chloride Level 82 mmol/L Carbon Dioxide Level 24 mmol/L Anion Gap 18.0 mmol/L Blood Urea Nitrogen 144 mg/dl Creatinine 12.00 mg/dl Est Creatinine Clear Calc Drug Dose 6.7 ml/min Estimated GFR () 4.5 Estimated GFR (Non- 3.8 BUN/Creatinine Ratio 13.1 Random Glucose 300 mg/dl Calcium Level 7.8 mg/dl Phosphorus Level 8.4 mg/dl Total Bilirubin 0.3 mg/dl Direct Bilirubin 0.1 mg/dl Aspartate Amino Transf (AST/SGOT) 14 U/L Alanine Aminotransferase (ALT/SGPT) 26 U/L Alkaline Phosphatase 93 U/L Troponin I 0.508 ng/ml 0.512 ng/ml Total Protein 6.4 gm/dl Albumin 2.2 gm/dl Bedside Glucose 331 mg/dl 382 mg/dl Creatine Kinase MB 13.9 ng/ml Creatine Kinase MB Ratio Test 01/12/17 00:01 01/12/17 00:03 01/12/17 01:52 01/12/17 04:14 Bedside Glucose 408 mg/dl 409 mg/dl 292 mg/dl White Blood Count 11.07 K/uL Red Blood Count 3.34 M/uL Hemoglobin 9.8 g/dL Hematocrit 28.0 % Mean Corpuscular Volume 83.8 fL Mean Corpuscular Hemoglobin 29.3 pg Mean Corpuscular Hemoglobin Concent 35.0 g/dl RDW Standard Deviation 39.7 fL RDW Coefficient of Variation 13.0 % Platelet Count 58 K/uL Mean Platelet Volume 11.5 fL Sodium Level 128 mmol/L Potassium Level 4.6 mmol/L Chloride Level 87 mmol/L Carbon Dioxide Level 24 mmol/L Anion Gap 17.0 mmol/L Blood Urea Nitrogen 139 mg/dl Creatinine 11.00 mg/dl Est Creatinine Clear Calc Drug Dose 7.3 ml/min Estimated GFR () 4.9 Estimated GFR (Non- 4.3 BUN/Creatinine Ratio 12.6 Random Glucose 323 mg/dl Calcium Level 7.4 mg/dl Creatine Kinase MB 11.1 ng/ml Creatine Kinase MB Ratio Troponin I 0.429 ng/ml Beta-Hydroxybutyric Acid 0.95 mg/dL Test 01/12/17 07:04 Bedside Glucose 164 mg/dl Assessment and Plan This is a 66 year old male with PMH of ESRD on peritoneal dialysis, granulomatous lung disease/sarcoidosis, 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 of aortic valve replacement, mainstem bronchus stenosis, HTN, HLD Falls, Ambulatory Dysfunction Weakness patient has had multiple admissions to the hospital multiple mechanical falls states that he does not get dizzy, just felt weak and fell will need PT/OT placement to rehab discharge planning evaluation ESRD on PD potassium on admission ~ 5.4 given IV insulin 10 units and Kayexalate Potassium now wnl Sodium improved from 124 to 128 removed about 700cc with PD continue PD nightly appreciate nephrology input Elevated Troponin Level this is more likely related to this end stage kidney disease denies chest pain, denies shortness of breath, denies cough No other symptoms to note Sinusitis Head CT with no acute intracranial findings air-fluid levels at sinuses started on Augmentin 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
--- NOTE | 2017-01-12 14:05 | NEPHROLOGY CONSULTATION ---
DATE OF CONSULTATION: 01/12/2017 ATTENDING OF RECORD: Dr. Stearns. REASON FOR CONSULTATION: End-stage renal disease. HISTORY OF PRESENT ILLNESS: This is a 66-year-old male with underlying peritoneal dialysis at the [facility] dialysis unit. The patient has a significant history of sarcoidosis with a history of aortic stenosis, status post aortic valve replacement, diabetes and main stem bronchus narrowing, who was recently admitted last month for volume overload and we appropriately diuresed the patient but continued to have problems with breathing and chronic cough. Has been started on steroids for treatment for 6 weeks. The patient though has continued to decline physically, having difficulty ambulating, walking with a walker and comes in with failure to thrive symptoms. The patient's volume status appears appropriate. The patient was found to have a low sodium of 124 and elevated potassium. The patient was started on PD and treated for a prolonged course to help improve the potassium and help improve the sodium levels as well. Did 1 green and 2 yellows with 7 exchanges. The patient and his are considering whether to do home hospice versus rehab at hopefully a [facility] institution. The patient has not been able to make a decision yet on home hospice and would like to pursue [facility] Rehabilitation to see if he can get stronger. PAST MEDICAL HISTORY: End-stage renal disease, on peritoneal dialysis; anemia of end-stage renal disease; he is transfusion dependent, given his significant history of melanoma; melanoma recently treated with radiation and chemo and surgery with recent PET scans clear; diabetes; gout; aortic stenosis, status post aortic valve replacement; main stem bronchus narrowing with progressive granulomatous disease/sarcoidosis, currently being treated with 6 weeks of steroids; sleep apnea; hypertension; history of hepatitis C, treated over 30 years ago. PAST SURGICAL HISTORY: Aortic valve replacement in 2008, tonsillectomy, PD catheter placement, melanoma surgery involving the right ear. FAMILY HISTORY: Significant for diabetes. SOCIAL HISTORY: No smoking. No drugs, no alcohol. He is and lives at home with . REVIEW OF SYSTEMS: No fevers or chills. No significant weight loss. No significant swelling in his legs. Positive dry cough. Positive shortness of breath with exertion. Positive failure to thrive. Positive anorexia. No nausea, vomiting. No diarrhea or constipation. Positive ambulatory dysfunction. No rash or itching. All other review of systems otherwise negative. CURRENT MEDICATIONS: Lopressor 12.5 mg in the morning, prednisone 40 mg daily, sliding scale insulin, allopurinol 100 mg p.o. b.i.d., Crestor 40 mg at night, Lantus 22 units subQ b.i.d., sliding scale insulin, PhosLo 1 p.o. t.i.d. with meals, Augmentin 500 mg orally daily. PHYSICAL EXAMINATION: VITAL SIGNS: Temperature 36.7, pulse 79, respiratory rate 18, blood pressure 137/73, satting 97% on 2 liters. GENERAL: Awake, alert, oriented x3. EYES: No scleral icterus. ENT: Moist mucous membranes. NECK: Supple. PULMONARY: Clear. CARDIAC: Regular with a systolic murmur. ABDOMEN: Positive PD catheter. Bowel sounds positive, soft, nontender. EXTREMITIES: No significant clubbing, cyanosis or edema. NEUROLOGICAL: Nonfocal. DERMATOLOGIC: No ulcers noted. Access PD catheter in place. LABORATORIES: White count is 11, H\T\H 9.8 and 28, platelet count is 58. Sodium level is 128, potassium 4.6, chloride is 87, bicarb is 24, BUN is 139, creatinine is 11, glucose is 323, calcium is 7.4. Troponin 0.429, was 0.508 on admission. ASSESSMENT AND PLAN: 1. End-stage renal disease, on peritoneal dialysis. Volume status appears appropriate. BUN and creatinine are still quite elevated despite the prolonged peritoneal dialysis on the cycler overnight. The patient is agreeable to 5 exchanges with 10 hours on the machine, but prefers not to do anymore. BUN and creatinine tend to run in this range, BUN greater than 100 and creatinine above 10. We would like to consider more peritoneal dialysis to see if we can improve the numbers. However, the patient hesitant to do so. Currently not uremic and volume status appears appropriate. We will dialyze 5 exchanges, 2-liter fill time, 1 green and 1 yellow. 2. Anemia of renal failure. Given his history of melanoma recently this past fall, the patient is transfusion dependent. Hemoglobin levels are below 10 and we will monitor. No indication for transfusion at this time. 3. Renal osteodystrophy. We will continue patient's phosphate binders and check phosphorus levels intermittently. 4. Cardiology. The patient was recently evaluated by cardiology as an outpatient who was recommending a pacemaker, given bradycardia episodes as well as tachycardia episodes. Unclear if patient is going to pursue the pacemaker at this time or not. 5. Palliative care. The patient is considering whether or not to pursue home hospice. is the primary caregiver for the patient and has been doing an excellent job taking care of him at home, but is getting tired and patient is becoming too much for her to handle at home. The patient at this time is not ready to do home hospice and would like to try physical therapy/rehabilitation at [facility] if he is accepted, to see if he can get stronger, although he understands his multiple comorbidities and the fact that he has been getting weaker over the last several months with worsening shortness of breath, chronic cough, regardless of the chronic prednisone. I appreciate the consultation. GELACIO
[2017-01-12] MEDS: AMOXICILLIN/CLAVULANATE TAB 500 MG TAB PO SCH (17:00)
[2017-01-12] MEDS: ROSUVASTATIN CALCIUM 20 MG TAB PO SCH (21:00)
[2017-01-12] MEDS: ZOLPIDEM TARTRATE 5 MG TAB PO PRN (21:00)
[2017-01-13] VITALS (10 sets, daily range): BP systolic 107–163; BP diastolic 50–91; PULSE 64–94; TEMP 36.4–36.8; O2SAT 95–98
[2017-01-13 06:55] LABS: BUN/CREATININE RATIO 11.9 (10-20); CALCIUM 7.2 mg/dl (8.5-10.1)
[2017-01-13 06:57] LABS: HEMATOCRIT 28.3 % (42-52); MEAN CELL VOLUME 84.7 fL (80-100); MEAN CORPUSCULAR HEMOGLOBIN 29.6 pg (25-34); MEAN PLATELET VOLUME 12.2 fL (7.4-10.4); PLATELET COUNT 58 K/uL (130-400); RED BLOOD COUNT 3.34 M/uL (4.7-6.1); WHITE BLOOD COUNT 10.06 K/uL (4.8-10.8)
--- NOTE | 2017-01-13 08:24 | Dialysis Progress Note ---
Nephrology Dialysis Note Date of Service: Jan 13, 2017. Subjective see this am 0710 on PD. no change in chronic dyspnea; denies pain or distress. feels edema well controlled; no n/v/d/c/ abd pain. Objective Date Time Temp Pulse Resp B/P Pulse Ox O2 Delivery O2 Flow Rate FiO2 01/13/17 07:49 36.5 64 16 149/76 95 Room Air 01/13/17 04:14 Room Air 01/13/17 03:44 36.5 73 18 163/81 98 Room Air 01/13/17 00:15 Room Air 01/12/17 23:57 37.0 77 18 134/51 95 Room Air 01/12/17 20:45 Room Air 01/12/17 20:40 36.5 93 101/72 01/12/17 20:01 36.5 93 18 101/72 96 Room Air 01/12/17 16:16 36.6 78 20 103/67 95 Room Air 01/12/17 16:00 Room Air 01/12/17 12:00 Room Air 01/12/17 12:00 36.8 84 18 141/75 93 Nasal Cannula 01/12/17 10:50 36.7 79 18 137/73 Physical Exam: GENERAL: Awake, alert, oriented x3. up in chair EYES: No scleral icterus. ENT: Moist mucous membranes. NECK: Supple. PULMONARY: Clear but very diminished CARDIAC: irregular in 90s with a systolic murmur. ABDOMEN: Positive PD catheter on PD. Bowel sounds positive, soft, nontender. EXTREMITIES: No significant clubbing, cyanosis; 2+ BL pedal edema. NEUROLOGICAL: davila, fluent speech; ?insight as at previous exams Current Inpatient Medications Medications (Trade) Dose Ordered Sig/Romulo Route Start Time Stop Time Status Last Admin Dose Admin Acetaminophen (Tylenol Tab) 650 mg Q4H PRN PO 01/11/17 15:45 02/10/17 15:44 Ondansetron HCl (Zofran Inj) 4 mg Q6H PRN IV 01/11/17 15:45 02/10/17 15:44 Miscellaneous Information (Consult Glycemic Management Pharmacy) 1 ea UD PRN N/A 01/11/17 16:05 02/10/17 16:04 Miscellaneous Information (Pharmacy Consult) 1 ea UD PRN N/A 01/11/17 15:53 02/10/17 15:52 Amoxicillin/ Clavulanate Potassium (Augmentin Tab) 500 mg Q24H PO 01/11/17 17:00 01/21/17 16:59 01/12/17 17:00 500 MG Allopurinol (Zyloprim Tab) 100 mg BID PO 01/11/17 21:00 02/10/17 20:59 01/12/17 21:00 100 MG Metoprolol Tartrate (Lopressor Tab) 12.5 mg QAM PO 01/12/17 09:00 02/11/17 08:59 01/12/17 07:45 12.5 MG Prednisone (PredniSONE TAB) 40 mg DAILY PO 01/12/17 09:00 02/11/17 08:59 01/12/17 07:45 40 MG Rosuvastatin Calcium (Crestor Tab) 40 mg HS PO 01/11/17 21:00 02/10/17 20:59 01/12/17 21:00 40 MG Calcium Acetate (Phoslo Cap) 667 mg TIDM PO 01/11/17 17:18 02/10/17 17:59 01/12/17 11:55 667 MG Insulin Aspart (novoLOG ASPART) SLIDING SCALE ACHS SC 01/11/17 21:00 02/10/17 20:59 01/12/17 07:44 10 UNITS Zolpidem Tartrate (Ambien Tab) 5 mg HS PRN PO 01/12/17 05:15 02/11/17 05:14 01/12/17 21:00 5 MG Insulin Glargine (Lantus Solostar Pen) PER SCALE BID SC 01/12/17 21:00 02/10/17 20:59 Last 24 Hours Test 01/12/17 11:18 01/12/17 15:48 01/12/17 15:50 01/12/17 20:31 Bedside Glucose 97 mg/dl 67 mg/dl 75 mg/dl 98 mg/dl Test 01/13/17 05:37 01/13/17 07:05 White Blood Count 10.06 K/uL Red Blood Count 3.34 M/uL Hemoglobin 9.9 g/dL Hematocrit 28.3 % Mean Corpuscular Volume 84.7 fL Mean Corpuscular Hemoglobin 29.6 pg Mean Corpuscular Hemoglobin Concent 35.0 g/dl RDW Standard Deviation 40.6 fL RDW Coefficient of Variation 13.1 % Platelet Count 58 K/uL Mean Platelet Volume 12.2 fL Sodium Level 130 mmol/L Potassium Level 4.0 mmol/L Chloride Level 88 mmol/L Carbon Dioxide Level 26 mmol/L Anion Gap 16.0 mmol/L Blood Urea Nitrogen 119 mg/dl Creatinine 10.00 mg/dl Est Creatinine Clear Calc Drug Dose 8.2 ml/min Estimated GFR () 5.6 Estimated GFR (Non- 4.8 BUN/Creatinine Ratio 11.9 Random Glucose 168 mg/dl Calcium Level 7.2 mg/dl Bedside Glucose 173 mg/dl Assessment & Plan 66 y/o M w/ ESRD on PD, hx of sarcoidosis, AVR, DM, mainstem bronchus narrowing w/ frequent admissions for volume overload admitted 01/12 with failure to thrive at home and ambulatory dysfunction. 1. End-stage renal disease, on peritoneal dialysis. Volume status appears acceptable. cont 5 x 2L exchanges on cycler over 11 hours; alternate green/ yellow; no MDE or LBF. Currently not uremic and volume status appears appropriate. 2. Anemia of renal failure. Given his history of melanoma this past fall, the patient is transfusion dependent. No indication for transfusion at this time. Given cardiac hx, may need to have threshold of 7.5 hgb for transfusion 3. Renal osteodystrophy. continue patient's phosphate binders and check phosphorus levels intermittently. 4. Cardiology. The patient was recently recommended by cardiology to have a pacemaker, given tachy/love episodes. Unclear if patient is going to pursue the pacemaker at this time or not. 5. Goals of care. The patient is considering whether or not to pursue home hospice. is the primary caregiver for the patient and has been doing an excellent job taking care of him at home, but is getting tired and patient is becoming too much for her to handle at home. The patient at this time is not ready to do home hospice and would like to try physical therapy/ rehabilitation at [facility] if he is accepted, to see if he can get stronger, although he understands his multiple comorbidities and the fact that he has been getting weaker over the last several months with worsening shortness of breath, chronic cough, regardless of the chronic prednisone. Appreciate consult; will follow with you.
[2017-01-13] MEDS: METOPROLOL TARTRATE 25 MG TAB PO SCH (08:50)
[2017-01-13] MEDS: ALLOPURINOL 100 MG TAB PO SCH ×2 (08:50→21:19)
[2017-01-13] MEDS: CALCIUM ACETATE 667MG GELCAP PO SCH ×3 (08:50→19:47)
[2017-01-13] MEDS: INSULIN ASPART 100 UNITS/ML 3 ML PEN SC SCH ×4 (08:54→21:22)
[2017-01-13] MEDS: INSULIN GLARGINE SOLOSTAR 100 UNITS/ML 3 ML PEN SC SCH ×2 (09:11→21:23)
--- NOTE | 2017-01-13 12:26 | Progress Note ---
Subjective Date of Service: Jan 13, 2017. Subjective Pt evaluation today including: conversation w/ patient, physical exam, lab review, review of studies, review of inpatient medication list Saw/examined the patient in room 236 He is seated in a chair after working with PT/OT Tolerated peritoneal dialysis well Breathing status at baseline intermittent cough, which is chronic +weakness Problem List Medical Problems: (1) Influenza Status: Acute (2) Intravascular volume depletion Status: Acute Review of Systems Constitutional: + weakness Respiratory: + cough, + see HPI, + shortness of breath (at baseline), No sputum Cardiac: No chest pain, No edema, No palpitations Abdomen: No diarrhea, No nausea, No pain, No vomiting Neurologic: + balance problems Medications Current Inpatient Medications Medications (Trade) Dose Ordered Sig/Romulo Route Start Time Stop Time Status Last Admin Dose Admin Acetaminophen (Tylenol Tab) 650 mg Q4H PRN PO 01/11/17 15:45 02/10/17 15:44 Ondansetron HCl (Zofran Inj) 4 mg Q6H PRN IV 01/11/17 15:45 02/10/17 15:44 Miscellaneous Information (Consult Glycemic Management Pharmacy) 1 ea UD PRN N/A 01/11/17 16:05 02/10/17 16:04 Miscellaneous Information (Pharmacy Consult) 1 ea UD PRN N/A 01/11/17 15:53 02/10/17 15:52 Amoxicillin/ Clavulanate Potassium (Augmentin Tab) 500 mg Q24H PO 01/11/17 17:00 01/21/17 16:59 01/12/17 17:00 500 MG Allopurinol (Zyloprim Tab) 100 mg BID PO 01/11/17 21:00 02/10/17 20:59 01/13/17 08:50 100 MG Metoprolol Tartrate (Lopressor Tab) 12.5 mg QAM PO 01/12/17 09:00 02/11/17 08:59 01/13/17 08:50 12.5 MG Prednisone (PredniSONE TAB) 40 mg DAILY PO 01/12/17 09:00 02/11/17 08:59 01/13/17 08:50 40 MG Rosuvastatin Calcium (Crestor Tab) 40 mg HS PO 01/11/17 21:00 02/10/17 20:59 01/12/17 21:00 40 MG Calcium Acetate (Phoslo Cap) 667 mg TIDM PO 01/11/17 17:18 02/10/17 17:59 01/13/17 08:50 667 MG Insulin Aspart (novoLOG ASPART) SLIDING SCALE ACHS SC 01/11/17 21:00 02/10/17 20:59 01/13/17 08:54 5 UNITS Zolpidem Tartrate (Ambien Tab) 5 mg HS PRN PO 01/12/17 05:15 02/11/17 05:14 01/12/17 21:00 5 MG Insulin Glargine (Lantus Solostar Pen) PER SCALE BID SC 01/12/17 21:00 02/10/17 20:59 01/13/17 09:11 22 UNIT Objective Vital Signs Date Time Temp Pulse Resp B/P Pulse Ox O2 Delivery O2 Flow Rate FiO2 01/13/17 11:28 36.5 67 16 124/70 96 Room Air 01/13/17 08:00 Room Air 01/13/17 07:49 36.5 64 16 149/76 95 Room Air 01/13/17 04:14 Room Air 01/13/17 03:44 36.5 73 18 163/81 98 Room Air 01/13/17 00:15 Room Air 01/12/17 23:57 37.0 77 18 134/51 95 Room Air 01/12/17 20:45 Room Air 01/12/17 20:40 36.5 93 101/72 01/12/17 20:01 36.5 93 18 101/72 96 Room Air 01/12/17 16:16 36.6 78 20 103/67 95 Room Air 01/12/17 16:00 Room Air Physical Exam General Appearance: no apparent distress Respiratory/Chest: chest non-tender, lungs clear, normal breath sounds, no respiratory distress, no accessory muscle use Cardiovascular: regular rate, rhythm, no edema, no murmur Extremities: non-tender, normal inspection, no pedal edema Neurologic/Psychiatric: no motor/sensory deficits, alert, normal mood/affect Laboratory Results Last 24 Hours Test 01/12/17 15:50 01/12/17 20:31 01/13/17 05:37 01/13/17 07:05 Bedside Glucose 75 mg/dl 98 mg/dl 173 mg/dl White Blood Count 10.06 K/uL Red Blood Count 3.34 M/uL Hemoglobin 9.9 g/dL Hematocrit 28.3 % Mean Corpuscular Volume 84.7 fL Mean Corpuscular Hemoglobin 29.6 pg Mean Corpuscular Hemoglobin Concent 35.0 g/dl RDW Standard Deviation 40.6 fL RDW Coefficient of Variation 13.1 % Platelet Count 58 K/uL Mean Platelet Volume 12.2 fL Sodium Level 130 mmol/L Potassium Level 4.0 mmol/L Chloride Level 88 mmol/L Carbon Dioxide Level 26 mmol/L Anion Gap 16.0 mmol/L Blood Urea Nitrogen 119 mg/dl Creatinine 10.00 mg/dl Est Creatinine Clear Calc Drug Dose 8.2 ml/min Estimated GFR () 5.6 Estimated GFR (Non- 4.8 BUN/Creatinine Ratio 11.9 Random Glucose 168 mg/dl Calcium Level 7.2 mg/dl Test 01/13/17 09:54 01/13/17 10:50 Bedside Glucose 169 mg/dl 161 mg/dl Assessment and Plan This is a 66 year old male with PMH of ESRD on peritoneal dialysis, granulomatous lung disease/sarcoidosis, 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 of aortic valve replacement, mainstem bronchus stenosis, HTN, HLD Falls, Ambulatory Dysfunction Weakness 01/13 continue PT/OT discharge planning to [facility] in 1-2 days palliative care consult for discussion about home hospice if that will be an option in the future 01/12 patient has had multiple admissions to the hospital multiple mechanical falls states that he does not get dizzy, just felt weak and fell will need PT/OT placement to rehab discharge planning evaluation ESRD on PD 01/13 potassium = 4.0 continue PD as per nephro appreciate nephrology input 01/12 potassium on admission ~ 5.4 given IV insulin 10 units and Kayexalate Potassium now wnl Sodium improved from 124 to 128 removed about 700cc with PD continue PD nightly appreciate nephrology input Elevated Troponin Level this is more likely related to this end stage kidney disease denies chest pain, denies shortness of breath, denies cough No other symptoms to note Sinusitis Head CT with no acute intracranial findings air-fluid levels at sinuses started on Augmentin Tachy-Igor Syndrome likely related to Sarcoid/Granulomatous Lung Disease follows with cardiology he is to have a pacer placed on 01/28 Granulomatous Lung Disease/Sarcoidosis Hilar/Mediastinal and Diaphragmatic Lymphadenopathy stable continue chronic steroid use Insulin Dependent DM2 started on 22 units Lantus BID insulin sliding scale glycemic control consult appreciated Thrombocytopenia platelets down to 58, monitor likely due to chronic disease CAD continue b-arsalan and statin monitor for bradycardia holding aspirin due to thrombocytopenia DVT ppx SCDs DNR d/c planning for 01/14 or 01/15
--- NOTE | 2017-01-13 14:26 | Pulmonary Consultation ---
History General Date of Service: Jan 13, 2017. Stated Complaint: Hyperkalemia, Weakness, fall HPI The patient is a 66 year old male who presents to [facility] with complaints of Hyperkalemia, Weakness. The patient's primary care provider is Ron Bettencourt III, M.D.. 66-year-old male with complex medical history: Granulomatous lung disease, right mainstem bronchial stenosis, tachybradycardia syndrome and chronic renal failure on peritoneal dialysis. He was recently admitted to the [facility] from 12/25/2016 to 12/30/2016 40 volume overload, shortness of breath, failure to thrive, intermittent bradycardia, or granulomatosis and influenza A. Patient continues to have progressive weakness and recent fall instigated this admission. During the time of my interview he denied loss of consciousness or associated chest pain. He also denies: Fever, chills, shortness of breath, pleurisy, classic cardiac chest pain, hemoptysis or productive sputum. Current in-hospital workup: WBC 14 K (95% neutrophils) -- 10K BUN/Cr: 119/10 Troponin: 0.508, 0.512, 0.429 Albumin: 2.2 CT of the head 01/11/2017: Right mastoid effusion, left maxillary sinus opacification, frontal sinus air fluid level Chest x-ray 12/29/2016: Diffuse reticulation with minimal blunting at the left costophrenic angle Pleural fluid: 11/29/2016 BAL pathology: No malignant cells noted -BAL: Acid-fast smear-negative/final culture reports pending Total protein: 2.9 LDH: 91 Glucose: 133 Amylase: 53 Cholesterol: 20 Serum lab results performed 11/20/2016 Total protein: 6.3 CT thorax (07/27/2015) Report Only (Compared to 03/06/2015) 1) Grossly stable diffuse lymphadenopathy,peribronchial and peritracheal thickening 2) Spiculated mass lesions bilaterally 3) New small left sided pleural effusion/tressa-hepatic/tressa-spleenic ascites 4) Monitor her narrowing of the irwin are trachea above the irwin 80 percent PET-CT scan performed 10/02/2016 Thoracic findings: Multiple bilateral consolidations with perihilar predominance and increased FT TG avidity maximum SUV of 8.0 on the right lower lobe Bronchoscopy: 08/01/2015 80% narrowing above the irwin Microbiology history: Right foot 05/23/15: MRSA Right foot 06/16/2015: Enterococcus faecalis Right foot 09/27/15: MRSA Right ear 01/24/16: Coag-negative staph 2 Historian: patient, caregiver, EMS Review of Systems Constitutional: reports: malaise, weakness Eyes: reports: no symptoms ENT: reports: no symptoms Cardiovascular: reports: no symptoms Respiratory: reports: SALEH Gastrointestinal: reports: no symptoms Genitourinary - Male: reports: no symptoms Musculoskeletal: reports: myalgias Integumentary: reports: no symptoms Neurologic: reports: no symptoms Psychiatric: reports: no symptoms Endocrine: no symptoms Hematologic / Lymphatic: no symptoms Allergic / Immunologic: no symptoms Past Medical History Past Medical History: 1.Actinic keratosis 2.Anxiety 3.Aortic valve stenosis 4.ASCVD (arteriosclerotic cardiovascular disease) 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 Cystoscopy 5. Inguinal Hernia Repair 6. Tonsillectomy With Adenoidectomy 7.Cervical spinal fusion 8.Thoracentesis Family History Diabetes mellitus MOTHER Heart disease MOTHER Social History Hx Tobacco Use In Past Year?: No Smoking Status: Never Smoker Marital status: Housing status: lives with family Immunizations History of Influenza Vaccine: Yes Influenza Vaccine Date: Jul 20, 2016 History of Tetanus Vaccine?: Yes Tetanus Immunization Date: Feb 09, 2008 History of Pneumococcal: Yes Pneumococcal Date: March 19, 2016 History of MDRO History of MDRO: Yes Type of MDRO: MRSA Allergies Coded Allergies: No Known Allergies (Unverified , 01/11/17) Current Medications Reported Home Medications Medications Dose Route/Sig Max Daily Dose Days Date Category Dose Instructions Phoslo 667 Mg (Calcium Acetate) 667 Mg Cap 1 Cap PO TIDM 90 01/11/17 Reported Novolog (Insulin Aspart) 100 Units/Ml Inj 0 SQ TIDM 01/11/17 Reported PER SLIDING SCALE Prednisone 20 Mg Tab 40 Mg PO DAILY 30 12/30/16 Rx Lopressor (Metoprolol Tartrate) 25 Mg Tab 12.5 Mg PO QAM 30 12/30/16 Rx Colchicine 0.6 Mg Tab 0.6 Mg PO DAILY PRN 12/25/16 Reported Toujeo Solostar (Insulin Glargine) 300 Unit/Ml Inj 22 Units SQ QPM 12/08/16 Reported Toujeo Solostar (Insulin Glargine) 300 Unit/Ml Inj 22 Units SQ QAM 12/08/16 Reported Aspirin Ec (Aspirin) 81 Mg Tab 81 Mg PO QAM 11/29/16 Reported Zyloprim (Allopurinol) 100 Mg Tab 100 Mg PO BID 01/07/14 Reported Crestor (Rosuvastatin Calcium) 20 Mg Tab 40 Mg PO HS 01/07/14 Reported Physical Physical Exam Vital Signs: Date Time Temp Pulse Resp B/P Pulse Ox O2 Delivery O2 Flow Rate FiO2 01/13/17 12:00 Room Air 01/13/17 11:28 36.5 67 16 124/70 96 Room Air 01/13/17 08:00 Room Air 01/13/17 07:49 36.5 64 16 149/76 95 Room Air 01/13/17 04:14 Room Air 01/13/17 03:44 36.5 73 18 163/81 98 Room Air 01/13/17 00:15 Room Air 01/12/17 23:57 37.0 77 18 134/51 95 Room Air 01/12/17 20:45 Room Air 01/12/17 20:40 36.5 93 101/72 01/12/17 20:01 36.5 93 18 101/72 96 Room Air 01/12/17 16:16 36.6 78 20 103/67 95 Room Air 01/12/17 16:00 Room Air General Appearance: NO APPARENT DISTRESS Head: NORMOCEPHALIC, ATRAUMATIC Eyes: PERRLA, NO DISCHARGE, EOMI, SCLERAE NORMAL ENT: NORMAL EAR EXAM, NORMAL NASAL EXAM, NORMAL MOUTH EXAM, NORMAL THROAT EXAM , NORMAL DENTAL EXAM, NORMAL SINUS EXAM Neck: NORMAL RANGE OF MOTION, NO TENDERNESS, TRACHEA MIDLINE, NO STRIDOR Respiratory: other (minimal expiratory wheezing with decreased breath sounds bilateral lower lobes posterior, decreased breath sounds globally right greater than left) Cardiovasular: REGULAR RATE/RHYTHM, NORMAL S1S2, other (2/6 systolic murmur rest appreciated at the right upper sternal border) Abdomen: NON TENDER, NORMAL BOWEL SOUNDS, NO REBOUND, NO MASSES, NO GUARDING, NO ORGANOMEGALY Genitourinary - Male: EXTERNAL GENITALIA NORMAL Back: NORMAL INSPECTION, NO MIDLINE TENDERNESS, NO CVA TENDERNESS, NO PARAVERTEBRAL TTP Upper Extremities: NO EDEMA, NO DEFORMITY, NORMAL ROM Lower Extremities: edema Edema: Bilateral LE (2+) Pulses: carotid (R) (1+), carotid (L) (1+) Neuro: ALERT, ORIENTED x 3, NORMAL MOTOR EXAM, NORMAL SENSATION, NORMAL CEREBELLAR EXAM, NORMAL SPEECH Reflexes: biceps (R) (1+), bicpes (L) (1+) Babinski Testing: right (downgoing), left (downgoing) Psychiatric: NORMAL AFFECT, NO SUICIDAL IDEATION Diagnostics Labs Results Past 24 Hours Test 01/12/17 15:50 01/12/17 20:31 01/13/17 05:37 01/13/17 07:05 Range/Units Bedside Glucose 75 98 173 70-99 mg/dl White Blood Count 10.06 4.8-10.8 K/uL Red Blood Count 3.34 4.7-6.1 M/uL Hemoglobin 9.9 14.0-18.0 g/dL Hematocrit 28.3 42-52 % Mean Corpuscular Volume 84.7 80-100 fL Mean Corpuscular Hemoglobin 29.6 25-34 pg Mean Corpuscular Hemoglobin Concent 35.0 32-36 g/dl RDW Standard Deviation 40.6 36.4-46.3 fL RDW Coefficient of Variation 13.1 11.5-14.5 % Platelet Count 58 130-400 K/uL Mean Platelet Volume 12.2 7.4-10.4 fL Sodium Level 130 136-145 mmol/L Potassium Level 4.0 3.5-5.1 mmol/L Chloride Level 88 98-107 mmol/L Carbon Dioxide Level 26 21-32 mmol/L Anion Gap 16.0 3-11 mmol/L Blood Urea Nitrogen 119 7-18 mg/dl Creatinine 10.00 0.60-1.40 mg/dl Est Creatinine Clear Calc Drug Dose 8.2 ml/min Estimated GFR () 5.6 Estimated GFR (Non- 4.8 BUN/Creatinine Ratio 11.9 10-20 Random Glucose 168 70-99 mg/dl Calcium Level 7.2 8.5-10.1 mg/dl Test 01/13/17 09:54 01/13/17 10:50 Range/Units Bedside Glucose 169 161 70-99 mg/dl Diagnostic Radiology CT of the head 01/11/2017: Right mastoid effusion, left maxillary sinus opacification, frontal sinus air fluid level Chest x-ray 12/29/2016: Diffuse reticulation with minimal blunting at the left costophrenic angle EKG EKG 01/13/2017 A. fib with right bundle branch block and possible left anterior fascicular block Impression Assessment and Plan 66-year-old gentleman admitted status post fall: #1 pulmonary granulomatosis: Patient notes that his breathing is been stable over the last 3-4 weeks which is a significant difference from the previous 3-4 months. Due to discontinuation of the steroids at 40 mg daily and proper I/O monitoring should be continued. #2 right mainstem stenosis: Patient continues to regress while/stabilizes and following his pacemaker placement reevaluation and possible bronchoscopy for evaluation should be performed. #3 cardiac: Most recent EKG from 01/03/2017 appears to have new onset atrial fibrillation suggest further evaluation by cardiology. #4 pleural effusion: We'll obtain chest x-ray in the morning as patient has a history of previous pleural effusion requiring thoracentesis and current physical exam suggest continued pleural effusion.
--- NOTE | 2017-01-13 16:01 | Palliative Care Consultation ---
Consultation Date of Consultation: Jan 13, 2017. Requesting Physician: Dr. Stearns Attending Physician: Dr. Stearns Reason for Consultation: Goals of care History of Present Illness This 66 year old male patient presented to the ED three days ago after a fall at home. He was admitted to [facility] from 12/25/16 to 12/30/16 with fluid overload, bradycardia, sarcoidosis, and Influenza A; discharged on lower dose of metoprolol and increased daily dose of prednisone. At home, patient was still weak and losing his balance. He had two falls in one week, most recently on the day of admission. He did hit his head, but CT showed no intracranial injury. This patient has a complicated and extensive PMH as outlined below including ESRD on peritoneal dialysis at home.In ED, troponin slightly elevated at 0.508 but EKG negative for changes, WBC 13k, K 4.9, Na 128. He was admitted to PCU for hyperkalemia and weakness. His peritoneal dialysis had been functioning normally at home. Dr. Manning following patient here in hospital and indicated that patient is okay with continuing PD for now, but is beginning to think of when/if to stop it. Patient also seen by technology solutions architect here who is helping to manage the sarcoidosis, which seems to be the driving factor in his medical care at this time. Palliative care consulted to establish goals of care. I met with the patient and his , Theresa, in room 236. Patient sitting in chair, awake, alert and oriented. He denies any pain or other discomfort. Patient stated, "We're just going to keep going and if it doesn't go very good, then we're going to stop," "I'm just tired of fighting." His , Theresa, agreed and said that the patient has put up "a valiant fight," but she can tell he is becoming "worn out." We discussed goals of care. Patient states that he wants to try [facility] to try and get stronger and go home, but he feels he is at his baseline at this point. He agreed that it is uncertain if he will really improve physically at this point. I encouraged patient and his to be thinking about an alternative plan in the case that he is not successful at [facility]. They agreed and would possibly consider a SNF after [facility]SR depending on how patient does. admitted that she is concerned about the amount of care that patient will be requiring as his illness progresses, but once they decide to stop PD she would like to take him home on hospice. Patient agreed that he would like his end-of-life care to be at home with hospice. The patient and Theresa both agree that they are not ready to pursue hospice yet, but it is certainly an option for the future. Past Medical/Surgical History Medical History: Adenomatous colon polyp Aortic valve stenosis Permanent Comment: s/p AVR ASCVD (arteriosclerotic cardiovascular disease) Diabetes ESRD (end stage renal disease) on peritoneal dialysis Gout Hepatitis C s/p treatment > 30 years ago Hypertension Melanoma neck - s/p removal Sarcoid Sleep apnea, obstructive Vitamin D deficiency Surgical History: Bronchoscopy Colonoscopy with polypectomy Cystoscopy Aortic valve replacement by Dr. Linus Hines - [facility] – [place] in 2008 Hernia repair right inguinal - age 6 Tonsillectomy and adenoidectomy Social History Smoking Status: Never Smoker History of Alcohol Use: No Marital Status: Housing Status: lives with family Review of Systems Constitutional: + fatigue, + weakness, No chills, No fever Respiratory: + dyspnea on exertion, No cough, No dyspnea at rest Cardiac: No chest pain Abdomen: No nausea, No pain, No vomiting Male : No problem reported Psychiatric: No anxiety Allergies Coded Allergies: No Known Allergies (Unverified , 01/11/17) Medications Current Inpatient Medications Medications (Trade) Dose Ordered Sig/Romulo Route Start Time Stop Time Status Last Admin Dose Admin Acetaminophen (Tylenol Tab) 650 mg Q4H PRN PO 01/11/17 15:45 02/10/17 15:44 Ondansetron HCl (Zofran Inj) 4 mg Q6H PRN IV 01/11/17 15:45 02/10/17 15:44 Miscellaneous Information (Consult Glycemic Management Pharmacy) 1 ea UD PRN N/A 01/11/17 16:05 02/10/17 16:04 Miscellaneous Information (Pharmacy Consult) 1 ea UD PRN N/A 01/11/17 15:53 02/10/17 15:52 Amoxicillin/ Clavulanate Potassium (Augmentin Tab) 500 mg Q24H PO 01/11/17 17:00 01/21/17 16:59 01/12/17 17:00 500 MG Allopurinol (Zyloprim Tab) 100 mg BID PO 01/11/17 21:00 02/10/17 20:59 01/13/17 08:50 100 MG Metoprolol Tartrate (Lopressor Tab) 12.5 mg QAM PO 01/12/17 09:00 02/11/17 08:59 01/13/17 08:50 12.5 MG Prednisone (PredniSONE TAB) 40 mg DAILY PO 01/12/17 09:00 02/11/17 08:59 01/13/17 08:50 40 MG Rosuvastatin Calcium (Crestor Tab) 40 mg HS PO 01/11/17 21:00 02/10/17 20:59 01/12/17 21:00 40 MG Calcium Acetate (Phoslo Cap) 667 mg TIDM PO 01/11/17 17:18 02/10/17 17:59 01/13/17 12:32 667 MG Insulin Aspart (novoLOG ASPART) SLIDING SCALE ACHS SC 01/11/17 21:00 02/10/17 20:59 01/13/17 12:34 5 UNITS Zolpidem Tartrate (Ambien Tab) 5 mg HS PRN PO 01/12/17 05:15 02/11/17 05:14 01/12/17 21:00 5 MG Insulin Glargine (Lantus Solostar Pen) PER SCALE BID SC 01/12/17 21:00 02/10/17 20:59 01/13/17 09:11 22 UNIT Physical Exam Date Time Temp Pulse Resp B/P Pulse Ox O2 Delivery O2 Flow Rate FiO2 01/13/17 15:26 36.4 67 16 107/50 98 Room Air 01/13/17 12:00 Room Air 01/13/17 11:28 36.5 67 16 124/70 96 Room Air 01/13/17 08:00 Room Air 01/13/17 07:49 36.5 64 16 149/76 95 Room Air 01/13/17 04:14 Room Air 01/13/17 03:44 36.5 73 18 163/81 98 Room Air 01/13/17 00:15 Room Air 01/12/17 23:57 37.0 77 18 134/51 95 Room Air 01/12/17 20:45 Room Air 01/12/17 20:40 36.5 93 101/72 3/12/17 20:01 36.5 93 18 101/72 96 Room Air 01/12/17 16:16 36.6 78 20 103/67 95 Room Air 01/12/17 16:00 Room Air General Appearance: no apparent distress Neck: no JVD Respiratory: no respiratory distress, no accessory muscle use, + decreased breath sounds, + pertinent finding (noted dyspnea on exertion) Cardiovascular: regular rate, rhythm, + normal peripheral pulses Abdomen: normal bowel sounds, non tender, + distended (obese abdomen) Neurologic/Psychiatric: alert, normal mood/affect, oriented x 3 Skin: normal color, + pertinent finding (multiple scabs on head, including one larger on top of forehead from fall at home) Laboratory Results Last 24 Hours Test 01/12/17 15:50 01/12/17 20:31 01/13/17 05:37 01/13/17 07:05 Bedside Glucose 75 mg/dl 98 mg/dl 173 mg/dl White Blood Count 10.06 K/uL Red Blood Count 3.34 M/uL Hemoglobin 9.9 g/dL Hematocrit 28.3 % Mean Corpuscular Volume 84.7 fL Mean Corpuscular Hemoglobin 29.6 pg Mean Corpuscular Hemoglobin Concent 35.0 g/dl RDW Standard Deviation 40.6 fL RDW Coefficient of Variation 13.1 % Platelet Count 58 K/uL Mean Platelet Volume 12.2 fL Sodium Level 130 mmol/L Potassium Level 4.0 mmol/L Chloride Level 88 mmol/L Carbon Dioxide Level 26 mmol/L Anion Gap 16.0 mmol/L Blood Urea Nitrogen 119 mg/dl Creatinine 10.00 mg/dl Est Creatinine Clear Calc Drug Dose 8.2 ml/min Estimated GFR () 5.6 Estimated GFR (Non- 4.8 BUN/Creatinine Ratio 11.9 Random Glucose 168 mg/dl Calcium Level 7.2 mg/dl Test 01/13/17 09:54 01/13/17 10:50 Bedside Glucose 169 mg/dl 161 mg/dl Assessment & Plan Palliative Performance Scale: 70 % Problem list: Weakness Ambulatory dysfunction s/p fall at home Granulomatosis, sarcoidosis ESRD on peritoneal dialysis Tachybrady syndrome History of squamous cell skin cancer CAD DM Elevated troponin Electrolyte abnormalities Goals of care (Z51.5) Palliative care plan: Discussed with patient and his , Theresa. -Goal at this time is to get patient back home with . He still wants to give [facility] a try. I encouraged the patient to be thinking of "Plan B" in case HSR is too intense and/or he continues to decline. In that case, they would consider a SNF. -Lengthy discussion about end-of-life and patient's wishes. Patient and have had several conversations about end-of-life issues and both agree that once there is no quality of life and the patient is "tired of fighting," they will make the decision to stop peritoneal dialysis and enter hospice care at home. They are not quite ready for hospice at this time. -Patient has a living will, will try to locate and bring a copy. I discussed a POLST form with them and encouraged them to complete one especially if/when patient is entering hospice. Thank you kindly for this consult. I will follow as needed.
[2017-01-13] MEDS: AMOXICILLIN/CLAVULANATE TAB 500 MG TAB PO SCH (19:47)
--- NOTE | 2017-01-13 20:06 | DIAGNOSTIC IMAGING REPORT ---
CHEST ONE VIEW PORTABLE CLINICAL HISTORY: Pleural effusion. COMPARISON STUDY: Chest radiograph December 29, 2016. FINDINGS: There are median sternotomy wires. A few nodular right midlung opacities are noted. A small to moderate left pleural effusion has slightly increased in size since prior exam. There is no evidence of pulmonary edema. Cardiomediastinal silhouette is stable. A prosthetic cardiac valve is noted. IMPRESSION: 1. Mild increase in size of a small to moderate left pleural effusion. 2. No significant change in nodular and patchy right lung airspace opacities. Electronically signed by: Anson Chiang M.D. 01/13/2017 8:05 PM Dictated Date/Time: 01/13/2017 8:00 PM
[2017-01-13] MEDS: ROSUVASTATIN CALCIUM 20 MG TAB PO SCH (21:20)
[2017-01-13] MEDS: ZOLPIDEM TARTRATE 5 MG TAB PO PRN (23:18)
[2017-01-14] VITALS (13 sets, daily range): BP systolic 76–151; BP diastolic 45–91; PULSE 47–134; TEMP 36.2–37.2; O2SAT 95–100; Ht 172.7 cm; Wt 98.9 kg
[2017-01-14 06:07] LABS: MEAN CELL VOLUME 83.3 fL (80-100); MEAN CORPUSCULAR HEMOGLOBIN 30.2 pg (25-34); MEAN CORPUSCULAR HGB CONC 36.3 g/dl (32-36); RED BLOOD COUNT 3.24 M/uL (4.7-6.1); WHITE BLOOD COUNT 9.83 K/uL (4.8-10.8)
[2017-01-14 06:51] LABS: BUN/CREATININE RATIO 11.4 (10-20); CALCIUM 7.3 mg/dl (8.5-10.1); POTASSIUM 4.2 mmol/L (3.5-5.1)
[2017-01-14 07:01] LABS: BETA-HYDROXYBUTYRATE 1.23 mg/dL (0.2-2.81)
[2017-01-14 07:30] LABS: MEAN PLATELET VOLUME 11.5 fL (7.4-10.4); PLATELET COUNT 53 K/uL (130-400)
[2017-01-14] MEDS: ALLOPURINOL 100 MG TAB PO SCH ×2 (07:59→20:20)
[2017-01-14] MEDS: METOPROLOL TARTRATE 25 MG TAB PO SCH (07:59)
[2017-01-14] MEDS: CALCIUM ACETATE 667MG GELCAP PO SCH ×3 (08:00→16:45)
[2017-01-14] MEDS: INSULIN GLARGINE SOLOSTAR 100 UNITS/ML 3 ML PEN SC SCH ×2 (08:05→20:23)
[2017-01-14] MEDS: INSULIN ASPART 100 UNITS/ML 3 ML PEN SC SCH ×4 (08:05→20:20)
[2017-01-14] MEDS ORDERED: METOPROLOL TARTRATE 1 MG/ML VIAL IV STA (08:49)
[2017-01-14] MEDS ORDERED: SENNA 8.6 MG TAB PO ONE (09:35)
--- NOTE | 2017-01-14 09:36 | Dialysis Progress Note ---
Nephrology Dialysis Note Date of Service: Jan 14, 2017. Subjective see this am 0830 on PD. no change in chronic dyspnea; denies pain or distress. feels edema remains controlled; no n/v/d/c/ abd pain, though last bm about 36 hrs ago. contemplating HSo d/c. flipped into AF ON Objective Date Time Temp Pulse Resp B/P Pulse Ox O2 Delivery O2 Flow Rate FiO2 01/14/17 08:11 36.8 134 18 133/91 95 Room Air 01/14/17 04:00 36.5 112 22 118/61 95 Room Air 01/14/17 04:00 97 Room Air 01/13/17 23:59 97 Room Air 01/13/17 23:45 36.8 70 22 143/91 96 Room Air 01/13/17 20:00 97 Room Air 01/13/17 19:38 36.8 87 18 130/78 97 Room Air 01/13/17 16:00 Room Air 01/13/17 15:26 36.4 67 16 107/50 98 Room Air 01/13/17 12:00 Room Air 01/13/17 11:28 36.5 67 16 124/70 96 Room Air Physical Exam: GENERAL: Awake, alert, oriented x3. sitting up on side of bed; marked resp distress w/ moving EYES: No scleral icterus. ENT: Moist mucous membranes. NECK: Supple. PULMONARY: Clear but very diminished CARDIAC: irregular in 120s ABDOMEN: PD catheter present; on PD. Bowel sounds positive, soft, nontender. EXTREMITIES: No significant clubbing, cyanosis; 1-2+ BL pedal edema. NEUROLOGICAL: davila, fluent speech; ?insight as at previous exams Current Inpatient Medications Medications (Trade) Dose Ordered Sig/Romulo Route Start Time Stop Time Status Last Admin Dose Admin Acetaminophen (Tylenol Tab) 650 mg Q4H PRN PO 01/11/17 15:45 02/10/17 15:44 Ondansetron HCl (Zofran Inj) 4 mg Q6H PRN IV 01/11/17 15:45 02/10/17 15:44 Miscellaneous Information (Consult Glycemic Management Pharmacy) 1 ea UD PRN N/A 01/11/17 16:05 02/10/17 16:04 Miscellaneous Information (Pharmacy Consult) 1 ea UD PRN N/A 01/11/17 15:53 02/10/17 15:52 Amoxicillin/ Clavulanate Potassium (Augmentin Tab) 500 mg Q24H PO 01/11/17 17:00 01/21/17 16:59 01/13/17 19:47 500 MG Allopurinol (Zyloprim Tab) 100 mg BID PO 01/11/17 21:00 02/10/17 20:59 01/14/17 07:59 100 MG Metoprolol Tartrate (Lopressor Tab) 12.5 mg QAM PO 01/12/17 09:00 02/11/17 08:59 01/14/17 07:59 12.5 MG Prednisone (PredniSONE TAB) 40 mg DAILY PO 01/12/17 09:00 02/11/17 08:59 01/14/17 08:00 40 MG Rosuvastatin Calcium (Crestor Tab) 40 mg HS PO 01/11/17 21:00 02/10/17 20:59 01/13/17 21:20 40 MG Calcium Acetate (Phoslo Cap) 667 mg TIDM PO 01/11/17 17:18 02/10/17 17:59 01/14/17 08:00 667 MG Insulin Aspart (novoLOG ASPART) SLIDING SCALE ACHS SC 01/11/17 21:00 02/10/17 20:59 01/14/17 08:05 10 UNITS Zolpidem Tartrate (Ambien Tab) 5 mg HS PRN PO 01/12/17 05:15 02/11/17 05:14 01/13/17 23:18 5 MG Insulin Glargine (Lantus Solostar Pen) PER SCALE BID SC 01/12/17 21:00 02/10/17 20:59 01/14/17 08:05 22 UNIT Last 24 Hours Test 01/13/17 09:54 01/13/17 10:50 01/13/17 16:28 01/13/17 16:29 Bedside Glucose 169 mg/dl 161 mg/dl 67 mg/dl 68 mg/dl Test 01/13/17 17:17 01/13/17 20:01 01/14/17 05:35 01/14/17 06:42 Bedside Glucose 105 mg/dl 174 mg/dl 341 mg/dl White Blood Count 9.83 K/uL Red Blood Count 3.24 M/uL Hemoglobin 9.8 g/dL Hematocrit 27.0 % Mean Corpuscular Volume 83.3 fL Mean Corpuscular Hemoglobin 30.2 pg Mean Corpuscular Hemoglobin Concent 36.3 g/dl RDW Standard Deviation 39.8 fL RDW Coefficient of Variation 13.0 % Platelet Count 53 K/uL Mean Platelet Volume 11.5 fL Sodium Level 128 mmol/L Potassium Level 4.2 mmol/L Chloride Level 88 mmol/L Carbon Dioxide Level 24 mmol/L Anion Gap 16.0 mmol/L Blood Urea Nitrogen 126 mg/dl Creatinine 11.00 mg/dl Est Creatinine Clear Calc Drug Dose 7.4 ml/min Estimated GFR () 4.9 Estimated GFR (Non- 4.3 BUN/Creatinine Ratio 11.4 Random Glucose 325 mg/dl Calcium Level 7.3 mg/dl Beta-Hydroxybutyric Acid 1.23 mg/dL Assessment & Plan 66 y/o M w/ ESRD on PD, hx of sarcoidosis, AVR, DM, mainstem bronchus narrowing w/ frequent admissions for volume overload admitted 01/12 with failure to thrive at home and ambulatory dysfunction. 1. End-stage renal disease, on peritoneal dialysis. Volume status appears acceptable. cont 5 x 2L exchanges on cycler over 11 hours; all green; no MDE or LBF. Currently not uremic and volume status appears appropriate. wnsure bm today 2. Anemia of renal failure. Given his history of melanoma this past fall, the patient is transfusion dependent. No indication for transfusion at this time. Given cardiac hx, may need to have threshold of 7.5 hgb for transfusion 3. Renal osteodystrophy. continue patient's phosphate binders and check phosphorus levels tomorrow am 4. Cardiology. The patient was recently recommended by cardiology to have a pacemaker, given tachy/love episodes. Unclear if patient is going to pursue the pacemaker at this time or not. More issues w/ AR past 24 hrs 5. Goals of care. The patient is considering whether or not to pursue home hospice. is the primary caregiver for the patient and has been doing an excellent job taking care of him at home, but is getting tired and patient is becoming too much for her to handle at home. The patient at this time is not ready to do home hospice and would like to try physical therapy/ rehabilitation at [facility] which is the tentative plan Appreciate consult; will follow with you.
--- NOTE | 2017-01-14 09:55 | Progress Note ---
Subjective Date of Service: Jan 14, 2017. Subjective Pt evaluation today including: conversation w/ patient, physical exam, lab review, review of studies, review of inpatient medication list Saw/examined the patient in room 236 He is doing okay, stable breathing, stable cough peritoneal dialysis went okay (though complaints about starting late) Denies chest pain or palpitations Problem List Medical Problems: (1) Influenza Status: Acute (2) Intravascular volume depletion Status: Acute Review of Systems Constitutional: No chills, No fever Respiratory: + cough, + shortness of breath (chronic), No dyspnea on exertion, No hemoptysis, No wheezing Cardiac: No chest pain, No edema, No palpitations Abdomen: No diarrhea, No nausea, No pain, No vomiting Medications Current Inpatient Medications Medications (Trade) Dose Ordered Sig/Romulo Route Start Time Stop Time Status Last Admin Dose Admin Acetaminophen (Tylenol Tab) 650 mg Q4H PRN PO 01/11/17 15:45 02/10/17 15:44 Ondansetron HCl (Zofran Inj) 4 mg Q6H PRN IV 01/11/17 15:45 02/10/17 15:44 Miscellaneous Information (Consult Glycemic Management Pharmacy) 1 ea UD PRN N/A 01/11/17 16:05 02/10/17 16:04 Miscellaneous Information (Pharmacy Consult) 1 ea UD PRN N/A 01/11/17 15:53 02/10/17 15:52 Amoxicillin/ Clavulanate Potassium (Augmentin Tab) 500 mg Q24H PO 01/11/17 17:00 01/21/17 16:59 01/13/17 19:47 500 MG Allopurinol (Zyloprim Tab) 100 mg BID PO 01/11/17 21:00 02/10/17 20:59 01/14/17 07:59 100 MG Metoprolol Tartrate (Lopressor Tab) 12.5 mg QAM PO 01/12/17 09:00 02/11/17 08:59 01/14/17 07:59 12.5 MG Prednisone (PredniSONE TAB) 40 mg DAILY PO 01/12/17 09:00 02/11/17 08:59 01/14/17 08:00 40 MG Rosuvastatin Calcium (Crestor Tab) 40 mg HS PO 01/11/17 21:00 02/10/17 20:59 01/13/17 21:20 40 MG Calcium Acetate (Phoslo Cap) 667 mg TIDM PO 01/11/17 17:18 02/10/17 17:59 01/14/17 08:00 667 MG Insulin Aspart (novoLOG ASPART) SLIDING SCALE ACHS SC 01/11/17 21:00 02/10/17 20:59 01/14/17 08:05 10 UNITS Zolpidem Tartrate (Ambien Tab) 5 mg HS PRN PO 01/12/17 05:15 02/11/17 05:14 01/13/17 23:18 5 MG Insulin Glargine (Lantus Solostar Pen) PER SCALE BID SC 01/12/17 21:00 02/10/17 20:59 01/14/17 08:05 22 UNIT Docusate Sodium (coLACE CAP) 100 mg BID PO 01/14/17 21:00 02/13/17 20:59 Senna (Senokot Tab) 17.2 mg QAM PO 01/15/17 09:00 02/14/17 08:59 Objective Vital Signs Date Time Temp Pulse Resp B/P Pulse Ox O2 Delivery O2 Flow Rate FiO2 01/14/17 08:11 36.8 134 18 133/91 95 Room Air 01/14/17 04:00 36.5 112 22 118/61 95 Room Air 01/14/17 04:00 97 Room Air 01/13/17 23:59 97 Room Air 01/13/17 23:45 36.8 70 22 143/91 96 Room Air 01/13/17 20:00 97 Room Air 01/13/17 19:38 36.8 87 18 130/78 97 Room Air 01/13/17 16:00 Room Air 01/13/17 15:26 36.4 67 16 107/50 98 Room Air 01/13/17 12:00 Room Air 01/13/17 11:28 36.5 67 16 124/70 96 Room Air Physical Exam General Appearance: no apparent distress Respiratory/Chest: chest non-tender, lungs clear, normal breath sounds, no respiratory distress, no accessory muscle use Cardiovascular: no murmur, + tachycardia, + irregularly irregular Extremities: + pertinent finding (trace edema b/l LE) Neurologic/Psychiatric: no motor/sensory deficits, alert, normal mood/affect Skin: normal color Laboratory Results Last 24 Hours Test 01/13/17 09:54 01/13/17 10:50 01/13/17 16:28 01/13/17 16:29 Bedside Glucose 169 mg/dl 161 mg/dl 67 mg/dl 68 mg/dl Test 01/13/17 17:17 01/13/17 20:01 01/14/17 05:35 01/14/17 06:42 Bedside Glucose 105 mg/dl 174 mg/dl 341 mg/dl White Blood Count 9.83 K/uL Red Blood Count 3.24 M/uL Hemoglobin 9.8 g/dL Hematocrit 27.0 % Mean Corpuscular Volume 83.3 fL Mean Corpuscular Hemoglobin 30.2 pg Mean Corpuscular Hemoglobin Concent 36.3 g/dl RDW Standard Deviation 39.8 fL RDW Coefficient of Variation 13.0 % Platelet Count 53 K/uL Mean Platelet Volume 11.5 fL Sodium Level 128 mmol/L Potassium Level 4.2 mmol/L Chloride Level 88 mmol/L Carbon Dioxide Level 24 mmol/L Anion Gap 16.0 mmol/L Blood Urea Nitrogen 126 mg/dl Creatinine 11.00 mg/dl Est Creatinine Clear Calc Drug Dose 7.4 ml/min Estimated GFR () 4.9 Estimated GFR (Non- 4.3 BUN/Creatinine Ratio 11.4 Random Glucose 325 mg/dl Calcium Level 7.3 mg/dl Beta-Hydroxybutyric Acid 1.23 mg/dL Assessment and Plan This is a 66 year old male with PMH of ESRD on peritoneal dialysis, granulomatous lung disease/sarcoidosis, 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 of aortic valve replacement, mainstem bronchus stenosis, HTN, HLD Tachy-Love Syndrome 01/14 currently seems to be going into A. fib with RVR due to tachy-love, must monitor and make sure he does not love down to note, he is scheduled for a permanent pacemaker on 01/28 - he has not decided if he wants this in will try one dose of IV Lopressor and monitor He is currently asymptomatic so will not push this further consulted cardiology for further input 01/13 likely related to Sarcoid/Granulomatous Lung Disease follows with cardiology he is to have a pacer placed on 01/28 Falls, Ambulatory Dysfunction Weakness 01/14 patient presented with fall and weakness the risks of anticoagulation may outweigh benefits long-term will continue PT/OT plan is for [facility] discharge around 01/16 appreciate palliative care consultation 01/13 continue PT/OT [facility] palliative care consult for discussion about home hospice if that will be an option in the future 01/12 patient has had multiple admissions to the hospital multiple mechanical falls states that he does not get dizzy, just felt weak and fell will need PT/OT placement to rehab discharge planning evaluation ESRD on PD 01/14 potassium wnl sodium a little low at 128 appreciate nephro input regarding PD continue PD as tolerated 01/13 potassium = 4.0 continue PD as per nephro appreciate nephrology input 01/12 potassium on admission ~ 5.4 given IV insulin 10 units and Kayexalate Potassium now wnl Sodium improved from 124 to 128 removed about 700cc with PD continue PD nightly appreciate nephrology input Elevated Troponin Level this is more likely related to this end stage kidney disease as well as tachycardia denies chest pain, denies shortness of breath, denies cough No other symptoms to note Sinusitis Head CT with no acute intracranial findings air-fluid levels at sinuses started on Augmentin Granulomatous Lung Disease/Sarcoidosis Hilar/Mediastinal and Diaphragmatic Lymphadenopathy stable continue chronic steroid use Insulin Dependent DM2 started on 22 units Lantus BID insulin sliding scale glycemic control consult appreciated Thrombocytopenia platelets down to 58, monitor likely due to chronic disease CAD continue b-arsalan and statin monitor for bradycardia holding aspirin due to thrombocytopenia DVT ppx SCDs DNR d/c planning for 01/16
--- NOTE | 2017-01-14 11:24 | Cardiology Consultation ---
Cardiology Consultation Date of Service Jan 14, 2017. (Kenzie Grullon, [place]) Cardiology Consultation History of Present Illness Mr. Heredia is a markedly complex 66 year old male who presented to the [facility] ER earlier this week with progressive weakness and recent falls. He has a complex history of AVR in 2008 secondary to bicuspid aortic valve and severe , moderate CAD in 2008 without interventions, end stage renal disease on periotneal dialysis, new diagnosis of sarcoid lung disease now following with pulmonology. He was admitted last month with weakness and +influenza A. Cardiology was consulted due to evidence of heart block, tachybrady syndrome. Since that time he was evaluated as an outpatient by EP, Dr. Emmanuel and it has been recommended that he undergo dual chamber pacemaker implantation, scheduled for for signifciant conduction system disease. He was maintained on low dose metoprolol tartrate 12.5 mg daily. Mr. Heredia recently agreed to an outpatient ambulatory monitoring analyst in November 2016. This was recommended because of his conduction system disease and the diagnosis of sarcoid. The predominant rhythm was sinus on the ZioXT monitor. The average heart rate was 60 bpm. Minimum heart rate was 37 bpm. Maximum heart rate was 176 bpm. There were 12 SVT runs with the longest lasting ~50 seconds, asymptomatic. Possible accelerated junction rhythm noted. Because of the ZioXT monitor results it has been recommended that he Electrophysiology for their recommendations. Last night patient went in to afib with mildly elevated ventricular rates. He was asymptomatic. He has not been deemed not a halfway anticoagulation candidate due to falls, weakness. He also has thrombocytopenia and ASA 81 mg on hold. He denies acute complaints at this time. He denies chest pain or SOB. No dizziness or sense of palpitations. No orthopnea, PND or LE edema. He notes continued weakness. On review of chart, it appears palliative medicine has been consulted. Goals are to return home with . He is planning on going to [facility] on discharge and possible SNF if needed. THey declined hospice at this time. History Past Medical/Surgical History: Congenitally bicuspid aortic valve with severe aortic stenosis Status post May 03, 2009 minimally invasive AVR with a 23 mm Harvey-Dunlap pericardial valve at [facility]. Preceding catheterization performed in March 2009 at [facility] demonstrated moderate branch vessel ASCVD with an 80% narrowing in a subbranch of a third diagonal, 60 to 70% narrowing within the branch of the OM, and mild irregularities within the RCA of 30-40%. Post discharge course complicated by right heart failure and hypotension. 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 Family History: Valvular heart disease in father. Social History: . Nonsmoker. No significant alcohol consumption. No illegal drug use. 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 Allergies Coded Allergies: No Known Allergies (Unverified , 12/25/16) Medications Reported Home Medications Medications Dose Route/Sig Max Daily Dose Days Date Category Dose Instructions Phoslo 667 Mg (Calcium Acetate) 667 Mg Cap 1 Cap PO TIDM 90 01/11/17 Reported Novolog (Insulin Aspart) 100 Units/Ml Inj 0 SQ TIDM 01/11/17 Reported PER SLIDING SCALE Prednisone 20 Mg Tab 40 Mg PO DAILY 30 12/30/16 Rx Lopressor (Metoprolol Tartrate) 25 Mg Tab 12.5 Mg PO QAM 30 12/30/16 Rx Colchicine 0.6 Mg Tab 0.6 Mg PO DAILY PRN 12/25/16 Reported Toujeo Solostar (Insulin Glargine) 300 Unit/Ml Inj 22 Units SQ QPM 12/08/16 Reported Toujeo Solostar (Insulin Glargine) 300 Unit/Ml Inj 22 Units SQ QAM 12/08/16 Reported Aspirin Ec (Aspirin) 81 Mg Tab 81 Mg PO QAM 11/29/16 Reported Zyloprim (Allopurinol) 100 Mg Tab 100 Mg PO BID 01/07/14 Reported Crestor (Rosuvastatin Calcium) 20 Mg Tab 40 Mg PO HS 01/07/14 Reported Physical Exam Last 8 Hrs Date Time Temp Pulse Resp B/P Pulse Ox O2 Delivery O2 Flow Rate FiO2 01/14/17 08:49 134 133/91 01/14/17 08:11 36.8 134 18 133/91 95 Room Air 01/14/17 08:00 Room Air 01/14/17 04:00 36.5 112 22 118/61 95 Room Air 01/14/17 04:00 97 Room Air General Appearance: Alert and Oriented x3. NAD. [place] HEENT: Normocephalic Atraumatic. PER, EOMI, conjunctiva and sclera injected Neck: Supple. Bilateral carotid bruits. No overt JVD Respiratory: Decreased breath sounds, otherwise clear. Cardiovascular: irregularly irregular with mildly elevated ventricular rates. Grade III/ systolic ejection murmur. No diastolic murmur. Abdomen: +BS. Peritoneal dialysis catheter Extremities: 1+ edema. No clubbing. No cyanosis. No distal pulses palpable. Neuro: No focal deficits. Psychiatric: Normal affect. Data EKG this AM Atrial fibrillation with rapid ventricular response Right bundle branch block Abnormal ECG When compared with ECG of 13-JAN-2017 06:31, Atrial fibrillation has replaced Sinus rhythm QRS axis Shifted right Assessment & Plan 1. New onset atrial fibrillation with mildly elevated ventricular rates -recent Zio monitor with evidence of conduction system disease -it has been recommended the patient undergo dual chamber pacemaker implant at prior office visit and this is scheduled tentatively for 01/[address] Emmanuel -however, patient is now considering palliative care/hospice if condition does not improve with rehab (pulmonary disease/ESRD) -At this time, no evidence of significant bradyarrhythmias. Rates relatively well controlled at rest, ranging 100-120. -continue metoprolol tartrate PO with additional IV metoprolol PRN for rates > 130 -given thrombocytopenia and recent falls, anticoagulation is contraindicated. May try to resume ASA 81 mg daily. 2. Congenitally bicuspid aortic valve with severe aortic stenosis Status post May 03, 2009 minimally invasive AVR with a 23 mm Harvey- Dunlap pericardial valve at [facility]. -No recent echo available. Was to be completed last admission, but not completed. Will order. 3. Moderate branch vessel ASCVD Asymptomatic. Continue appropriate medical therapies. 4. End stage renal disease, on peritoneal dialysis 5. Pulmonary granulomatosis and right main stenosis - pulmonology following Case discussed with Dr. Sanchez Will follow. (Kenzie Grullon PA-C) Cardiology attending: Pt seen and examined, agree with findings and assessment as per Kenzie Santacruz. Pt scheduled for PPM placement with Dr. Hatfield on 01/28, requesting procedure be done while patient currently admitted. Patient currently contemplating hospice, does not believe he would want any further procedures and just wants to be left alone to . Given this, will d/c PPM implantation. Instead, will have patient follow up as an outpatient on that date with Dr. Emmanuel to discuss patient wishes on that date. Given this, unable to treat afib with rvr. agree with low dose metoprolol po bid along with prn IV metoprolol. Not a coumadin candidate. Will consider aspirin however, increased bleeding risk with thrombocytopenia. (Kenneth Sanchez, D.O.)
[2017-01-14] MEDS ORDERED: METOPROLOL TARTRATE 1 MG/ML VIAL IV PRN (11:30)
[2017-01-14] MEDS ORDERED: PERFLUTREN LIPID MICROSPHERE (DEFINITY) IV ONE (14:31)
--- NOTE | 2017-01-14 15:44 | Pharmacy Progress Note ---
Glycemic: Assessment & Plan Date of Service Jan 14, 2017. Assessment & Plan The patient received 39 units of insulin on 01/12, 55 units on 01/13. BSGs ranging 67 -341 mg/dl over the past 24hrs. Still on nightly peritoneal dialysis. Still on Prednisone 40 mg daily. Fair PO intake. Unclear why BSG's fluctuated so much. Will continue same doses for now, provide regular insulin IV bolus if BSG's remain over 300, and reassess in am. * Basal insulin: Lantus per protocol every 12 hours if BSG is less than 100, hold dose if BSG 100-120, give 11 units if BSG is over 120, give 22 units * Correctional Insulin: Novolog Correction per scale ACHS Goal Range: Low 120 mg/dL - High 160 mg/dL Correction Factor: 30 mg/dL/unit * Prandial insulin: Per carb ratio of 1 unit per 10 grams CHO consumed BSGs continue to improve, no other changes needed to inpatient regimen at this time. Pharmacy will continue to monitor patient daily and write orders per [facility] inpatient glycemic control protocol. Thanks. * Please note that the plan above was derived based on current level of insulin resistance and hospital stress. These recommendations are appropriate for inpatient admission only. Plan of care upon discharge will need to be reassessed to avoid potential outpatient hypo/hyperglycemia.
[2017-01-14] MEDS ORDERED: PHARMACY GLYCEMIC MGMT CONSULT STA (15:45)
[2017-01-14] MEDS: AMOXICILLIN/CLAVULANATE TAB 500 MG TAB PO SCH (17:15)
[2017-01-14] MEDS: DOCUSATE SODIUM 100 MG CAP PO SCH (20:19)
[2017-01-14] MEDS: ROSUVASTATIN CALCIUM 20 MG TAB PO SCH (20:20)
[2017-01-14] MEDS: ZOLPIDEM TARTRATE 5 MG TAB PO PRN (23:10)
[2017-01-15] VITALS (17 sets, daily range): BP systolic 67–142; BP diastolic 41–77; PULSE 65–107; TEMP 36.3–37.1; O2SAT 93–100
[2017-01-15 06:12] LABS: HEMATOCRIT 24.9 % (42-52); MEAN CELL VOLUME 83.6 fL (80-100); MEAN CORPUSCULAR HEMOGLOBIN 30.2 pg (25-34); MEAN CORPUSCULAR HGB CONC 36.1 g/dl (32-36); RED BLOOD COUNT 2.98 M/uL (4.7-6.1); WHITE BLOOD COUNT 11.24 K/uL (4.8-10.8)
[2017-01-15 06:25] LABS: MEAN PLATELET VOLUME 11.2 fL (7.4-10.4); PLATELET COUNT 50 K/uL (130-400)
[2017-01-15 06:56] LABS: BUN/CREATININE RATIO 11.4 (10-20); PHOSPHORUS 7.6 mg/dl (2.5-4.9); POTASSIUM 4.2 mmol/L (3.5-5.1)
[2017-01-15] MEDS: SENNA 8.6 MG TAB PO SCH (08:04)
[2017-01-15] MEDS: DOCUSATE SODIUM 100 MG CAP PO SCH ×2 (08:04→21:25)
[2017-01-15] MEDS: CALCIUM ACETATE 667MG GELCAP PO SCH ×3 (08:05→18:10)
[2017-01-15] MEDS: METOPROLOL TARTRATE 25 MG TAB PO SCH (08:06)
[2017-01-15] MEDS: INSULIN ASPART 100 UNITS/ML 3 ML PEN SC SCH ×4 (08:20→21:27)
[2017-01-15] MEDS: INSULIN GLARGINE SOLOSTAR 100 UNITS/ML 3 ML PEN SC SCH ×2 (08:21→21:27)
--- NOTE | 2017-01-15 08:31 | ECHOCARDIOGRAM REPORT ---
*NOTICE TO RECEIVING LIBERTARIAN AGENCY This information is strictly Confidential and protected under [place] law. [place] law prohibits you from making any further disclosure of this information unless further disclosure is expressly permitted by the written consent of the person to whom it pertains or is authorized by law. A general authorization for the release of medical or other information is not sufficient for this purpose. Hospital accepts no responsibility if the information is made available to any other person, INCLUDING THE PATIENT. Interpretation Summary * Name: RONNIE PAREKH Study Date: 01/14/2017 01:50 PM BP: 93/61 mmHg * Patient Location: C.2T\S\S236\S\1 HR: 88 * : 1950 (M/d/yyyy) Gender: Male Height: 68 in * Age: 66 yrs Ethnicity: [place] Weight: 218 lb * Ordering Physician: Kenzie Grullon * Performed By: Maisha Jiang RDCS * * Reason For Study: Valvular heart disease * BSA: 2.1 m2 * -- Conclusions -- * Normal LV chamber size with mild concentric LVH. * Normal LV systolic function, EF 55-60%. * No segmental left ventricular wall motion abnormalities are noted. * Grade III diastolic dysfunction (restrictive physiology). * There is a bioprosthetic aortic valve. * The valve opening cannot be assessed due to imaging artifacts from the prosthesis. * The gradient is abnormal for this prosthetic aortic valve. * Moderate to severe mitral annular calcification. * Moderate left atrial enlargement. Procedure Details * A complete two-dimensional transthoracic echocardiogram was performed (2D, M-mode, Doppler and color flow Doppler). * A contrast injection of Definity was performed to improve assessment of LV function. * Contrast was injected into an intravenous site in the left arm. * One vial of Definity ultrasound contrast was diluted in normal saline to a total volume of 10 ml. A total of '2' ml of solution was administered during imaging. * Lot # [id number] of Definity utilized for procedure. * Expiration date NOV 20. * The attending nurse who injected the contrast agent was Dorothy Preston RN. Left Ventricle * The left ventricle is normal in size. * There is mild concentric left ventricular hypertrophy. * Ejection Fraction = 55-60%. * Left ventricular systolic function is normal. * No segmental left ventricular wall motion abnormalities are noted. * The left ventricular wall motion is normal. Right Ventricle * The right ventricle is not well visualized. * The right ventricular systolic function is reduced as assessed by tricuspid annular plane systolic excursion (TAPSE) (TAPSE <1.6 cm). Atria * The left atrium is moderately dilated. * Right atrium not well visualized. * There is no evidence of atrial septal defect, but resolution does not allow assessment for a patent foramen ovale. Mitral Valve * There is moderate to severe mitral annular calcification. * There is no mitral valve stenosis. * There is no mitral regurgitation noted. Tricuspid Valve * The tricuspid valve is normal in structure and function. Aortic Valve * There is a bioprosthetic aortic valve. * The valve opening cannot be assessed due to imaging artifacts from the prosthesis. * The gradient is abnormal for this prosthetic aortic valve. * Doppler evidence of regurgitation is probably normal for this prosthetic aortic valve. Pulmonic Valve * The pulmonary valve is not well seen, but the Doppler examination is normal without significant regurgitation or stenosis. Great Vessels * The aortic root is not well visualized but is probably normal size. Pericardium/Pleural * There is no pericardial effusion. Left Ventricular Diastolic Function * Diastolic dysfunction, Grade III, consistent with marked congestive heart failure. MMode 2D Measurements and Calculations IVSd 1.4 cm LVIDd 4.1 cm LVIDs 3.0 cm LVPWd 1.2 cm IVS/LVPW 1.2 FS 26.9 % EDV(Teich) 75.3 ml ESV(Teich) 35.4 ml EF(Teich) 53.0 % EDV(cubed) 70.2 ml ESV(cubed) 27.4 ml EF(cubed) 61.0 % LV mass(C)d 193.9 grams LV mass(C)dI 91.5 grams/m\S\2 SV(Teich) 39.9 ml SI(Teich) 18.8 ml/m\S\2 SV(cubed) 42.9 ml SI(cubed) 20.2 ml/m\S\2 LA dimension 3.6 cm asc Aorta Diam 3.9 cm LVAd ap4 31.6 cm\S\2 LVLd ap4 7.9 cm EDV(MOD-sp4) 102.9 ml EDV(sp4-el) 107.6 ml LVAs ap4 20.4 cm\S\2 LVLs ap4 7.8 cm ESV(MOD-sp4) 46.7 ml ESV(sp4-el) 45.5 ml EF(MOD-sp4) 54.6 % EF(sp4-el) 57.7 % LVAd ap2 25.1 cm\S\2 LVLd ap2 7.2 cm EDV(MOD-sp2) 72.1 ml EDV(sp2-el) 74.9 ml LVAs ap2 16.8 cm\S\2 LVLs ap2 6.9 cm ESV(MOD-sp2) 33.7 ml ESV(sp2-el) 34.9 ml EF(MOD-sp2) 53.2 % EF(sp2-el) 53.5 % LVLd %diff -10.35 % EDV(MOD-bp) 88.1 ml LVLs %diff -13.04 % ESV(MOD-bp) 41.6 ml EF(MOD-bp) 52.8 % SV(MOD-sp4) 56.2 ml SI(MOD-sp4) 26.5 ml/m\S\2 SV(MOD-sp2) 38.4 ml SI(MOD-sp2) 18.1 ml/m\S\2 SV(MOD-bp) 46.5 ml SI(MOD-bp) 21.9 ml/m\S\2 SV(sp4-el) 62.1 ml SI(sp4-el) 29.3 ml/m\S\2 SV(sp2-el) 40.1 ml SI(sp2-el) 18.9 ml/m\S\2 Doppler Measurements and Calculations MV E max yulissa 122.2 cm/sec MV A max yulissa 76.2 cm/sec MV E/A 1.6 MV dec time 0.13 sec Ao V2 max 169.3 cm/sec Ao max PG 11.5 mmHg Ao max PG (full) 9.4 mmHg Ao V2 mean 112.1 cm/sec Ao mean PG 5.8 mmHg Ao V2 VTI 25.7 cm LV V1 max PG 2.1 mmHg LV V1 max 71.8 cm/sec PA V2 max 105.9 cm/sec PA max PG 4.5 mmHg PA acc slope 547.3 cm/sec\S\2 PA acc time 0.13 sec PI max yulissa 130.3 cm/sec PI max PG 6.8 mmHg PI dec slope 127.3 cm/sec\S\2 PI P1/2t 299.8 msec PA pr(Accel) 20.4 mmHg
--- NOTE | 2017-01-15 09:16 | Dialysis Progress Note ---
Nephrology Dialysis Note Date of Service: Jan 15, 2017. Subjective see this am 0830 on PD. no change in chronic dyspnea; denies pain or distress. feels edema remains controlled; no n/v/d/c/ abd pain. moved bowels yesterday. ongoing issues yesterday w/ orthostatic hypotension and at least one near fall ; HR to 40s transiently as well Objective Date Time Temp Pulse Resp B/P Pulse Ox O2 Delivery O2 Flow Rate FiO2 01/15/17 07:41 37.1 77 18 142/44 99 3.0 01/15/17 06:55 106 18 01/15/17 04:00 99 Nasal Cannula 3.0 01/14/17 23:59 36.3 47 22 82/45 97 Room Air 01/14/17 23:59 99 Nasal Cannula 3.0 01/14/17 21:00 37.2 84 95/53 01/14/17 20:00 99 Nasal Cannula 3.0 01/14/17 19:12 37.2 80 18 120/72 99 Room Air 3.0 01/14/17 18:13 95/53 118/56 01/14/17 16:00 Room Air 01/14/17 15:48 36.2 95 20 109/61 100 Nasal Cannula 3.0 01/14/17 14:41 92 24 76/54 98 2.0 01/14/17 14:40 100 24 100/48 99 2.0 01/14/17 13:47 135 108/44 01/14/17 12:59 124 93/61 01/14/17 12:00 Room Air 01/14/17 11:13 36.6 75 18 104/50 99 3.0 01/14/17 11:00 36.5 80 16 151/62 Physical Exam: GENERAL: Awake, alert, oriented x3. sitting up in bed; on RA EYES: No scleral icterus. ENT: Moist mucous membranes. NECK: Supple. PULMONARY: Clear but very diminished CARDIAC: irregularly irregular ABDOMEN: PD catheter present; on PD. Bowel sounds positive, soft, nontender. EXTREMITIES: No significant clubbing, cyanosis; 1+ BL pedal edema. NEUROLOGICAL: davila, fluent speech; ?insight as at previous exams Current Inpatient Medications Medications (Trade) Dose Ordered Sig/Romulo Route Start Time Stop Time Status Last Admin Dose Admin Acetaminophen (Tylenol Tab) 650 mg Q4H PRN PO 01/11/17 15:45 02/10/17 15:44 Ondansetron HCl (Zofran Inj) 4 mg Q6H PRN IV 01/11/17 15:45 02/10/17 15:44 Miscellaneous Information (Consult Glycemic Management Pharmacy) 1 UD PRN N/A 01/11/17 16:05 02/10/17 16:04 Miscellaneous Information (Pharmacy Consult) 1 UD PRN N/A 01/11/17 15:53 02/10/17 15:52 Amoxicillin/ Clavulanate Potassium (Augmentin Tab) 500 mg Q24H PO 01/11/17 17:00 01/21/17 16:59 01/14/17 17:15 500 MG Allopurinol (Zyloprim Tab) 100 mg BID PO 01/11/17 21:00 02/10/17 20:59 01/14/17 20:20 100 MG Metoprolol Tartrate (Lopressor Tab) 12.5 mg QAM PO 01/12/17 09:00 02/11/17 08:59 01/15/17 08:06 12.5 MG Prednisone (PredniSONE TAB) 40 mg DAILY PO 01/12/17 09:00 02/11/17 08:59 01/15/17 08:05 40 MG Rosuvastatin Calcium (Crestor Tab) 40 mg HS PO 01/11/17 21:00 02/10/17 20:59 01/14/17 20:20 40 MG Calcium Acetate (Phoslo Cap) 667 mg TIDM PO 01/11/17 17:18 02/10/17 17:59 01/15/17 08:05 667 MG Insulin Aspart (novoLOG ASPART) SLIDING SCALE ACHS SC 01/11/17 21:00 02/10/17 20:59 01/15/17 08:20 7 UNITS Zolpidem Tartrate (Ambien Tab) 5 mg HS PRN PO 01/12/17 05:15 02/11/17 05:14 01/14/17 23:10 5 MG Insulin Glargine (Lantus Solostar Pen) PER SCALE BID SC 01/12/17 21:00 02/10/17 20:59 01/15/17 08:21 22 UNIT Docusate Sodium (coLACE CAP) 100 mg BID PO 01/14/17 21:00 02/13/17 20:59 01/14/17 20:19 100 MG Senna (Senokot Tab) 17.2 mg QAM PO 01/15/17 09:00 02/14/17 08:59 Metoprolol Tartrate (Lopressor Iv) 5 mg Q4H PRN IV 01/14/17 11:30 02/13/17 11:29 01/14/17 13:47 5 MG Last 24 Hours Test 01/14/17 11:21 01/14/17 15:57 01/14/17 19:03 01/15/17 05:35 Bedside Glucose 302 mg/dl 119 mg/dl 122 mg/dl White Blood Count 11.24 K/uL Red Blood Count 2.98 M/uL Hemoglobin 9.0 g/dL Hematocrit 24.9 % Mean Corpuscular Volume 83.6 fL Mean Corpuscular Hemoglobin 30.2 pg Mean Corpuscular Hemoglobin Concent 36.1 g/dl RDW Standard Deviation 39.8 fL RDW Coefficient of Variation 12.9 % Platelet Count 50 K/uL Mean Platelet Volume 11.2 fL Sodium Level 128 mmol/L Potassium Level 4.2 mmol/L Chloride Level 87 mmol/L Carbon Dioxide Level 25 mmol/L Anion Gap 16.0 mmol/L Blood Urea Nitrogen 114 mg/dl Creatinine 10.00 mg/dl Est Creatinine Clear Calc Drug Dose 8.2 ml/min Estimated GFR () 5.6 Estimated GFR (Non- 4.8 BUN/Creatinine Ratio 11.4 Random Glucose 201 mg/dl Calcium Level 7.0 mg/dl Phosphorus Level 7.6 mg/dl Test 01/15/17 06:38 Bedside Glucose 219 mg/dl Assessment & Plan 66 y/o M w/ ESRD on PD, hx of sarcoidosis, AVR, DM, mainstem bronchus narrowing w/ frequent admissions for volume overload admitted 01/12 with failure to thrive at home and ambulatory dysfunction. 1. End-stage renal disease, on peritoneal dialysis. Volume status appears acceptable. cont 5 x 2L exchanges on cycler over 12 hours; all yellow; no MDE or LBF. Currently not uremic and volume status appears appropriate. moving bowels 2. Anemia of renal failure. Given his history of melanoma this past fall, the patient is transfusion dependent. No indication for transfusion at this time. Given cardiac hx, may need to have threshold of 7.5 hgb for transfusion 3. Renal osteodystrophy. continue patient's phosphate binders and check phosphorus levels tomorrow am 4. Cardiology. The patient was recently recommended by cardiology to have a pacemaker, given tachy/love episodes. Unclear if patient is going to pursue the pacemaker at this time or not. ongoing issues w/ AR past 24 hrs 5. Goals of care. The patient is considering whether or not to pursue home hospice. is the primary caregiver for the patient and has been doing an excellent job taking care of him at home, but is getting tired and patient is becoming too much for her to handle at home. The patient at this time is not ready to do home hospice and would like to try physical therapy/ rehabilitation at [facility] which is the tentative plan Appreciate consult; will follow with you. care coordinated w/ Dr Stearns
--- NOTE | 2017-01-15 10:54 | Cardiology Follow-Up ---
Subjective General Date of Service: Jan 15, 2017. Chief Complaint: afib Pt evaluation today including: conversation w/ patient, conversation w/ family , physical exam, chart review, lab review, review of studies, review of inpatient medication list History of Present Illness Patient sitting up in bed playing a card game with . States he is feeling better today. Has more energy. Denies chest pain or increased SOB No sense of palpitations. No dizziness or near syncope today. Had brief episode of dizziness yesterday with standing. No correlation to bradyarrhythmias on telemetry during that time. Telemetry reviewed. Remains in afib with fairly well controlled rates, ranging 80-120. No love. Allergies Coded Allergies: No Known Allergies (Unverified , 01/11/17) Social History Smoking Status: Never Smoker Hx Tobacco Use In Past Year?: No Hx Alcohol Use - Type And Amou: No Hx Substance Use - Type And Am: No Problem List Medical Problems: (1) Influenza Status: Acute (2) Intravascular volume depletion Status: Acute Review of Systems Respiratory: + cough, + shortness of breath, No dyspnea at rest, No hemoptysis , No sputum Cardiac: No PND, No chest pain, No edema, No orthopnea, No palpitations Physical Exam Vital Signs Last Vital Signs Documentation Date Time Temp Pulse Resp B/P Pulse Ox O2 Delivery O2 Flow Rate FiO2 01/15/17 10:10 37.1 77 18 142/44 01/15/17 07:41 99 3.0 01/15/17 04:00 Nasal Cannula Physical Exam Constitutional: General Apperance: well-developed Level of Distress: NAD Psychiatric: Mental Status: active & alert Orientation: to time, to place, to person Head: normocephalic Eyes: Pupils: PERRLA Neck: supple Lungs: Auscultation: no wheezing, no rales/crackles, deminished air movement Cardiovascular: Heart Auscultation: no murmurs, no rubs, no gallops, irregular rate rhythm Abdomen: Bowel Sounds: normal Inspection & Palpation: soft, non-distended Extremities: no edema Assessment and Plan Assessment and Plan 1. New onset atrial fibrillation with mildly elevated ventricular rates -recent Zio monitor with evidence of conduction system disease, tachybrady -it has been recommended the patient undergo dual chamber pacemaker implant at prior office visit and this is scheduled tentatively for 01/[address] Zazzali -however, patient is now considering palliative care/hospice if condition does not improve with rehab (pulmonary disease/ESRD). -At this time, no evidence of significant bradyarrhythmias. Rates relatively well controlled at rest, ranging 100-120. -continue metoprolol tartrate PO with additional IV metoprolol PRN for rates > 130 -given thrombocytopenia and recent falls, anticoagulation is contraindicated. Will try to resume ASA 81 mg daily for stroke prevention. -once pacemaker has been implanted, further HR/rhythm control may be discussed with alternative meds. 2. Congenitally bicuspid aortic valve with severe aortic stenosis Status post May 03, 2009 minimally invasive AVR with a 23 mm Harvey- Dunlap pericardial valve at [facility]. -Echo report reviewed - preserved LV function, mildly increased gradients of AVR. 3. Moderate branch vessel ASCVD Asymptomatic. Continue appropriate medical therapies. 4. End stage renal disease, on peritoneal dialysis 5. Pulmonary granulomatosis and right main stenosis - pulmonology following Case discussed with Dr. Sanchez. Will follow. Cardiology attending: Pt seen and examined, agree with findings and assessment as per Kenzie Santacruz. Still await decision on if patient wants pacemaker or hospice care. Cannot titrate av yasmani agents any further at this time without running the risk of causing significant bradycardia. No changes. Laboratory Results Last 24 Hours Test 01/14/17 11:21 01/14/17 15:57 01/14/17 19:03 01/15/17 05:35 Bedside Glucose 302 mg/dl 119 mg/dl 122 mg/dl White Blood Count 11.24 K/uL Red Blood Count 2.98 M/uL Hemoglobin 9.0 g/dL Hematocrit 24.9 % Mean Corpuscular Volume 83.6 fL Mean Corpuscular Hemoglobin 30.2 pg Mean Corpuscular Hemoglobin Concent 36.1 g/dl RDW Standard Deviation 39.8 fL RDW Coefficient of Variation 12.9 % Platelet Count 50 K/uL Mean Platelet Volume 11.2 fL Sodium Level 128 mmol/L Potassium Level 4.2 mmol/L Chloride Level 87 mmol/L Carbon Dioxide Level 25 mmol/L Anion Gap 16.0 mmol/L Blood Urea Nitrogen 114 mg/dl Creatinine 10.00 mg/dl Est Creatinine Clear Calc Drug Dose 8.2 ml/min Estimated GFR () 5.6 Estimated GFR (Non- 4.8 BUN/Creatinine Ratio 11.4 Random Glucose 201 mg/dl Calcium Level 7.0 mg/dl Phosphorus Level 7.6 mg/dl Test 01/15/17 06:38 Bedside Glucose 219 mg/dl
[2017-01-15] MEDS ORDERED: ASPIRIN 81 MG ECTAB PO ONE (11:00)
[2017-01-15] MEDS: ALLOPURINOL 100 MG TAB PO SCH ×2 (12:36→21:25)
--- NOTE | 2017-01-15 13:08 | Progress Note ---
Subjective Date of Service: Jan 15, 2017. Subjective Pt evaluation today including: conversation w/ patient, conversation w/ family , physical exam, lab review, review of studies, review of inpatient medication list Saw/examined the patient in room 236 He is doing fine, no dizziness today; no problems with respirations, no other issues Problem List Medical Problems: (1) Influenza Status: Acute (2) Intravascular volume depletion Status: Acute Review of Systems Constitutional: No chills, No fever Respiratory: No cough, No dyspnea at rest, No dyspnea on exertion, No hemoptysis, No shortness of breath, No sputum, No wheezing Cardiac: No chest pain, No edema, No palpitations Abdomen: No diarrhea, No nausea, No pain, No vomiting Medications Current Inpatient Medications Medications (Trade) Dose Ordered Sig/Romulo Route Start Time Stop Time Status Last Admin Dose Admin Acetaminophen (Tylenol Tab) 650 mg Q4H PRN PO 01/11/17 15:45 02/10/17 15:44 Ondansetron HCl (Zofran Inj) 4 mg Q6H PRN IV 01/11/17 15:45 02/10/17 15:44 Miscellaneous Information (Consult Glycemic Management Pharmacy) 1 ea UD PRN N/A 01/11/17 16:05 02/10/17 16:04 Miscellaneous Information (Pharmacy Consult) 1 UD PRN N/A 01/11/17 15:53 02/10/17 15:52 Amoxicillin/ Clavulanate Potassium (Augmentin Tab) 500 mg Q24H PO 01/11/17 17:00 01/21/17 16:59 01/14/17 17:15 500 MG Allopurinol (Zyloprim Tab) 100 mg BID PO 01/11/17 21:00 02/10/17 20:59 01/15/17 12:36 100 MG Metoprolol Tartrate (Lopressor Tab) 12.5 mg QAM PO 01/12/17 09:00 02/11/17 08:59 01/15/17 08:06 12.5 MG Prednisone (PredniSONE TAB) 40 mg DAILY PO 01/12/17 09:00 02/11/17 08:59 01/15/17 08:05 40 MG Rosuvastatin Calcium (Crestor Tab) 40 mg HS PO 01/11/17 21:00 02/10/17 20:59 01/14/17 20:20 40 MG Calcium Acetate (Phoslo Cap) 667 mg TIDM PO 01/11/17 17:18 02/10/17 17:59 01/15/17 12:36 667 MG Insulin Aspart (novoLOG ASPART) SLIDING SCALE ACHS SC 01/11/17 21:00 02/10/17 20:59 01/15/17 12:43 9 UNITS Zolpidem Tartrate (Ambien Tab) 5 mg HS PRN PO 01/12/17 05:15 02/11/17 05:14 01/14/17 23:10 5 MG Insulin Glargine (Lantus Solostar Pen) PER SCALE BID SC 01/12/17 21:00 02/10/17 20:59 01/15/17 08:21 22 UNIT Docusate Sodium (coLACE CAP) 100 mg BID PO 01/14/17 21:00 02/13/17 20:59 01/14/17 20:19 100 MG Senna (Senokot Tab) 17.2 mg QAM PO 01/15/17 09:00 02/14/17 08:59 Metoprolol Tartrate (Lopressor Iv) 5 mg Q4H PRN IV 01/14/17 11:30 02/13/17 11:29 01/14/17 13:47 5 MG Objective Vital Signs Date Time Temp Pulse Resp B/P Pulse Ox O2 Delivery O2 Flow Rate FiO2 01/15/17 11:04 36.4 69 18 110/63 95 3.0 01/15/17 10:10 37.1 77 18 142/44 01/15/17 08:00 99 Nasal Cannula 2.0 01/15/17 07:41 37.1 77 18 142/44 99 3.0 01/15/17 06:55 106 18 01/15/17 04:00 99 Nasal Cannula 3.0 01/14/17 23:59 36.3 47 22 82/45 97 Room Air 01/14/17 23:59 99 Nasal Cannula 3.0 01/14/17 21:00 37.2 84 95/53 01/14/17 20:00 99 Nasal Cannula 3.0 01/14/17 19:12 37.2 80 18 120/72 99 Room Air 3.0 01/14/17 18:13 95/53 118/56 01/14/17 16:00 Room Air 01/14/17 15:48 36.2 95 20 109/61 100 Nasal Cannula 3.0 01/14/17 14:41 92 24 76/54 98 2.0 01/14/17 14:40 100 24 100/48 99 2.0 01/14/17 13:47 135 108/44 Physical Exam General Appearance: no apparent distress Respiratory/Chest: lungs clear, no respiratory distress, no accessory muscle use, + decreased breath sounds Cardiovascular: no edema, no murmur, + tachycardia Abdomen: normal bowel sounds, non tender, soft Extremities: + pertinent finding (trace edema b/l LE) Neurologic/Psychiatric: no motor/sensory deficits, alert, normal mood/affect Laboratory Results Last 24 Hours Test 01/14/17 15:57 01/14/17 19:03 01/15/17 05:35 01/15/17 06:38 Bedside Glucose 119 mg/dl 122 mg/dl 219 mg/dl White Blood Count 11.24 K/uL Red Blood Count 2.98 M/uL Hemoglobin 9.0 g/dL Hematocrit 24.9 % Mean Corpuscular Volume 83.6 fL Mean Corpuscular Hemoglobin 30.2 pg Mean Corpuscular Hemoglobin Concent 36.1 g/dl RDW Standard Deviation 39.8 fL RDW Coefficient of Variation 12.9 % Platelet Count 50 K/uL Mean Platelet Volume 11.2 fL Sodium Level 128 mmol/L Potassium Level 4.2 mmol/L Chloride Level 87 mmol/L Carbon Dioxide Level 25 mmol/L Anion Gap 16.0 mmol/L Blood Urea Nitrogen 114 mg/dl Creatinine 10.00 mg/dl Est Creatinine Clear Calc Drug Dose 8.2 ml/min Estimated GFR () 5.6 Estimated GFR (Non- 4.8 BUN/Creatinine Ratio 11.4 Random Glucose 201 mg/dl Calcium Level 7.0 mg/dl Phosphorus Level 7.6 mg/dl Test 01/15/17 11:14 Bedside Glucose 259 mg/dl Assessment and Plan This is a 66 year old male with PMH of ESRD on peritoneal dialysis, granulomatous lung disease/sarcoidosis, 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 of aortic valve replacement, mainstem bronchus stenosis, HTN, HLD Tachy-Love Syndrome 01/15 plan is continue b-arsalan at current dose possible pacemaker as per cardio if patient is not made hospice will d/c to [facility] on 01/16 rehab and then possible home hospice if weakness persists 01/14 currently seems to be going into A. fib with RVR due to tachy-love, must monitor and make sure he does not love down to note, he is scheduled for a permanent pacemaker on 01/28 - he has not decided if he wants this in will try one dose of IV Lopressor and monitor He is currently asymptomatic so will not push this further consulted cardiology for further input 01/13 likely related to Sarcoid/Granulomatous Lung Disease follows with cardiology he is to have a pacer placed on 01/28 Falls, Ambulatory Dysfunction Weakness 01/15 continue PT/OT 01/14 patient presented with fall and weakness the risks of anticoagulation may outweigh benefits long-term will continue PT/OT plan is for [facility] discharge around 01/16 appreciate palliative care consultation 01/13 continue PT/OT discharge planning to [facility] in 1-2 days palliative care consult for discussion about home hospice if that will be an option in the future 01/12 patient has had multiple admissions to the hospital multiple mechanical falls states that he does not get dizzy, just felt weak and fell will need PT/OT placement to rehab discharge planning evaluation ESRD on PD 01/15 continue PD appreciate nephro input 01/14 potassium wnl sodium a little low at 128 appreciate nephro input regarding PD continue PD as tolerated 01/13 potassium = 4.0 continue PD as per nephro appreciate nephrology input 01/12 potassium on admission ~ 5.4 given IV insulin 10 units and Kayexalate Potassium now wnl Sodium improved from 124 to 128 removed about 700cc with PD continue PD nightly appreciate nephrology input Elevated Troponin Level this is more likely related to this end stage kidney disease as well as tachycardia denies chest pain, denies shortness of breath, denies cough No other symptoms to note Sinusitis Head CT with no acute intracranial findings air-fluid levels at sinuses started on Augmentin Granulomatous Lung Disease/Sarcoidosis Hilar/Mediastinal and Diaphragmatic Lymphadenopathy stable continue chronic steroid use Insulin Dependent DM2 started on 22 units Lantus BID insulin sliding scale glycemic control consult appreciated Thrombocytopenia platelets down to 58, monitor likely due to chronic disease CAD continue b-arsalan and statin monitor for bradycardia holding aspirin due to thrombocytopenia DVT ppx SCDs DNR d/c planning for 01/16
[2017-01-15] MEDS: AMOXICILLIN/CLAVULANATE TAB 500 MG TAB PO SCH (18:10)
[2017-01-15] MEDS: ROSUVASTATIN CALCIUM 20 MG TAB PO SCH (21:25)
[2017-01-15] MEDS: ZOLPIDEM TARTRATE 5 MG TAB PO PRN (23:33)
[2017-01-16 00:14] VITALS: BP 98/62; PULSE 75; TEMP 36.4; O2SAT 93
[2017-01-16 04:05] VITALS: BP 104/58; PULSE 72; TEMP 36.7; O2SAT 93
[2017-01-16] MEDS ORDERED: LORAZEPAM 0.5 MG TAB ONE (04:55)
[2017-01-16] MEDS ORDERED: LORAZEPAM 0.5 MG TAB PO ONE (05:00)
[2017-01-16 06:33] LABS: HEMATOCRIT 25.5 % (42-52); MEAN CELL VOLUME 85.6 fL (80-100); MEAN CORPUSCULAR HEMOGLOBIN 29.5 pg (25-34); MEAN CORPUSCULAR HGB CONC 34.5 g/dl (32-36); RED BLOOD COUNT 2.98 M/uL (4.7-6.1); WHITE BLOOD COUNT 10.29 K/uL (4.8-10.8)
[2017-01-16 07:14] LABS: MEAN PLATELET VOLUME 10.4 fL (7.4-10.4); PLATELET COUNT 45 K/uL (130-400)
[2017-01-16 07:43] VITALS: BP 155/71; PULSE 99; TEMP 36.5; O2SAT 99
[2017-01-16 07:44] LABS: BUN/CREATININE RATIO 11.8 (10-20); CALCIUM 7.2 mg/dl (8.5-10.1); CREATININE 9.3 mg/dl (0.60-1.40); POTASSIUM 4.2 mmol/L (3.5-5.1)
[2017-01-16] MEDS: METOPROLOL TARTRATE 25 MG TAB PO SCH (08:56)
[2017-01-16] MEDS: DOCUSATE SODIUM 100 MG CAP PO SCH (08:57)
[2017-01-16] MEDS: SENNA 8.6 MG TAB PO SCH (08:57)
[2017-01-16] MEDS: ALLOPURINOL 100 MG TAB PO SCH (08:57)
[2017-01-16 09:00] VITALS: BP 121/59; PULSE 79; TEMP 36.4
[2017-01-16] MEDS ORDERED: ASPIRIN 81 MG ECTAB PO SCH (09:00)
[2017-01-16] MEDS: INSULIN GLARGINE SOLOSTAR 100 UNITS/ML 3 ML PEN SC SCH (09:04)
[2017-01-16] MEDS: CALCIUM ACETATE 667MG GELCAP PO SCH ×2 (09:05→11:54)
[2017-01-16] MEDS: INSULIN ASPART 100 UNITS/ML 3 ML PEN SC SCH ×2 (09:05→12:01)
[2017-01-16 10:40] VITALS: BP 114/77; PULSE 105; TEMP 36.6; O2SAT 97
--- NOTE | 2017-01-16 11:08 | Cardiology Follow-Up ---
Subjective General Date of Service: Jan 16, 2017. Chief Complaint: afib Pt evaluation today including: conversation w/ patient, physical exam, chart review, lab review, review of studies, review of inpatient medication list History of Present Illness Patient feeling ok this AM. Denies complaints at this time. Denies chest pain or worsening SOB. No dizziness. No sense of palpitations. No near syncope. Allergies Coded Allergies: No Known Allergies (Unverified , 01/11/17) Social History Smoking Status: Never Smoker Hx Tobacco Use In Past Year?: No Hx Alcohol Use - Type And Amou: No Hx Substance Use - Type And Am: No Problem List Medical Problems: (1) Influenza Status: Acute (2) Intravascular volume depletion Status: Acute Review of Systems Respiratory: + shortness of breath, No sputum Cardiac: No chest pain, No edema, No orthopnea, No palpitations Physical Exam Vital Signs Last Vital Signs Documentation Date Time Temp Pulse Resp B/P Pulse Ox O2 Delivery O2 Flow Rate FiO2 01/16/17 10:40 36.6 105 20 114/77 97 Room Air 01/16/17 08:00 2.0 Physical Exam Constitutional: General Apperance: well-developed Level of Distress: NAD Psychiatric: Mental Status: active & alert Orientation: to time, to place, to person Head: normocephalic Eyes: Pupils: PERRLA Neck: supple Lungs: Auscultation: no wheezing, no rales/crackles, deminished air movement Cardiovascular: Heart Auscultation: no murmurs, no rubs, no gallops, irregular rate rhythm Abdomen: Bowel Sounds: normal Inspection & Palpation: soft, non-distended Extremities: no edema Assessment and Plan Assessment and Plan 1. New onset atrial fibrillation with mildly elevated ventricular rates -recent Zio monitor with evidence of conduction system disease, tachybrady -it has been recommended the patient undergo dual chamber pacemaker implant at prior office visit and this is scheduled tentatively for 01/[address] Emmanuel -Per review of recent hospital notes, patient is now considering palliative care/hospice if condition does not improve with rehab (pulmonary disease/ESRD). Discussed pacer with patient this AM, 01/16/17 and he does not wish to change pacer plans. Wishes to keep 01/28 pacer appt as scheduled. -At this time, afib is difficult to treat, unable to increase metoprolol. No evidence of significant bradyarrhythmias on current dose. Rates relatively well controlled at rest, ranging 100-120. -continue metoprolol tartrate PO with additional IV metoprolol PRN for rates > 130 -given thrombocytopenia and recent falls, anticoagulation is contraindicated. Will try to resume ASA 81 mg daily for stroke prevention. -once pacemaker has been implanted, further HR/rhythm control may be discussed with alternative meds. 2. Congenitally bicuspid aortic valve with severe aortic stenosis Status post May 03, 2009 minimally invasive AVR with a 23 mm Harvey- Dunlap pericardial valve at [facility]. -Echo report reviewed - preserved LV function, mildly increased gradients of AVR. 3. Moderate branch vessel ASCVD Asymptomatic. Continue appropriate medical therapies. 4. End stage renal disease, on peritoneal dialysis 5. Pulmonary granulomatosis and right main stenosis - pulmonology following Case discussed with Dr. Chaves. Will follow. CARDIOLOGY ATTENDING ADDENDUM: The patient was seen and personally examined. Agree with Kenzie Grullon PA-C's findings and plans as documented above. Laboratory Results Last 24 Hours Test 01/15/17 11:14 01/15/17 16:07 01/15/17 20:10 01/16/17 05:57 Bedside Glucose 259 mg/dl 154 mg/dl 191 mg/dl White Blood Count 10.29 K/uL Red Blood Count 2.98 M/uL Hemoglobin 8.8 g/dL Hematocrit 25.5 % Mean Corpuscular Volume 85.6 fL Mean Corpuscular Hemoglobin 29.5 pg Mean Corpuscular Hemoglobin Concent 34.5 g/dl RDW Standard Deviation 41.2 fL RDW Coefficient of Variation 13.1 % Platelet Count 45 K/uL Mean Platelet Volume 10.4 fL Sodium Level 129 mmol/L Potassium Level 4.2 mmol/L Chloride Level 88 mmol/L Carbon Dioxide Level 26 mmol/L Anion Gap 15.0 mmol/L Blood Urea Nitrogen 110 mg/dl Creatinine 9.30 mg/dl Est Creatinine Clear Calc Drug Dose 8.8 ml/min Estimated GFR () 6.1 Estimated GFR (Non- 5.2 BUN/Creatinine Ratio 11.8 Random Glucose 220 mg/dl Calcium Level 7.2 mg/dl Test 01/16/17 06:51 Bedside Glucose 233 mg/dl
--- NOTE | 2017-01-16 11:27 | Progress Note ---
Subjective Date of Service: Jan 16, 2017. Subjective Pt evaluation today including: conversation w/ patient, physical exam, lab review, review of studies, review of inpatient medication list Saw/examined the patient in room 236 He's seated in a chair today; states he feels "just okay" today - weakness persists No chest pain, no palpitations - breathing status at baseline Problem List Medical Problems: (1) Influenza Status: Acute (2) Intravascular volume depletion Status: Acute Review of Systems Constitutional: + weakness, No chills, No fever Respiratory: + cough, + shortness of breath (baseline), + sputum, No dyspnea at rest, No dyspnea on exertion, No hemoptysis, No wheezing Cardiac: + edema, No chest pain, No palpitations Abdomen: No diarrhea, No nausea, No pain, No vomiting Medications Current Inpatient Medications Medications (Trade) Dose Ordered Sig/Romulo Route Start Time Stop Time Status Last Admin Dose Admin Acetaminophen (Tylenol Tab) 650 mg Q4H PRN PO 01/11/17 15:45 02/10/17 15:44 Ondansetron HCl (Zofran Inj) 4 mg Q6H PRN IV 01/11/17 15:45 02/10/17 15:44 Miscellaneous Information (Consult Glycemic Management Pharmacy) 1 ea UD PRN N/A 01/11/17 16:05 02/10/17 16:04 Miscellaneous Information (Pharmacy Consult) 1 ea UD PRN N/A 01/11/17 15:53 02/10/17 15:52 Amoxicillin/ Clavulanate Potassium (Augmentin Tab) 500 mg Q24H PO 01/11/17 17:00 01/21/17 16:59 01/15/17 18:10 500 MG Allopurinol (Zyloprim Tab) 100 mg BID PO 01/11/17 21:00 02/10/17 20:59 01/16/17 08:57 100 MG Metoprolol Tartrate (Lopressor Tab) 12.5 mg QAM PO 01/12/17 09:00 02/11/17 08:59 01/16/17 08:56 12.5 MG Prednisone (PredniSONE TAB) 40 mg DAILY PO 01/12/17 09:00 02/11/17 08:59 01/16/17 08:57 40 MG Rosuvastatin Calcium (Crestor Tab) 40 mg HS PO 01/11/17 21:00 02/10/17 20:59 01/15/17 21:25 40 MG Calcium Acetate (Phoslo Cap) 667 mg TIDM PO 01/11/17 17:18 02/10/17 17:59 01/16/17 09:05 667 MG Insulin Aspart (novoLOG ASPART) SLIDING SCALE ACHS SC 01/11/17 21:00 02/10/17 20:59 01/16/17 09:05 3 UNITS Zolpidem Tartrate (Ambien Tab) 5 mg HS PRN PO 01/12/17 05:15 02/11/17 05:14 01/15/17 23:33 5 MG Insulin Glargine (Lantus Solostar Pen) PER SCALE BID SC 01/12/17 21:00 02/10/17 20:59 01/16/17 09:04 22 UNIT Docusate Sodium (coLACE CAP) 100 mg BID PO 01/14/17 21:00 02/13/17 20:59 01/16/17 08:57 100 MG Senna (Senokot Tab) 17.2 mg QAM PO 01/15/17 09:00 02/14/17 08:59 01/16/17 08:57 17.2 MG Metoprolol Tartrate (Lopressor Iv) 5 mg Q4H PRN IV 01/14/17 11:30 02/13/17 11:29 01/14/17 13:47 5 MG Objective Vital Signs Date Time Temp Pulse Resp B/P Pulse Ox O2 Delivery O2 Flow Rate FiO2 01/16/17 10:40 36.6 105 20 114/77 97 Room Air 01/16/17 08:00 Nasal Cannula 2.0 01/16/17 07:43 36.5 99 20 155/71 99 2.0 01/16/17 04:05 36.7 72 18 104/58 93 Room Air 01/16/17 04:00 Nasal Cannula 2.0 01/16/17 00:14 36.4 75 18 98/62 93 Room Air 01/16/17 00:00 Nasal Cannula 2.0 01/15/17 20:50 Nasal Cannula 2.0 01/15/17 20:35 36.7 72 18 125/77 95 Room Air 01/15/17 19:51 36.5 72 86/56 01/15/17 16:00 99 Nasal Cannula 2.0 01/15/17 15:30 72 86/56 01/15/17 15:29 36.3 72 20 123/75 95 Room Air 01/15/17 14:32 65 67/41 01/15/17 13:50 93 01/15/17 13:40 76 105/66 01/15/17 13:18 107 86/55 96 Room Air 66 01/15/17 13:16 103 140/70 94 Room Air 01/15/17 12:00 99 Nasal Cannula 2.0 Physical Exam General Appearance: no apparent distress Respiratory/Chest: no respiratory distress, no accessory muscle use, + decreased breath sounds Cardiovascular: no murmur, + tachycardia, + irregularly irregular Extremities: + pertinent finding (+1 pitting edema b/l LE) Neurologic/Psychiatric: alert Laboratory Results Last 24 Hours Test 01/15/17 16:07 01/15/17 20:10 01/16/17 05:57 01/16/17 06:51 Bedside Glucose 154 mg/dl 191 mg/dl 233 mg/dl White Blood Count 10.29 K/uL Red Blood Count 2.98 M/uL Hemoglobin 8.8 g/dL Hematocrit 25.5 % Mean Corpuscular Volume 85.6 fL Mean Corpuscular Hemoglobin 29.5 pg Mean Corpuscular Hemoglobin Concent 34.5 g/dl RDW Standard Deviation 41.2 fL RDW Coefficient of Variation 13.1 % Platelet Count 45 K/uL Mean Platelet Volume 10.4 fL Sodium Level 129 mmol/L Potassium Level 4.2 mmol/L Chloride Level 88 mmol/L Carbon Dioxide Level 26 mmol/L Anion Gap 15.0 mmol/L Blood Urea Nitrogen 110 mg/dl Creatinine 9.30 mg/dl Est Creatinine Clear Calc Drug Dose 8.8 ml/min Estimated GFR () 6.1 Estimated GFR (Non- 5.2 BUN/Creatinine Ratio 11.8 Random Glucose 220 mg/dl Calcium Level 7.2 mg/dl Assessment and Plan This is a 66 year old male with PMH of ESRD on peritoneal dialysis, granulomatous lung disease/sarcoidosis, 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 of aortic valve replacement, mainstem bronchus stenosis, HTN, HLD Tachy-Love Syndrome 01/16 appreciate cardiology input on this matter continue b-arsalan at current dose to prevent bradyarrhythmias possible pacemaker insertion on 01/28 continue PT/OT at this time, discharge to rehab pending aspirin restarted as per cardiology 01/15 plan is continue b-arsalan at current dose possible pacemaker as per cardio if patient is not made hospice will d/c to [facility] on 01/16 rehab and then possible home hospice if weakness persists 01/14 currently seems to be going into A. fib with RVR due to tachy-love, must monitor and make sure he does not love down to note, he is scheduled for a permanent pacemaker on 01/28 - he has not decided if he wants this in will try one dose of IV Lopressor and monitor He is currently asymptomatic so will not push this further consulted cardiology for further input 01/13 likely related to Sarcoid/Granulomatous Lung Disease follows with cardiology he is to have a pacer placed on 01/28 Falls, Ambulatory Dysfunction Weakness 01/16 continue PT/OT no anticoagulation started on aspirin 01/15 continue PT/OT 01/14 patient presented with fall and weakness the risks of anticoagulation may outweigh benefits long-term will continue PT/OT plan is for [facility] discharge around 01/16 appreciate palliative care consultation 01/13 continue PT/OT discharge planning to [facility] in 1-2 days palliative care consult for discussion about home hospice if that will be an option in the future 01/12 patient has had multiple admissions to the hospital multiple mechanical falls states that he does not get dizzy, just felt weak and fell will need PT/OT placement to rehab discharge planning evaluation ESRD on PD 01/16 continue peritoneal dialysis as per nephrology will continue this at [facility] 01/15 continue PD appreciate nephro input 01/14 potassium wnl sodium a little low at 128 appreciate nephro input regarding PD continue PD as tolerated 01/13 potassium = 4.0 continue PD as per nephro appreciate nephrology input 01/12 potassium on admission ~ 5.4 given IV insulin 10 units and Kayexalate Potassium now wnl Sodium improved from 124 to 128 removed about 700cc with PD continue PD nightly appreciate nephrology input Elevated Troponin Level this is more likely related to this end stage kidney disease as well as tachycardia denies chest pain, denies shortness of breath, denies cough No other symptoms to note Sinusitis Head CT with no acute intracranial findings air-fluid levels at sinuses started on Augmentin Granulomatous Lung Disease/Sarcoidosis Hilar/Mediastinal and Diaphragmatic Lymphadenopathy stable continue chronic steroid use Insulin Dependent DM2 started on 22 units Lantus BID insulin sliding scale glycemic control consult appreciated Thrombocytopenia platelets down to 58, monitor likely due to chronic disease CAD continue b-arsalan and statin monitor for bradycardia holding aspirin due to thrombocytopenia DVT ppx SCDs DNR d/c planning for 01/16
[2017-01-16] MEDS ORDERED: AMOX1TAB42 PO (11:30)
--- NOTE | 2017-01-16 11:34 | Discharge Instructions ---
Discharge Instructions Date of Service Jan 16, 2017. Admission Reason for Admission: Hyperkalemia, Weakness Discharge Discharge Diagnosis / Problem: Weakness, Granulomatous Lung Disease, Tachy- Igor syndrome Discharge Goals Goal(s): Decrease discomfort, Improve function Activity Recommendations Activity Limitations: resume your previous activity Exercise/Sports Limitations: gradually increase as tolerated . Instructions / Follow-Up Instructions / Follow-Up Patient to be discharged to [facility] Peritoneal Dialysis daily for ESRD Granulomatous Lung disease - should be on prednisone daily Tachy-Igor syndrome - permissive tachycardia - continue b-arsalan as prescribed to prevent bradycardia Should follow-up with primary care after [facility] - home hospice consideration may be made after [facility] Diet Patient's current hospital diet: Diabetes Type 2 Diet, AHA Diet (Heart Healthy) , Renal Diet, Low Sodium Diet (2gm Na) Discharge Diet Recommended Diet: Low Sodium Diet (2gm Na), Diabetes Type 2 Diet, Renal Diet Pending Studies Studies pending at discharge: no Laboratory Results Hemoglobin A1c Test 12/18/16 06:20 Range/Units Estimated Average Glucose 117 mg/dl Hemoglobin A1c 5.7 H 4.5-5.6 % Medical Emergencies . Who to Call and When: Medical Emergencies: If at any time you feel your situation is an emergency, please call 911 immediately. . Non-Emergent Contact Non-Emergency issues call your: Primary Care Provider . . "Provider Documentation" section prepared by Lisa Stearns. VTE Core Measure Inpt VTE Proph given/why not?: SCD's
--- NOTE | 2017-01-16 11:40 | Discharge Summary ---
Discharge Summary Date of Service Jan 16, 2017. Discharge Summary Admission Date: Jan 11, 2017 at 15:39 Discharge Date: Jan 16, 2017 Discharge Disposition: Rehab Principal Diagnosis: Tachy-Love Syndrome Granulomatous Lung Disease End Stage Renal Disease on PD Thrombocytopenia Acute Sinusitis Generalized Weakness Medication Reconciliation New Medications: Amoxicillin & Pot Clavulanate (Amoxicillin/Clavulanate P) 1 Tab Tab 500 MG PO Q24H for 5 Days, #5 TAB Continued Medications: Allopurinol (Zyloprim) 100 Mg Tab 100 MG PO BID, TAB Aspirin (Aspirin Ec) 81 Mg Tab 81 MG PO QAM Calcium Acetate (Phoslo 667 Mg) 667 Mg Cap 1 CAP PO TIDM for 90 Days, CAP 3 Refills Colchicine (Colchicine) 0.6 Mg Tab 0.6 MG PO DAILY PRN for gout flare, TAB Insulin Aspart (Novolog) 100 Units/Ml Inj 0 SQ TIDM PER SLIDING SCALE Insulin Glargine (Toujeo Solostar) 300 Unit/Ml Inj 22 UNITS SQ QAM Insulin Glargine (Toujeo Solostar) 300 Unit/Ml Inj 22 UNITS SQ QPM Metoprolol Tartrate (Lopressor) 25 Mg Tab 12.5 MG PO QAM for 30 Days, #15 TAB 5 Refills Prednisone (Prednisone) 20 Mg Tab 40 MG PO DAILY for 30 Days, #60 TAB 4 Refills Rosuvastatin Calcium (Crestor) 20 Mg Tab 40 MG PO HS, TAB Admission Information HPI (per Admitting provider): 66 year old male who presents to the ER after a fall. Patient was recently admitted to [facility] 12/25 - 12/30 for weakness, volume overload, intermittent bradycardia, sarcoidosis, and influenza A. At the time of discharge, his metoprolol was decreased and Prednisone daily dose was increased. Patient reports that since being home he has continued to be weak. He has had two falls this week with the most recent one being today. left the home for a short period of time and when she came home she found him on the floor. He reports that both of his falls were because he lost his balance. He did his his head but he denies any loss of coconsciousness. He denies chest pain and shortness of breath. Lower extremity edema is much improved from prior admission. No lightheadedness or dizziness. He denies abdominal pain, nausea, or vomiting. No fever or chills. Peritoneal dialysis has been functioning normal. In the ER, patient's K+ is found to be 5.9, Na+ 128, trop 0.508. EKG without acute changes. Head CT was negative for intracranial injury however did show right mastoid effusion, opacified left maxillary sinus, frontal sinus air-fluid level , and opacified left ethmoid air cells. WBC 13K. He is hemodynamically stable. Physical Exam (per Admitting): General Appearance: no apparent distress Head: normocephalic Eyes: normal inspection ENT: hearing grossly normal Neck: supple, no JVD Respiratory/Chest: lungs clear, normal breath sounds, no respiratory distress Cardiovascular: regular rate, rhythm, + systolic murmur, + pertinent finding (+2pitting edema BLLE) Abdomen/GI: normal bowel sounds, non tender, soft, + pertinent finding ( peritoneal dialysis catheter in place without signs of infection) Back: normal inspection, no CVA tenderness Extremities/Musculoskelatal: normal inspection, no calf tenderness Neurologic/Psych: no motor/sensory deficits, alert, normal mood/affect, oriented x 3 Skin: normal color, warm/dry, + pertinent finding (abrasions x 2 noted to scalp) Hospital Course This is a 66 year old male with PMH of ESRD on peritoneal dialysis, granulomatous lung disease/sarcoidosis, 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 of aortic valve replacement, mainstem bronchus stenosis, HTN, HLD Tachy-Love Syndrome 01/16 appreciate cardiology input on this matter continue b-arsalan at current dose to prevent bradyarrhythmias possible pacemaker insertion on 01/28 continue PT/OT at this time, discharge to rehab pending aspirin restarted as per cardiology 01/15 plan is continue b-arsalan at current dose possible pacemaker as per cardio if patient is not made hospice will d/c to [facility] on 01/16 rehab and then possible home hospice if weakness persists 01/14 currently seems to be going into A. fib with RVR due to tachy-love, must monitor and make sure he does not love down to note, he is scheduled for a permanent pacemaker on 01/28 - he has not decided if he wants this in will try one dose of IV Lopressor and monitor He is currently asymptomatic so will not push this further consulted cardiology for further input 3/13 likely related to Sarcoid/Granulomatous Lung Disease follows with cardiology he is to have a pacer placed on 01/28 Falls, Ambulatory Dysfunction Weakness 01/16 continue PT/OT no anticoagulation started on aspirin 01/15 continue PT/OT 01/14 patient presented with fall and weakness the risks of anticoagulation may outweigh benefits long-term will continue PT/OT plan is for [facility] discharge around 01/16 appreciate palliative care consultation 01/13 continue PT/OT discharge planning to [facility] in 1-2 days palliative care consult for discussion about home hospice if that will be an option in the future 01/12 patient has had multiple admissions to the hospital multiple mechanical falls states that he does not get dizzy, just felt weak and fell will need PT/OT placement to rehab discharge planning evaluation ESRD on PD 01/16 continue peritoneal dialysis as per nephrology will continue this at [facility] 01/15 continue PD appreciate nephro input 01/14 potassium wnl sodium a little low at 128 appreciate nephro input regarding PD continue PD as tolerated 01/13 potassium = 4.0 continue PD as per nephro appreciate nephrology input 01/12 potassium on admission ~ 5.4 given IV insulin 10 units and Kayexalate Potassium now wnl Sodium improved from 124 to 128 removed about 700cc with PD continue PD nightly appreciate nephrology input Elevated Troponin Level this is more likely related to this end stage kidney disease as well as tachycardia denies chest pain, denies shortness of breath, denies cough No other symptoms to note Sinusitis Head CT with no acute intracranial findings air-fluid levels at sinuses started on Augmentin Granulomatous Lung Disease/Sarcoidosis Hilar/Mediastinal and Diaphragmatic Lymphadenopathy stable continue chronic steroid use Insulin Dependent DM2 started on 22 units Lantus BID insulin sliding scale glycemic control consult appreciated Thrombocytopenia platelets down to 58, monitor likely due to chronic disease CAD continue b-arsalan and statin monitor for bradycardia holding aspirin due to thrombocytopenia DVT ppx SCDs DNR d/c planning for 01/16 Total time spent on discharge = 40 minutes This includes examination of the patient, discharge planning, medication reconciliation, and communication with other providers. Discharge Instructions Patient to be discharged to [facility] today Peritoneal Dialysis daily for ESRD Granulomatous Lung disease - should be on prednisone daily Tachy-Love syndrome - permissive tachycardia - continue b-arsalan as prescribed to prevent bradycardia Should follow-up with primary care after [facility] - home hospice consideration may be made after [facility]
[2017-01-16 11:41] VITALS: BP 114/77; PULSE 105; TEMP 36.6; O2SAT 97
--- NOTE | 2017-01-16 17:22 | Nephrology Progress Note ---
Nephrology Progress Note Date of Service: Jan 16, 2017. Subjective see this am 0810. no change in chronic dyspnea; denies pain or distress. feels edema remains controlled; no n/v/d/c/ abd pain. moved bowels yesterday. he has been positive UF on PD past 2 days including about 250 mL overnight. for transfer to [facility] today; pacemaker planned for later this month Objective Date Time Temp Pulse Resp B/P Pulse Ox O2 Delivery O2 Flow Rate FiO2 01/16/17 11:41 36.6 105 20 97 Room Air 01/16/17 10:40 36.6 105 20 114/77 97 Room Air 01/16/17 09:00 36.4 79 22 121/59 01/16/17 08:00 Nasal Cannula 2.0 01/16/17 07:43 36.5 99 20 155/71 99 2.0 01/16/17 04:05 36.7 72 18 104/58 93 Room Air 01/16/17 04:00 Nasal Cannula 2.0 01/16/17 00:14 36.4 75 18 98/62 93 Room Air 01/16/17 00:00 Nasal Cannula 2.0 01/15/17 20:50 Nasal Cannula 2.0 01/15/17 20:35 36.7 72 18 125/77 95 Room Air 01/15/17 19:51 36.5 72 86/56 Physical Exam: GENERAL: Awake, alert, oriented x3. sitting up in bed; on 02nc today EYES: No scleral icterus. ENT: Moist mucous membranes. NECK: Supple. PULMONARY: very diminished CARDIAC: irregularly irregular ABDOMEN: PD catheter present; on PD. Bowel sounds positive, soft, nontender. EXTREMITIES: No significant clubbing, cyanosis; 1+ BL pedal edema. NEUROLOGICAL: davila, fluent speech; ?insight as at previous exams, generalized weakness Last 24 Hours Test 01/15/17 20:10 01/16/17 05:57 01/16/17 06:51 01/16/17 11:13 Bedside Glucose 191 mg/dl 233 mg/dl 213 mg/dl White Blood Count 10.29 K/uL Red Blood Count 2.98 M/uL Hemoglobin 8.8 g/dL Hematocrit 25.5 % Mean Corpuscular Volume 85.6 fL Mean Corpuscular Hemoglobin 29.5 pg Mean Corpuscular Hemoglobin Concent 34.5 g/dl RDW Standard Deviation 41.2 fL RDW Coefficient of Variation 13.1 % Platelet Count 45 K/uL Mean Platelet Volume 10.4 fL Sodium Level 129 mmol/L Potassium Level 4.2 mmol/L Chloride Level 88 mmol/L Carbon Dioxide Level 26 mmol/L Anion Gap 15.0 mmol/L Blood Urea Nitrogen 110 mg/dl Creatinine 9.30 mg/dl Est Creatinine Clear Calc Drug Dose 8.8 ml/min Estimated GFR () 6.1 Estimated GFR (Non- 5.2 BUN/Creatinine Ratio 11.8 Random Glucose 220 mg/dl Calcium Level 7.2 mg/dl Assessment & Plan 66 y/o M w/ ESRD on PD, hx of sarcoidosis, AVR, DM, mainstem bronchus narrowing w/ frequent admissions for volume overload admitted 01/12 with failure to thrive at home and ambulatory dysfunction. 1. End-stage renal disease, on peritoneal dialysis. Volume status appears acceptable. cont 5 x 2L exchanges on cycler over 12 hours; at [facility] will alternate all yellow with yellow/gree; no MDE or LBF. Currently not uremic and volume status appears appropriate>>creatinine dropping finally under 10, reflecting more adequate dialysis. moving bowels 2. Anemia of renal failure. Given his history of melanoma this past fall, the patient is transfusion dependent. No indication for transfusion at this time. Given cardiac hx, may need to have threshold of 7.5 hgb for transfusion. [facility] 3. Renal osteodystrophy. continue patient's phosphate binders after d/c; may need to increase binders but will [facility] 4. Cardiology. The patient was recently recommended by cardiology to have a pacemaker, given tachy/love episodes, w/ tentative plan for later this month. 5. Goals of care. The patient is considering whether or not to pursue home hospice. is the primary caregiver for the patient and has been doing an excellent job taking care of him at home, but is getting tired and patient is becoming too much for her to handle at home. The patient at this time is not ready to do home hospice and would like to try physical therapy/ rehabilitation at [facility] which is the tentative plan Appreciate consult; will follow with you. care coordinated w/ Dr Stearns
== END 2017-01-16 13:03 | DRG 91 ==
LOC: ENRESERVTM → ENRESERVDT → EDBD 13:20 → C.EDB 13:22 → C.2T 15:39 → UNDOADMIN 17:17 → C.2T 17:17
PROVIDERS: ADMIT Hospitalist; ATTEND Family Medicine
DX: R26.9 Unspecified abnormalities of gait and mobility (principal); N18.6 End stage renal disease; I13.2 Hypertensive heart and chronic kidney disease with heart failure and with stage 5 chronic kidney disease, or end stage renal disease; E87.1 Hypo-osmolality and hyponatremia; Z86.010 Personal history of colon polyps; I25.10 Atherosclerotic heart disease of native coronary artery without angina pectoris; I49.5 Sick sinus syndrome; E11.22 Type 2 diabetes mellitus with diabetic chronic kidney disease; M10.9 Gout, unspecified; B18.2 Chronic viral hepatitis C; Z99.2 Dependence on renal dialysis; Z85.820 Personal history of malignant melanoma of skin; G47.33 Obstructive sleep apnea (adult) (pediatric); Z79.4 Long term (current) use of insulin; Z83.3 Family history of diabetes mellitus; Z82.49 Family history of ischemic heart disease and other diseases of the circulatory system; Z87.19 Personal history of other diseases of the digestive system; Z79.82 Long term (current) use of aspirin; Z79.899 Other long term (current) drug therapy; E87.5 Hyperkalemia; D69.6 Thrombocytopenia, unspecified; D86.0 Sarcoidosis of lung; Z66 Do not resuscitate; Z79.52 Long term (current) use of systemic steroids; E11.65 Type 2 diabetes mellitus with hyperglycemia; D63.1 Anemia in chronic kidney disease; Z51.5 Encounter for palliative care; N25.0 Renal osteodystrophy; Z85.828 Personal history of other malignant neoplasm of skin; Z95.2 Presence of prosthetic heart valve; Z98.1 Arthrodesis status; I48.91 Unspecified atrial fibrillation; E78.5 Hyperlipidemia, unspecified; K21.9 Gastro-esophageal reflux disease without esophagitis; J32.9 Chronic sinusitis, unspecified; E11.40 Type 2 diabetes mellitus with diabetic neuropathy, unspecified; Z91.81 History of falling